=== PATIENT | male | born 1995 | race Caucasian/White ===

== ENCOUNTER 2021-04-25 22:55 | Emergency (ER) | payer OTHER, SELFPAY ==
--- OUTSIDE RECORDS SUMMARY | 2021-04-25 22:59 | XMS REPORT | Continuity of Care Document ---
:1995 Author Organization [facility] t Address [address] [place] [address] Care Team Providers Name Role Phone DR KEISHA CHRISTENSEN Attending Clinician Unavailable DR ALAINA BUTT Attending Clinician Unavailable DR Samuel CHRISTENSEN Admitting Clinician Unavailable DR ALAINA BUTT Admitting Clinician Unavailable Problems This patient has no known problems. Allergies, Adverse Reactions, Alerts This patient has no known allergies or adverse reactions. Medications This patient has no known medications. Procedures This patient has no known procedures. Encounters Start End Encounter Admission Attending Care Care Encounter Source Date/Time Date/Time Type Type Clinicians Facility Department ID 2020-12-13 2020-12-13 Emergency E KEISHA [facility]RISTENSEN [facility] [id number] [facility] 22:26:00 23:23:00 [facility] [place] 2018-05-17 2018-05-17 Emergency E DAQUAN [facility] [id number] [facility] 03:57:00 05:14:00 [facility] 2017-11-11 2017-11-11 Emergency E KEISHA CHRISTENSEN [facility] [id number] [facility] 19:21:00 [facility]:04:[facility] [place] Results Test Description Test Time Test Comments Results Result [facility] e Comments XR CHEST 1 VIEW 2018-05-17 XR CHEST 1 VIEW PORTABLE 05:05:34 PORTABLE[address] hours services provided 05/17/2018 5:02 AMIndication:R07.9: CHEST PAIN, UNSPECIFIEDComparison :2/indings:The lungs are equally and symmetrically inflated. The trachea ismidline. The cardiac silhouette is normal in size. No acute bony abnormality.Impressio n:No acute cardiopulmonary disease. D-DIMER 2018-05-17 04:56:00 Test Item Value Reference Range Interpretation Comme nts D-DIMER (test code = DDI) <200 ng/mL D-DU 0-234 D-DIMER COMMENT (test code = DDCOM) *Level to rule out DVT or PE: < 235 ng/mL D-DU* PRO TIME AND [id number] 04:54:00 Test Item Value Reference Range Interpretation Comments PT (test code = 10.6 s 9.8-13.6 TT) INR (test code = 0.9 INR) INRH (test code = SUGGESTED INRH) THERAPEUTIC RANGE FOR INR: 2.5 - 3.5 For Patients with Prosthetic Valves or Patients with recurrent Thromboembolic Events 2.0 - 3.0 For Most Other Applications PTT (test code = 30.0 s 20.2-38.0 PTT) PTTH (test code = To monitor the PTTH) effectiveness of heparin, we offer the Anti-Xa (Heparin Assay). It can be used for either unfractionated or LMW Heparin. Order Code is ANTI-XA BRAIN NATRIURETIC [id number] 04:46:00 Test Item Value Reference Range Interpretation Comments proBNP (test code = PBNP) 8 pg/mL 0-125 CARDIAC [id number] 04:43:00 Test Item Value Reference Range Interpretation Comments TROPONIN I (test code = A84) <0.015 ng/mL 0.000-0.045 CKMB (test code = A49) <1.0 ng/mL <=3.6 CPK (test code = 32A) 149 IU/L 39-308 COMPREHENSIVE METABOLIC [id number] 04:41:00 Test Item Value Reference Range Interpretation Comments GLUCOSE (test code = 06D) 100 mg/dL 75-100 SODIUM (test code = 01A) 141 mmol/L 136-145 POTASSIUM (test code = 01B) 3.6 mmol/L 3.6-5.1 CHLORIDE (test code = 04A) 107 mmol/L 98-107 CO2 (test code = 02A) 28 mmol/L 22-32 ANION GAP (test code = ANG) 9.6 mmol/L BUN (test code = 05D) 11 mg/dL 7-18 CREATININE (test code = 03E) 1.0 mg/dL 0.7-1.3 BUN/CREA (test code = BCR) 11 12-20 L CALCIUM (test code = 09D) 9.2 mg/dL 8.3-9.5 BILI TOTAL (test code = 11A) 0.3 mg/dL 0.2-1.0 PROTEIN (test code = 07D) 7.2 g/dL 6.4-8.2 ALBUMIN (test code = 08D) 4.1 g/dL 3.5-4.8 GLOBULIN (test code = GLB) 3.1 g/dL 1.5-3.8 ALB/GLOB (test code = AGRR) 1.3 1.0-2.6 ALK PHOS (test code = 35A) 130 IU/L 42-121 H AST (test code = 30A) 22 IU/L <=42 ALT (test code = 31A) 37 IU/L <=78 AMYLASE AND [id number] 04:41:00 Test Item Value Reference Range Interpretation Comments AMYLASE (test code = 10A) 34 U/L 28-100 LIPASE (test code = 60A) 128 IU/L 73-393 ALCOHOL BLOOD (ETOH)2018-05-17 04:38:00 Test Item Value Reference Range Interpretation Comments ETOH (test code = HALC) ETHANOL The result is to be used only for medical purposes ALCOHOL (test code = <10 mg/dL <=10 56A) DRUGS OF [id number] 04:31:00 Test Item Value Reference Range Interpretation Comments DRUG SCRN (test code URINE DRUG SCREEN = HDOA) This is an unconfirmed screening result and should not be used for non-medical purposes CANNABINOD (test code Negative NEGATIVE = 88C) AMPHETAMINE (test Negative NEGATIVE code = 84A) BENZODIAZP (test code Negative NEGATIVE = 86A) BARBITURAT (test code Negative NEGATIVE = 85A) OPIATES (test code = Negative NEGATIVE 92B) COCAINE (test code = Negative NEGATIVE 87A) PHENCYCLID (test code Negative NEGATIVE = 66A) METHADONE (test code Negative NEGATIVE = 64A) DOAH (test code = DOAH) *URINE DRUG SCREEN Cut-off values are as follows: Cannabinoids 50 ng/mL Cocaine 300 ng/mL Amphetamines 1000 ng/mL Phencyclidine 25 ng/mL Benzodiazepines 200 ng.mL Methadone 300 ng/mL Barbiturates 200 ng/mL Opiates 2000 ng/mL CBC (INCLUDES AUTOMATED DIFFERENTIAL)2018-05-17 04:18:00 Test Item Value Reference Range Interpretation Comments WBC (test code = WBC) 9.5 10\S\3/uL 4.5-11.0 RBC (test code = RBC) 4.90 10\S\6/uL 4.30-5.70 HGB (test code = HBG) 14.8 g/dL 14.0-18.0 HCT (test code = HCT) 43.5 % 35.0-46.0 MCV (test code = MCV) 88.8 fL 80.0-94.0 MCH (test code = MCH) 30.2 pg 27.0-31.0 MCHC (test code = MCHC) 34.0 g/dL 32.0-36.0 RDW (test code = RDW) 13.2 % 11.5-14.5 PLT (test code = PLT) 271 10\S\3/uL 130-400 MPV (test code = MPV) 9.8 fL 9.4-12.4 NEUTROP # (test code = NE#) 5.6 10\S\3/uL 2.0-8.0 LYMPH # (test code = LY#) 2.9 10\S\3/uL 1.2-4.0 MONOCYTE # (test code = MO#) 0.8 10\S\3/uL 0.0-1.1 EOSINOPH # (test code = EO#) 0.2 10\S\3/uL 0.0-0.7 BASOPHIL # (test code = BA#) 0.0 10\S\3/uL 0.0-0.3 IG # (test code = IG#) 0.03 10\S\3/uL 0.00-0.06 NRBC # (test code = NRBC#) 0.00 10\S\3/uL 0.00-0.01 NEUTROPH % (test code = NE%) 58.8 % 35.0-73.0 LYMPH % (test code = LY%) 30.8 % 20.0-55.0 MONO % (test code = MO%) 7.9 % 2.5-10.0 EOSINOPH % (test code = EO%) 1.8 % 0.0-5.0 BASOPHIL % (test code = BA%) 0.4 % 0.0-2.0 IG % (test code = IG%) 0.3 % 0.0-0.8 NRBC% (test code = NRBC%) 0.0 % 0.0-0.2 MANDIFF (test code = MDIFF) NO NO RBC MORPH (test code = RBCMOR) NORMAL DRUGS OF [id number] 20:50:00 Test Item Value Reference Range Interpretation Comments DRUG SCRN (test code URINE DRUG SCREEN = HDOA) This is an unconfirmed screening result and should not be used for non-medical purposes CANNABINOD (test code Negative NEGATIVE = 88C) AMPHETAMINE (test Negative NEGATIVE code = 84A) BENZODIAZP (test code Negative NEGATIVE = 86A) BARBITURAT (test code Negative NEGATIVE = 85A) OPIATES (test code = Negative NEGATIVE 92B) COCAINE (test code = Negative NEGATIVE 87A) PHENCYCLID (test code Negative NEGATIVE = 66A) METHADONE (test code Negative NEGATIVE = 64A) DOAH (test code = DOAH) *URINE DRUG SCREEN Cut-off values are as follows: Cannabinoids 50 ng/mL Cocaine 300 ng/mL Amphetamines 1000 ng/mL Phencyclidine 25 ng/mL Benzodiazepines 200 ng.mL Methadone 300 ng/mL Barbiturates 200 ng/mL Opiates 2000 ng/mL CT HEAD W/O [id number] 20:28:53AFTER HOURS SERVICE ON: 11/11/2017 8:27 PMCT Scan of the Brain Without ContrastLocation Code [id number]: R42: DIZZINESS AND GIDDINESSTechnique: Scans were performed on a helical scanner pre IV contrast only. Thestudy is limited secondary to lack of intravenous contrast, particularly forevaluation of masses. CT images were performed within 24 hours at arrival tot facility. One or more of the following dose reduction techniques were used: Automatedexposure control, adjustment of the mA and/or kV according to patient size,and/or utilization of iterative reconstruction technique.Findings: There is no hydrocephalus. Basal cisterns are patent. There is no intracranialhyperdense hemorrhage. There is no midline shift or mass effect. No effacementof the urrutia-white matter junction to indicate acute infarct ion. Impression:No acute intracranial CT findings.ALCOHOL BLOOD (ETOH) 2017-11-11 20:27:00 Test Item Value Reference Range Interpretation Comments ETOH (test code = HALC) ETHANOL The result is to be used only for medical purposes ALCOHOL (test code = <10 mg/dL <=10 56A) [id number] 20:23:00 Test Item Value Reference Range Interpretation Comments CPK (test code = 32A) 164 IU/L 39-308 COMPREHENSIVE METABOLIC [id number] 20:23:00 Test Item Value Reference Range Interpretation Comments GLUCOSE (test code = 06D) 91 mg/dL 75-100 SODIUM (test code = 01A) 140 mmol/L 136-145 POTASSIUM (test code = 01B) 3.8 mmol/L 3.6-5.1 CHLORIDE (test code = 04A) 104 mmol/L 98-107 CO2 (test code = 02A) 29 mmol/L 22-32 ANION GAP (test code = ANG) 10.8 mmol/L BUN (test code = 05D) 10 mg/dL 7-18 CREATININE (test code = 03E) 0.9 mg/dL 0.7-1.3 BUN/CREA (test code = BCR) 11 12-20 L CALCIUM (test code = 09D) 9.5 mg/dL 8.3-9.5 BILI TOTAL (test code = 11A) 0.3 mg/dL 0.2-1.0 PROTEIN (test code = 07D) 7.9 g/dL 6.4-8.2 ALBUMIN (test code = 08D) 4.6 g/dL 3.5-4.8 GLOBULIN (test code = GLB) 3.3 g/dL 1.5-3.8 ALB/GLOB (test code = AGRR) 1.4 1.0-2.6 ALK PHOS (test code = 35A) 124 IU/L 42-121 H AST (test code = 30A) 21 IU/L <=42 ALT (test code = 31A) 31 IU/L <=78 TROPONIN [id number] 20:20:00 Test Item Value Reference Range Interpretation Comments TROPONIN I (test code = A84) <0.015 ng/mL 0.000-0.045 PRO TIME AND [id number] 20:15:00 Test Item Value Reference Range Interpretation Comments PT (test code = 11.1 s 9.8-13.6 TT) INR (test code = 1.0 INR) INRH (test code = SUGGESTED INRH) THERAPEUTIC RANGE FOR INR: 2.5 - 3.5 For Patients with Prosthetic Valves or Patients with recurrent Thromboembolic Events 2.0 - 3.0 For Most Other Applications PTT (test code = 27.5 s 20.2-38.0 PTT) PTTH (test code = To monitor the PTTH) effectiveness of heparin, we offer the Anti-Xa (Heparin Assay). It can be used for either unfractionated or LMW Heparin. Order Code is ANTI-XA CBC (INCLUDES AUTOMATED DIFFERENTIAL)2017-11-11 20:12:00 Test Item Value Reference Range Interpretation Comments WBC (test code = WBC) 7.4 10\S\3/uL 4.5-11.0 RBC (test code = RBC) 4.61 10\S\6/uL 4.30-5.70 HGB (test code = HBG) 13.7 g/dL 14.0-18.0 L HCT (test code = HCT) 40.6 % 35.0-46.0 MCV (test code = MCV) 88.1 fL 80.0-94.0 MCH (test code = MCH) 29.7 pg 27.0-31.0 MCHC (test code = MCHC) 33.7 g/dL 32.0-36.0 RDW (test code = RDW) 12.9 % 11.5-14.5 PLT (test code = PLT) 299 10\S\3/uL 130-400 MPV (test code = MPV) 10.1 fL 9.4-12.4 NEUTROP # (test code = NE#) 4.1 10\S\3/uL 2.0-8.0 LYMPH # (test code = LY#) 2.6 10\S\3/uL 1.2-4.0 MONOCYTE # (test code = MO#) 0.5 10\S\3/uL 0.0-1.1 EOSINOPH # (test code = EO#) 0.1 10\S\3/uL 0.0-0.7 BASOPHIL # (test code = BA#) 0.0 10\S\3/uL 0.0-0.3 IG # (test code = IG#) 0.02 10\S\3/uL 0.00-0.06 NRBC # (test code = NRBC#) 0.00 10\S\3/uL 0.00-0.01 NEUTROPH % (test code = NE%) 55.3 % 35.0-73.0 LYMPH % (test code = LY%) 35.3 % 20.0-55.0 MONO % (test code = MO%) 7.2 % 2.5-10.0 EOSINOPH % (test code = EO%) 1.5 % 0.0-5.0 BASOPHIL % (test code = BA%) 0.4 % 0.0-2.0 IG % (test code = IG%) 0.3 % 0.0-0.8 NRBC% (test code = NRBC%) 0.0 % 0.0-0.2 MANDIFF (test code = MDIFF) NO NO RBC MORPH (test code = RBCMOR) NORMAL XR CHEST 1 VIEW [id number] 19:59:42Portable chest one view.HISTORY: DizzinessLocation R 16COMMENT: No comparison. No pleural effusion. The lungs are clear and normallyexpanded. The cardiac silhouette is unremarkable. Skeletal structuresarenormal in appearance.IMPRESSION: No active disease in the chest.
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
[2021-04-26] MEDS ORDERED: HYDROCODONE/APAP 10/325 TAB ONE (00:38)
[2021-04-26] MEDS ORDERED: predniSONE 20 MG TAB ONE (00:38)
[2021-04-26 01:19] VITALS: BP 141/92; TEMP 98.9; O2SAT 99
== END 2021-04-26 00:41 | disposition home or self-care (01) ==
LOC: ER 22:55
DX: L55.0 Sunburn of first degree (principal); F17.210 Nicotine dependence, cigarettes, uncomplicated
CPT/HCPCS: 99283; J7512

== ENCOUNTER 2022-11-03 17:49 | Emergency (ER) | payer SELFPAY ==
--- OUTSIDE RECORDS SUMMARY | 2022-11-03 18:02 | XMS REPORT | Continuity of Care Document ---
:1995 Author Organization [facility] t Address [address] [place] [address] Care Team Providers Name Role Phone MAKENZIE BONDS Primary Care Physician Unavailable SE CALHOUN Attending Clinician Unavailable Se Calhoun DO Attending Clinician URIEL HEAD Attending Clinician Unavailable Uriel Head MD Attending Clinician DR SAMMIE ALVARADO Attending Clinician Unavailable ANEL BHAT Attending Clinician Unavailable Anel Bhat DO Attending Clinician NORRIS ALEX Attending Clinician Unavailable Norris Alex MD Attending Clinician Preethi GARCIA Attending Clinician Unavailable Preethi Wu Attending Clinician AMBREEN_SHIVAA Attending Clinician Unavailable Jayce Mcnulty Attending Clinician JAYCE PENN Attending Clinician Unavailable Zuniga_S Attending Clinician Unavailable DR KEISHA CHRISTENSEN Attending Clinician Unavailable DR PATRICIA BUTT Attending Clinician Unavailable MADELINE ARMSTRONG Attending Clinician Unavailable URIEL HEAD Admitting Clinician Unavailable DR SAMMIE ALVARADO Admitting Clinician Unavailable NORRIS ALEX Admitting Clinician Unavailable AMBREENNELLIE Admitting Clinician Unavailable Zuniga_S Admitting Clinician Unavailable DR KEISHA CHRISTENSEN Admitting Clinician Unavailable DR PATRICIA BUTT Admitting Clinician Unavailable Payers Payer Name Policy Type Policy Number Effective Date Expiration Date S ource 1000 [id number] 2022 00:00[facility]00 [facility] INC 00:00:00 Problems Condition Condition Condition Status Onset Resolution Last Treating Co mments Source Name Details Category Date Date Treatment Clinician Date 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 00:00: Medica l 00 Group Cervical Cervical Problem Active [place] radiculopa Radiculopa 5-16 da thy thy 00:00: Medical 00 Group Strain of Strain of Problem Active [place] neck Neck 5-16 da muscle Muscle 00:00: Medical 00 Group No known No known Disease Unive rs active active ity of problems problems [facility] Allergies, Adverse Reactions, Alerts Allergy Allergy Status Severity Reaction(s) Onset Inactive Treating Comm ents Source Name Type Date Date Clinician No Known DA Active Unknown [facility]29 Medical Allergie 00:00: [place] s 00 NO KNOWN Drug Active Univers ALLERGIE Class ity of S [facility] Social History Social Habit Start Date Stop Date Quantity Comments Source Exposure to 2022-10-19 2022-10-29 Not sure [facility] SARS-CoV-2 (event) 00:00:00 23:25:00 Medica l Branch Sex Assigned At [birth year] [facility] 00:00:00 00:00:00 Medical Branch Smoking Status Start Date Stop Date Source Tobacco smoking consumption [facility] Medical unknown Branch Light Tobacco Smoker Vanessa Diaz edical Group Medications Ordered Filled Start Stop Current Ordering Indication Dosage Frequency Signature Comments Components Source Medication Medication Date Date Medication? Clinician (SIG) Name Name NaCl 0.9% 2021-10 No 500mL at 999 Univ ers (NS) bolus -20 11-20 mL/hr, 500 it y of infusion 09:30: 09:24 mL, IV [place] 500 mL 00 :00 Piggyback, Medical ONCE, 1 Branch dose, On 08/27/22 at 0330, STAT ketorolac 2021-10 No 15mg 15 mg, Unive rs (TORADOL) -20 11-20 Slow IV ity of injection 09:30: 08:48 Push, [place] 15 mg 00 :00 ONCE, 1 Medical dose, On Branch 08/27/22 at 0330, TOSHA famotidine 2021-10- No 20mg 20 mg, Univ ers (PEPCID 1-20 11-20 Slow IV ity of (PF)) 08:45: 08:48 Push, [place] injection 00 :00 ONCE, 1 Medical 20 mg dose, On Branch 08/27/22 at 0245, TOSHA famotidine 2021-10 Yes [id number] 20mg Take 1 Un james (PEPCID) 20 1-20 tablet by ity of mg tablet 00:00: mouth [place] 00 the Medical morning Branch and 1 tablet in the evening. famotidine 2021-10 Yes [id number] 20mg Take 1 Un james (PEPCID) 20 1-20 tablet by ity of mg tablet 00:00: [place] 00 the Medical morning Branch and 1 tablet in the evening. famotidine 2021-10 Yes [id number] 20mg Take 1 Un james (PEPCID) 20 1-20 tablet by ity of mg tablet 00:00: [place] 00 the Medical morning Branch and 1 tablet in the evening. famotidine 2021-10 Yes [id number] 20mg Take 1 Un james (PEPCID) 20 1-20 tablet by ity of mg tablet 00:00: [place] 00 the Medical morning Branch and 1 tablet in the evening. ibuprofen 2021-10 Yes [id number] 600mg Take 1 Univers 600 mg 0-19 tablet by ity of tablet 00:00: mouth [place] 00 every 6 Medical (six) Branch hours as needed for Pain (scale 4-6). benzonatate 2021-10 Yes [id number] 200mg Take 1 Univers 200 mg 0-19 capsule by ity of capsule 00:00: mouth 3 [place] 00 (three) Medical times Branch daily as needed for Cough for up to 20 doses. ondansetron 2021-10 Yes [id number] 4mg Take 1 Univers 4 mg 0-19 tablet by ity of disintegrat 00:00: mouth [place] ing tablet 00 every 8 Medica l (eight) Branch hours as needed for Nausea and Vomiting (N/V). ibuprofen 2021-10 Yes [id number] 600mg Take 1 Univers 600 mg 0-19 tablet by ity of tablet 00:00: mouth [place] 00 every 6 Medical (six) Branch hours as needed for Pain (scale 4-6). benzonatate 2021-10 Yes [id number] 200mg Take 1 Univers 200 mg 0-19 capsule by ity of capsule 00:00: mouth 3 (three) Medical times Branch daily as needed for Cough for up to 20 doses. ondansetron 2021-10 Yes [id number] 4mg Take 1 Univers 4 mg 0-19 tablet by ity of disintegrat 00:00: mouth [place] ing tablet 00 every 8 Medica l (eight) Branch hours as needed for Nausea and Vomiting (N/V). ibuprofen 2021-10 Yes [id number] 600mg Take 1 Univers 600 mg 0-19 tablet by ity of tablet 00:00: mouth [place] 00 every 6 Medical (six) Branch hours as needed for Pain (scale 4-6). benzonatate 2021-10 Yes [id number] 200mg Take 1 Univers 200 mg 0-19 capsule by ity of capsule 00:00: mouth 3 [place] (three) Medical times Branch daily as needed for Cough for up to 20 doses. ondansetron 2021-10 Yes [id number] 4mg Take 1 Univers 4 mg 0-19 tablet by ity of disintegrat 00:00: mouth [place] ing tablet 00 every 8 Medica l (eight) Branch hours as needed for Nausea and Vomiting (N/V). ibuprofen 2021-10 Yes [id number] 600mg Take 1 Univers 600 mg 0-19 tablet by ity of tablet 00:00: mouth [place] 00 every 6 Medical (six) Branch hours as needed for Pain (scale 4-6). benzonatate 2021-10 Yes [id number] 200mg Take 1 Univers 200 mg 0-19 capsule by ity of capsule 00:00: mouth 3 [place] 00 (three) Medical times Branch daily as needed for Cough for up to 20 doses. ondansetron 2021-10 Yes [id number] 4mg Take 1 Univers 4 mg 0-19 tablet by ity of disintegrat 00:00: mouth [place] ing tablet 00 every 8 Medica l (eight) Branch hours as needed for Nausea and Vomiting (N/V). ibuprofen 2021-10 Yes [id number] 600mg Take 1 Univers 600 mg 0-19 tablet by ity of tablet 00:00: mouth [place] 00 every 6 Medical (six) Branch hours as needed for Pain (scale 4-6). benzonatate 2021-10 Yes [id number] 200mg Take 1 Univers 200 mg 0-19 capsule by ity of capsule 00:00: mouth 3 [place] 00 (three) Medical times Branch daily as needed for Cough for up to 20 doses. ondansetron 2021-10 Yes [id number] 4mg Take 1 Univers 4 mg 0-19 tablet by ity of disintegrat 00:00: mouth [place] ing tablet 00 every 8 Medica l (eight) Branch hours as needed for Nausea and Vomiting (N/V). maalox:diph 2021- No 15mL 15 mL, Uni vers enhydrAMINE 04-12 Oral, ity of :lidocaine 23:30: :22 ONCE, 1 Justin as 2 % viscous 00 :00 dose, On Medi hernando 1:1:1 04/12/22 Branch (FIRST-MOUT at 1830, [facility]) Routine oral suspension 15 mL penicillin 2021- No 1.210 1.2 Unive rs g 7-06 07-07 Million ity of benzathine 23:30: 00:22 Units, [place] (BICILLIN 00 :00 Intramuscu Medi hernando L-A) lar, ONCE, Branch injection 1 dose, On 1.2 Million 04/12/22 Units at 1830, TOSHA
Re ason for Anti-Infec tive: Documented Infection< br>Documen nieves Infection Site: HEENT
D uration of Therapy: 7 days dexamethaso 2021- No 10mg 10 mg, Uni vers ne sod phos 04-12 Intramuscu i ty of PF 23:30: 23:30 lar, ONCE, [place] injection 00 :00 1 dose, On Medi hernando 10 mg 04/12/22 Branch at 1830, 1 mL acetaminoph No 1000mg 1,000 mg, Univers en 04-12 Oral, ity of (TYLENOL) 23:00: 22:58 ONCE, 1 [place] tablet 00 :00 dose, On Medical 1,000 mg Sun04/12/22 Branc h at 1800, TOSHA No known No Univers medications 04-12 ity of 17:46: [address] cyclobenzap cyclobenzap No 1 TID cyclobenza [place] rine 10 mg rine 10 mg edgard 10 da tablet Take tablet Take mg tablet Medical 1 tablet 3 1 tablet 3 Take 1 G roup times a day times a day tablet 3 by oral by oral times a route as route as day by needed. needed. oral route as needed. ibuprofen ibuprofen No 1 TID ibuprofen [place] 800 mg 800 mg 800 mg da tablet Take tablet Take tablet Medical 1 tablet 3 1 tablet 3 Take 1 G roup times a day times a day tablet 3 by oral by oral times a route as route as day by needed. needed. oral route as needed. Immunizations Ordered Filled Immunization Date Status Comments [facility] e Immunization Name Name HEPATITIS A 2000-12-20 Completed University of 00:00:00 [facility] MMR 2000-11-14 Completed University of 00:00:00 [facility] DTAP 2000-11-14 Completed University of 00:00:00 [facility] Polio (IPV/OPV) 2000-11-14 Completed Universit y of 00:00:00 [facility] Hep B, Adol or Pedi 2000-05-30 Completed Unive rsity of Dosage 00:00:00 [facility] MMR 2000-05-30 Completed University of 00:00:00 [facility] Varicella 2000-05-30 Completed University of (varivax)(chicken 00:00:00 [place] M edical pox) Branch DTAP 2000-05-30 Completed University of 00:00:00 [facility] HIB 4 Dose Schedule 2000-05-30 Completed Unive rsity of 00:00:00 [facility] Polio (IPV/OPV) 2000-05-30 Completed Universit y of 00:00:00 [facility] HIB 4 Dose Schedule 1999-12-04 Completed Unive rsity of 00:00:00 [facility] Polio (IPV/OPV) 1996 Completed Universit y of 00:00:00 [facility] Hep B, Adol or Pedi 1996 Completed Unive rsity of Dosage 00:00:00 [facility] DTAP 1996 Completed University of 00:00:00 [facility] Hep B, Adol or Pedi 1996 Completed Unive rsity of Dosage 00:00:00 [facility] Vital Signs Vital Name Observation Time Observation Value Comments Source Systolic blood 2022-10-30 06:00:00 121 mm[Hg] Univer sity of pressure [facility] Diastolic blood 2022-10-30 06:00:00 80 mm[Hg] Unive rsity of pressure [facility] Heart rate 2022-10-30 06:00:00 73 /min [facility] Respiratory rate 2022-10-30 06:00:00 13 /min [facility] Oxygen saturation in 2022-10-30 06:00:00 98 /min [facility] Arterial blood by [facility] Pulse oximetry Branch Body temperature 2022-10-30 05:27:00 37.22 Raquel [facility] height 2022-10-30 05:27:00 165.1 cm [facility] Body weight 2022-10-30 05:27:00 68.493 kg [facility] BMI 2022-10-30 05:27:00 25.13 kg/m2 Universi ty of [place] [facility] Systolic blood 2022-10-19 06:30:00 137 mm[Hg] Univer sity of pressure [place] [facility] Diastolic blood 2022-10-19 06:30:00 98 mm[Hg] Unive rsity of pressure [place] [facility] Heart rate 2022-10-19 06:30:00 88 /min Universi ty of [place] [facility] Body temperature 2022-10-19 06:30:00 37 Raquel Univ ersity of [place] [facility] Respiratory rate 2022-10-19 06:30:00 16 /min Univ ersity of [place] [facility] Body height 2022-10-19 06:30:00 165.1 cm Universi ty of [place] [facility] Body weight 2022-10-19 06:30:00 66.906 kg Universi ty of [place] [facility] BMI 2022-10-19 06:30:00 24.55 kg/m2 Universi ty of [place] [facility] Oxygen saturation in 2022-10-19 06:30:00 99 /min University of Arterial blood by [employer] hernando Pulse oximetry Branch Height 2022-10-14 10:57:00 165.1 CM Weight 2022-10-14 10:57:00 65.77 KG Systolic blood 2022-10-09 21:02:00 137 mm[Hg] Univer sity of pressure [place] [facility] Diastolic blood 2022-10-09 21:02:00 80 mm[Hg] Unive rsity of pressure [place] [facility] Heart rate 2022-10-09 21:02:00 102 /min Universi ty of [place] [facility] Body temperature 2022-10-09 21:02:00 37.11 Raquel Univ ersity of [place] [facility] Respiratory rate 2022-10-09 21:02:00 16 /min Univ ersity of [place] [facility] Body height 2022-10-09 21:02:00 162.6 cm Universi ty of [place] [facility] Body weight 2022-10-09 21:02:00 65.772 kg Universi ty of [place] [facility] BMI 2022-10-09 21:02:00 24.89 kg/m2 Universi ty of [place] [facility] Oxygen saturation in 2022-10-09 21:02:00 100 /min University of Arterial blood by [employer] hernando Pulse oximetry Branch Body temperature 2022-08-27 08:10:00 36.22 Raquel Univ ersity [facility] [place] [facility] Respiratory rate 2022-08-27 08:10:00 17 /min Univ ersity of [place] [facility] Body height 2022-08-27 08:10:00 162.6 cm Universi ty [facility] [place] [facility] Body weight 2022-08-27 08:10:00 65.772 kg Universi ty [facility] [place] [facility] BMI 2022-08-27 08:10:00 24.89 kg/m2 Universi ty of [place] [facility] Oxygen saturation in 2022-08-27 08:10:00 100 /min University of Arterial blood by [place] [employer] hernando Pulse oximetry Branch Systolic blood 2022-08-27 08:10:00 135 mm[Hg] Univer sity of pressure [place] [facility] Diastolic blood 2022-08-27 08:10:00 93 mm[Hg] Unive rsity of pressure [place] [facility] Heart rate 2022-08-27 08:10:00 100 /min Universi ty [facility] [place] [facility] Systolic blood 2022-07-26 15:25:00 131 mm[Hg] Univer sity of pressure [place] [facility] Diastolic blood 2022-07-26 15:25:00 87 mm[Hg] Unive rsity of pressure [place] [facility] Heart rate 2022-07-26 15:25:00 98 /min Universi ty of [place] [facility] Body temperature 2022-07-26 15:25:00 37.33 Raquel Univ ersity of [place] [facility] Respiratory rate 2022-07-26 15:25:00 18 /min Univ ersity [facility] [place] [facility] Body weight 2022-07-26 15:25:00 63.504 kg [facility]i ty [facility] [place] [facility] BMI 2022-07-26 15:25:00 22.60 kg/m2 Universi ty [facility] [place] [facility] Oxygen saturation in 2022-07-26 15:25:00 98 /min University of Arterial blood by [employer] hernando Pulse oximetry Branch Systolic blood 2022-04-12 22:52:00 121 mm[Hg] Univer sity of pressure [place] [facility] Diastolic blood 2022-04-12 22:52:00 80 mm[Hg] Unive rsity of pressure [place] [facility] Heart rate 2022-04-12 22:52:00 108 /min Universi ty [facility] [place] [facility] Body temperature 2022-04-12 22:52:00 39.11 Raquel [facility] Respiratory rate 2022-04-12 22:52:00 24 /min [facility] Body height 2022-04-12 22:52:00 167.6 cm [facility] Body weight 2022-04-12 22:52:00 63.504 kg [facility] BMI 2022-04-12 22:52:00 22.60 kg/m2 [facility] Oxygen saturation in 2022-04-12 22:52:00 98 /min [facility] Arterial blood by [facility] Pulse oximetry Branch BP Diastolic 2022-02-17 00:00:00 75 [facility]Hg] [facility] Height 2022-02-17 00:00:00 65 [in_i] [facility] BMI (Body Mass 2022-02-17 00:00:00 24 kg/m2 [facility]) Group BP Systolic 2022-02-17 00:00:00 121 mm[Hg] [facility] Body Weight 2022-02-17 00:00:00 2304 [oz_av] [facility] Height 2020-12-13 22:38:00 170.18 CM Weight 2020-12-13 22:38:00 63.5 KG Procedures Procedure Date / Time Performed Performing Clinician Sour e XR CHEST 1 VW 2022-10-30 05:46:16 Singer [facility] LIPASE 2022-10-30 05:37:00 Singer [facility] MAGNESIUM 2022-10-30 05:37:00 Singer [facility] TROPONIN I 2022-10-30 05:37:00 Singer [facility] COMP. METABOLIC PANEL 2022-10-30 05:37:00 [facility] ([id number]) [facility] CBC WITH DIFF 2022-10-30 05:37:00 Singer [facility] D-DIMER 2022-10-30 05:37:00 Singer [facility] N-TERMINAL PRO-BNP 2022-10-30 05:37:00 Se Calhoun [facility] CONSENT/REFUSAL FOR 2022-10-30 05:18:02 Doctor Unassigned, No Un [facility] [place] DIAGNOSIS AND Name Medical Branch TREATMENT EKG-12 LEAD 2022-10-19 08:20:54 Uriel Head [facility] XR CHEST 1 VW 2022-10-19 07:06:34 Uriel Head [facility] NOTICE OF PRIVACY 2022-10-19 06:22:28 Doctor Unassigned, No [facility] Name Medical Branch CONSENT/REFUSAL FOR 2022-10-09 20:55:57 Doctor Unassigned, No Un [facility] [place] DIAGNOSIS AND Name Medical Branch TREATMENT EKG-12 LEAD 2022-08-27 09:19:11 Norris Alex [facility] XR CHEST 1 VW 2022-08-27 08:29:00 Norris Alex [facility] TROPONIN I 2022-08-27 08:17:00 Norris Alex [facility] COMP. METABOLIC PANEL 2022-08-27 08:17:00 Norris Alex [facility] ([id number]) Medical Branch CBC WITH DIFF 2022-08-27 08:17:00 Norris Alex [facility] NOTICE OF PRIVACY 2022-08-27 08:03:42 Doctor Unassigned, No [facility] Name [facility] Branch CONSENT/REFUSAL FOR 2022-08-27 08:02:51 Doctor Unassigned, No [facility] [place] DIAGNOSIS AND Name Medical Branch TREATMENT RAPID INFLUENZA A/B 2022-07-26 15:28:00 Norris Alex [facility] Medical Branch COVID-19 (ID NOW 2022-07-26 15:28:00 Norris Alex [facility] RAPID TESTING) Medical Branch CONSENT/REFUSAL FOR 2022-07-26 15:22:01 Doctor Unassigned, No [facility] [place] DIAGNOSIS AND Name Medical Branch TREATMENT RAPID STREP SCREEN 2022-04-12 22:57:00 Jayce Penn [facility] FOR GROUP A Medical Branch COVID-19 (ID NOW 2022-04-12 22:57:00 Jayce Penn [facility] RAPID TESTING) Medical Branch NOTICE OF PRIVACY 2022-04-12 22:49:56 Doctor Unassigned, No [facility] PRACTICES Name Medical Branch XR, 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, 2 2022-02-17 00:00:00 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 Medical or 3 view Group Encounters Start End Encounter Admission Attending Care Care Encounter Source Date/Time Date/Time Type Type Clinicians Facility Department ID 2022-10-29 2022-10-30 Emergency X [facility] ERT [id number] Univers 23:30:00 00:40:00 SE clancy [facility] 2022-10-29 2022-10-30 Emergency [facility] [id number] Univers 23:30:00 00:40:00 Se NEELY [id number] i ty [facility] [id number] [facility] [id number] [address] 2022-10-19 2022-10-19 Emergency [facility] [id number] Univers 00:28:00 02:31:00 [facility] 2022-10-19 2022-10-19 [facility] [id number] Univers 00:28:00 02:31:00 Uriel NEELY 350.1.13.10 ity [facility] [id number] [facility] [id number] [address] 2022-10-14 2022-10-14 Emergency E JENNY [facility] [id number] [facility] 10:19:00 13:40:00 [facility] 2022-10-09 2022-10-09 Emergency [facility] [id number] Univers 15:03:00 16:09:00 ANEL clancy [facility] 2022-10-09 2022-10-09 [facility] [id number] Univers 15:03:00 16:09:00 Anel NEELY 350.1.13.10 ity of [place] 4.2.7.2.686 [facility] [id number] [address] 2022-08-27 2022-08-27 Emergency X ABI, [facility] ERT [id number] Univers 02:02:00 03:30:00 NORRIS ity [facility] 2022-08-27 2022-08-27 Emergency Abi, [facility] [id number] Univers 02:02:00 03:30:00 Norris NEELY 350.1.13.10 i ty of [place] 4.2.7.2.686 [facility] [id number] [address] 2022-07-26 2022-07-26 Emergency X Preethi GARCIA [facility] ERT [id number] Univers 10:29:00 11:26:00 ity [facility] 2022-07-26 2022-07-26 Emergency Preethi Garcia [facility] [id number] Univers 10:29:00 11:26:00 Felicita NEELY 350.1.13.10 i ty of [place] 4.2.7.2.686 [facility] [id number] [address] 2022-04-19 2022-04-19 Outpatient AMBREEN_FAR [facility] [id number] [place] 03:49:00 03:49:00 HANA [id number] da [facility] Program 2022-04-12 2022-04-12 Emergency [facility] [id number] Univers 17:53:00 19:52:00 Jayce NEELY 350.1.13.10 i ty of [place] 4.2.7.2.686 [facility] [id number] [address] 2022-04-12 2022-04-12 Emergency X ISAMAR, [facility] ERT [id number] Univers 17:53:00 19:52:00 JAYCE itcandi [facility] 2022-02-23 2022-02-23 Outpatient Zuniga_S [facility] [id number] [place] 01:07:00 01:07:00 519 [facility] 2022-02-20 2022-02-20 Outpatient Zuniga_S [facility] [id number] [place] 10:19:00 10:19:00 516 [facility] 2022-02-20 2022-02-20 Outpatient Zuniga_S [facility] [id number] [place] 05:57:00 05:57:00 517 [facility] Group 2022-02-17 2022-02-17 Outpatient Zuniga_S [facility] [id number] [place] 05:30:00 05:30:00 513 da Medical Group 2022-02-17 2022-02-17 Antonia [facility] [place] - [id number] [place] 00:00:00 00:00:00 Discovery Kaiden da COOK CHEF-C: [address] Medical [facility] [place] - [address], [facility] [place] [address] , Ph. 2020-12-13 2020-12-13 Emergency E KEISHA CHRISTENSEN [facility] [id number] [facility] 22:26:00 23:23:00 Medica [facility] 2018-05-17 2018-05-17 Emergency E DAQUAN [facility] [id number] [facility] 03:57:00 05:14:00 PATRICIA [facility] 2017-11-11 2017-11-11 Emergency E KEISHA CHRISTENSEN [facility] [id number] [facility] 19:21:00 21:04:00 Medica [facility] 2013-10-17 2013-10-17 Emergency ER BA, [facility] [id number] [place] 13:21:00 14:43:00 -[id number] [facility] hospital Results Test Description Test Time Test Comments Results Result Comments Source D-DIMER 2022-10-30 06:15:32 Test Item Value Reference Range Interpretation Comme nts D-DIMER (test code = See_Comment [Autom ated message] The [id number]) system which ge nerated this result tra nsmitted reference range : <0.41 ?g/mL (). Th e reference range was not used to interpr et this result as normal/abnormal . FAIZA (test code = FAIZA) This test may be used in conjunction with a clinical pretest probability (PTP) assessment model to exclude venous thromboembolism (VTE) in patients suspected of deep venous thrombosis (DVT) and pulmonary embolism (PE) A D-Dimer value less than 0.50 ?g/ml (FEU) has a negative predicative value of 96 to 100% (95% CI)and 97 to 100% (95% CI) as an aid in the diagnosis of deep vein thrombosis (DVT) and pulmonary embolism when there is low or moderate pretest probability of PE or DVT. D-Dimer values are expressed in initial fibrinogen equivalent units (FEU)" The assay results should be used with other information, including the clinical context, in forming a diagnosis. Lab Interpretation Normal (test code = 45756-3) [facility] [id number] 06:05:50 Test Item Value Reference Interpretation Comments Range TROPONIN I (test 0.004 ng/mL See_Comment [Automated code = 2318441183) message] The system which generated this result transmitted reference range : <=0.034. The reference range was not used to interpret this result as normal/abnormal . FAIZA (test code = Reference (Normal) FAIZA) Range (defined by the 99th percentile reference limit): <= 0.034 ng/mL Note: Cardiac troponin begins to rise 3-4 hours after the onset of ischemia. Repeat in 4-6 hours if the sample was drawn within 3-4 hours of the onset of the symptom and found normal. Diagnosis of myocardial injury is made with acute changes in cTn concentrations with at least one serial sample above the 99th percentile upper reference limit (URL), taken together with the patient's clinical presentation. Biotin has been reported to cause a negative bias, interpret results relative to patient's use of biotin. Lab Interpretation Normal (test code = 20274-3) [id number] 06:02:29 Test Item Value Reference Range Interpretation Comments NT-proBNP (test code 22 pg/mL See_Comment [Autom ated = 1455844174) message] The system which generated this result transmitted reference range : <=125. The reference range was not used to interpret this result as normal/abnormal . FAIZA (test code = FAIZA) Biotin has been reported to cause a negative bias, interpret results relative to patient's use of biotin. Lab Interpretation Normal (test code = 30121-6) [facility] 05:54:05 Test Item Value Reference Range Interpretation Comments MAGNESIUM (test code = 1570950339) 2.2 mg/dL 1.7-2.4 Lab Interpretation (test code = Normal 51216-2) [facility] METABOLIC PANEL (42366)2022-10-30 05:53:45 Test Item Value Reference Range Interpretation Comments NA (test code = 139 mmol/L 135-145 8441278836) K (test code = 3.9 mmol/L 3.5-5.0 3494650697) CL (test code = 104 mmol/L 98-108 9473291262) CO2 TOTAL (test code = 26 mmol/L 23-31 6836196882) AGAP (test code = 2-16 2124211276) BUN (test code = 11 mg/dL 7-23 0318632569) GLUCOSE (test code = 119 mg/dL 70-110 H 2677530320) CREATININE (test code = 0.90 mg/dL 0.60-1.25 2511662875) TOTAL BILI (test code = 0.4 mg/dL 0.1-1.4 0261067644) CALCIUM (test code = 9.3 mg/dL 8.6-10.6 9422398405) T PROTEIN (test code = 7.5 g/dL 6.3-8.2 2384884907) ALBUMIN (test code = 4.7 g/dL 3.5-5.0 9915388177) ALK PHOS (test code = 103 U/L 34-122 4327513383) ALTv (test code = 30 U/L 5-50 1742-6) AST(SGOT) (test code = 24 U/L 13-40 8179247229) eGFR (test code = mL/min/1.73m2 0733222903) FAIZA (test code = FAIZA) Association of Glomerular Filtration Rate (GFR) and Staging of Kidney Disease* + --+ --+ ------+| GFR (mL/min/1.73 m2) ?| With Kidney Damage ?| ?Without Kidney Damage+ --------+ --------+ +| ?>90 ?| ?Stage one ?| ? Normal ?+ ---+ ---+ -------+| ?60-89 ?| ?Stage two ?| ? Decreased GFR ? + --+ --+ ------+| ?30-59 ?| ?Stage three ?| ? Stage three ? + --+ --+ ------+| ?15-29 ?| ?Stage four ? | ? Stage four ?+ ---+ ---+ -------+| ?<15 (or dialysis) ? ?| ?Stage five ? | ? Stage five ?+ ---+ ---+ -------+ *Each stage assumes the associated GFR level has been in effect for at least three months. ?Stages 1 to 5, with or without kidney disease, indicate chronic kidney disease. Notes: Determination of stages one and two (with eGFR >59mL/min/1.73 m2) requires estimation of kidney damage for at least three months as defined by structural or functional abnormalities of the kidney, manifested by either:Pathological abnormalities or Markers of kidney damage (including abnormalities in the composition of the blood or urine or abnormalities in imaging tests). Lab Interpretation Abnormal (test code = 94120-0) [facility] 05:53:25 Test Item Value Reference Range Interpretation Comments LIPASE (test code = 4532323488) 296 U/L 0-220 H Lab Interpretation (test code = Abnormal 80550-0) [facility] WITH [id number] 05:44:09 Test Item Value Reference Range Interpretation Comments WBC (test code = See_Comment [Automated 5589-2) message] The sy stem which generated this result transmitted reference range : 4.20 - 10.70 10*3/?L. The reference range was not used to interpret this result as normal/abnormal . RBC (test code = See_Comment [Automated 009-1) message] The sy stem which generated this result transmitted reference range : 4.26 - 5.52 10*6/?L. The reference range was not used to interpret this result as normal/abnormal . HGB (test code = 14.4 g/dL 12.2-16.4 558-7) HCT (test code = 42.5 % 38.4-49.3 4544-3) MCV (test code = 88.9 fL 81.7-95.6 787-2) MCH (test code = 30.1 pg 26.1-32.7 785-6) MCHC (test code = 33.9 g/dL 31.2-35.0 786-4) RDW-SD (test code = 40.7 fL 38.5-51.6 91818-7) RDW-CV (test code = 12.4 % 12.1-15.4 788-0) PLT (test code = See_Comment [Automated 777-3) message] The sy stem which generated this result transmitted reference range : 150 - 328 10*3/ ?L. The reference r ambar was not used to interpret this result as normal/abnormal . MPV (test code = 9.4 fL 9.8-13.0 L 89759-8) NRBC/100 WBC (test See_Comment [Automat ed code = 8115666440) message] The system which generated this result transmitted reference range : 0.0 - 10.0 /100 WBCs. The refer ence range was not u sed to interpret th is result as normal/abnormal . NRBC x10^3 (test code See_Comment [Auto mated = 5687416786) message] The s ystem which generated this result transmitted reference range : 10*3/?L. The reference range was not used to interpret this result as normal/abnormal . GRAN MAT (NEUT) % 47.4 % (test code = 770-8) IMM GRAN % (test code 0.20 % = 1551068396) LYMPH % (test code = 43.1 % 736-9) MONO % (test code = 6.8 % 5905-5) EOS % (test code = 1.9 % 713-8) BASO % (test code = 0.6 % 706-2) GRAN MAT x10^3(ANC) 4.19 10*3/uL 1.99-6.95 (test code = 2664181535) IMM GRAN x10^3 (test 0.00-0.06 code = 4403839640) LYMPH x10^3 (test code 3.81 10*3/uL 1.09-3.23 H = 731-0) MONO x10^3 (test code 0.60 10*3/uL 0.36-1.02 = 742-7) EOS x10^3 (test code = 0.17 10*3/uL 0.06-0.53 711-2) BASO x10^3 (test code 0.05 10*3/uL 0.01-0.09 = 704-7) Lab Interpretation Abnormal (test code = 14140-9) [facility] CampusDIRECT INFLUENZA A AND B [id number] 11:50:00 Test Item Value Reference Range Interpretation Comments Direct Exam (test PRESUMPTIVE NEGATIVE FOR code = DE1) THE PRESENCE OF INFLUENZA ANTIGEN SARS-CoV (RAPID ANTIGEN)2022-10-14 11:50:00 Test Item Value Reference Range Interpretation Comments SARS-CoV (ANTIGEN) NEGATIVE NEGATIVE (test code = COVAG) COVID AG (test This test has been code = COVAGC) marketed under the FDA Emergency Use Authorization (EUA) to meet challenges of the COVID-19 pandemic. The validation standards normally enforced by the FDA and the [employer] ([employer]) are more stringent than those required for this test. Therefore, the result should be interpreted with caution and close attention to other clinical and epidemiological data TROPONIN [id number] 09:09:10 Test Item Value Reference Interpretation Comments Range TROPONIN I (test 0.002 ng/mL See_Comment [Automated code = 9373368840) message] The system which generated this result transmitted reference range : <=0.034. The reference range was not used to interpret this result as normal/abnormal . FAIZA (test code = Reference (Normal) FAIZA) Range (defined by the 99th percentile reference limit): <= 0.034 ng/mL Note: Cardiac troponin begins to rise 3-4 hours after the onset of ischemia. Repeat in 4-6 hours if the sample was drawn within 3-4 hours of the onset of the symptom and found normal. Diagnosis of myocardial injury is made with acute changes in cTn concentrations with at least one serial sample above the 99th percentile upper reference limit (URL), taken together with the patient's clinical presentation. Biotin has been reported to cause a negative bias, interpret results relative to patient's use of biotin. Lab Interpretation Normal (test code = 25260-8) [facility] WITH [id number] 09:01:39 Test Item Value Reference Range Interpretation Comments WBC (test code = See_Comment H [Automated 6690-2) message] The sy stem which generated this result transmitted reference range : 4.20 - 10.70 10*3/?L. The reference range was not used to interpret this result as normal/abnormal . RBC (test code = See_Comment [Automated 789-8) message] The sy stem which generated this result transmitted reference range : 4.26 - 5.52 10*6/?L. The reference range was not used to interpret this result as normal/abnormal . HGB (test code = 16.1 g/dL 12.2-16.4 718-7) HCT (test code = 45.4 % 38.4-49.3 4544-3) MCV (test code = 87.1 fL 81.7-95.6 787-2) MCH (test code = 30.9 pg 26.1-32.7 785-6) MCHC (test code = 35.5 g/dL 31.2-35.0 H 786-4) RDW-SD (test code = 40.6 fL 38.5-51.6 51961-8) RDW-CV (test code = 12.8 % 12.1-15.4 788-0) PLT (test code = See_Comment [Automated 777-3) message] The sy stem which generated this result transmitted reference range : 150 - 328 10*3/ ?L. The reference r ambar was not used to interpret this result as normal/abnormal . MPV (test code = 9.8 fL 9.8-13.0 33055-2) NRBC/100 WBC (test See_Comment [Automat ed code = 2755856203) message] The system which generated this result transmitted reference range : 0.0 - 10.0 /100 WBCs. The refer ence range was not u sed to interpret th is result as normal/abnormal . NRBC x10^3 (test code See_Comment [Auto mated = 6167477377) message] The s ystem which generated this result transmitted reference range : 10*3/?L. The reference range was not used to interpret this result as normal/abnormal . GRAN MAT (NEUT) % 47.8 % (test code = 770-8) IMM GRAN % (test code 0.30 % = 6860066836) LYMPH % (test code = 42.4 % 736-9) MONO % (test code = 7.3 % 5905-5) EOS % (test code = 1.9 % 713-8) BASO % (test code = 0.3 % 706-2) GRAN MAT x10^3(ANC) 5.30 10*3/uL 1.99-6.95 (test code = 7495398031) IMM GRAN x10^3 (test 0.03 10*3/uL 0.00-0.06 code = 3491618441) LYMPH x10^3 (test code 4.70 10*3/uL 1.09-3.23 H = 731-0) MONO x10^3 (test code 0.81 10*3/uL 0.36-1.02 = 742-7) EOS x10^3 (test code = 0.21 10*3/uL 0.06-0.53 711-2) BASO x10^3 (test code 0.03 10*3/uL 0.01-0.09 = 704-7) Lab Interpretation Abnormal (test code = 81429-7) [facility]. METABOLIC PANEL (20382)2022-08-27 08:57:28 Test Item Value Reference Range Interpretation Comments NA (test code = 140 mmol/L 135-145 2350240811) K (test code = 3.8 mmol/L 3.5-5.0 3914863451) CL (test code = 101 mmol/L 98-108 0319856728) CO2 TOTAL (test code = 29 mmol/L 23-31 2878937365) AGAP (test code = 2-16 2877379878) BUN (test code = 11 mg/dL 7-23 7265115598) GLUCOSE (test code = 112 mg/dL 70-110 H 6587124829) CREATININE (test code = 0.96 mg/dL 0.60-1.25 3803286720) TOTAL BILI (test code = 0.4 mg/dL 0.1-1.1 0237838016) CALCIUM (test code = 9.5 mg/dL 8.6-10.6 8226889508) T PROTEIN (test code = 7.1 g/dL 6.3-8.2 5306307557) ALBUMIN (test code = 4.5 g/dL 3.5-5.0 8914361025) ALK PHOS (test code = 94 U/L 34-122 1567022917) ALTv (test code = 25 U/L 5-50 1742-6) AST(SGOT) (test code = 21 U/L 13-40 8637974191) eGFR (test code = mL/min/1.73m2 6956489418) FAIZA (test code = FAIZA) Association of Glomerular Filtration Rate (GFR) and Staging of Kidney Disease* + --+ --+ ------+| GFR (mL/min/1.73 m2) ?| With Kidney Damage ?| ?Without Kidney Damage+ --------+ --------+ +| ?>90 ?| ?Stage one ?| ? Normal ?+ ---+ ---+ -------+| ?60-89 ?| ?Stage two ?| ? Decreased GFR ? + --+ --+ ------+| ?30-59 ?| ?Stage three ?| ? Stage three ? + --+ --+ ------+| ?15-29 ?| ?Stage four ? | ? Stage four ?+ ---+ ---+ -------+| ?<15 (or dialysis) ? ?| ?Stage five ? | ? Stage five ?+ ---+ ---+ -------+ *Each stage assumes the associated GFR level has been in effect for at least three months. ?Stages 1 to 5, with or without kidney disease, indicate chronic kidney disease. Notes: Determination of stages one and two (with eGFR >59mL/min/1.73 m2) requires estimation of kidney damage for at least three months as defined by structural or functional abnormalities of the kidney, manifested by either:Pathological abnormalities or Markers of kidney damage (including abnormalities in the composition of the blood or urine or abnormalities in imaging tests). Lab Interpretation Abnormal (test code = 51583-3) [facility] VIEW [id number] 05:05:34XR CHEST 1 VIEW PORTABLELocation:L1Wplzg [facility] provided 05/17/2018 5:02 AMIndication:R07.9: CHEST PAIN, UNSPECIFIEDComparison:11/11/18Findings:The lungs are equally and symmetrically inflated. The trachea ismidline. The cardiac silhouette is normal in size. No acute bony abnormality.Impression:No acute cardiopulmonary disease.[id number] 04:56:00 Test Item Value Reference Range Interpretation Comments D-DIMER (test code = <200 ng/mL D-DU 0-234 DDI) D-DIMER COMMENT (test *Level to rule out code = DDCOM) DVT or PE: <235 ng/mL D-DU* PRO TIME AND [id number] 04:54:00 Test Item Value Reference Range Interpretation Comments PT (test code = 10.6 s 9.8-13.6 TT) INR (test code = 0.9 INR) INRH (test code = SUGGESTED THERAPEUTIC INRH) RANGE FOR INR: 2.5 - 3.5 For [...] Heparin. Order Code is ANTI-XA BRAIN NATRIURETIC [id number] 04:46:00 Test Item Value Reference Range Interpretation Comments proBNP (test code = PBNP) 8 pg/mL 0-125 CARDIAC [id number] 04:43:00 Test Item Value Reference Range Interpretation Comments TROPONIN I (test code = A84) <0.015 ng/mL 0.000-0.045 CKMB (test code = A49) <1.0 ng/mL <=3.6 CPK (test code = 32A) 149 IU/L 39-308 COMPREHENSIVE METABOLIC [id number] 04:41:00 Test Item Value Reference Range Interpretation [...] = 31A) 37 IU/L <=78 AMYLASE AND [id number] 04:41:00 Test Item Value Reference Range Interpretation Comments AMYLASE (test code = 10A) 34 U/L 28-100 LIPASE (test code = 60A) 128 IU/L 73-393 ALCOHOL BLOOD (ETOH)2018-05-17 04:38:00 Test Item Value Reference Range Interpretation Comments ETOH (test code = HALC) ETHANOL The result is to be used only for medical purposes ALCOHOL (test code = <10 mg/dL <=10 56A) DRUGS OF [id number] 04:31:00 Test Item Value Reference Range Interpretation [...] Comments WBC (test code = WBC) 9.5 10\\S\\3/uL 4.5-11.0 RBC (test code = RBC) 4.90 10\\S\\6/uL 4.30-5.70 HGB (test code = HBG) 14.8 g/dL 14.0-18.0 HCT (test code = HCT) 43.5 % 35.0-46.0 MCV (test code = MCV) 88.8 fL 80.0-94.0 MCH (test code = MCH) 30.2 pg 27.0-31.0 MCHC (test code = MCHC) 34.0 g/dL 32.0-36.0 RDW (test code = RDW) 13.2 % 11.5-14.5 PLT (test code = PLT) 271 10\\S\\3/uL 130-400 MPV (test code = MPV) 9.8 fL 9.4-12.4 NEUTROP # (test code = NE#) 5.6 10\\S\\3/uL 2.0-8.0 LYMPH # (test code = LY#) 2.9 10\\S\\3/uL 1.2-4.0 MONOCYTE # (test code = MO#) 0.8 10\\S\\3/uL 0.0-1.1 EOSINOPH # (test code = EO#) 0.2 10\\S\\3/uL 0.0-0.7 BASOPHIL # (test code = BA#) 0.0 10\\S\\3/uL 0.0-0.3 IG # (test code = IG#) 0.03 10\\S\\3/uL 0.00-0.06 NRBC # (test code = NRBC#) 0.00 10\\S\\3/uL 0.00-0.01 NEUTROPH % (test code = NE%) [...] (test code = RBCMOR) NORMAL DRUGS OF [id number] 20:50:00 Test Item Value Reference Range Interpretation [...] ng/mL Opiates 2000 ng/mL CT HEAD W/O [id number] 20:28:53AFTER HOURS SERVICE ON: 11/11/2017 8:27 PMCT Scan of the Brain Without ContrastLocation Code V86Abjahll: R42: DIZZINESS AND GIDDINESSTechnique: Scans were performed on a helical scanner pre IV contrast only. Thestudy is limited secondary to lack of intravenous contrast, particularly forevaluation of masses. CT images were performed [facility]. One or more of the followingdose reduction techniques were used: Automatedexposure control, adjustment of the mA and/or kV according to patient size,and/or utilization of iterative reconstruction technique.Findings: There is no hydrocephalus. Basal cisterns are patent. There is no intracranialhyperdense hemorrhage. There is no midline shift or mass effect. No effacementof the urrutia-white matter junction to indicate acute infarction. Impression:No acute intracranial CT findings.ALCOHOL BLOOD (ETOH) 2017-11-11 20:27:00 Test Item Value Reference Range Interpretation Comments ETOH (test code = HALC) ETHANOL The result is to be used only for medical purposes ALCOHOL (test code = <10 mg/dL <=10 56A) [id number] 20:23:00 Test Item Value Reference Range Interpretation Comments CPK (test code = 32A) 164 IU/L 39-308 COMPREHENSIVE METABOLIC [id number] 20:23:00 Test Item Value Reference Range Interpretation [...] code = 31A) 31 IU/L <=78 TROPONIN [id number] 20:20:00 Test Item Value Reference Range Interpretation Comments TROPONIN I (test code = A84) <0.015 ng/mL 0.000-0.045 PRO TIME AND [id number] 20:15:00 Test Item Value Reference Range Interpretation Comments PT (test code = 11.1 s 9.8-13.6 TT) INR (test code = 1.0 INR) INRH (test code = SUGGESTED THERAPEUTIC INRH) RANGE FOR INR: 2.5 - 3.5 For [...] Comments WBC (test code = WBC) 7.4 10\\S\\3/uL 4.5-11.0 RBC (test code = RBC) 4.61 10\\S\\6/uL 4.30-5.70 HGB (test code = HBG) 13.7 g/dL 14.0-18.0 L HCT (test code = HCT) 40.6 % 35.0-46.0 MCV (test code = MCV) 88.1 fL 80.0-94.0 MCH (test code = MCH) 29.7 pg 27.0-31.0 MCHC (test code = MCHC) 33.7 g/dL 32.0-36.0 RDW (test code = RDW) 12.9 % 11.5-14.5 PLT (test code = PLT) 299 10\\S\\3/uL 130-400 MPV (test code = MPV) 10.1 fL 9.4-12.4 NEUTROP # (test code = NE#) 4.1 10\\S\\3/uL 2.0-8.0 LYMPH # (test code = LY#) 2.6 10\\S\\3/uL 1.2-4.0 MONOCYTE # (test code = MO#) 0.5 10\\S\\3/uL 0.0-1.1 EOSINOPH # (test code = EO#) 0.1 10\\S\\3/uL 0.0-0.7 BASOPHIL # (test code = BA#) 0.0 10\\S\\3/uL 0.0-0.3 IG # (test code = IG#) 0.02 10\\S\\3/uL 0.00-0.06 NRBC # (test code = NRBC#) 0.00 10\\S\\3/uL 0.00-0.01 NEUTROPH % (test code = NE%) [...] = RBCMOR) NORMAL XR CHEST 1 VIEW [id number] 19:59:42Portable chest one view.HISTORY: DizzinessLocation R 16COMMENT: No comparison. No pleural effusion. The lungs are clear and normallyexpanded. The cardiac silhouette is unremarkable. Skeletal structuresarenormal in appearance.IMPRESSION: No active disease in the chest.
--- NOTE | 2022-11-03 18:32 | RAD REPORT ---
EXAM DESCRIPTION: RAD - Chest Single View - 11/03/2022 6:21 pm CLINICAL HISTORY: CHEST PAIN COMPARISON: Lumbar Spine Wo Con dated 03/14/2022No comparisons FINDINGS: Lines: None. Lungs: No evidence of edema or pneumonia. Pleural: No significant pleural effusions or pneumothorax. Cardiac: The heart size is within normal limits. Mediastinum: Within normal limits. Bones: No acute fractures. Other: None IMPRESSION: No acute cardiopulmonary disease.
[2022-11-03 19:16] LABS: Absolute Lymphocytes (CBC) 2.3 K/uL (0.7-4.9); Hematocrit 42.2 % (39.6-49.0); Lymphocytes % 30.2 % (15.3-44.8); MCV 88.8 fL (80-100); RBC Red Blood Cell Count 4.75 M/uL (4.33-5.43)
[2022-11-03 19:35] LABS: Protime INR 0.99
[2022-11-03 19:39] LABS: Albumin 4.1 g/dL (3.4-5.0); Bilirubin Total 0.3 mg/dL (0.2-1.0); Magnesium 2.4 mg/dL (1.6-2.4); Potassium 3.9 mmol/L (3.5-5.1); Protein, Total 7.4 g/dL (6.4-8.2); Troponin High Sensitivity 4.1 pg/mL (<58.9)
[2022-11-03 19:42] LABS: Urine Blood Negative (Negative); Urine Glucose Negative (Negative); Urine Protein Trace (Negative); Urine Specific Gravity 1.025 (1.005-1.030)
--- NOTE | 2022-11-03 21:05 | ER ---
Nurse's Notes [facility] Name: Perfecto Murphy Age: 27 yrs Sex: Male : 1995 Arrival Date: 11/03/2022 Time: 17:52 Bed 19 Private MD: Diagnosis: Chest pain, unspecified Presentation: 11/03 17:56 Chief complaint: Intermittent left sided chest pain that radiates to left arm and left hb neck x 6 weeks. Coronavirus screen: At this time, the client does not indicate any symptoms associated with coronavirus-19. Ebola Screen: No symptoms or risks identified at this time. Initial Sepsis Screen: Does the patient meet any 2 criteria? No. Patient's initial sepsis screen is negative. Does the patient have a suspected source of infection? No. Patient's initial sepsis screen is negative. Risk Assessment: Do you want to hurt yourself or someone else? Patient reports no desire to harm self or others. Onset of symptoms was September 2023. 17:56 Method Of Arrival: Ambulatory hb 17:56 Acuity: SHERRI 3 hb Historical: - Allergies: 17:57 No Known Allergies; hb - PMHx: 17:57 None; hb - PSHx: 17:57 None; hb - Immunization history:: Adult Immunizations up to date. - Social history:: Smoking status: Patient denies any tobacco usage or history of. Screenin:00 [facility] ED Fall Risk Assessment (Adult) History of falling in the last 3 months, eh3 including since admission No falls in past 3 months (0 pts) Confusion or Disorientation No (0 pts) Intoxicated or Sedated No (0 pts) Impaired Gait No (0 pts) Mobility Assist Device Used No (0 pt) Altered Elimination No (0 pt) Score/Fall Risk Level 0 - 2 = Low Risk. Abuse screen: Denies threats or abuse. Denies injuries from another. Nutritional screening: No deficits noted. Tuberculosis screening: No symptoms or risk factors identified. Assessment: 18:00 General: Appears in no apparent distress. uncomfortable, Behavior is calm, cooperative, eh3 appropriate for age. Pain: Complains of pain in left supraclavicular area, left clavicle, anterior aspect of left upper chest and left breast Pain radiates to neck Quality of pain is described as sharp, stabbing, throbbing, pulsating. Neuro: Level of Consciousness is awake, alert, obeys commands, Oriented to person, place, time, situation. Cardiovascular: Capillary refill < 3 seconds Patient's skin is warm and dry. Respiratory: Airway is patent Respiratory effort is even, unlabored, Respiratory pattern is regular, symmetrical. GI: No signs and/or symptoms were reported involving the gastrointestinal system. Abdomen is flat, non-distended. : No signs and/or symptoms were reported regarding the genitourinary system. EENT: No signs and/or symptoms were reported regarding the EENT system. Derm: No signs and/or symptoms reported regarding the dermatologic system. Skin is pink, warm \T\ dry. Musculoskeletal: No signs and/or symptoms reported regarding the musculoskeletal system. 19:00 Reassessment: Patient appears in no apparent distress at this time. Patient and/or eh3 family updated on plan of care and expected duration. Pain level reassessed. Patient is alert, oriented x 3, equal unlabored respirations, skin warm/dry/pink. 20:00 Reassessment: Patient appears in no apparent distress at this time. Patient and/or eh3 family updated on plan of care and expected duration. Pain level reassessed. Patient is alert, oriented x 3, equal unlabored respirations, skin warm/dry/pink. 21:00 Reassessment: Patient appears in no apparent distress at this time. Patient and/or eh3 family updated on plan of care and expected duration. Pain level reassessed. Patient is alert, oriented x 3, equal unlabored respirations, skin warm/dry/pink. 21:14 Reassessment: Pt discharged but requests to stay until at least half of 1000mL NS bolus eh3 infused, 900mL currently remaining in bag. Vital Signs: 17:56 BP 124 / 87; Pulse 108; Resp 18; Temp 98.9; Pulse Ox 98% on R/A; Weight 68.04 kg; hb Height 5 ft. 5 in. (165.10 cm); Pain 8/10; 18:00 BP 121 / 88; Pulse 73; Resp 18; Pulse Ox 100% on R/A; eh3 19:00 BP 116 / 80; Pulse 74; Resp 17; Pulse Ox 100% on R/A; eh3 19:32 BP 102 / 73 Supine; Pulse 69; Resp 14; Pulse Ox 100% on R/A; eh3 19:34 BP 113 / 79 Sitting; Pulse 82; Resp 21; Pulse Ox 97% on R/A; eh3 19:36 BP 113 / 87 Standing; Pulse 87; Resp 22; Pulse Ox 97% on R/A; eh3 20:00 BP 112 / 85; Pulse 68; Resp 15; Pulse Ox 98% on R/A; eh3 21:00 BP 110 / 77; Pulse 63; Resp 15; Pulse Ox 96% on R/A; eh3 17:56 Body Mass Index 24.96 (68.04 kg, 165.10 cm) hb Vitals: 18:00 Cardiac Rhythm Assessment Sinus rhythm. eh3 ED Course: 17:52 Patient arrived in ED. rg4 17:57 Triage completed. hb 17:57 Arm band placed on. hb 17:59 Monik Bautista FNP-C is PHCP. kb 17:59 Carlos Weaver MD is Attending Physician. kb 18:00 Patient has correct armband on for positive identification. Bed in low position. Call eh3 light in reach. Side rails up X2. Client placed on continuous cardiac and pulse oximetry monitoring. NIBP monitoring applied. Door closed. Noise minimized. Lights dimmed. Warm blanket given. 18:00 Inserted saline lock: 20 gauge in right antecubital area, using aseptic technique. eh3 Blood collected. 18:23 Chest Single View XRAY In Process Unspecified. EDMS 18:36 Liza Guillermo, RN is Primary Nurse. eh3 21:45 No provider procedures requiring assistance completed. IV discontinued, intact, eh3 bleeding controlled, No redness/swelling at site. Pressure dressing applied. Administered Medications: 21:05 Drug: NS 0.9% 1000 ml Route: IV; Rate: 1000 ml; Site: right antecubital; eh3 21:45 Follow up: IV Status: Completed infusion; IV Intake: 650ml eh3 Medication: 21:45 VIS not applicable for this client. eh3 Intake: 21:45 IV: 650ml; Total: 650ml. eh3 Outcome: 21:04 Discharge ordered by . kb 21:50 Patient left the ED. eh3 21:50 Discharged to home ambulatory. eh3 21:50 Condition: stable 21:50 Discharge instructions given to patient, Instructed on discharge instructions, follow up and referral plans. Demonstrated understanding of instructions, follow-up care. Signatures: Dispatcher [employer] Monik Yang, ADMITTANCE ATTENDANT-C ADMITTANCE ATTENDANT-Erica Christianson, RN RN Candie Briceno 4 Liza Guillermo, ZAHRAA RN eh3 Corrections: (The following items were deleted from the chart) 21:12 20:00 BP 127 / 43; Pulse 42bpm; Resp 20bpm; Pulse Ox 99% RA; eh3 eh3
--- NOTE | 2022-11-03 21:05 | EDPHYS ---
Physician Documentation [facility] Name: Perfecto Murphy Age: 27 yrs Sex: Male : 1995 Arrival Date: 11/03/2022 Time: 17:52 Bed 19 Private MD: ED Physician Carlos Weaver HPI: 11/03 21:29 This 27 yrs old Male presents to ER via Ambulatory with complaints of Neck Pain, <24hrs kb Old, Chest Pain. 21:29 The patient or guardian reports chest pain that is located primarily in the anterior kb chest wall, left. The pain radiates to the left arm. Associated signs and symptoms: Pertinent positives: near-syncope. The chest pain is described as dull. Duration: The patient or guardian reports a single episode. Modifying factors: The symptoms are alleviated by nothing. the symptoms are aggravated by nothing. Severity of pain: At its worst the pain was moderate in the emergency department the pain is unchanged. The patient has not experienced similar symptoms in the past. The patient has been recently seen by a physician:. Pt reports chest pain, weakness and near syncope that has been constant for 4-6 weeks. . Historical: - Allergies: 17:57 No Known Allergies; hb - PMHx: 17:57 None; hb - PSHx: 17:57 None; hb - Immunization history:: Adult Immunizations up to date. - Social history:: Smoking status: Patient denies any tobacco usage or history of. ROS: 21:28 Constitutional: Negative for fever, chills, and weight loss. kb 21:28 Cardiovascular: Positive for chest pain. 21:28 Neuro: Positive for near syncope, weakness. 21:28 All other systems are negative. Exam: 19:09 Constitutional: This is a well developed, well nourished patient who is awake, alert, kb and in no acute distress. Head/Face: Normocephalic, atraumatic. ENT: Moist Mucous membranes Chest/axilla: Normal chest wall appearance and motion. Cardiovascular: Regular rate and rhythm with a normal S1 and S2. No gallops, murmurs, or rubs. No pulse deficits. Respiratory: Respirations even and unlabored. No increased work of breathing. Talking in full sentences Abdomen/GI: Soft, non-tender. No distention Skin: Warm, dry with normal turgor. Normal color. MS/ Extremity: Pulses equal, no cyanosis. Neurovascular intact. Full, normal range of motion. Neuro: Awake and alert, GCS 15, oriented to person, place, time, and situation. Moves all extremities. Normal gait. Psych: Awake, alert, with orientation to person, place and time. Behavior, mood, and affect are within normal limits. 19:09 ECG was reviewed by the Attending Physician. Vital Signs: 17:56 BP 124 / 87; Pulse 108; Resp 18; Temp 98.9; Pulse Ox 98% on R/A; Weight 68.04 kg; hb Height 5 ft. 5 in. (165.10 cm); Pain 8/10; 18:00 BP 121 / 88; Pulse 73; Resp 18; Pulse Ox 100% on R/A; eh3 19:00 BP 116 / 80; Pulse 74; Resp 17; Pulse Ox 100% on R/A; eh3 19:32 BP 102 / 73 Supine; Pulse 69; Resp 14; Pulse Ox 100% on R/A; eh3 19:34 BP 113 / 79 Sitting; Pulse 82; Resp 21; Pulse Ox 97% on R/A; eh3 19:36 BP 113 / 87 Standing; Pulse 87; Resp 22; Pulse Ox 97% on R/A; eh3 20:00 BP 112 / 85; Pulse 68; Resp 15; Pulse Ox 98% on R/A; eh3 21:00 BP 110 / 77; Pulse 63; Resp 15; Pulse Ox 96% on R/A; eh3 17:56 Body Mass Index 24.96 (68.04 kg, 165.10 cm) hb MDM: 17:59 Patient medically screened. kb 21:28 Data reviewed: vital signs, nurses notes. kb 11/03 18:03 Order name: CBC with Diff; Complete Time: 19:46 kb 11/03 18:03 Order name: Magnesium; Complete Time: 19:46 kb 11/03 18:03 Order name: Protime (+inr); Complete Time: 19:46 kb 11/03 18:03 Order name: Ptt, Activated; Complete Time: 19:46 kb 11/03 18:03 Order name: Troponin High Sensitivity; Complete Time: 19:46 kb 11/03 18:03 Order name: CMP; Complete Time: 19:46 kb 11/03 18:03 Order name: Chest Single View XRAY; Complete Time: 18:34 kb 11/03 18:03 Order name: EKG; Complete Time: 18:04 kb 11/03 18:03 Order name: Cardiac monitoring; Complete Time: 19:19 kb 11/03 18:03 Order name: EKG - Nurse/Tech; Complete Time: 19:19 kb 11/03 18:03 Order name: IV Saline Lock; Complete Time: 19:19 kb 11/03 18:03 Order name: Labs collected and sent; Complete Time: 19:19 kb 11/03 19:42 Order name: Urine Dipstick-Ancillary; Complete Time: 19:46 EDMS 11/03 18:03 Order name: NPO; Complete Time: 19:20 kb 11/03 18:03 Order name: O2 Per Protocol; Complete Time: 19:20 kb 11/03 18:03 Order name: O2 Sat Monitoring; Complete Time: 19:20 kb 11/03 18:03 Order name: Orthostatics; Complete Time: 19:48 kb 11/03 18:03 Order name: Urine Dipstick-Ancillary (obtain specimen); Complete Time: 19:48 kb EC:09 Rate is 70 beats/min. Rhythm is regular. QRS Ogema is Normal. NC interval is normal at kb 152 msec. QRS interval is normal at 104 msec. QT interval is normal at 388 msec. Administered Medications: 21:05 Drug: NS 0.9% 1000 ml Route: IV; Rate: 1000 ml; Site: right antecubital; eh3 21:45 Follow up: IV Status: Completed infusion; IV Intake: 650ml eh3 Disposition Summary: 11/03/22 21:04 Discharge Ordered Location: Home kb Condition: Stable kb Diagnosis - Chest pain, unspecified kb Followup: kb - With: Emergency Department - When: As needed - Reason: Worsening of condition Followup: kb - With: Private Physician - When: 2 - 3 days - Reason: Recheck today's complaints, Continuance of care, Re-evaluation by your physician Discharge Instructions: - Discharge Summary Sheet kb - Nonspecific Chest Pain, Adult, [id number] kb Forms: - Medication Reconciliation Form kb - Thank You Letter kb - Antibiotic Education kb - Prescription Opioid Use kb Signatures: Dispatcher [employer] EDMonik Cedeno, RANCH COOK-C RANCH COOK-Erica Christianson, RN RN hb Liza Guillermo, RN RN eh3
[2022-11-03 22:15] VITALS: TEMP 98.9
[2022-11-03 22:23] VITALS: BP 110/77; O2SAT 96
== END 2022-11-03 21:50 | disposition home or self-care (01) ==
LOC: ER 17:49
DX: R07.89 Other chest pain (principal)
CPT/HCPCS: 36415; 71045; 80053; 81003; 83735; 84484; 85025; 85610; 85730; 93005; 96360; 99284

== ENCOUNTER 2022-11-05 14:21 | Emergency (ER) | payer SELFPAY ==
--- OUTSIDE RECORDS SUMMARY | 2022-11-05 14:28 | XMS REPORT | Continuity of Care Document ---
:1995 Author Organization [facility] t Address [address] [place] [address] Care Team Providers Name Role Phone MAKENZIE [...] Attending Clinician Unavailable Preethi Wu Attending Clinician AMBREEN_FARHANA Attending Clinician Unavailable Jayce Mcnulty Attending Clinician JAYCE PENN Attending Clinician Unavailable Zuniga_S Attending Clinician Unavailable DR KEISHA CHRISTENSEN Attending Clinician Unavailable DR PATRICIA BUTT Attending Clinician Unavailable MADELINE ARMSTRONG Attending Clinician Unavailable SE CALHOUN Admitting Clinician Unavailable URIEL HEAD Admitting Clinician Unavailable DR SAMMIE ALVARADO Admitting Clinician Unavailable NORRIS ALEX Admitting Clinician Unavailable AMBREEN_FARHANA Admitting Clinician Unavailable Zuniga_S Admitting Clinician Unavailable DR KEISHA CHRISTENSEN Admitting Clinician Unavailable DR PATRICIA BUTT Admitting Clinician Unavailable Payers Payer Name Policy Type Policy Number Effective Date Expiration Date S ource 1000 [id number] 2022 00:00:00 [facility] 20[facility] INC 00:00:00 Problems Condition [...] rs active active ity of problems problems [facility] Allergies, Adverse Reactions, Alerts Allergy Allergy Status Severity Reaction(s) Onset Inactive Treating Comm ents Source Name Type Date Date Clinician No Known DA Active Unknown [facility] 6-29 Medical Allergie 00:00: [facility] 00 NO KNOWN Drug Active Univers ALLERGIE Class ity of [facility] [place] [facility] Social History Social Habit Start Date Stop Date Quantity Comments Source Exposure to 2022-10-19 2022-10-29 Not sure [facility] SARS-CoV-2 (event) 00:00:00 23:25:00 [facility] Sex Assigned At [birth year] [facility] [place] 00:00:00 00:00:00 Medical Branch Smoking Status Start Date Stop Date Source Tobacco smoking consumption [facility] Medical unknown Branch Light Tobacco Smoker [facility] Medications Ordered Filled Start Stop Current Ordering Indication Dosage Frequency Signature Comments Components Source Medication Medication Date Date Medication? Clinician (SIG) Name Name NaCl 0.9% 2021-10 No 500mL at 999 [facility] ers (NS) bolus -20 11-20 mL/hr, 500 it y of infusion 09:30: 09:24 mL, IV [place] 500 mL 00 :00 Piggyback, Medical ONCE, 1 Branch dose, On 08/27/22 at 0330, STAT ketorolac 2021-10 No 15mg 15 mg, Unive rs (TORADOL) - 11-20 Slow IV ity of injection 09:30: 08:48 Push, [place] 15 mg 00 :00 ONCE, 1 Medical dose, On Branch 08/27/22 at 0330, TOSHA famotidine 2021-10 No 20mg 20 mg, Univ ers (PEPCID 1-20 11-20 Slow IV ity of (PF)) 08:45: 08:48 Push, [place] injection 00 :00 ONCE, 1 Medical 20 mg dose, On Branch 08/27/22 at 0245, TOSHA famotidine 2021-10 Yes [id number] 20mg Take 1 Un james (PEPCID) 20 1-20 tablet by ity of mg tablet 00:00: [place] 00 the Medical morning Branch and 1 tablet in the evening. famotidine 2021-10 Yes [id number] 20mg Take 1 Un james (PEPCID) 20 1-20 tablet by ity of mg tablet 00:00: [place] the [place] morning Branch and 1 tablet in the evening. famotidine 2021-10 Yes [id number] 20mg Take 1 Un james (PEPCID) 20 1-20 tablet by ity of mg tablet 00:00: [place] the [place] morning [place] and 1 tablet in the evening. famotidine 2021-10 Yes [id number] 20mg Take 1 Un james (PEPCID) 20 1-20 tablet by ity of mg tablet 00:00: [place] 00 the [place] morning Branch and 1 tablet in the evening. ibuprofen 2021-10 Yes [id number] 600mg Take 1 Univers 600 mg 0-19 tablet by ity of tablet 00:00: mouth [place] 00 every 6 Medical (six) Branch hours as needed for Pain (scale 4-6). benzonatate 2021-10 Yes [id number] 200mg Take 1 Univers 200 mg 0-19 capsule by ity of capsule 00:00: mouth 3 (three) Medical times Branch daily as needed for Cough for up to 20 doses. ondansetron 2021-10 Yes [id number] 4mg Take 1 Univers 4 mg 0-19 tablet by ity of disintegrat 00:00: mouth [place] ing tablet 00 every 8 Medica l (eight) Branch hours as needed for Nausea and Vomiting (N/V). ibuprofen 2021-10 Yes [id number] 600mg Take 1 Univers 600 mg 0-19 tablet by ity of tablet 00:00: mouth [place] 00 every 6 Medical (six) Branch hours as needed for Pain (scale 4-6). benzonatate 2021-10 Yes [id number] 200mg Take 1 Univers 200 mg 0-19 capsule by ity of capsule 00:00: mouth 3 (three) Medical times Branch daily as needed for Cough for up to 20 doses. ondansetron 2021-10 Yes [id number] 4mg Take 1 Univers 4 mg 0-19 tablet by ity of disintegrat 00:00: mouth [place] ing tablet 00 every 8 Medica l (eight) Branch hours as needed for Nausea and Vomiting (N/V). ibuprofen 2021-10 Yes [id number] 600mg Take 1 Univers 600 mg 0-19 tablet by ity of tablet 00:00: mouth [place] 00 every 6 Medical (six) Branch hours as needed for Pain (scale 4-6). benzonatate 2021-10 Yes [id number] 200mg Take 1 Univers 200 mg 0-19 capsule by ity of capsule 00:00: mouth 3 (three) Medical times Branch daily as needed for Cough for up to 20 doses. ondansetron 2021-10 Yes [id number] 4mg Take 1 Univers 4 mg 0-19 tablet by ity of disintegrat 00:00: mouth [place] ing tablet 00 every 8 Medica l (eight) Branch hours as needed for Nausea and Vomiting (N/V). ibuprofen 2021-10 Yes [id number] 600mg Take 1 Univers 600 mg 0-19 tablet by ity of tablet 00:00: mouth [place] 00 every 6 Medical (six) Branch hours as needed for Pain (scale 4-6). benzonatate 2021-10 Yes [id number] 200mg Take 1 Univers 200 mg 0-19 capsule by ity of capsule 00:00: mouth 3 [place] 00 (three) Medical times Branch daily as needed for Cough for up to 20 doses. ondansetron 2021-10 Yes [id number] 4mg Take 1 Univers 4 mg 0-19 tablet by ity of disintegrat 00:00: mouth [place] ing tablet 00 every 8 Medica l (eight) Branch hours as needed for Nausea and Vomiting (N/V). ibuprofen 2021-10 Yes [id number] 600mg Take 1 Univers 600 mg 0-19 tablet by ity of tablet 00:00: mouth [place] 00 every 6 Medical (six) Branch hours as needed for Pain (scale 4-6). benzonatate 2021-10 Yes [id number] 200mg Take 1 Univers 200 mg 0-19 capsule by ity of capsule 00:00: mouth 3 [place] 00 (three) Medical times Branch daily as needed for Cough for up to 20 doses. ondansetron 2021-10 Yes [id number] 4mg Take 1 Univers 4 mg 0-19 tablet by ity of disintegrat 00:00: mouth [place] ing tablet 00 every 8 Medica l (eight) Branch hours as needed for Nausea and Vomiting (N/V). maalox:diph 2021- No 15mL 15 mL, Uni vers enhydrAMINE 04-12 Oral, ity of :lidocaine 23:30: 00:22 ONCE, 1 Justin as 2 % viscous 00 :00 dose, On Medi hernando 1:1:1 04/12/22 Branch (FIRST-MOUT at 1830, [facility]) Routine oral suspension 15 mL penicillin 2021- No 1.210 1.2 Unive rs g 04-12 Million ity of benzathine 23:30: 00:22 [place], [place] (BICILLIN 00 :00 Intramuscu Medi hernando L-A) lar, ONCE, Branch injection 1 dose, On 1.2 Million Sun04/12/22 Units at 1830, TOSHA
Re ason for Anti-Infec tive: Documented Infection< br>Documen nieves Infection Site: HEENT
D uration of Therapy: 7 days dexamethaso 2021- No 10mg 10 mg, Uni vers ne sod phos 04-12 Intramuscu i ty of PF 23:30: 23:30 lar, ONCE, [place] injection 00 :00 1 dose, On Medi hernando 10 mg 04/12/22 Branch at 1830, 1 mL acetaminoph 2021- No 1000mg 1,000 mg, Univers en 04-12 Oral, ity of (TYLENOL) 23:00: 22:58 ONCE, 1 [place] tablet 00 :00 dose, On Medical 1,000 mg Sun04/12/22 Branc h at 1800, TOSHA No known No Univers medications 04-12 ity of 17:46: [address] cyclobenzap cyclobenzap No 1 TID cyclobenza [...] Immunizations Ordered Filled Immunization Date Status Comments Sour e Immunization Name Name HEPATITIS A 2000-12-20 Completed [facility] 00:00:00 [facility] MMR 2000-11-14 Completed [facility] 00:00:00 [facility] DTAP 2000-11-14 Completed [facility] 00:00:00 [facility] Polio (IPV/OPV) 2000-11-14 Completed Universit y of 00:00:00 [facility] Hep B, Adol or Pedi 2000-05-30 Completed Unive rsity of Dosage 00:00:00 [facility] MMR 2000-05-30 Completed University of 00:00:00 [facility] Varicella 2000-05-30 Completed University of (varivax)(chicken 00:00:00 [place] M edical pox) Branch DTAP 2000-05-30 Completed University of 00:00:00 [facility] HIB 4 Dose Schedule 2000-05-30 Completed Unive rsity of 00:00:00 [facility] Polio (IPV/OPV) 2000-05-30 Completed Universit y of 00:00:00 [facility] HIB 4 Dose Schedule 1999-12-04 Completed Unive rsity of 00:00:00 [facility] Polio (IPV/OPV) 1995 Completed Universit y of 00:00:00 [facility] Hep B, Adol or Pedi 1996 Completed Unive rsity of Dosage 00:00:00 [facility] DTAP 1996 Completed University of 00:00:00 [facility] Hep B, Adol or Pedi 1996 Completed Unive rsity of Dosage 00:00:00 [facility] Vital Signs Vital Name Observation Time Observation Value Comments Source Systolic blood 2022-10-30 06:00:00 121 mm[Hg] Univer sity of pressure [facility] Diastolic blood 2022-10-30 06:00:00 80 mm[Hg] Unive rsity of pressure [facility] Heart rate 2022-10-30 06:00:00 73 /min [facility] Respiratory rate 2022-10-30 06:00:00 13 /min [facility] Oxygen saturation in 2022-10-30 06:00:00 98 /min [facility] Arterial blood by [facility] Pulse oximetry Branch Body temperature 2022-10-30 05:27:00 37.22 Raquel [facility] [place] [facility] height 2022-10-30 05:27:00 165.1 cm [facility] Body weight 2022-10-30 05:27:00 68.493 kg [facility] BMI 2022-10-30 05:27:00 25.13 kg/m2 [facility] [place] [facility] Systolic blood 2022-10-19 06:30:00 137 mm[Hg] Univer sity of pressure [place] [facility] Diastolic blood 2022-10-19 06:30:00 98 mm[Hg] Unive rsity of pressure [place] [facility] Heart rate 2022-10-19 06:30:00 88 /min [facility] ty [facility] [place] [facility] [place] Body temperature 2022-10-19 06:30:00 37 Raquel Univ ers[facility] [place] [facility] Respiratory rate 2022-10-19 06:30:00 16 /min Univ ers[facility] [place] [facility] Body height 2022-10-19 06:30:00 165.1 cm [facility] [place] [facility] [place] Body weight 2022-10-19 06:30:00 66.906 kg [facility] [place] [facility] BMI 2022-10-19 06:30:00 24.55 kg/m2 [facility] [place] [facility] [place] Oxygen saturation in 2022-10-19 06:30:00 99 /min University of Arterial blood by [facility] Pulse oximetry Branch Height 2022-10-14 10:57:00 165.1 CM Weight 2022-10-14 10:57:00 65.77 KG Systolic blood 2022-10-09 21:02:00 137 mm[Hg] Univer sity of pressure [place] [facility] [place] Diastolic blood 2022-10-09 21:02:00 80 mm[Hg] Unive rsity of pressure [place] [facility] [place] Heart rate 2022-10-09 21:02:00 102 /min [facility] [place] [facility] [place] Body temperature 2022-10-09 21:02:00 37.11 Raquel Univ [facility] [place] [facility] Respiratory rate 2022-10-09 21:02:00 16 /min Univ ers[facility] [place] [facility] Body height 2022-10-09 21:02:00 162.6 cm [facility] [place] [facility] Body weight 2022-10-09 21:02:00 65.772 kg [facility] [place] [facility] BMI 2022-10-09 21:02:00 24.89 kg/m2 Universi ty of [facility] Oxygen saturation in 2022-10-09 21:02:00 100 /min University of Arterial blood by [facility] Pulse oximetry Branch Body temperature 2022-08-27 08:10:00 36.22 Raquel Univ [facility] [place] [facility] Respiratory rate 2022-08-27 08:10:00 17 /min Univ [facility] [place] [facility] Body height 2022-08-27 08:10:00 162.6 cm [facility] [place] [facility] Body weight 2022-08-27 08:10:00 65.772 kg [facility] [place] [facility] BMI 2022-08-27 08:10:00 24.89 kg/m2 [facility] [place] [facility] Oxygen saturation in 2022-08-27 08:10:00 100 /min University of Arterial blood by [facility] Pulse oximetry Branch Systolic blood 2022-08-27 08:10:00 135 mm[Hg] Univer sity of pressure [place] [facility] Diastolic blood 2022-08-27 08:10:00 93 mm[Hg] Unive rsity of pressure [place] [facility] Heart rate 2022-08-27 08:10:00 100 /min [facility] [place] [facility] Systolic blood 2022-07-26 15:25:00 131 mm[Hg] Univer sity of pressure [place] [facility] Diastolic blood 2022-07-26 15:25:00 87 mm[Hg] Unive rsity of pressure [place] [facility] Heart rate 2022-07-26 15:25:00 98 /min [facility] [place] [facility] Body temperature 2022-07-26 15:25:00 37.33 Raquel Univ [facility] [place] [facility] Respiratory rate 2022-07-26 15:25:00 18 /min Univ [facility] [place] [facility] Body weight 2022-07-26 15:25:00 63.504 kg [facility] [place] [facility] BMI 2022-07-26 15:25:00 22.60 kg/m2 [facility] [place] [facility] Oxygen saturation in 2022-07-26 15:25:00 98 /min University of Arterial blood by [facility] Pulse oximetry Branch Systolic blood 2022-04-12 22:52:00 121 mm[Hg] Univer sity of pressure [place] [facility] Diastolic blood 2022-04-12 22:52:00 80 mm[Hg] Unive rsity of pressure [place] [facility] Heart rate 2022-04-12 22:52:00 108 /min [facility] Body temperature 2022-04-12 22:52:00 39.11 Raquel [facility] Respiratory rate 2022-04-12 22:52:00 24 /min [facility] Body height 2022-04-12 22:52:00 167.6 cm [facility] Body weight 2022-04-12 22:52:00 63.504 kg [facility] BMI 2022-04-12 22:52:00 22.60 kg/m2 [facility] Oxygen saturation in 2022-04-12 22:52:00 98 /min [facility] Arterial blood by [facility] Pulse oximetry Branch BP Diastolic 2022-02-17 00:00:00 75 mm[Hg] [facility] Height 2022-02-17 00:00:00 65 [in_i] [facility] BMI (Body Mass 2022-02-17 00:00:00 24 kg/m2 [facility]) Group BP Systolic 2022-02-17 00:00:00 121 mm[facility]Hg] [facility] Weight 2022-02-17 00:00:00 2304 [oz_av] [facility] Height 2020-12-13 22:38:00 170.18 CM Weight 2020-12-13 22:38:00 63.5 KG Procedures Procedure Date / Time Performed Performing Clinician Sour e XR CHEST 1 VW 2022-10-30 05:46:16 Singer [facility] LIPASE 2022-10-30 05:37:00 Singer [facility] MAGNESIUM 2022-10-30 05:37:00 Singer [facility] TROPONIN I 2022-10-30 05:37:00 Singer [facility] COMP. METABOLIC PANEL 2022-10-30 05:37:00 [facility] [place] [facility] ([id number]) Medical [place] CBC WITH DIFF 2022-10-30 05:37:00 Singer [facility] D-DIMER 2022-10-30 05:37:00 [facility] N-TERMINAL PRO-BNP 2022-10-30 05:37:00 Singer [facility] Medical Branch CONSENT/REFUSAL FOR 2022-10-30 05:18:02 Doctor Unassigned, No [facility] [place] DIAGNOSIS AND Name Medical Branch TREATMENT EKG-12 LEAD 2022-10-19 08:20:54 [facility] XR CHEST 1 VW 2022-10-19 07:06:34 [facility] NOTICE OF PRIVACY 2022-10-19 06:22:28 Doctor Unassigned, No Univ ersity [facility] Name Medical Branch CONSENT/REFUSAL FOR 2022-10-09 20:55:57 Doctor Unassigned, No [facility] [place] DIAGNOSIS AND Name Medical Branch TREATMENT EKG-12 LEAD 2022-08-27 09:19:11 Norris [facility] XR CHEST 1 VW 2022-08-27 08:29:00 Norris [facility] TROPONIN I 2022-08-27 08:17:00 Norris Alex [facility] COMP. METABOLIC PANEL 2022-08-27 08:17:00 Norris Alex [facility] ([id number]) Medical Branch CBC WITH DIFF 2022-08-27 08:17:00 Norris [facility] NOTICE OF PRIVACY 2022-08-27 08:03:42 Doctor Unassigned, No [facility] Branch CONSENT/REFUSAL FOR 2022-08-27 08:02:51 Doctor Unassigned, No [facility] [place] DIAGNOSIS AND Name Medical Branch TREATMENT RAPID INFLUENZA A/B 2022-07-26 15:28:00 Norris Alex [facility] Medical Branch COVID-19 (ID NOW 2022-07-26 15:28:00 Norris Alex [facility] RAPID TESTING) Medical Branch CONSENT/REFUSAL FOR 2022-07-26 15:22:01 Doctor Unassigned, No [facility] [place] DIAGNOSIS AND Name Medical Branch TREATMENT RAPID STREP SCREEN 2022-04-12 22:57:00 Jayce Penn [facility] FOR GROUP A Medical Branch COVID-19 (ID NOW 2022-04-12 22:57:00 Jayce Penn [facility] RAPID TESTING) Medical Branch NOTICE OF PRIVACY 2022-04-12 22:49:56 Doctor Unassigned, No [facility] PRACTICES Name Medical Branch XR, 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, 2 2022-02-17 00:00:00 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 Group Encounters Start End Encounter Admission Attending Care Care Encounter Source Date/Time Date/Time Type Type Clinicians Facility Department ID 2022-10-29 2022-10-30 Emergency X [facility] ERT [id number] Univers 23:30:00 00:40:00 SE clancy [facility] 2022-10-29 2022-10-30 Emergency [facility] [id number] Univers 23:30:00 00:40:00 Se NEELY 350.1.13.10 i [facility] [id number] [facility] [id number] [address] 2022-10-19 2022-10-19 Emergency [facility] [id number] Univers 00:28:00 02:31:00 URIEL [facility] 2022-10-19 2022-10-19 Emergency [facility] [id number] Univers 00:28:00 02:31:00 [facility]riel [facility].13.10 [facility] 4.2.7.2.686 [facility] [id number] [address] 2022-10-14 2022-10-14 Emergency E JENNY [facility] [id number] [facility] 10:19:00 13:40:00 SAMMIE [facility] 2022-10-09 2022-10-09 Emergency [facility] [id number] Univers 15:03:00 16:09:00 ANEL clancy [facility] 2022-10-09 2022-10-09 Lupe Bhat [facility] [id number] Univers 15:03:00 16:09:00 Anel NEELY 350.1.13.10 ity of GEFF 4.2.7.2.686 [facility] [id number] [address] 2022-08-27 2022-08-27 Emergency X EASTON, [facility] ERT [id number] Univers 02:02:00 03:30:00 NORRIS ity [facility] 2022-08-27 2022-08-27 Emergency Vasut, [facility] [id number] Univers 02:02:00 03:30:00 Norris NEELY 350.1.13.10 i ty of GEFF 4.2.7.2.686 [facility] [id number] [address] 2022-07-26 2022-07-26 Emergency X Preethi GARCIA [facility] ERT [id number] Univers 10:29:00 11:26:00 ity [facility] 2022-07-26 2022-07-26 Emergency Preethi Garcia [facility] [id number] Univers 10:29:00 11:26:00 Felicita NEELY 350.1.13.10 i ty of GEFF 4.2.7.2.686 [facility] [id number] [address] 2022-04-19 2022-04-19 Outpatient AMBREEN_FAR [facility] [id number] [place] 03:49:00 03:49:00 HANDorothy 0713 da [facility] Outre h Program 2022-04-12 2022-04-12 Emergency [facility] [id number] Univers 17:53:00 19:52:00 Jayce NEELY 350.1.13.10 i ty of GEFF 4.2.7.2.686 [facility] [id number] [address] 2022-04-12 2022-04-12 Emergency X PENN, [facility] ERT [id number] Univers 17:53:00 19:52:00 JAYCE itcandi [facility] 2022-02-23 2022-02-23 Outpatient Zuniga_S [facility] [id number] [place] 01:07:00 01:07:00 519 [facility] 2022-02-20 2022-02-20 Outpatient Zuniga_S [facility] [id number] [place] 10:19:00 10:19:00 516 [facility] 2022-02-20 2022-02-20 Outpatient Zuniga_S [facility] [id number] [place] 05:57:00 05:57:00 517 [facility] 2022-02-17 2022-02-17 Outpatient Zuniga_S [facility] [id number] [place] 05:30:00 05:30:00 513 da Medical Group 2022-02-17 2022-02-17 Antonia [facility] [place] - [id number] [place] 00:00:00 00:00:00 Discovery Kaiden da 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 2020-12-13 2020-12-13 Emergency E KEISHA CHRISTENSEN [facility] [id number] [facility] 22:26:00 23:23:00 [facility] 2018-05-17 2018-05-17 Emergency E DAQUAN [facility] [id number] [facility] 03:57:00 05:14:00 PATRICIA [facility] 2017-11-11 2017-11-11 Emergency E KEISHA CHRISTENSEN [facility] [id number] [facility] 19:21:00 21:04:00 [facility] 2013-10-17 2013-10-17 Emergency ER BA, MADELINE [facility] [id number] [place] 13:21:00 14:43:00 -[id number] [facility] Results Test Description Test Time Test Comments Results Result Comments Source D-DIMER 2022-10-30 06:15:32 Test Item Value Reference Range Interpretation Comme nts D-DIMER (test code = See_Comment [Autom ated message] The 9346381382) system which ge nerated this result tra nsmitted reference range : <0.41 ?g/mL (FEU). Th e reference range was not used [...] diagnosis. Lab Interpretation Normal (test code = 60368-3) [facility] [id number] 06:05:50 Test Item Value Reference Interpretation Comments Range TROPONIN I (test 0.004 ng/mL See_Comment [Automated code = 8788035732) message] The system which generated this result [...] biotin. Lab Interpretation Normal (test code = 40525-6) [facility] [id number] 06:02:29 Test Item Value Reference Range Interpretation Comments NT-proBNP (test code 22 pg/mL See_Comment [Autom ated = 8065167718) message] The system which generated this result transmitted reference range : <=125. The reference range was not used to interpret this result as normal/abnormal . FAIZA (test code = FAIZA) Biotin has been reported to cause a negative bias, interpret results relative to patient's use of biotin. Lab Interpretation Normal (test code = 00389-3) [facility]-01-23 05:54:05 Test Item Value Reference Range Interpretation Comments MAGNESIUM (test code = 0258613280) 2.2 mg/dL 1.7-2.4 Lab Interpretation (test code = Normal 87426-2) [facility]. METABOLIC PANEL ([id number])2022-10-30 05:53:45 Test Item Value Reference Range Interpretation Comments NA (test code = 139 mmol/L 135-145 6694177469) K (test code = 3.9 mmol/L 3.5-5.0 2985444772) CL (test code = 104 mmol/L 98-108 9827331175) CO2 TOTAL (test code = 26 mmol/L 23-31 0674277176) AGAP (test code = 2-16 5155506190) BUN (test code = 11 mg/dL 7-23 3006656549) GLUCOSE (test code = 119 mg/dL 70-110 H 1007623985) CREATININE (test code = 0.90 mg/dL 0.60-1.25 0838566294) TOTAL BILI (test code = 0.4 mg/dL 0.1-1.5 3778814251) CALCIUM (test code = 9.3 mg/dL 8.6-10.6 2869184035) T PROTEIN (test code = 7.5 g/dL 6.3-8.2 0966980533) ALBUMIN (test code = 4.7 g/dL 3.5-5.0 2076114317) ALK PHOS (test code = 103 U/L 34-122 0676911267) ALTv (test code = 30 U/L 5-50 1742-6) AST(SGOT) (test code = 24 U/L 13-40 7618715233) eGFR (test code = mL/min/1.73m2 3997747358) FAIZA (test code = FAIZA) Association of [...] tests). Lab Interpretation Abnormal (test code = 46280-9) [facility]23 05:53:25 Test Item Value Reference Range Interpretation Comments LIPASE (test code = 9295726006) 296 U/L 0-220 H Lab Interpretation (test code = Abnormal 17665-7) [facility] WITH [id number] 05:44:09 Test Item Value Reference Range Interpretation Comments WBC (test code = See_Comment [Automated 2493-2) message] The sy stem which generated this result transmitted reference range : 4.20 - 10.70 10*3/?L. The reference range was not used to interpret this result as normal/abnormal . RBC (test code = See_Comment [Automated 623-3) message] The sy stem which generated this result transmitted reference range : 4.26 - 5.52 10*6/?L. The reference range was not used to interpret this result as normal/abnormal . HGB (test code = 14.4 g/dL 12.2-16.4 718-7) HCT (test code = 42.5 % 38.4-49.3 4544-3) MCV (test code = 88.9 fL 81.7-95.6 787-2) MCH (test code = 30.1 pg 26.1-32.7 785-6) MCHC (test code = 33.9 g/dL 31.2-35.0 786-4) RDW-SD (test code = 40.7 fL 38.5-51.6 20577-2) RDW-CV (test code = 12.4 % 12.1-15.4 788-0) PLT (test code = See_Comment [Automated 777-3) message] The sy stem which generated this result transmitted reference range : 150 - 328 10*3/ ?L. The reference r ambar was not used to interpret this result as normal/abnormal . MPV (test code = 9.4 fL 9.8-13.0 L 94673-6) NRBC/100 WBC (test See_Comment [Automat ed code = 5523895302) message] The system which generated this result transmitted reference range : 0.0 - 10.0 /100 WBCs. The refer ence range was not u sed to interpret th is result as normal/abnormal . NRBC x10^3 (test code See_Comment [Auto mated = 9904289759) message] The s ystem which generated this result transmitted reference range : 10*3/?L. The reference range was not used to interpret this result as normal/abnormal . GRAN MAT (NEUT) % 47.4 % (test code = 770-8) IMM GRAN % (test code 0.20 % = 1154823969) LYMPH % (test code = 43.1 % 736-9) MONO % (test code = 6.8 % 5905-5) EOS % (test code = 1.9 % 713-8) BASO % (test code = 0.6 % 706-2) GRAN MAT x10^3(ANC) 4.19 10*3/uL 1.99-6.95 (test code = 5799583949) IMM GRAN x10^3 (test 0.00-0.06 code = 3482349551) LYMPH x10^3 (test code 3.81 10*3/uL 1.09-3.23 H = 731-0) MONO x10^3 (test code 0.60 10*3/uL 0.36-1.02 = 742-7) EOS x10^3 (test code = 0.17 10*3/uL 0.06-0.53 711-2) BASO x10^3 (test code 0.05 10*3/uL 0.01-0.09 = 704-7) Lab Interpretation Abnormal (test code = 80775-2) [facility] B [id number] 11:50:00 Test Item Value Reference Range Interpretation [...] the FDA and the [employer] [place] [employer] (CAP) are more stringent than those required for this test. Therefore, the result should be interpreted with caution and close attention to other clinical and epidemiological data TROPONIN [id number] 09:09:10 Test Item Value Reference Interpretation Comments Range TROPONIN I (test 0.002 ng/mL See_Comment [Automated code = 2397340462) message] The system which generated this result [...] biotin. Lab Interpretation Normal (test code = 33367-0) [facility] WITH [id number] 09:01:39 Test Item Value Reference Range Interpretation [...] RDW-SD (test code = 40.6 fL 38.5-51.6 30468-5) RDW-CV (test code = 12.8 % 12.1-15.4 788-0) PLT (test code = See_Comment [Automated 777-3) message] The sy stem which generated this result transmitted reference range : 150 - 328 10*3/ ?L. The reference r ambar was not used to interpret this result as normal/abnormal . MPV (test code = 9.8 fL 9.8-13.0 27631-4) NRBC/100 WBC (test See_Comment [Automat ed code = 3035684465) message] The system which generated this result transmitted reference range : 0.0 - 10.0 /100 WBCs. The refer ence range was not u sed to interpret th is result as normal/abnormal . NRBC x10^3 (test code See_Comment [Auto mated = 6151166891) message] The s ystem which generated this result transmitted reference range : 10*3/?L. The reference range was not used to interpret this result as normal/abnormal . GRAN MAT (NEUT) % 47.8 % (test code = 770-8) IMM GRAN % (test code 0.30 % = 7957114614) LYMPH % (test code = 42.4 % 736-9) MONO % (test code = 7.3 % 5905-5) EOS % (test code = 1.9 % 713-8) BASO % (test code = 0.3 % 706-2) GRAN MAT x10^3(ANC) 5.30 10*3/uL 1.99-6.95 (test code = 5933302231) IMM GRAN x10^3 (test 0.03 10*3/uL 0.00-0.06 code = 8003990697) LYMPH x10^3 (test code 4.70 10*3/uL 1.09-3.23 H = 731-0) MONO x10^3 (test code 0.81 10*3/uL 0.36-1.02 = 742-7) EOS x10^3 (test code = 0.21 10*3/uL 0.06-0.53 711-2) BASO x10^3 (test code 0.03 10*3/uL 0.01-0.09 = 704-7) Lab Interpretation Abnormal (test code = 38112-9) [facility]. METABOLIC PANEL ([id number])2022-08-27 08:57:28 Test Item Value Reference Range Interpretation Comments NA (test code = 140 mmol/L 135-145 1147345494) K (test code = 3.8 mmol/L 3.5-5.0 6153061384) CL (test code = 101 mmol/L 98-108 6125442788) CO2 TOTAL (test code = 29 mmol/L 23-31 7022577703) AGAP (test code = 2-16 2027230005) BUN (test code = 11 mg/dL 7-23 1722143280) GLUCOSE (test code = 112 mg/dL 70-110 H 2363829366) CREATININE (test code = 0.96 mg/dL 0.60-1.25 7605396872) TOTAL BILI (test code = 0.4 mg/dL 0.1-1.7 5448761366) CALCIUM (test code = 9.5 mg/dL 8.6-10.6 9172985586) T PROTEIN (test code = 7.1 g/dL 6.3-8.2 2552661836) ALBUMIN (test code = 4.5 g/dL 3.5-5.0 3866327377) ALK PHOS (test code = 94 U/L 34-122 9013103347) ALTv (test code = 25 U/L 5-50 1742-6) AST(SGOT) (test code = 21 U/L 13-40 6151120099) eGFR (test code = mL/min/1.73m2 6925170931) FAIZA (test code = FAIZA) Association of [...] tests). Lab Interpretation Abnormal (test code = 35234-1) [facility] 1 VIEW [id number] 05:05:34XR CHEST 1 VIEW PORTABLELocation:C2Gbuvo hours services provided 05/17/2018 5:02 AMIndication:R07.9: CHEST PAIN, UNSPECIFIEDComparison:11/11/18Findings:The lungs are equally and symmetrically inflated. The trachea ismidline. The cardiac silhouette is normal in size. No acute bony abnormality.Impression:No acute cardiopulmonary disease.[id number] 04:56:00 Test Item Value Reference Range Interpretation Comments D-DIMER (test code = <200 ng/mL D-DU 0-234 DDI) D-DIMER COMMENT (test *Level to rule out code = DDCOM) DVT or PE: <235 ng/mL D-DU* PRO TIME AND [id number] 04:54:00 Test Item Value Reference Range Interpretation [...] Heparin. Order Code is ANTI-XA BRAIN NATRIURETIC [id number] 04:46:00 Test Item Value Reference Range Interpretation Comments proBNP (test code = PBNP) 8 pg/mL 0-125 CARDIAC [id number] 04:43:00 Test Item Value Reference Range Interpretation Comments TROPONIN I (test code = A84) <0.015 ng/mL 0.000-0.045 CKMB (test code = A49) <1.0 ng/mL <=3.6 CPK (test code = 32A) 149 IU/L 39-308 COMPREHENSIVE METABOLIC [id number] 04:41:00 Test Item Value Reference Range Interpretation [...] = 31A) 37 IU/L <=78 AMYLASE AND [id number] 04:41:00 Test Item Value Reference Range Interpretation Comments AMYLASE (test code = 10A) 34 U/L 28-100 LIPASE (test code = 60A) 128 IU/L 73-393 ALCOHOL BLOOD (ETOH)2018-05-17 04:38:00 Test Item Value Reference Range Interpretation Comments ETOH (test code = HALC) ETHANOL The result is to be used only for medical purposes ALCOHOL (test code = <10 mg/dL <=10 56A) DRUGS OF [id number] 04:31:00 Test Item Value Reference Range Interpretation [...] (test code = RBCMOR) NORMAL DRUGS OF [id number] 20:50:00 Test Item Value Reference Range Interpretation [...] ng/mL Opiates 2000 ng/mL CT HEAD W/O [id number] 20:28:53AFTER HOURS SERVICE ON: 11/11/2017 8:27 PMCT Scan of the Brain Without ContrastLocation Code I39Pbmzyfe: R42: DIZZINESS AND GIDDINESSTechnique: Scans were performed on a helical scanner pre IV contrast only. Thestudy is limited secondary to lack of intravenous contrast, particularly forevaluation of masses. CT images were performed within 24 hours at [facility]. One or more of the followingdose reduction [...] (test code = <10 mg/dL <=10 56A) [id number] 20:23:00 Test Item Value Reference Range Interpretation Comments CPK (test code = 32A) 164 IU/L 39-308 COMPREHENSIVE METABOLIC [id number] 20:23:00 Test Item Value Reference Range Interpretation [...] code = 31A) 31 IU/L <=78 TROPONIN [id number] 20:20:00 Test Item Value Reference Range Interpretation Comments TROPONIN I (test code = A84) <0.015 ng/mL 0.000-0.045 PRO TIME AND [id number] 20:15:00 Test Item Value Reference Range Interpretation [...] = RBCMOR) NORMAL XR CHEST 1 VIEW [id number] 19:59:42Portable chest one view.HISTORY: DizzinessLocation R 16COMMENT: No comparison. No pleural effusion. The lungs are clear and normallyexpanded. The cardiac silhouette is unremarkable. Skeletal structuresarenormal in appearance.IMPRESSION: No active disease in the chest.
[2022-11-05 17:05] LABS: Absolute Lymphocytes (CBC) 2.7 K/uL (0.7-4.9); Hematocrit 42.3 % (39.6-49.0); Lymphocytes % 28.9 % (15.3-44.8); MCV 88.6 fL (80-100); RBC Red Blood Cell Count 4.78 M/uL (4.33-5.43)
--- NOTE | 2022-11-05 17:21 | RAD REPORT ---
EXAM DESCRIPTION: RAD - Chest Single View - 11/05/2022 5:02 pm CLINICAL HISTORY: CHEST PAIN COMPARISON: Chest Single View dated 11/03/2022 FINDINGS: Lines: None. Lungs: No evidence of edema or pneumonia. Pleural: No significant pleural effusions or pneumothorax. Cardiac: The heart size is within normal limits. Mediastinum: Within normal limits. Bones: No acute fractures. Other: None IMPRESSION: No acute cardiopulmonary disease.
[2022-11-05 17:27] LABS: Albumin 4.1 g/dL (3.4-5.0); Bilirubin Total 0.5 mg/dL (0.2-1.0); Magnesium 2.6 mg/dL (1.6-2.4); Potassium 3.8 mmol/L (3.5-5.1); Protein, Total 7.5 g/dL (6.4-8.2); Troponin High Sensitivity 5.4 pg/mL (<58.9)
[2022-11-05 17:40] LABS: SARS-COV-2 RT PCR NEGATIVE (NEGATIVE)
--- NOTE | 2022-11-05 17:43 | EDPHYS ---
Physician Documentation [facility] Name: Perfecto Murphy Age: 27 yrs Sex: Male : 1995 Arrival Date: 11/05/2022 Time: 14:25 Bed 12 Private MD: ED Physician Damian Schaefer HPI: 11/05 16:28 This 27 yrs old Male presents to ER via Ambulatory with complaints of Chest Pain, kb lightheaded, Near Syncope. 16:28 The patient or guardian reports chest pain that is located primarily in the anterior kb chest wall. The pain does not radiate. Associated signs and symptoms: Pertinent positives: lightheadedness, near-syncope. The chest pain is described as aching. Duration: The patient or guardian reports multiple episodes, that are intermittent, with no pattern. Modifying factors: The symptoms are alleviated by nothing. the symptoms are aggravated by nothing. Severity of pain: At its worst the pain was moderate in the emergency department the pain is unchanged. The patient has not experienced similar symptoms in the past. The patient has been recently seen at the [facility] Emergency Department, this week, for similar complaints labs were performed, X-rays were performed. Patient reports intermittent chest pain for 4 to 6 weeks with episodes of near syncope and lightheadedness. Also reports general malaise for same amount of time. Patient was seen 2 days ago by me in this ER for similar complaints. States he felt a little better upon discharge but symptoms have returned at the same level.. Historical: - Allergies: 14:32 No Known Allergies; ko1 - Immunization history:: Adult Immunizations unknown. - Social history:: Smoking status: Patient reports the use of cigarette tobacco products, smokes one-half pack cigarettes per day. ROS: 16:33 Respiratory: Negative for shortness of breath, cough, wheezing, and pleuritic chest kb pain. 16:33 Constitutional: Positive for malaise. 16:33 Cardiovascular: Positive for chest pain. 16:33 Neuro: Positive for near syncope. 16:33 All other systems are negative. Exam: 16:33 Constitutional: This is a well developed, well nourished patient who is awake, alert, kb and in no acute distress. Head/Face: Normocephalic, atraumatic. ENT: Moist Mucous membranes Cardiovascular: Regular rate and rhythm with a normal S1 and S2. No gallops, murmurs, or rubs. No pulse deficits. Respiratory: Respirations even and unlabored. No increased work of breathing. Talking in full sentences Abdomen/GI: Soft, non-tender. No distention Skin: Warm, dry with normal turgor. Normal color. MS/ Extremity: Pulses equal, no cyanosis. Neurovascular intact. Full, normal range of motion. Neuro: Awake and alert, GCS 15, oriented to person, place, time, and situation. Moves all extremities. Normal gait. Psych: Awake, alert, with orientation to person, place and time. Behavior, mood, and affect are within normal limits. 16:38 ECG was reviewed by the Attending Physician. kb Vital Signs: 14:31 BP 123 / 79; Pulse 84; Resp 18; Temp 99.1; Pulse Ox 98% ; Weight 65.77 kg; Height 5 ft. ko1 5 in. (165.10 cm); Pain 8/10; 18:01 BP 118 / 72; Pulse 81; Resp 18; Temp 98.7; Pulse Ox 99% on R/A; ph 14:31 Body Mass Index 24.13 (65.77 kg, 165.10 cm) ko1 MDM: 14:43 Patient medically screened. kb 16:28 Data reviewed: vital signs, nurses notes. kb 16:34 Differential diagnosis: abnormal EKG, acute myocardial infarction, coronary artery kb disease chest wall pain. Care significantly affected by the following Social Determinants of Health: Poor access to healthcare and/or lack of insurance. 17:41 Counseling: I had a detailed discussion with the patient and/or guardian regarding: the kb historical points, exam findings, and any diagnostic results supporting the discharge/admit diagnosis, lab results, radiology results, the need for outpatient follow up, a family practitioner, to return to the emergency department if symptoms worsen or persist or if there are any questions or concerns that arise at home. 11/05 14:41 Order name: CBC with Diff; Complete Time: 17:29 kb 11/05 14:41 Order name: Magnesium; Complete Time: 17:29 kb 11/05 14:41 Order name: NT PRO-BNP; Complete Time: 17:29 kb 11/05 14:41 Order name: Troponin HS; Complete Time: 17: kb 11/05 14:41 Order name: CMP; Complete Time: 17: kb 11/05 16:27 Order name: COVID-19/FLU A+B; Complete Time: 17:41 kb 11/05 14:41 Order name: XRAY Chest (1 view); Complete Time: 17:29 kb 11/05 14:41 Order name: EKG; Complete Time: 14:42 kb 11/05 14:41 Order name: EKG - Nurse/Tech; Complete Time: 16:38 kb 11/05 16:27 Order name: [place] Screen Profile; Complete Time: 17:29 kb 11/05 14:41 Order name: IV Saline Lock; Complete Time: 17:30 kb 11/05 14:41 Order name: Labs collected and sent; Complete Time: 17:30 kb 11/05 14:41 Order name: O2 Per Protocol; Complete Time: 17:30 kb 11/05 14:41 Order name: O2 Sat Monitoring; Complete Time: 17:30 kb EC:38 Rate is 69 beats/min. Rhythm is regular. QRS [place] is Normal. HI interval is normal at kb 146 msec. QRS interval is normal at 108 msec. QT interval is normal at 394 msec. Administered Medications: 17:47 Drug: Ketorolac 15 mg Route: IVP; Site: left forearm; ph 17:49 Follow up: Response: No adverse reaction ph 17:47 Drug: Zofran (Ondansetron) 4 mg Route: IVP; Site: left forearm; ph 17:49 Follow up: Response: No adverse reaction ph 17:47 Not Given (Other Intervention Used): NS 0.9% 1000 ml IV at 1000 ml once ph Disposition Summary: 11/05/22 17:42 Discharge Ordered Location: Home kb Condition: Stable kb Diagnosis - Infectious mononucleosis, unspecified without complication kb Followup: kb - With: Emergency Department - When: As needed - Reason: Worsening of condition Followup: kb - With: Private Physician - When: 2 - 3 days - Reason: Recheck today's complaints, Continuance of care, Re-evaluation by your physician Discharge Instructions: - Discharge Summary Sheet kb - Infectious Mononucleosis kb Forms: - Medication Reconciliation Form kb - Thank You Letter kb - Antibiotic Education kb - Prescription Opioid Use kb Prescriptions: - ondansetron 4 mg Oral - take 1 tablet by SUBLINGUAL route every 8 hours As needed; 15 tablet; Refills: kb 0, Product Selection Permitted Signatures: Dispatcher [employer] Monik Yang, FINE PATCHER-C LILO-Gypsy Crocker, RN RN Amanda Blum RN RN ko1
--- NOTE | 2022-11-05 17:43 | ER ---
Nurse's Notes [facility] Name: Perfecto Murphy Age: 27 yrs Sex: Male : 1995 Arrival Date: 11/05/2022 Time: 14:25 Bed 12 Private MD: Diagnosis: Infectious mononucleosis, unspecified without complication Presentation: 11/05 14:31 Chief complaint: Patient states: chest pain, constant, does not go away. Was here a few ko1 days ago with same issue, no improvement. Coronavirus screen: Vaccine status: Patient reports being unvaccinated. Ebola Screen: No symptoms or risks identified at this time. Initial Sepsis Screen: Does the patient meet any 2 criteria? No. Patient's initial sepsis screen is negative. Does the patient have a suspected source of infection? No. Patient's initial sepsis screen is negative. Risk Assessment: Do you want to hurt yourself or someone else? Patient reports no desire to harm self or others. Onset of symptoms was November 01, 2022. 14:31 Method Of Arrival: Ambulatory ko1 14:31 Acuity: SHERRI 2 ko1 Triage Assessment: 14:32 General: Appears distressed, uncomfortable, Behavior is calm, cooperative, appropriate ko1 for age. Pain: Complains of pain in chest. Cardiovascular: Reports chest pain, lightheadedness, nausea, syncope. Historical: - Allergies: 14:32 No Known Allergies; ko1 - Immunization history:: Adult Immunizations unknown. - Social history:: Smoking status: Patient reports the use of cigarette tobacco products, smokes one-half pack cigarettes per day. Screenin:00 [facility] ED Fall Risk Assessment (Adult) History of falling in the last 3 months, ph including since admission No falls in past 3 months (0 pts) Confusion or Disorientation No (0 pts) Intoxicated or Sedated No (0 pts) Impaired Gait No (0 pts) Mobility Assist Device Used No (0 pt) Altered Elimination No (0 pt). Abuse screen: Denies threats or abuse. Denies injuries from another. Nutritional screening: No deficits noted. Tuberculosis screening: No symptoms or risk factors identified. Assessment: 16:45 General: Appears in no apparent distress. comfortable, Behavior is calm, cooperative, ph appropriate for age. Pain: Pain radiates to anterior aspect of left upper chest Pain began greater than 2 weeks ago. Neuro: Level of Consciousness is awake, alert, obeys commands, Oriented to person, place, time, situation, Reports dizziness. Cardiovascular: Reports chest pain, fatigue, lightheadedness, nausea, Capillary refill < 3 seconds in bilateral fingers Patient's skin is warm and dry. Rhythm is regular. Respiratory: Airway is patent Respiratory effort is even, unlabored, Respiratory pattern is regular, symmetrical. GI: Reports nausea, Patient currently denies abdominal pain, vomiting. Derm: Skin is intact, is healthy with good turgor, Skin is pink, warm \T\ dry. Vital Signs: 14:31 BP 123 / 79; Pulse 84; Resp 18; Temp 99.1; Pulse Ox 98% ; Weight 65.77 kg; Height 5 ft. ko1 5 in. (165.10 cm); Pain 8/10; 18:01 BP 118 / 72; Pulse 81; Resp 18; Temp 98.7; Pulse Ox 99% on R/A; ph 14:31 Body Mass Index 24.13 (65.77 kg, 165.10 cm) ko1 ED Course: 14:25 Patient arrived in ED. am2 14:32 Triage completed. ko1 14:32 Arm band placed on right wrist. ko1 14:41 Monik Bautista FNP-C is [facility]. kb 14:41 Damian Schaefer MD is Attending Physician. kb 16:38 Gypsy Guillermo, ZAHRAA is Primary Nurse. ph 16:45 Initial lab(s) drawn, by me, sent to lab. Inserted saline lock: 20 gauge in left ph forearm, using aseptic technique. Blood collected. Patient maintains SpO2 saturation greater than 95% on room air. 17:04 XRAY Chest (1 view) In Process Unspecified. EDMS 18:00 Patient has correct armband on for positive identification. Bed in low position. Call ph light in reach. Side rails up X 1. monitoring analyst on. Pulse ox on. NIBP on. 18:00 No provider procedures requiring assistance completed. ph 18:14 IV discontinued, intact, bleeding controlled, No redness/swelling at site. Pressure ph dressing applied. Administered Medications: 17:47 Drug: Ketorolac 15 mg Route: IVP; Site: left forearm; ph 17:49 Follow up: Response: No adverse reaction ph 17:47 Drug: Zofran (Ondansetron) 4 mg Route: IVP; Site: left forearm; ph 17:49 Follow up: Response: No adverse reaction ph 17:47 Not Given (Other Intervention Used): NS 0.9% 1000 ml IV at 1000 ml once ph Medication: 18:00 VIS not applicable for this client. ph Outcome: 17:42 Discharge ordered by . good 18:14 Discharged to home ambulatory. ph 18:14 Condition: good 18:14 Discharge instructions given to patient, Instructed on discharge instructions, follow up and referral plans. medication usage, Demonstrated understanding of instructions, follow-up care, medications, Prescriptions given X 1. 18:15 Patient left the ED. ph Signatures: Dispatcher [employer] EDMS Mnoik Bautista, FOREST WORKER-C FOREST WORKER-Gypsy Crocker, RN RN Monica Velasco Kathy, RN RN ko1
[2022-11-05] MEDS ORDERED: NA CHLORIDE 0.9% 0 ML ONE (17:44)
[2022-11-05] MEDS ORDERED: KETOROLAC 30 MG/ML INJ ONE (17:44)
[2022-11-05] MEDS ORDERED: ONDANSETRON 4 MG/2 ML VIAL ONE (17:44)
[2022-11-05 18:33] VITALS: BP 118/72; TEMP 98.7; O2SAT 99
--- NOTE | 2022-11-07 17:01 | EKG ---
Test Date: 2022-11-05 Test Time: 16:36:00 Quarry Worker: JOVAN MEASUREMENT RESULTS: Intervals: Rate: 69 ME: 146 QRSD: 108 QT: 368 QTc: 394 [place]: P: 45 ME: 146 QRS: 79 T: 30 INTERPRETIVE STATEMENTS: Normal sinus rhythm Normal ECG Compared to ECG 11/03/2022 19:01:04 Incomplete right bundle-branch block no longer present Electronically Signed On 11-07-22 16:57:21 CITY PLANNING ENGINEER by Hernando Peterson
== END 2022-11-05 18:15 | disposition home or self-care (01) ==
LOC: ER 14:21
DX: B27.90 Infectious mononucleosis, unspecified without complication (principal); F17.210 Nicotine dependence, cigarettes, uncomplicated
CPT/HCPCS: 0240U; 36415; 71045; 80053; 83735; 83880; 84484; 85025; 86308; 93005; 96374; 96375; 99285; J2405; J7030

== ENCOUNTER 2022-11-12 14:06 | Emergency (ER) | payer SELFPAY ==
--- OUTSIDE RECORDS SUMMARY | 2022-11-12 14:15 | XMS REPORT | Continuity of Care Document ---
:[address] [facility] t Address [address] [place] [address] Care Team Providers Name Role Phone MAKENZIE BONDS Primary Care Physician Unavailable Fernando Mayer Attending Clinician Unavailable SE CALHOUN Attending Clinician Unavailable Se [...] Attending Clinician Unavailable Zuniga_S Attending Clinician Unavailable ANTONIA DE Attending Clinician Unavailable Jimmy Porras Attending Clinician Unavailable Soco Martin Attending Clinician Unavailable ABDOULAYE CAVAZOS Attending Clinician Unavailable JESUS PHILLIPS Attending Clinician Unavailable DR KEISHA CHRISTENSEN Attending Clinician Unavailable MAI TELLEZ Attending Clinician Unavailable DR PATRICIA BUTT Attending Clinician Unavailable FLO ELDER Attending Clinician Unavailable MADELINE ARMSTRONG Attending Clinician Unavailable SE CALHOUN Admitting Clinician Unavailable URIEL HEAD Admitting Clinician Unavailable DR SAMMIE ALVARADO Admitting Clinician Unavailable NORRIS ALEX Admitting Clinician Unavailable AMBREEN_SHIVAA Admitting Clinician Unavailable Zundanaya_S Admitting Clinician Unavailable DR KEISHA CHRISTENSEN Admitting Clinician Unavailable DR PATRICIA BUTT Admitting Clinician Unavailable Payers Payer Name Policy Type Policy Number Effective Date Expiration Date S ourbreann 1000 [id number] 2022 00:00:00 [facility], 96 2022 INC 00:00:00 Problems Condition Condition [...] rs active active ity of problems problems [facility] Allergies, Adverse Reactions, Alerts Allergy Allergy Status Severity Reaction(s) Onset Inactive Treating Comm ents Source Name Type Date Date Clinician No Known DA Active Unknown [facility] Medical Allergie 00:00: Center s 00 NO KNOWN Drug Active Univers ALLERGIE Class ity of S [facility] Social History Social Habit Start Date Stop Date Quantity Comments Source Exposure to 2022-10-19 2022-10-29 Not sure [facility] SARS-CoV-2 (event) 00:00:00 23:25:00 Medica l Branch Sex Assigned At [address] [place] [facility] Medical Branch Smoking Status Start Date Stop Date Source Tobacco smoking consumption [facility] Medical unknown Branch Light Tobacco Smoker [facility] Medications Ordered Filled Start Stop Current Ordering Indication Dosage Frequency Signature Comments Components Source Medication Medication Date Date Medication? Clinician (SIG) Name Name NaCl 0.9% 2021-10 No 500mL at 999 Univ ers (NS) bolus 1-20 11-20 mL/hr, 500 it y of infusion 09:30: 09:24 mL, IV [place] 500 mL 00 :00 Piggyback, Medical ONCE, 1 Branch dose, On 08/27/22 at 0330, STAT ketorolac 2021-10- No 15mg 15 mg, Unive rs (TORADOL) 1-20 11-20 Slow IV ity of injection 09:30: 08:48 Push, [place] 15 mg 00 :00 ONCE, 1 Medical dose, On Branch 08/27/22 at 0330, TOSHA famotidine 2021-10- No 20mg 20 mg, Univ ers (PEPCID 1-20 11-20 Slow IV ity of (PF)) 08:45: 08:48 Push, [place] injection 00 :00 ONCE, 1 Medical 20 mg dose, On Branch 08/27/22 at 0245, TOSHA famotidine 2021-10 Yes [id number] 20mg Take 1 Un ajmes (PEPCID) 20 1-20 tablet by ity of mg tablet 00:00: [place] the Medical morning Branch and 1 tablet in the evening. famotidine 2021-10 Yes [id number] 20mg Take 1 Un james (PEPCID) 20 1-20 tablet by ity of mg tablet 00:00: [place] the [place] morning Branch and 1 tablet in the evening. famotidine 2021-10 Yes [id number] 20mg Take 1 Un james (PEPCID) 20 1-20 tablet by ity of mg tablet 00:00: [place] the Medical morning Branch and 1 tablet in the evening. famotidine 2021-10 Yes [id number] 20mg Take 1 Un james (PEPCID) 20 1-20 tablet by ity of mg tablet 00:00: [place] the Medical morning Branch and 1 tablet in the evening. ibuprofen 2021-10 Yes [id number] 600mg Take 1 Univers 600 mg 0-19 tablet by ity of tablet 00:00: mouth [place] 00 every 6 Medical (six) Branch hours as needed for Pain (scale 4-6). benzonatate 2021-10 Yes [id number] 200mg Take 1 Univers 200 mg 0-19 capsule by ity of capsule 00:00: mouth 3 [place] 00 (three) Medical times Branch daily as needed for Cough for up to 20 doses. ondansetron 2021-10 Yes [id number] 4mg Take 1 Univers 4 mg 0-19 tablet by ity of disintegrat 00:00: mouth [place] ing tablet 00 every 8 Medica l (eight) Branch hours as needed for Nausea and Vomiting (N/V). ibuprofen 2021-10 Yes [id number] 600mg Take 1 Univers 600 mg 0-19 tablet by ity of tablet 00:00: mouth [place] 00 every 6 Medical (six) Branch hours as needed for Pain (scale 4-6). benzonatate 2021-10 Yes [id number] 200mg Take 1 Univers 200 mg 0-19 capsule by ity of capsule 00:00: mouth 3 [place] 00 (three) Medical times Branch daily as needed for Cough for up to 20 doses. ondansetron 2021-10 Yes [id number] 4mg Take 1 Univers 4 mg 0-19 tablet by ity of disintegrat 00:00: mouth [place] ing tablet 00 every 8 Medica l (eight) Branch hours as needed for Nausea and Vomiting (N/V). ibuprofen 2021-10 Yes [id number] 600mg Take 1 Univers 600 mg 0-19 tablet by ity of tablet 00:00: mouth [place] 00 every 6 Medical (six) Branch hours as needed for Pain (scale 4-6). benzonatate 2021-10 Yes [id number] 200mg Take 1 Univers 200 mg 0-19 capsule by ity of capsule 00:00: mouth 3 [place] 00 (three) Medical times Branch daily as needed for Cough for up to 20 doses. ondansetron 2021-10 Yes [id number] 4mg Take 1 Univers 4 mg 0-19 tablet by ity of disintegrat 00:00: mouth [place] ing tablet 00 every 8 Medica l (eight) Branch hours as needed for Nausea and Vomiting (N/V). ibuprofen 2021-10 Yes [id number] 600mg Take 1 Univers 600 mg 0-19 tablet by ity of tablet 00:00: mouth [place] 00 every 6 Medical (six) Branch hours as needed for Pain (scale 4-6). benzonatate 2021-10 Yes [id number] 200mg Take 1 Univers 200 mg 0-19 capsule by ity of capsule 00:00: mouth 3 [place] 00 (three) Medical times Branch daily as needed for Cough for up to 20 doses. ondansetron 2021-10 Yes [id number] 4mg Take 1 Univers 4 mg 0-19 tablet by ity of disintegrat 00:00: mouth [place] ing tablet 00 every 8 Medica l (eight) Branch hours as needed for Nausea and Vomiting (N/V). ibuprofen 2021-10 Yes [id number] 600mg Take 1 Univers 600 mg 0-19 tablet by ity of tablet 00:00: mouth [place] 00 every 6 Medical (six) Branch hours as needed for Pain (scale 4-6). benzonatate 2021-10 Yes [id number] 200mg Take 1 Univers 200 mg 0-19 capsule by ity of capsule 00:00: mouth 3 [place] 00 (three) Medical times Branch daily as needed for Cough for up to 20 doses. ondansetron 2021-10 Yes [id number] 4mg Take 1 Univers 4 mg 0-19 tablet by ity of disintegrat 00:00: mouth [place] ing tablet 00 every 8 Medica l (eight) Branch hours as needed for Nausea and Vomiting (N/V). maalox:diph 2021- No 15mL 15 mL, Uni vers enhydrAMINE 04-12 Oral, ity of :lidocaine 23:30: 00:22 ONCE, 1 Justin as 2 % viscous 00 :00 dose, On Medi hernando 1:1:1 [facility] 04/12/22 Branch (FIRST-MOUT at 1830, [facility]) Routine oral suspension 15 mL penicillin 2021- No 1.210 1.2 Unive rs g 04-12 Million ity of benzathine 23:30: 00:22 [place], [place] (BICILLIN 00 :00 Intramuscu [facility] hernando L-A) lar, ONCE, Branch injection 1 [...] 1 dose, On Medi hernando 10 mg [facility] 04/12/22 Branch at 1830, 1 mL acetaminoph 2021- No 1000mg 1,000 mg, Univers en 04-12 Oral, ity of (TYLENOL) 23:00: 22:58 ONCE, 1 [place] tablet 00 :00 dose, On Medical 1,000 mg Sun04/12/22 Branc h at 1800, TOSHA No known No Univers medications 04-12 ity of 17:46: [address] cyclobenzap cyclobenzap No 1 TID cyclobenza [...] Immunizations Ordered Filled Immunization Date Status Comments [facility] e Immunization Name Name HEPATITIS A 2000-12-20 Completed University of 00:00:00 [facility] MMR 2000-11-14 Completed University of 00:00:00 [facility] DTAP 2000-11-14 Completed University of 00:00:00 [facility] Polio (IPV/OPV) 2000-11-14 Completed Universit y of 00:00:00 [facility] Hep B, Adol or Pedi 2000-05-30 Completed Unive rsity of Dosage 00:00:00 [facility] MMR 2000-05-30 Completed University of 00:00:00 [facility] Varicella 2000-05-30 Completed University of (varivax)(chicken 00:00:00 [facility] edical pox) Branch DTAP 2000-05-30 Completed University of 00:00:00 [facility] HIB 4 Dose Schedule 2000-05-30 Completed Unive rsity of 00:00:00 [facility] Polio (IPV/OPV) 2000-05-30 Completed Universit y of 00:00:00 [facility] HIB 4 Dose Schedule 1999-12-04 Completed Unive rsity of 00:00:00 [facility] Polio (IPV/OPV) 1996 Completed Universit y of 00:00:00 [facility] Hep B, Adol or Pedi 1996 Completed Unive rsity of Dosage 00:00:00 [facility] DTAP 1996 Completed University of 00:00:00 [facility] Hep B, Adol or Pedi 1996 Completed Unive rsity of Dosage 00:00:00 [facility] Vital Signs Vital Name Observation Time Observation Value Comments Source Systolic blood 2022-10-30 06:00:00 121 mm[Hg] Univer sity of pressure [facility] Diastolic blood 2022-10-30 06:00:00 80 mm[Hg] Unive rsity of pressure [facility] Heart rate 2022-10-30 06:00:00 73 /min Universi ty of [facility] Respiratory rate 2022-10-30 06:00:00 13 /min Univ ersity of [facility] Oxygen saturation in 2022-10-30 06:00:00 98 /min [facility] Arterial blood by [facility] Pulse oximetry Branch Body temperature 2022-10-30 05:27:00 37.22 Raquel Univ ersity of [facility] Body height 2022-10-30 05:27:00 165.1 cm Universi ty of [place] [facility] [place] Body weight 2022-10-30 05:27:00 68.493 kg Universi ty [facility] [place] [facility] BMI 2022-10-30 05:27:00 25.13 kg/m2 Universi ty of [facility] Branch Systolic blood 2022-10-19 06:30:00 137 mm[Hg] Univer sity of pressure [facility] Diastolic blood 2022-10-19 06:30:00 98 mm[Hg] Unive rsity of pressure [facility] Heart rate 2022-10-19 06:30:00 88 /min Universi ty of [facility] Body temperature 2022-10-19 06:30:00 37 Raquel Univ ersity of [facility] Respiratory rate 2022-10-19 06:30:00 16 /min Univ ersity of [facility] Body height 2022-10-19 06:30:00 165.1 cm Universi ty [facility] [place] [facility] [place] Body weight 2022-10-19 06:30:00 66.906 kg Universi ty [facility] [place] [facility] BMI 2022-10-19 06:30:00 24.55 kg/m2 Universi ty of [facility] Oxygen saturation in 2022-10-19 06:30:00 99 /min University Arterial blood by [facility] Pulse oximetry Branch Height 2022-10-14 10:57:00 165.1 CM Weight 2022-10-14 10:57:00 65.77 KG Systolic blood 2022-10-09 21:02:00 137 mm[Hg] Univer sity of pressure [facility] Diastolic blood 2022-10-09 21:02:00 80 mm[Hg] Unive rsity of pressure [facility] Heart rate 2022-10-09 21:02:00 102 /min Universi ty of [facility] Body temperature 2022-10-09 21:02:00 37.11 Raquel Univ ersity of [facility] Respiratory rate 2022-10-09 21:02:00 16 /min Univ ersity of [facility] Body height 2022-10-09 21:02:00 162.6 cm Universi ty of [facility] Body weight 2022-10-09 21:02:00 65.772 kg Universi ty of [place] [facility] BMI 2022-10-09 21:02:00 24.89 kg/m2 Universi ty of [place] [facility] Oxygen saturation in 2022-10-09 21:02:00 100 /min University of Arterial blood by [place] [employer] hernando Pulse oximetry Branch Body temperature 2022-08-27 08:10:00 36.22 Raquel Univ ersity of [place] [facility] Respiratory rate 2022-08-27 08:10:00 17 /min Univ ersity of [place] [facility] Body height 2022-08-27 08:10:00 162.6 cm Universi ty [facility] [place] [facility] Body weight 2022-08-27 08:10:00 65.772 kg Universi ty of [place] [facility] BMI 2022-08-27 08:10:00 24.89 kg/m2 Universi ty of [place] [facility] Oxygen saturation in 2022-08-27 08:10:00 100 /min University of Arterial blood by [place] [employer] hernando Pulse oximetry Branch Systolic blood 2022-08-27 08:10:00 135 mm[Hg] Univer sity of pressure [place] [facility] Diastolic blood 2022-08-27 08:10:00 93 mm[Hg] Unive rsity of pressure [place] [facility] Heart rate 2022-08-27 08:10:00 100 /min Universi ty of [place] [facility] Systolic blood 2022-07-26 15:25:00 131 mm[Hg] Univer sity of pressure [place] [facility] Diastolic blood 2022-07-26 15:25:00 87 mm[Hg] Unive rsity of pressure [place] [facility] Heart rate 2022-07-26 15:25:00 98 /min Universi ty of [place] [facility] Body temperature 2022-07-26 15:25:00 37.33 Raquel Univ ersity of [place] [facility] Respiratory rate 2022-07-26 15:25:00 18 /min Univ ersity of [place] [facility] Body weight 2022-07-26 15:25:00 63.504 kg Universi ty [facility] [place] [facility] BMI 2022-07-26 15:25:00 22.60 kg/m2 Universi ty of [place] [facility] Oxygen saturation in 2022-07-26 15:25:00 98 /min University of Arterial blood by [place] Medi hernando Pulse oximetry Branch Systolic blood 2022-04-12 22:52:00 121 mm[Hg] Univer sity of pressure [facility] Diastolic blood 2022-04-12 22:52:00 80 mm[Hg] Unive rsity of [facility] Heart rate 2022-04-12 22:52:00 108 /min [facility] Body temperature 2022-04-12 22:52:00 39.11 Raquel [facility] rate 2022-04-12 22:52:00 24 /min [facility] Body height 2022-04-12 22:52:00 167.6 [facility] weight 2022-04-12 22:52:00 63.504 kg [facility] BMI 2022-04-12 22:52:00 22.60 kg/m2 [facility] Oxygen saturation in 2022-04-12 22:52:00 98 /min [facility] Arterial blood by [facility] Pulse oximetry Branch BP Diastolic 2022-02-17 00:00:00 75 mm[Hg] [facility] Height 2022-02-17 00:00:00 65 [in_i] [facility] BMI (Body Mass 2022-02-17 00:00:00 24 kg/m2 [facility] 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 MAGNESIUM 2022-10-30 05:37:[address] [facility] TROPONIN I 2022-10-30 05:37:[address] [facility] COMP. METABOLIC PANEL 2022-10-30 05:37:00 Se Calhoun [facility] ([id number]) Medical Branch CBC WITH DIFF 2022-10-30 05:37:[address] [facility] D-DIMER 2022-10-30 05:37:[address] [facility] N-TERMINAL PRO-BNP 2022-10-30 05:37:00 Se Calhoun [facility] CONSENT/REFUSAL FOR 2022-10-30 05:18:02 Doctor Unassigned, No Un iversity [facility] DIAGNOSIS AND Name Medical Branch TREATMENT EKG-12 LEAD 2022-10-19 08:20:54 Sonido Scvalerie [facility] XR CHEST 1 VW 2022-10-19 07:06:34 Sonido [facility] NOTICE OF PRIVACY 2022-10-19 06:22:28 Doctor Unassigned, No [facility] CONSENT/REFUSAL FOR 2022-10-09 20:55:57 Doctor Unassigned, [facility] Name Medical Branch TREATMENT EKG-12 LEAD 2022-08-27 09:19:11 Norris Alex [facility] XR CHEST 1 VW 2022-08-27 08:29:00 Norris Alex [facility] TROPONIN I 2022-08-27 08:17:00 Norris Alex [facility] COMP. METABOLIC PANEL 2022-08-27 08:17:00 Norris Alex [facility] ([id number]) Medical Branch CBC WITH DIFF 2022-08-27 08:17:00 Norris Alex [facility] NOTICE OF PRIVACY 2022-08-27 08:03:42 Doctor Unassigned, No [facility] CONSENT/REFUSAL FOR 2022-08-27 08:02:51 Doctor Unassigned, No Un iversity [facility] DIAGNOSIS AND Name Medical Branch TREATMENT RAPID INFLUENZA A/B 2022-07-26 15:28:00 Norris Alex [facility] COVID-19 (ID NOW 2022-07-26 15:28:00 Norris Alex [facility] RAPID TESTING) Medical Branch CONSENT/REFUSAL FOR 2022-07-26 15:22:01 Doctor Unassigned, [facility] AND Name Medical Branch TREATMENT RAPID STREP SCREEN 2022-04-12 22:57:00 Jayce [facility] FOR GROUP A Medical Branch COVID-19 (ID NOW 2022-04-12 22:57:00 Jayce Penn [facility] RAPID TESTING) Medical Branch NOTICE OF PRIVACY 2022-04-12 22:49:56 Doctor Unassigned, No Univ [facility] Name Medical Branch XR, 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, 2 2022-02-17 00:00:00 [facility] [facility] shoe [facility] Medical or 3 view Group Encounters Start End Encounter Admission Attending Care Care Encounter Source Date/Time Date/Time Type Type Clinicians Facility Department ID 2022-11-10 2022-11-10 Emergency ER Maida, [facility] [id number] [place] 06:53:00 08:13:00 Fernando -[id number] [facility] 2022-10-29 2022-10-30 Emergency [facility] [id number] Univers 23:30:00 00:40:00 SE clancy [facility] 2022-10-29 2022-10-30 [facility] [id number] Univers 23:30:00 00:40:00 Se NEELY [id number] i [facility] [id number] [facility] [id number] [address] 2022-10-19 2022-10-19 Emergency X [facility] ERT [id number] Univers 00:28:00 02:31:00 URIEL clancy [facility] 2022-10-19 2022-10-19 Emergency [facility] [id number] Univers 00:28:00 02:31:00 Uriel NEELY [id number] [facility] [id number] [facility] [id number] [address] 2022-10-14 2022-10-14 Emergency E JENNY, [facility] [id number] [facility] 10:19:00 13:40:00 [facility] 2022-10-09 2022-10-09 Emergency X HOME, [facility] ERT [id number] Univers 15:03:00 16:09:00 ANEL clancy [facility] 2022-10-09 2022-10-09 [facility] [id number] Univers 15:03:00 16:09:00 Anel NEELY [id number] ity [facility] [id number] [facility] [id number] [address] 2022-08-27 2022-08-27 Emergency X EASTON, [facility] ERT [id number] Univers 02:02:00 03:30:00 NORRIS ity [facility] 2022-08-27 2022-08-27 Emergency [facility] [id number] Univers 02:02:00 03:30:00 Norris NEELY 350.1.13.10 i ty of [place] 4.2.7.2.686 [facility] [id number] [address] 2022-07-26 2022-07-26 Emergency X Preethi GARCIA [facility] ERT [id number] Univers 10:29:00 11:26:00 ity [facility] 2022-07-26 2022-07-26 Emergency Preethi Garcia [facility] [id number] Univers 10:29:00 11:26:00 Felicita NEELY 350.1.13.10 i ty of [place] 4.2.7.2.686 [facility] [id number] [address] 2022-05-21 2022-05-21 Emergency ER Maida, [facility] [id number] [place] 07:56:00 09:47:00 Fernando -[id number] katherine [facility] 2022-04-19 2022-04-19 Outpatient AMBREEN_[place] [id number] [place] 03:49:00 03:49:00 HANA [id number] da [facility] Outreac h Program 2022-04-12 2022-04-12 Emergency [facility] [id number] Univers 17:53:00 19:52:00 Jayce NEELY 350.1.13.10 i [facility] [id number] [facility] [id number] [place] [address] Branch 2022-04-12 2022-04-12 Emergency X ISAMAR, [facility] ERT [id number] Univers 17:53:00 19:52:00 JAYCE blossomcandi [facility] 2022-02-23 2022-02-23 Outpatient Zuniga_S [facility] [id number] [place] 01:07:00 01:07:00 519 Medical Group 2022-02-20 2022-02-20 Outpatient Zuniga_S [facility] [id number] [place] 10:19:00 10:19:00 516 Medical Group 2022-02-20 2022-02-20 Outpatient Zuniga_S [facility] [id number] [place] 05:57:00 05:57:00 517 Medical Group 2022-02-17 2022-02-17 Outpatient EL KENISHA [facility] [id number] [place] 16:51:00 16:51:00 ANTONIA [id number] [facility] 2022-02-17 2022-02-17 Outpatient Zuniga_S [facility] [id number] [place] 05:30:00 05:30:00 513 Medical Group 2022-02-17 2022-02-17 Antonia [place] - [id number] [place] 00:00:00 00:00:00 Discovery katherine 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 2022-01-16 2022-01-16 Emergency ER Porras, [facility] [id number] [place] 18:09:00 20:36:00 Mosque -[id number] [facility] 2021-12-29 2021-12-29 Emergency ER Veronica, [facility] [id number] [place] 06:30:00 11:05:00 Soco -[id number] [facility] 2021-10-28 2021-10-28 Emergency ER DIRK, [facility] [id number] [place] 18:04:00 19:21:00 ABDOULAYE -[id number] [facility] 2021-09-20 2021-09-20 Emergency ER JESUS PHILLIPS [facility] [id number] [place] 18:13:00 20:40:00 -[id number] [facility] 2020-12-13 2020-12-13 Emergency E AMPARO KEISHA [facility] [id number] [facility] 22:26:00 23:23:00 [facility] 2019-08-17 2019-08-17 Emergency ER ROSALINDA, [facility] [id number] [place] 01:07:00 03:07:00 MAI -[id number] [facility] 2018-05-17 2018-05-17 Emergency E DAQUAN, [facility] [id number] [facility] 03:57:00 05:14:00 GOMEZ [facility] 2017-11-11 2017-11-11 Emergency E AMPARO KEISHA [facility] [id number] [facility] 19:21:00 21:04:00 [facility] 2016-01-23 2016-01-23 Emergency ER , [facility] [id number] [place] 20:43:00 22:25:00 WASIM -[id number] [facility] 2013-10-17 2013-10-17 Emergency ER MADELINE ARMSTRONG [facility] [id number] [place] 13:21:00 14:43:00 -[id number] [facility] Results Test Description Test Time Test Comments Results Result Comments Source D-DIMER 2022-10-30 06:15:32 Test Item Value Reference Range Interpretation Comme nts D-DIMER (test code = See_Comment [Autom ated message] The [id number]) system which ge nerated this result tra [...] diagnosis. Lab Interpretation Normal (test code = 44444-5) [id number] 06:05:50 Test Item Value Reference Interpretation Comments Range TROPONIN I (test 0.004 ng/mL See_Comment [Automated code = [id number]) message] The system which generated this result [...] biotin. Lab Interpretation Normal (test code = 71772-1) [id number] 06:02:29 Test Item Value Reference Range Interpretation Comments NT-proBNP (test code 22 pg/mL See_Comment [Autom ated = 8669356875) message] The system which generated this result transmitted reference range : <=125. The reference range was not used to interpret this result as normal/abnormal . FAIZA (test code = FAIZA) Biotin has been reported to cause a negative bias, interpret results relative to patient's use of biotin. Lab Interpretation Normal (test code = 35680-9) [facility] 05:54:05 Test Item Value Reference Range Interpretation Comments MAGNESIUM (test code = 4169485605) 2.2 mg/dL 1.7-2.4 Lab Interpretation (test code = Normal 79912-0) [facility] METABOLIC PANEL (90700)2022-10-30 05:53:45 Test Item Value Reference Range Interpretation Comments NA (test code = 139 mmol/L 135-145 3398363231) K (test code = 3.9 mmol/L 3.5-5.0 9070232579) CL (test code = 104 mmol/L 98-108 9666505950) CO2 TOTAL (test code = 26 mmol/L 23-31 5675560272) AGAP (test code = 2-16 7065546086) BUN (test code = 11 mg/dL 7-23 7730582775) GLUCOSE (test code = 119 mg/dL 70-110 H 3934690282) CREATININE (test code = 0.90 mg/dL 0.60-1.25 8501237697) TOTAL BILI (test code = 0.4 mg/dL 0.1-1.4 5822396882) CALCIUM (test code = 9.3 mg/dL 8.6-10.6 1810161580) T PROTEIN (test code = 7.5 g/dL 6.3-8.2 0714644811) ALBUMIN (test code = 4.7 g/dL 3.5-5.0 1585366573) ALK PHOS (test code = 103 U/L 34-122 4391409863) ALTv (test code = 30 U/L 5-50 1742-6) AST(SGOT) (test code = 24 U/L 13-40 2813711584) eGFR (test code = mL/min/1.73m2 7109171403) FAIZA (test code = FAIZA) Association of [...] tests). Lab Interpretation Abnormal (test code = 92645-9) [facility] 05:53:25 Test Item Value Reference Range Interpretation Comments LIPASE (test code = 5531573082) 296 U/L 0-220 H Lab Interpretation (test code = Abnormal 21933-8) [facility] WITH [id number] 05:44:09 Test Item Value Reference Range Interpretation Comments WBC (test code = See_Comment [Automated 0375-2) message] The sy stem which generated this result transmitted reference range : 4.20 - 10.70 10*3/?L. The reference range was not used to interpret this result as normal/abnormal . RBC (test code = See_Comment [Automated 435-8) message] The sy stem which generated this [...] RDW-SD (test code = 40.7 fL 38.5-51.6 72126-9) RDW-CV (test code = 12.4 % 12.1-15.4 788-0) PLT (test code = See_Comment [Automated 777-3) message] The sy stem which generated this result transmitted reference range : 150 - 328 10*3/ ?L. The reference r ambar was not used to interpret this result as normal/abnormal . MPV (test code = 9.4 fL 9.8-13.0 L 14696-0) NRBC/100 WBC (test See_Comment [Automat ed code = 4547251355) message] The system which generated this result transmitted reference range : 0.0 - 10.0 /100 WBCs. The refer ence range was not u sed to interpret th is result as normal/abnormal . NRBC x10^3 (test code See_Comment [Auto mated = 5764440448) message] The s ystem which generated this result transmitted reference range : 10*3/?L. The reference range was not used to interpret this result as normal/abnormal . GRAN MAT (NEUT) % 47.4 % (test code = 770-8) IMM GRAN % (test code 0.20 % = 0726134434) LYMPH % (test code = 43.1 % 736-9) MONO % (test code = 6.8 % 5905-5) EOS % (test code = 1.9 % 713-8) BASO % (test code = 0.6 % 706-2) GRAN MAT x10^3(ANC) 4.19 10*3/uL 1.99-6.95 (test code = 0521798361) IMM GRAN x10^3 (test 0.00-0.06 code = 7214804438) LYMPH x10^3 (test code 3.81 10*3/uL 1.09-3.23 H = 731-0) MONO x10^3 (test code 0.60 10*3/uL 0.36-1.02 = 742-7) EOS x10^3 (test code = 0.17 10*3/uL 0.06-0.53 711-2) BASO x10^3 (test code 0.05 10*3/uL 0.01-0.09 = 704-7) Lab Interpretation Abnormal (test code = 94585-3) [facility]DIRECT INFLUENZA A AND B [id number] 11:50:00 Test Item Value Reference Range Interpretation [...] the FDA and the [employer] [place] [employer] (CAP) are more stringent than those required for this test. Therefore, the result should be interpreted with caution and close attention to other clinical and epidemiological data TROPONIN [id number] 09:09:10 Test Item Value Reference Interpretation Comments Range TROPONIN I (test 0.002 ng/mL See_Comment [Automated code = 7982873884) message] The system which generated this result [...] biotin. Lab Interpretation Normal (test code = 84898-0) [facility] WITH [id number] 09:01:39 Test Item Value Reference Range Interpretation [...] RDW-SD (test code = 40.6 fL 38.5-51.6 67623-6) RDW-CV (test code = 12.8 % 12.1-15.4 788-0) PLT (test code = See_Comment [Automated 777-3) message] The sy stem which generated this result transmitted reference range : 150 - 328 10*3/ ?L. The reference r ambar was not used to interpret this result as normal/abnormal . MPV (test code = 9.8 fL 9.8-13.0 10597-4) NRBC/100 WBC (test See_Comment [Automat ed code = 4236206678) message] The system which generated this result transmitted reference range : 0.0 - 10.0 /100 WBCs. The refer ence range was not u sed to interpret th is result as normal/abnormal . NRBC x10^3 (test code See_Comment [Auto mated = 4417260270) message] The s ystem which generated this result transmitted reference range : 10*3/?L. The reference range was not used to interpret this result as normal/abnormal . GRAN MAT (NEUT) % 47.8 % (test code = 770-8) IMM GRAN % (test code 0.30 % = 4243887882) LYMPH % (test code = 42.4 % 736-9) MONO % (test code = 7.3 % 5905-5) EOS % (test code = 1.9 % 713-8) BASO % (test code = 0.3 % 706-2) GRAN MAT x10^3(ANC) 5.30 10*3/uL 1.99-6.95 (test code = 0212818187) IMM GRAN x10^3 (test 0.03 10*3/uL 0.00-0.06 code = 0442808562) LYMPH x10^3 (test code 4.70 10*3/uL 1.09-3.23 H = 731-0) MONO x10^3 (test code 0.81 10*3/uL 0.36-1.02 = 742-7) EOS x10^3 (test code = 0.21 10*3/uL 0.06-0.53 711-2) BASO x10^3 (test code 0.03 10*3/uL 0.01-0.09 = 704-7) Lab Interpretation Abnormal (test code = 08715-7) [facility]. METABOLIC PANEL (84269)2022-08-27 08:57:28 Test Item Value Reference Range Interpretation Comments NA (test code = 140 mmol/L 135-145 4517919875) K (test code = 3.8 mmol/L 3.5-5.0 9010500113) CL (test code = 101 mmol/L 98-108 9693640323) CO2 TOTAL (test code = 29 mmol/L 23-31 9707465752) AGAP (test code = 2-16 4175703952) BUN (test code = 11 mg/dL 7-23 2921990242) GLUCOSE (test code = 112 mg/dL 70-110 H 6378333474) CREATININE (test code = 0.96 mg/dL 0.60-1.25 8599772236) TOTAL BILI (test code = 0.4 mg/dL 0.1-1.7 8355470521) CALCIUM (test code = 9.5 mg/dL 8.6-10.6 5273585407) T PROTEIN (test code = 7.1 g/dL 6.3-8.2 1437655840) ALBUMIN (test code = 4.5 g/dL 3.5-5.0 7905718717) ALK PHOS (test code = 94 U/L 34-122 2158044500) ALTv (test code = 25 U/L 5-50 1742-6) AST(SGOT) (test code = 21 U/L 13-40 9484502633) eGFR (test code = mL/min/1.73m2 2735775031) FAIZA (test code = FAIZA) Association of [...] tests). Lab Interpretation Abnormal (test code = 17693-2) [facility]XR CHEST 1 VIEW [id number] 05:05:34XR CHEST 1 VIEW PORTABLELocation:H3Dsybs hours services provided 05/17/2018 5:02 AMIndication:R07.9: CHEST PAIN, UNSPECIFIEDComparison:11/11/17indings:The lungs are equally and symmetrically inflated. The trachea ismidline. The cardiac silhouette is normal in size. No acute bony abnormality.Impression:No acute cardiopulmonary disease.[id number] 04:56:00 Test Item Value Reference Range Interpretation Comments D-DIMER (test code = <200 ng/mL D-DU 0-234 DDI) D-DIMER COMMENT (test *Level to rule out code = DDCOM) DVT or PE: <235 ng/mL D-DU* PRO TIME AND [id number] 04:54:00 Test Item Value Reference Range Interpretation [...] Heparin. Order Code is ANTI-XA BRAIN NATRIURETIC [id number] 04:46:00 Test Item Value Reference Range Interpretation Comments proBNP (test code = PBNP) 8 pg/mL 0-125 CARDIAC [id number] 04:43:00 Test Item Value Reference Range Interpretation Comments TROPONIN I (test code = A84) <0.015 ng/mL 0.000-0.045 CKMB (test code = A49) <1.0 ng/mL <=3.6 CPK (test code = 32A) 149 IU/L 39-308 COMPREHENSIVE METABOLIC [id number] 04:41:00 Test Item Value Reference Range Interpretation [...] = 31A) 37 IU/L <=78 AMYLASE AND [id number] 04:41:00 Test Item Value Reference Range Interpretation Comments AMYLASE (test code = 10A) 34 U/L 28-100 LIPASE (test code = 60A) 128 IU/L 73-393 ALCOHOL BLOOD (ETOH)2018-05-17 04:38:00 Test Item Value Reference Range Interpretation Comments ETOH (test code = HALC) ETHANOL The result is to be used only for medical purposes ALCOHOL (test code = <10 mg/dL <=10 56A) DRUGS OF [id number] 04:31:00 Test Item Value Reference Range Interpretation [...] (test code = RBCMOR) NORMAL DRUGS OF [id number] 20:50:00 Test Item Value Reference Range Interpretation [...] ng/mL Opiates 2000 ng/mL CT HEAD W/O [id number] 20:28:53AFTER HOURS SERVICE ON: 11/11/2017 8:27 PMCT Scan of the Brain Without ContrastLocation Code P23Pwvpzrb: R42: DIZZINESS AND GIDDINESSTechnique: Scans were performed on a helical scanner pre IV contrast only. Thestudy is limited secondary to lack of intravenous contrast, particularly forevaluation of masses. CT [facility] One or more of the followingdose reduction techniques were used: Automatedexposure control, adjustment of the mA and/or kV according to patient size,and/or utilization of iterative reconstruction technique.Findings: There is no hydrocephalus. Basal cisterns are patent. There is no intracranialhyperdense hemorrhage. There is no midline shift or mass effect. No effacementof the rurutia-white matter junction to indicate acute infarction. Impression:No acute intracranial CT findings.ALCOHOL BLOOD (ETOH) 2017-11-11 20:27:00 Test Item Value Reference Range Interpretation Comments ETOH (test code = HALC) ETHANOL The result is to be used only for medical purposes ALCOHOL (test code = <10 mg/dL <=10 56A) [id number] 20:23:00 Test Item Value Reference Range Interpretation Comments CPK (test code = 32A) 164 IU/L 39-308 COMPREHENSIVE METABOLIC [id number] 20:23:00 Test Item Value Reference Range Interpretation [...] code = 31A) 31 IU/L <=78 TROPONIN [id number] 20:20:00 Test Item Value Reference Range Interpretation Comments TROPONIN I (test code = A84) <0.015 ng/mL 0.000-0.045 PRO TIME AND [id number] 20:15:00 Test Item Value Reference Range Interpretation [...] = RBCMOR) NORMAL XR CHEST 1 VIEW [id number] 19:59:42Portable chest one view.HISTORY: DizzinessLocation R 16COMMENT: No comparison. No pleural effusion. The lungs are clear and normallyexpanded. The cardiac silhouette is unremarkable. Skeletal structuresarenormal in appearance.IMPRESSION: No active disease in the chest.
[2022-11-12] MEDS ORDERED: ONDANSETRON 4 MG/2 ML VIAL ONE (14:48)
[2022-11-12] MEDS ORDERED: KETOROLAC 30 MG/ML INJ ONE (14:49)
[2022-11-12] MEDS ORDERED: NA CHLORIDE 0.9% 1,000 ML ONE (14:49)
[2022-11-12 14:51] LABS: Absolute Lymphocytes (CBC) 3.2 K/uL (0.7-4.9); Hematocrit 45.1 % (39.6-49.0); Lymphocytes % 31.1 % (15.3-44.8); MCV 88.3 fL (80-100); MPV 7.6 fL (7.6-11.3); RBC Red Blood Cell Count 5.11 M/uL (4.33-5.43)
[2022-11-12 15:07] LABS: Albumin 4.4 g/dL (3.4-5.0); Bilirubin Total 0.6 mg/dL (0.2-1.0); Potassium 3.8 mmol/L (3.5-5.1); Protein, Total 8.2 g/dL (6.4-8.2); Troponin High Sensitivity 4.6 pg/mL (<58.9)
[2022-11-12] MEDS ORDERED: LORazepam 2 MG/ML VIAL ONE (15:12)
[2022-11-12 15:21] LABS: SARS-COV-2 RT PCR NEGATIVE (NEGATIVE)
--- NOTE | 2022-11-12 15:35 | RAD REPORT ---
EXAM DESCRIPTION: CT - Abdomen Pelvis W Contrast - 11/12/2022 3:22 pm CLINICAL HISTORY: L FLANK AND LUQ PAIN COMPARISON: No comparisons TECHNIQUE: Biphasic, helical CT imaging of the abdomen and pelvis was performed following 100 ml non -ionic IV contrast. Oral contrast: No. All CT scans are performed using dose optimization technique as appropriate and may include automated exposure control or mA/KV adjustment according to patient size. FINDINGS: No suspicious findings in the lung bases. Liver shows no suspicious finding. Portal vein is normal. No pancreatic or peripancreatic abnormality . Gallbladder and biliary tree are also without suspicious finding. No splenic hemorrhage, splenomegaly or focal splenic process seen. No left upper quadrant abnormality identified. Symmetric renal function is seen with no hydronephrosis or suspicious renal mass. No pyelonephritis o r acute parenchymal process. No bladder abnormalities. No adrenal abnormalities. No dilated bowel loops or bowel wall thickening. Appendix is normal. No active GI process identifiabl e. No free air, free fluid or inflammatory stranding. No hernia, mass or bulky lymphadenopathy. No suspicious bony findings. IMPRESSION: No splenic hemorrhage, splenomegaly or other left upper quadrant or left flank abnormali ty. CT abdomen and pelvis imaging shows no acute or emergent finding.
[2022-11-12] MEDS ORDERED: HYDROCODONE/APAP 5/325 MG TAB ONE (15:36)
[2022-11-12] MEDS ORDERED: ONDANSETRON 4 MG (ODT) TAB ONE (15:37)
--- NOTE | 2022-11-12 15:53 | ER ---
Nurse's Notes [facility] Name: Perfecto Murphy Age: 27 yrs Sex: Male : 1995 Arrival Date: 11/12/2022 Time: 14:10 Bed 11 Private MD: Diagnosis: Chest pain, unspecified;Anxiety disorder, unspecified Presentation: 11/12 14:13 Chief complaint: Patient states: Diagnosed here with mono 2 weeks. ago. Constant CP, ll1 weak, near syncope, nausea, L flank pain getting worse. Coronavirus screen: Vaccine status: Patient reports being unvaccinated. Client denies travel out of the [place] in the last 14 days. At this time, the client does not indicate any symptoms associated with coronavirus-19. Ebola Screen: Patient denies travel to an Ebola-affected area in the 21 days before illness onset. Initial Sepsis Screen: Does the patient meet any 2 criteria? HR > 90 bpm. No. Patient's initial sepsis screen is negative. Does the patient have a suspected source of infection? Yes: Acute abdominal pain. Risk Assessment: Do you want to hurt yourself or someone else? Patient reports no desire to harm self or others. Onset of symptoms was October 27, 2022. 14:13 Method Of Arrival: Ambulatory ll1 14:13 Acuity: SHERRI 3 ll1 Triage Assessment: 16:13 General: Appears in no apparent distress. uncomfortable, Behavior is calm, cooperative, kr3 appropriate for age. Pain: Complains of pain in all over. Historical: - Allergies: 14:15 No Known Allergies; ll1 - PMHx: 14:15 mono; ll1 - PSHx: 14:15 None; ll1 - Immunization history:: Client reports having NOT received the Covid vaccine. - Social history:: Smoking status: Patient reports the use of cigarette tobacco products, smokes one-half pack cigarettes per day. Screenin:13 [facility] ED Fall Risk Assessment (Adult) History of falling in the last 3 months, kr3 including since admission No falls in past 3 months (0 pts) Confusion or Disorientation No (0 pts) Intoxicated or Sedated No (0 pts) Impaired Gait No (0 pts) Mobility Assist Device Used No (0 pt) Altered Elimination No (0 pt) Score/Fall Risk Level 0 - 2 = Low Risk Oriented to surroundings, Maintained a safe environment, Educated pt \\T\\ family on fall prevention, incl call for assistance when getting out of bed, Hourly rounding (assess needs \\T\\ fall precautionary measures) done. Abuse screen: Denies threats or abuse. Nutritional screening: No deficits noted. Tuberculosis screening: No symptoms or risk factors identified. Assessment: 15:41 Reassessment: patient states " my body feels weird, i'm tired f feeling sick and my kr3 entire body is tingly. 15:42 Reassessment: Patient and/or family updated on plan of care and expected duration. Pain kr3 level reassessed. Patient is alert, oriented x 3, equal unlabored respirations, skin warm/dry/pink. 16:12 Reassessment: Patient appears in no apparent distress at this time. Patient and/or kr3 family updated on plan of care and expected duration. Pain level reassessed. Patient is alert, oriented x 3, equal unlabored respirations, skin warm/dry/pink. 16:15 Cardiovascular: Reports chest pain. kr3 Vital Signs: 14:13 BP 135 / 89; Pulse 110; Resp 17; Temp 98.2; Pulse Ox 99% ; Weight 65.77 kg; Height 5 ll1 ft. 5 in. (165.10 cm); Pain 8/10; 15:10 BP 120 / 72; Pulse 81; Resp 18; Pulse Ox 100% on R/A; kr3 16:12 BP 122 / 75; Pulse 84; Resp 18; Pulse Ox 100% on R/A; kr3 14:13 Body Mass Index 24.13 (65.77 kg, 165.10 cm) ll1 ED Course: 14:10 Patient arrived in ED. ll1 14:15 Triage completed. ll1 14:15 Arm band placed on. 1 14:18 [facility] 14:18 Boyd Yuan MD is Attending Physician. [facility] 14:20 Bed in low position. Call light in reach. Side rails up X 1. Client placed on kr3 continuous cardiac and pulse oximetry monitoring. NIBP monitoring applied. 14:43 Inserted saline lock: 20 gauge in right forearm, using aseptic technique. Blood kr3 collected. 14:54 COVID-19/FLU A+B Sent. 14:57 Desirae Dennis, RN is Primary Nurse. kr3 15:24 CT Abd/Pelvis - IV Contrast Only In Process Unspecified. EDMS 16:14 No provider procedures requiring assistance completed. IV discontinued, intact, kr3 bleeding controlled, No redness/swelling at site. Pressure dressing applied. Patient maintains SpO2 saturation greater than 95% on room air. Administered Medications: 14:57 Drug: NS 0.9% 1000 ml Route: IV; Rate: 1 bolus; Site: right forearm; kr3 16:16 Follow up: Response: No adverse reaction; IV Status: Completed infusion; IV Intake: kr3 1000ml 14:57 Drug: TORadol - (ketorolac) 15 mg Route: IVP; Site: right forearm; kr3 16:17 Follow up: Response: No adverse reaction kr3 14:57 Drug: Zofran (Ondansetron) 4 mg Route: IVP; Site: right forearm; kr3 16:17 Follow up: Response: No adverse reaction kr3 15:09 Drug: Ativan (LORazepam) 1 mg Route: IVP; Site: right forearm; kr3 16:16 Follow up: Response: No adverse reaction; RASS: Alert and Calm (0) kr3 Medication: 16:15 VIS not applicable for this client. kr3 Intake: 16:16 IV: 1000ml; Total: 1000ml. kr3 Outcome: 15:52 Discharge ordered by . nicole 16:14 Discharged to home ambulatory. kr3 16:14 Condition: stable 16:14 Discharge instructions given to patient, Instructed on discharge instructions, follow up and referral plans. medication usage, Demonstrated understanding of instructions, follow-up care, medications, Prescriptions given X 1. 16:17 Patient left the ED. kr3 Signatures: Dispatcher [employer] EDMS Fabienne Le, RN RN ll1 Geraldine Sawant Jennifer, I&C TECHNICIAN I&C TECHNICIAN Desirae Gutierres, RN RN kr3
--- NOTE | 2022-11-12 15:53 | EDPHYS ---
Physician Documentation [facility] Name: Perfecto Murphy Age: 27 yrs Sex: Male : 1995 Arrival Date: 11/12/2022 Time: 14:10 Bed 11 Private MD: ED Physician Boyd Yuan HPI: 11/12 14:15 This 27 yrs old Male presents to ER via Ambulatory with complaints of Chest Pain. jh7 14:15 Onset: The symptoms/episode began/occurred 2 week(s) ago. 27-year-old male presents jh7 with chest pain, left flank pain, left-sided abdominal pain, fatigue, and nausea. States that he was diagnosed with mono 2 weeks ago and is still feeling bad. Also reports anxiety due to continued symptoms.. Historical: - Allergies: 14:15 No Known Allergies; ll1 - PMHx: 14:15 mono; ll1 - PSHx: 14:15 None; ll1 - Immunization history:: Client reports having NOT received the Covid vaccine. - Social history:: Smoking status: Patient reports the use of cigarette tobacco products, smokes one-half pack cigarettes per day. ROS: 14:15 Eyes: Negative for injury, pain, redness, and discharge, ENT: Negative for injury, jh7 pain, and discharge, Neck: Negative for injury, pain, and swelling, Respiratory: Negative for shortness of breath, cough, wheezing, and pleuritic chest pain, Back: Negative for injury and pain, MS/Extremity: Negative for injury and deformity, Skin: Negative for injury, rash, and discoloration, Neuro: Negative for headache, weakness, numbness, tingling, and seizure. 14:15 Constitutional: Positive for fatigue, malaise, Negative for fever. 14:15 Cardiovascular: Positive for chest pain, Negative for orthopnea, palpitations. 14:15 Abdomen/GI: Positive for abdominal pain, nausea, Negative for vomiting, diarrhea, constipation. 14:15 All other systems are negative. Exam: 14:15 Constitutional: This is a well developed, well nourished patient who is awake, alert, jh7 and in no acute distress. Head/Face: Normocephalic, atraumatic. Eyes: Pupils equal round and reactive to light, extra-ocular motions intact. Lids and lashes normal. Conjunctiva and sclera are non-icteric and not injected. Cornea within normal limits. Periorbital areas with no swelling, redness, or edema. ENT: Nares patent. No nasal discharge, no septal abnormalities noted. Tympanic membranes are normal and external auditory canals are clear. Oropharynx with no redness, swelling, or masses, exudates, or evidence of obstruction, uvula midline. Mucous membranes moist. Cardiovascular: Regular rate and rhythm with a normal S1 and S2. No gallops, murmurs, or rubs. Normal PMI, no JVD. No pulse deficits. Respiratory: Lungs have equal breath sounds bilaterally, clear to auscultation and percussion. No rales, rhonchi or wheezes noted. No increased work of breathing, no retractions or nasal flaring. 14:15 Back: No spinal tenderness. No costovertebral tenderness. Full range of motion. Skin: Warm, dry with normal turgor. Normal color with no rashes, no lesions, and no evidence of cellulitis. MS/ Extremity: Pulses equal, no cyanosis. Neurovascular intact. Full, normal range of motion. Neuro: Awake and alert, GCS 15, oriented to person, place, time, and situation. Motor strength 5/5 in all extremities. Sensory grossly intact. Normal gait. 14:15 Abdomen/GI: Inspection: abdomen appears normal, Bowel sounds: normal, Palpation: soft, mild abdominal tenderness, in the epigastric area and Left upper quadrant. Vital Signs: 14:13 BP 135 / 89; Pulse 110; Resp 17; Temp 98.2; Pulse Ox 99% ; Weight 65.77 kg; Height 5 ll1 ft. 5 in. (165.10 cm); Pain 8/10; 15:10 BP 120 / 72; Pulse 81; Resp 18; Pulse Ox 100% on R/A; kr3 16:12 BP 122 / 75; Pulse 84; Resp 18; Pulse Ox 100% on R/A; kr3 14:13 Body Mass Index 24.13 (65.77 kg, 165.10 cm) ll1 MDM: 14:18 Patient medically screened. [facility] 15:52 Differential diagnosis: viral Infection, pneumonia Pyelonephritis, splenic rupture, [facility] mononucleosis. 15:52 Data reviewed: vital signs, nurses notes, lab test result(s), EKG, radiologic studies, jh7 CT scan. I considered the following discharge prescriptions or medication management in the emergency department Medications were administered in the Emergency Department. See MAR. Independent interpretation of the following test(s) in the Emergency Department EKG: See my EKG interpretation above. Counseling: I had a detailed discussion with the patient and/or guardian regarding: the historical points, exam findings, and any diagnostic results supporting the discharge/admit diagnosis, to return to the emergency department if symptoms worsen or persist or if there are any questions or concerns that arise at home. Response to treatment: the patient's symptoms have mildly improved after treatment. ED course: Patient requested something to help manage his anxiety as he continues to recover. Agreed to prescribe hydroxyzine to help with his symptoms. Sedation warning discussed. Advised to increase p.o. fluid intake, continue to rest, and return precautions discussed.. 11/12 14:22 Order name: CBC with Diff; Complete Time: 14:56 [facility] 11/12 14:22 Order name: CMP; Complete Time: 15:24 [facility] 11/12 14:22 Order name: Lipase; Complete Time: 15:24 [facility] 11/12 14:22 Order name: CT Abd/Pelvis - IV Contrast Only; Complete Time: 15:47 [facility] 11/12 14:22 Order name: COVID-19/FLU A+B; Complete Time: 15:24 [facility] 11/12 14:22 Order name: Troponin High Sensitivity; Complete Time: 15:24 [facility] 11/12 14:22 Order name: IV Saline Lock; Complete Time: 14:43 [facility] 11/12 14:22 Order name: Labs collected and sent; Complete Time: 14:43 [facility] 11/12 14:22 Order name: EKG - Nurse/Tech; Complete Time: 14:53 [facility] EC:15 Rate is 96 beats/min. Rhythm is regular. QRS [place] is Normal. MD interval is normal at [facility] 136 msec. QRS interval is normal at 98 msec. QT interval is normal at 336 msec. No Q waves. T waves are Normal. No ST changes noted. Clinical impression: Sinus rhythm with PACs. Administered Medications: 14:57 Drug: NS 0.9% 1000 ml Route: IV; Rate: 1 bolus; Site: right forearm; kr3 16:16 Follow up: Response: No adverse reaction; IV Status: Completed infusion; IV Intake: kr3 1000ml 14:57 Drug: TORadol - (ketorolac) 15 mg Route: IVP; Site: right forearm; kr3 16:17 Follow up: Response: No adverse reaction kr3 14:57 Drug: Zofran (Ondansetron) 4 mg Route: IVP; Site: right forearm; kr3 16:17 Follow up: Response: No adverse reaction kr3 15:09 Drug: Ativan (LORazepam) 1 mg Route: IVP; Site: right forearm; kr3 16:16 Follow up: Response: No adverse reaction; RASS: Alert and Calm (0) kr3 Disposition: 17:12 Co-signature as Attending Physician, Boyd Yuan MD I agree with the assessment and kdr plan of care. Disposition Summary: 11/12/22 15:52 Discharge Ordered Location: Home [facility] Problem: new [facility] Symptoms: are unchanged 7 Condition: Stable [facility] Diagnosis - Chest pain, unspecified 7 - Anxiety disorder, unspecified 7 Followup: [facility] - With: Private Physician - When: 2 - 3 days - Reason: Recheck today's complaints Discharge Instructions: - Discharge Summary Sheet 7 - Nonspecific Chest Pain, Adult jh7 - Infectious Mononucleosis jh7 - Managing Anxiety, Adult [facility] Forms: - Medication Reconciliation Form 7 - Thank You Letter [facility] Prescriptions: - Hydroxyzine HCl 25 mg Oral Tablet - take 1 tablet by ORAL route every 6 hours As needed; 20 tablet; Refills: 0, jh7 Product Selection Permitted Signatures: Dispatcher [employer] EDOR Boyd Yuan MD MD [facility] Fabienne Le RN RN 1 Loly Cameron FNP [place] [id number] Desirae Dennis RN RN kr3 Corrections: (The following items were deleted from the chart) 16:45 14:15 Abdomen/GI: Inspection: abdomen appears normal, Bowel sounds: normal, Palpation: [facility] soft, mild abdominal tenderness, in the epigastric area and right upper quadrant, [facility] 16:46 15:52 Differential diagnosis: viral Infection, pneumonia Pyelonephritis, splenic 7 rupture, mononucleosis 7
[2022-11-12 16:44] VITALS: TEMP 98.2
[2022-11-12 16:49] VITALS: O2SAT 100
[2022-11-12 16:55] VITALS: BP 122/75
== END 2022-11-12 16:17 | disposition home or self-care (01) ==
LOC: ER 14:06
DX: R07.9 Chest pain, unspecified (principal); F41.9 Anxiety disorder, unspecified; Z20.822 Contact with and (suspected) exposure to COVID-19
CPT/HCPCS: 0240U; 36415; 74177; 80053; 83690; 84484; 85025; 93005; 96361; 96374; 96375; 99284; J2405; J7030; Q0162; Q9967

== ENCOUNTER 2022-11-21 13:02 | Emergency (ER) | payer SELFPAY ==
--- OUTSIDE RECORDS SUMMARY | 2022-11-21 13:07 | XMS REPORT | Continuity of Care Document ---
:1995 Author Organization [facility] t Address [address] [place] [address] Care Team Providers Name Role Phone MAKENZIE BONDS Primary Care Physician Unavailable ANEL BHAT Attending Clinician Unavailable Anel Bhat DO Attending Clinician Preethi GARCIA Attending Clinician Unavailable Preethi Wu Attending Clinician Fernando Mayer Attending Clinician Unavailable SE CALHOUN Attending Clinician Unavailable Se Calhoun DO Attending Clinician URIEL HEAD Attending Clinician Unavailable Uriel Head MD Attending Clinician DR SAMMIE ALVARADO Attending Clinician Unavailable NORRIS ALEX Attending Clinician Unavailable Norris Alex MD Attending Clinician AMBREEN_GREYSON Attending Clinician Unavailable Jayce Mcnulty Attending Clinician JAYCE PENN Attending Clinician Unavailable ZundanayaLaryS Attending Clinician Unavailable ANTONIA DE Attending Clinician [...] Clinician Unavailable NORRIS ALEX Admitting Clinician Unavailable AMANDA Admitting Clinician Unavailable Kenisha_S Admitting Clinician Unavailable DR KEISHA CHRISTENSEN Admitting Clinician Unavailable DR PATRICIA BUTT Admitting Clinician Unavailable Payers Payer Name Policy Type Policy Number Effective Date Expiration Date S nathan 1000 [id number] 2022 00:00:00 [facility], 96 2022 INC 00:00:00 Problems Condition Condition [...] active ity of problems problems [facility] Allergies, Adverse Reactions, Alerts Allergy Allergy Status Severity Reaction(s) Onset Inactive Treating Comm ents Source Name Type Date Date Clinician No Known DA Active Unknown [facility] Medical Allergie 00:00: Center s 00 NO KNOWN Drug Active Univers ALLERGIE Class ity of S [facility] Social History Social Habit Start Date Stop Date Quantity Comments Source Exposure to 2022-11-08 2022-11-18 Not sure [facility] SARS-CoV-2 (event) 00:00:00 16:12:00 Medica l Branch Sex Assigned At [birth year] [facility] of [place] 00:00:00 00:00:00 Medical Branch Smoking Status Start Date Stop Date Source Tobacco smoking consumption [facility] unknown Branch Light Tobacco Smoker [facility] Medications Ordered Filled Start Stop Current Ordering Indication Dosage Frequency Signature Comments Components Source Medication Medication Date Date Medication? Clinician (SIG) Name Name ketorolac No 30mg 30 mg, Unive rs (TORADOL) 11-19 Intramuscu ity of injection 19:15: 18:28 lar, ONCE, [place] 30 mg 00 :00 1 dose, On Medical Sun Branch 11/19/22 at 1315, Routine ibuprofen No 600mg 600 mg, Uni vers (IBU) 11-18 Oral, ity of tablet 600 22:45: 22:51 ONCE, 1 Justin as mg 00 :00 dose, On Medical Sat Branch 11/18/22 at 1645, TOSHA NaCl 0.9% 2021-10 No 500mL at 999 Univ ers (NS) bolus - 11-20 mL/hr, 500 it y of infusion 09:30: 09:24 mL, IV [place] 500 mL 00 :00 Piggyback, Medical ONCE, 1 Branch dose, On 08/27/22 at 0330, STAT ketorolac 2021-10- No 15mg 15 mg, Unive rs (TORADOL) 10-27 11-20 Slow IV ity of injection 09:30: 08:48 Push, [place] 15 mg 00 :00 ONCE, 1 Medical dose, On Branch 08/27/22 at 0330, TOSHA famotidine 2021-10- No 20mg 20 mg, Univ ers (PEPCID 1-20 11-20 Slow IV ity of (PF)) 08:45: 08:48 Push, [place] injection 00 :00 ONCE, 1 Medical 20 mg dose, On Branch 08/27/22 at 0245, TOSHA famotidine 2021-10 Yes [id number] 20mg Take 1 Un james (PEPCID) 20 1-20 tablet by ity of mg tablet 00:00: mouth [place] 00 the Medical morning Branch and 1 tablet in the evening. famotidine 2021-10 Yes [id number] 20mg Take 1 Un james (PEPCID) 20 1-20 tablet by ity of mg tablet 00:00: [place] 00 the Medical morning Branch and 1 tablet in the evening. famotidine 2021-10 Yes [id number] 20mg Take 1 Un james (PEPCID) 20 1-20 tablet by ity of mg tablet 00:00: [place] 00 the Medical morning Branch and 1 tablet in the evening. famotidine 2021-10 Yes [id number] 20mg Take 1 Un james (PEPCID) 20 1-20 tablet by ity of mg tablet 00:00: [place] 00 the Medical morning Branch and 1 tablet in the evening. famotidine 2021-10 Yes [id number] 20mg Take 1 Un james (PEPCID) 20 1-20 tablet by ity of mg tablet 00:00: [place] 00 the Medical morning Branch and 1 tablet in the evening. famotidine 2021-10 Yes [id number] 20mg Take 1 Un james (PEPCID) 20 1-20 tablet by ity of mg tablet 00:00: [place] 00 the Medical morning Branch and 1 tablet in the evening. ibuprofen 2021-10 Yes [id number] 600mg Take 1 Univers 600 mg 0-19 tablet by ity of tablet 00:00: mouth [place] 00 every 6 Medical (six) Branch hours as needed for Pain (scale 4-6). benzonatate 2021-10 Yes [id number] 200mg Take 1 Univers 200 mg 0-19 capsule by ity of capsule 00:00: mouth 3 [place] 00 (three) Medical times Branch daily as needed for Cough for up to 20 doses. ondansetron 2021-10 Yes [id number] 4mg Take 1 Univers 4 mg 0-19 tablet by ity of disintegrat 00:00: mouth [place] ing tablet 00 every 8 Medica l (eight) Branch hours as needed for Nausea and Vomiting (N/V). ibuprofen 2021-10 Yes [id number] 600mg Take 1 Univers 600 mg 0-19 tablet by ity of tablet 00:00: mouth [place] 00 every 6 Medical (six) Branch hours as needed for Pain (scale 4-6). benzonatate 2021-10 Yes [id number] 200mg Take 1 Univers 200 mg 0-19 capsule by ity of capsule 00:00: mouth 3 [place] 00 (three) Medical times Branch daily as needed for Cough for up to 20 doses. ondansetron 2021-10 Yes [id number] 4mg Take 1 Univers 4 mg 0-19 tablet by ity of disintegrat 00:00: mouth [place] ing tablet 00 every 8 Medica l (eight) Branch hours as needed for Nausea and Vomiting (N/V). ibuprofen 2021-10 Yes [id number] 600mg Take 1 Univers 600 mg 0-19 tablet by ity of tablet 00:00: mouth [place] 00 every 6 Medical (six) Branch hours as needed for Pain (scale 4-6). benzonatate 2021-10 Yes [id number] 200mg Take 1 Univers 200 mg 0-19 capsule by ity of capsule 00:00: mouth 3 [place] 00 (three) Medical times Branch daily as needed for Cough for up to 20 doses. ondansetron 2021-10 Yes [id number] 4mg Take 1 Univers 4 mg 0-19 tablet by ity of disintegrat 00:00: mouth [place] ing tablet 00 every 8 Medica l (eight) Branch hours as needed for Nausea and Vomiting (N/V). ibuprofen 2021-10 Yes [id number] 600mg Take 1 Univers 600 mg 0-19 tablet by ity of tablet 00:00: mouth [place] 00 every 6 Medical (six) Branch hours as needed for Pain (scale 4-6). benzonatate 2021-10 Yes [id number] 200mg Take 1 Univers 200 mg 0-19 capsule by ity of capsule 00:00: mouth 3 [place] 00 (three) Medical times Branch daily as needed for Cough for up to 20 doses. ondansetron 2021-10 Yes [id number] 4mg Take 1 Univers 4 mg 0-19 tablet by ity of disintegrat 00:00: mouth [place] ing tablet 00 every 8 Medica l (eight) Branch hours as needed for Nausea and Vomiting (N/V). ibuprofen 2021-10 Yes [id number] 600mg Take 1 Univers 600 mg 0-19 tablet by ity of tablet 00:00: mouth [place] 00 every 6 Medical (six) Branch hours as needed for Pain (scale 4-6). benzonatate 2021-10 Yes [id number] 200mg Take 1 Univers 200 mg 0-19 capsule by ity of capsule 00:00: mouth 3 [place] 00 (three) Medical times Branch daily as needed for Cough for up to 20 doses. ondansetron 2021-10 Yes [id number] 4mg Take 1 Univers 4 mg 0-19 tablet by ity of disintegrat 00:00: mouth [place] ing tablet 00 every 8 Medica l (eight) Branch hours as needed for Nausea and Vomiting (N/V). ibuprofen 2021-10 Yes [id number] 600mg Take 1 Univers 600 mg 0-19 tablet by ity of tablet 00:00: mouth [place] 00 every 6 Medical (six) Branch hours as needed for Pain (scale 4-6). benzonatate 2021-10 Yes [id number] 200mg Take 1 Univers 200 mg 0-19 capsule by ity of capsule 00:00: mouth 3 [place] 00 (three) Medical times Branch daily as needed for Cough for up to 20 doses. ondansetron 2021-10 Yes [id number] 4mg Take 1 Univers 4 mg 0-19 tablet by ity of disintegrat 00:00: mouth [place] ing tablet 00 every 8 Medica l (eight) Branch hours as needed for Nausea and Vomiting (N/V). ibuprofen 2021-10 Yes [id number] 600mg Take 1 Univers 600 mg 0-19 tablet by ity of tablet 00:00: mouth [place] 00 every 6 Medical (six) Branch hours as needed for Pain (scale 4-6). benzonatate 2021-10 Yes [id number] 200mg Take 1 Univers 200 mg 0-19 capsule by ity of capsule 00:00: mouth 3 [place] 00 (three) Medical times Branch daily as needed for Cough for up to 20 doses. ondansetron 2021-10 Yes [id number] 4mg Take 1 Univers 4 mg 0-19 tablet by ity of disintegrat 00:00: mouth [place] ing tablet 00 every 8 Medica l (eight) Branch hours as needed for Nausea and Vomiting (N/V). maalox:diph No 15mL 15 mL, Uni vers enhydrAMINE 04-12 Oral, ity of :lidocaine 23:30: 00:22 ONCE, 1 [place] as 2 % viscous 00 :00 dose, On Medi hernando 1:1:1 [facility] 04/12/22 Branch (FIRST-MOUT at 1830, [facility]) Routine oral suspension 15 mL penicillin 2021- No 1.210 1.2 Unive rs g 04-12 Million ity of benzathine 23:30: 00:22 [place], [place] (BICILLIN 00 :00 Intramuscu [facility]) lar, ONCE, Branch injection 1 dose, On 1.2 Million [facility] 04/12/22 Units at 1830, TOSHA
Re ason for Anti-Infec tive: Documented Infection< br>Documen nieves Infection Site: HEENT
D uration of Therapy: 7 days dexamethaso No 10mg 10 mg, Uni vers ne sod phos 04-12 Intramuscu i ty of PF 23:30: 23:30 lar, ONCE, [place] injection 00 :00 1 dose, On Medi hernando 10 mg [facility] 04/12/22 Branch at 1830, 1 mL acetaminoph No 1000mg 1,000 mg, Univers en 04-12 Oral, ity of (TYLENOL) 23:00: 22:58 ONCE, 1 [place] tablet 00 :00 dose, On Medical 1,000 mg [facility] 04/12/22 Branc h at 1800, TOSHA No known No Univers medications 04-12 ity of 17:46: [place] 40 Medical Branch cyclobenzap cyclobenzap No 1 TID cyclobenza [place] [...] Immunizations Ordered Filled Immunization Date Status Comments [facility] e Immunization Name Name HEPATITIS A 2000-12-20 Completed University of 00:00:00 [facility] MMR 2000-11-14 Completed University of 00:00:00 [facility] DTAP 2000-11-14 Completed University of 00:00:00 [facility] Polio (IPV/OPV) 2000-11-14 Completed Universit y of 00:00:00 [facility] Hep B, Adol or Pedi 2000-05-30 Completed Unive rsity of Dosage 00:00:00 [facility] MMR 2000-05-30 Completed University of 00:00:00 [facility] Varicella 2000-05-30 Completed University of (varivax)(chicken 00:00:00 [facility] edical pox) Branch DTAP 2000-05-30 Completed University of 00:00:00 [facility] HIB 4 Dose Schedule 2000-05-30 Completed Unive rsity of 00:00:00 [facility] Polio (IPV/OPV) 2000-05-30 Completed Universit y of 00:00:00 [facility] HIB 4 Dose Schedule 1999-12-04 Completed Unive rsity of 00:00:00 [facility] Polio (IPV/OPV) 1996 Completed Universit y of 00:00:00 [facility] Hep B, Adol or Pedi 1996 Completed Unive rsity of Dosage 00:00:00 [facility] DTAP 1996 Completed University of 00:00:00 [facility] Hep B, Adol or Pedi 1996 Completed Unive rsity of Dosage 00:00:00 [facility] Vital Signs Vital Name Observation Time Observation Value Comments Source Systolic blood 2022-11-19 18:12:00 130 mm[Hg] Univer sity of pressure [facility] Diastolic blood 2022-11-19 18:12:00 89 mm[Hg] Unive rsity of pressure [place] [facility] Heart rate 2022-11-19 18:12:00 111 /min Universi ty of [place] [facility] Body temperature 2022-11-19 18:12:00 37.22 Raquel Univ ersity of [place] [facility] Respiratory rate 2022-11-19 18:12:00 19 /min Univ ersity of [place] [facility] Body height 2022-11-19 18:12:00 170.2 cm Universi ty of [place] [facility] Body weight 2022-11-19 18:12:00 68.04 kg Universi ty of [place] [facility] BMI 2022-11-19 18:12:00 23.49 kg/m2 Universi ty of [place] [facility] Oxygen saturation in 2022-11-19 18:12:00 98 /min University of Arterial blood by [place] [email or web address] hernando Pulse oximetry Branch Systolic blood 2022-11-18 22:06:00 130 mm[Hg] Univer sity of pressure [place] [facility] Diastolic blood 2022-11-18 22:06:00 89 mm[Hg] Unive rsity of pressure [place] [facility] Heart rate 2022-11-18 22:06:00 98 /min Universi ty of [place] [facility] Body temperature 2022-11-18 22:06:00 37.39 Raquel Univ ersity of [place] [facility] Respiratory rate 2022-11-18 22:06:00 20 /min Univ ersity of [place] [facility] Body height 2022-11-18 22:06:00 162.6 cm Universi ty of [place] [facility] Body weight 2022-11-18 22:06:00 68.04 kg Universi ty of [place] [facility] BMI 2022-11-18 22:06:00 25.75 kg/m2 Universi ty of [place] [facility] Oxygen saturation in 2022-11-18 22:06:00 100 /min University of Arterial blood by [place] [email or web address] hernando Pulse oximetry Branch Systolic blood 2022-10-30 06:00:00 121 mm[Hg] Univer sity of pressure [place] [facility] Diastolic blood 2022-10-30 06:00:00 80 mm[Hg] Unive rsity of pressure [place] [facility] Heart rate 2022-10-30 06:00:00 73 /min Universi ty of [place] [facility] Respiratory rate 2022-10-30 06:00:00 13 /min Univ ersity of [place] [facility] Oxygen saturation in 2022-10-30 06:00:00 98 /min University of Arterial blood by [facility] hernando Pulse oximetry Branch Body temperature 2022-10-30 05:27:00 37.22 Raquel Univ ersity of [place] Medical [place] Body height 2022-10-30 05:27:00 165.1 cm Universi ty of [place] Medical [place] Body weight 2022-10-30 05:27:00 68.493 kg Universi ty of [place] [facility] BMI 2022-10-30 05:27:00 25.13 kg/m2 Universi ty of [place] [facility] Systolic blood 2022-10-19 06:30:00 137 mm[Hg] Univer sity of pressure [place] [facility] Diastolic blood 2022-10-19 06:30:00 98 mm[Hg] Unive rsity of [facility] Medical [place] Heart rate 2022-10-19 06:30:00 88 /min Universi ty of [place] [facility] [place] Body temperature 2022-10-19 06:30:00 37 Raquel Univ ersity of [place] [facility] [place] Respiratory rate 2022-10-19 06:30:00 16 /min Univ ersity of [place] [facility] [place] Body height 2022-10-19 06:30:00 165.1 cm Universi ty of [place] [facility] Body weight 2022-10-19 06:30:00 66.906 kg Universi ty [facility] [place] [facility] BMI 2022-10-19 06:30:00 24.55 kg/m2 Universi ty of [place] [facility] Oxygen saturation in 2022-10-19 06:30:00 99 /min University of Arterial blood by [facility] Pulse oximetry Branch Height 2022-10-14 10:57:00 165.1 CM Weight 2022-10-14 10:57:00 65.77 KG Systolic blood 2022-10-09 21:02:00 137 mm[Hg] Univer sity of pressure [place] [facility] Diastolic blood 2022-10-09 21:02:00 80 mm[Hg] Unive rsity of [facility] Heart rate 2022-10-09 21:02:00 102 /min Universi ty of [place] Medical [place] Body temperature 2022-10-09 21:02:00 37.11 Raquel Univ ersity of [place] [facility] [place] Respiratory rate 2022-10-09 21:02:00 16 /min Univ ersity of [place] [facility] Body height 2022-10-09 21:02:00 162.6 cm Universi ty of [place] [facility] Body weight 2022-10-09 21:02:00 65.772 kg Universi ty of [place] [facility] BMI 2022-10-09 21:02:00 24.89 kg/m2 Universi ty of [place] [facility] Oxygen saturation in 2022-10-09 21:02:00 100 /min University of Arterial blood by [place] [email or web address] hernando Pulse oximetry Branch Body temperature 2022-08-27 08:10:00 36.22 Raquel Univ ersity of [place] [facility] Respiratory rate 2022-08-27 08:10:00 17 /min Univ ersity of [place] [facility] Body height 2022-08-27 08:10:00 162.6 cm Universi ty of [place] [facility] Body weight 2022-08-27 08:10:00 65.772 kg Universi ty [facility] [place] [facility] BMI 2022-08-27 08:10:00 24.89 kg/m2 Universi ty [facility] [place] [facility] Oxygen saturation in 2022-08-27 08:10:00 100 /min University of Arterial blood by [place] [email or web address] hernando Pulse oximetry Branch Systolic blood 2022-08-27 08:10:00 135 mm[Hg] Univer sity of pressure [place] [facility] Diastolic blood 2022-08-27 08:10:00 93 mm[Hg] Unive rsity of pressure [place] [facility] Heart rate 2022-08-27 08:10:00 100 /min Universi ty of [place] [facility] Systolic blood 2022-07-26 15:25:00 131 mm[Hg] Univer sity of pressure [place] [facility] Diastolic blood 2022-07-26 15:25:00 87 mm[Hg] Unive rsity of pressure [place] [facility] Heart rate 2022-07-26 15:25:00 98 /min Universi ty of [place] [facility] Body temperature 2022-07-26 15:25:00 37.33 Raquel Univ ersity of [place] [facility] Respiratory rate 2022-07-26 15:25:00 18 /min Univ ersity of [place] [facility] Body weight 2022-07-26 15:25:00 63.504 kg Universi ty [facility] [place] [facility] BMI 2022-07-26 15:25:00 22.60 kg/m2 Universi ty [facility] [place] [facility] Oxygen saturation in 2022-07-26 15:25:00 98 /min University of Arterial blood by [facility] Pulse oximetry Branch Systolic blood 2022-04-12 22:52:00 121 mm[Hg] Univer sity of pressure [facility] Diastolic blood 2022-04-12 22:52:00 80 mm[Hg] Unive rsity of [facility] Heart rate 2022-04-12 22:52:00 108 /min [facility] Body temperature 2022-04-12 22:52:00 39.11 Raquel [facility] Respiratory rate 2022-04-12 22:52:00 24 /min [facility] Body height 2022-04-12 22:52:00 167.6 cm [facility] Body weight 2022-04-12 22:52:00 63.504 kg [facility] BMI 2022-04-12 22:52:00 22.60 kg/m2 [facility] Oxygen saturation in 2022-04-12 22:52:00 98 /min [facility] Arterial blood by [facility] Pulse oximetry Branch BP Diastolic 2022-02-17 00:00:00 75 mm[Hg] [facility] Height 2022-02-17 00:00:00 65 [facility]in_i] [facility] BMI (Body Mass 2022-02-17 00:00:00 24 kg/m2 [facility]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 BP Systolic 2022-02-17 00:00:00 121 mm[Hg] [facility] Body Weight 2022-02-17 00:00:00 2304 [oz_av] [facility] Height 2020-12-13 22:38:00 170.18 CM Weight 2020-12-13 22:38:00 63.5 KG Procedures Procedure Date / Time Performed Performing Clinician Sour e EKG-12 LEAD 2022-11-19 18:54:32 Anel Bhat [facility] CONSENT/REFUSAL FOR 2022-11-18 21:51:51 Doctor Unassigned, No Un [facility] DIAGNOSIS AND Name Medical Branch TREATMENT XR CHEST 1 VW 2022-10-30 05:46:16 Cal[place]oun, [facility] LIPASE 2022-10-30 05:37:00 Singer [facility] MAGNESIUM 2022-10-30 05:37:00 Singer [facility] TROPONIN I 2022-10-30 05:37:00 Singer [facility] COMP. METABOLIC PANEL 2022-10-30 05:37:00 Singer [facility] ([id number]) [facility] CBC WITH DIFF 2022-10-30 05:37:00 Singer [facility] D-DIMER 2022-10-30 05:37:00 [facility] N-TERMINAL PRO-BNP 2022-10-30 05:37:00 Singer Se [facility] CONSENT/REFUSAL FOR 2022-10-30 05:18:02 Doctor Unassigned, No [facility] Branch TREATMENT EKG-12 LEAD 2022-10-19 08:20:54 Uriel Head [facility] XR CHEST 1 VW 2022-10-19 07:06:34 Uriel Head [facility] NOTICE OF PRIVACY 2022-10-19 06:22:28 Doctor Unassigned, No [facility] PR[facility] CONSENT/REFUSAL FOR 2022-10-09 20:55:57 Doctor Unassigned, No [facility] TREATMENT EKG-12 LEAD 2022-08-27 09:19:11 Norris Alex [facility] XR CHEST 1 VW 2022-08-27 08:29:00 Norris Alex [facility] TROPONIN I 2022-08-27 08:17:00 Norris Alex [facility] COMP. METABOLIC PANEL 2022-08-27 08:17:00 Norris Alex [facility] ([id number]) Medical Branch CBC WITH DIFF 2022-08-27 08:17:00 Norris Alex [facility] NOTICE OF PRIVACY 2022-08-27 08:03:42 Doctor Unassigned, No Univ ers[facility] [place] PRACTICES Name Medical Branch CONSENT/REFUSAL FOR 2022-08-27 08:02:51 Doctor Unassigned, No Un [facility] [place] DIAGNOSIS AND Name Medical Branch TREATMENT RAPID INFLUENZA A/B 2022-07-26 15:28:00 Norris Alex [facility] Medical Branch COVID-19 (ID NOW 2022-07-26 15:28:00 Norris Alex [facility] RAPID TESTING) Medical Branch CONSENT/REFUSAL FOR 2022-07-26 15:22:01 Doctor Unassigned, No Un [facility]ity of [place] DIAGNOSIS AND Name Medical Branch TREATMENT RAPID STREP SCREEN 2022-04-12 22:57:00 Jayce Penn [facility] FOR GROUP A Medical Branch COVID-19 (ID NOW 2022-04-12 22:57:00 Jayce Penn [facility] RAPID TESTING) Medical Branch NOTICE OF PRIVACY 2022-04-12 22:49:56 Doctor Unassigned, No [facility] PRACTICES Name [facility] [place] Branch XR, 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, 2 2022-02-17 00: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 Encounters Start End Encounter Admission Attending Care Care Encounter Source Date/Time Date/Time Type Type Clinicians Facility Department ID 2022-11-19 2022-11-19 Emergency X HOME MSSHEYLA ERT [id number] Univers 12:17:00 13:08:00 ANEL clancy [facility] 2022-11-19 2022-11-19 Lupe Bhat [facility] [id number] Univers 12:17:00 13:08:00 Anel NEELY [id number] [facility] [id number] [facility] [id number] [facility] 08 Branch 2022-11-18 2022-11-18 Emergency X Preethi GARCIA [facility] ERT [id number] Univers 16:11:00 16:58:00 ity [facility] 2022-11-18 2022-11-18 Emergency Preethi Garcia [facility] [id number] Univers 16:11:00 16:58:00 Felicita NEELY [id number] i ty of [facility] [id number] [facility] [id number] [address] 2022-11-10 2022-11-10 Emergency ER Maida, [facility] [id number] [place] 06:53:00 08:13:00 Fernando -[id number] [facility] 2022-10-29 2022-10-30 Emergency X [facility] ERT [id number] Univers 23:30:00 00:40:00 SE aston [facility] 2022-10-29 2022-10-30 Emergency [facility] [id number] Univers 23:30:00 00:40:00 Se NEELY [id number] i ty of [facility] [id number] [facility] [id number] [address] 2022-10-19 2022-10-19 Emergency [facility] [id number] Univers 00:28:00 02:31:00 URIEL clancy [facility] 2022-10-19 2022-10-19 Emergency [facility] [id number] Univers 00:28:00 02:31:00 Uriel NEELY [id number] ity of [place] [id number] [facility] [id number] [address] 2022-10-14 2022-10-14 Emergency E JENNY, [facility] [id number] [place] 10:19:00 13:40:00 [facility] 2022-10-09 2022-10-09 [facility] [id number] Univers 15:03:00 16:09:00 ANEL clancy [facility] 2022-10-09 2022-10-09 [facility] [id number] Univers 15:03:00 16:09:00 Anel NEELY 350.1.13.10 ity of [place] 4.2.7.2.686 [facility] [phone] [place] [address] [place] 2022-08-27 2022-08-27 Emergency X VASUT, [facility] ERT [id number] Univers 02:02:00 03:30:00 NORRIS ity [facility] 2022-08-27 2022-08-27 Emergency Vasut, [facility] [id number] Univers 02:02:00 03:30:00 Norris NEELY 350.1.13.10 i ty of [facility] 4.2.7.[address] [place] [address] [phone] [place] [address] [place] 2022-07-26 2022-07-26 Emergency X JOSE, K [facility] ERT [id number] Univers 10:29:00 11:26[facility]-26 2022-07-26 Emergency JosePreethi [facility] [id number] Univers 10:29:00 11:26:00 Felicita NEELY 350.1.13.10 i ty of [place] 4.2.7.2.[address] [place] [address] [id number] [place] [address] [place] 2022-05-21 2022-05-21 Emergency ER Maida, [facility] [id number] [place] 07:56:00 09:47:00 Fernando -[id number] [facility] 2022-04-19 2022-04-19 Outpatient AMBREEN[place] [id number] [place] 03:49:00 03:49:00 ENOCH 0713 [facility] Outre h Program 2022-04-12 2022-04-12 Emergency Penn, [facility] [id number] Univers 17:53:00 19:52:00 Jayce NEELY 350.1.13.10 i ty of [facility] 4.2.7.2.[address] [place] [address] [id number] [place] [address] [place] 2022-04-12 2022-04-12 Emergency X PENN, [facility] ERT [id number] Univers 17:53:00 19:52:00 JAYCE clancy [facility] 2022-02-23 2022-02-23 Outpatient Zuniga_S [facility] [id number] [place] 01:07:00 01:07:00 [facility] 2022-02-20 2022-02-20 Outpatient Zuniga_S [facility] [id number] [place] 10:19:00 10:19:00 516 [facility] 2022-02-20 2022-02-20 Outpatient Zuniga_S [facility] [id number] [place] 05:57:00 05:57:00 517 [facility] 2022-02-17 2022-02-17 Outpatient EL KENISHA, [facility] [id number] [place] 16:51:00 16:51:00 ANTONIA -[id number] [facility] 2022-02-17 2022-02-17 Outpatient Zuniga_S [facility] [id number] [place] 05:30:00 05:30:00 513 [facility] 2022-02-17 2022-02-17 Antonia [facility] [place] - [id number] [place] 00:00:00 00:00:00 Discovery Kenisha da 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 2022-01-16 2022-01-16 Emergency ER Porras, [facility] [id number] [place] 18:09:00 20:36:00 Jimmy -[id number] [facility] 2021-12-29 2021-12-29 Emergency ER Martin, [facility] [id number] [place] 06:30:00 11:05:00 Soco -[id number] [facility] 2021-10-28 2021-10-28 Emergency ER CAVAZOS, [facility] [id number] [place] 18:04:00 19:21:00 ABDOULAYE -[id number] [facility] 2021-09-20 2021-09-20 Emergency ER OWO, TOKS [facility] [id number] [place] 18:13:00 20:40:00 -[id number] [facility] 2020-12-13 2020-12-13 Emergency E KEISHA CHRISTENSEN [facility] [id number] [place] 22:26:00 23:23:00 [facility] 2019-08-17 2019-08-17 Emergency ER TELLEZ, [facility] [id number] [place] 01:07:00 03:07:00 MAI -[id number] [facility] 2018-05-17 2018-05-17 Emergency E DAQUAN, [facility] [id number] [place] 03:57:00 05:14:00 GOMEZ [facility] 2017-11-11 2017-11-11 Emergency E KEISHA CHRISTENSEN [facility] [id number] [place] 19:21:00 21:04:00 [facility] 2016-01-23 2016-01-23 Emergency ER , [facility] [id number] [place] 20:43:00 22:25:00 WASIM -[id number] [facility] 2013-10-17 2013-10-17 Emergency ER MADELINE ARMSTRONG [facility] [id number] [place] 13:21:00 14:43:00 -[id number] [facility] Results Test Description Test Time Test Comments Results Result Comments Source D-DIMER 2022-10-30 06:15:32 Test Item Value Reference Range Interpretation Comme nts D-DIMER (test code = See_Comment [Autom ated message] The [id number]) system which ge nerated this result tra [...] diagnosis. Lab Interpretation Normal (test code = 02151-5) [facility] [id number] 06:05:50 Test Item Value Reference Interpretation Comments Range TROPONIN I (test 0.004 ng/mL See_Comment [Automated code = 2774040834) message] The system which generated this result [...] biotin. Lab Interpretation Normal (test code = 97394-8) [id number] 06:02:29 Test Item Value Reference Range Interpretation Comments NT-proBNP (test code 22 pg/mL See_Comment [Autom ated = 0621317912) message] The system which generated this result transmitted reference range : <=125. The reference range was not used to interpret this result as normal/abnormal . FAIZA (test code = FAIZA) Biotin has been reported to cause a negative bias, interpret results relative to patient's use of biotin. Lab Interpretation Normal (test code = 15534-0) [facility]2023-[facility]-23 05:54:05 Test Item Value Reference Range Interpretation Comments MAGNESIUM (test code = 6359286839) 2.2 mg/dL 1.7-2.4 Lab Interpretation (test code = Normal 67940-3) [facility] METABOLIC PANEL (30142)2022-10-30 05:53:45 Test Item Value Reference Range Interpretation Comments NA (test code = 139 mmol/L 135-145 9286718677) K (test code = 3.9 mmol/L 3.5-5.0 2150926556) CL (test code = 104 mmol/L 98-108 7760538765) CO2 TOTAL (test code = 26 mmol/L 23-31 2861292826) AGAP (test code = 2-16 9729189171) BUN (test code = 11 mg/dL 7-23 0032978099) GLUCOSE (test code = 119 mg/dL 70-110 H 1721165461) CREATININE (test code = 0.90 mg/dL 0.60-1.25 3255667373) TOTAL BILI (test code = 0.4 mg/dL 0.1-1.0 5489228400) CALCIUM (test code = 9.3 mg/dL 8.6-10.6 0729517908) T PROTEIN (test code = 7.5 g/dL 6.3-8.2 4757639424) ALBUMIN (test code = 4.7 g/dL 3.5-5.0 9486053040) ALK PHOS (test code = 103 U/L 34-122 0105388072) ALTv (test code = 30 U/L 5-50 2-6) AST(SGOT) (test code = 24 U/L 13-40 3206031823) eGFR (test code = mL/min/1.73m2 5541515427) FAIZA (test code = FAIZA) Association of [...] tests). Lab Interpretation Abnormal (test code = 65473-1) [facility] 05:53:25 Test Item Value Reference Range Interpretation Comments LIPASE (test code = 2921735854) 296 U/L 0-220 H Lab Interpretation (test code = Abnormal 38438-9) [facility] WITH [id number] 05:44:09 Test Item Value Reference Range Interpretation Comments WBC (test code = See_Comment [Automated 9190-2) message] The sy stem which generated this result transmitted reference range : 4.20 - 10.70 10*3/?L. The reference range was not used to interpret this result as normal/abnormal . RBC (test code = See_Comment [Automated 290-8) message] The sy stem which generated this [...] RDW-SD (test code = 40.7 fL 38.5-51.6 68414-2) RDW-CV (test code = 12.4 % 12.1-15.4 788-0) PLT (test code = See_Comment [Automated 777-3) message] The sy stem which generated this result transmitted reference range : 150 - 328 10*3/ ?L. The reference r ambar was not used to interpret this result as normal/abnormal . MPV (test code = 9.4 fL 9.8-13.0 L 91834-2) NRBC/100 WBC (test See_Comment [Automat ed code = 4781884925) message] The system which generated this result transmitted reference range : 0.0 - 10.0 /100 WBCs. The refer ence range was not u sed to interpret th is result as normal/abnormal . NRBC x10^3 (test code See_Comment [Auto mated = 7324421381) message] The s ystem which generated this result transmitted reference range : 10*3/?L. The reference range was not used to interpret this result as normal/abnormal . GRAN MAT (NEUT) % 47.4 % (test code = 770-8) IMM GRAN % (test code 0.20 % = 4010823963) LYMPH % (test code = 43.1 % 736-9) MONO % (test code = 6.8 % 5905-5) EOS % (test code = 1.9 % 713-8) BASO % (test code = 0.6 % 706-2) GRAN MAT x10^3(ANC) 4.19 10*3/uL 1.99-6.95 (test code = 0859987709) IMM GRAN x10^3 (test 0.00-0.06 code = 2361696558) LYMPH x10^3 (test code 3.81 10*3/uL 1.09-3.23 H = 731-0) MONO x10^3 (test code 0.60 10*3/uL 0.36-1.02 = 742-7) EOS x10^3 (test code = 0.17 10*3/uL 0.06-0.53 711-2) BASO x10^3 (test code 0.05 10*3/uL 0.01-0.09 = 704-7) Lab Interpretation Abnormal (test code = 38901-3) [facility] INFLUENZA A AND B [id number] 11:50:00 Test Item Value Reference Range Interpretation [...] the FDA and the [employer] of [employer] (CAP) are more stringent than those required for this test. Therefore, the result should be interpreted with caution and close attention to other clinical and epidemiological data TROPONIN [id number] 09:09:10 Test Item Value Reference Interpretation Comments Range TROPONIN I (test 0.002 ng/mL See_Comment [Automated code = 8546745802) message] The system which generated this result [...] biotin. Lab Interpretation Normal (test code = 48256-2) [facility] WITH [id number] 09:01:39 Test Item Value Reference Range Interpretation Comments WBC (test code = See_Comment H [Automated 0690-2) message] The sy stem which generated this [...] RDW-SD (test code = 40.6 fL 38.5-51.6 75721-9) RDW-CV (test code = 12.8 % 12.1-15.4 788-0) PLT (test code = See_Comment [Automated 777-3) message] The sy stem which generated this result transmitted reference range : 150 - 328 10*3/ ?L. The reference r ambar was not used to interpret this result as normal/abnormal . MPV (test code = 9.8 fL 9.8-13.0 33637-1) NRBC/100 WBC (test See_Comment [Automat ed code = 0907505763) message] The system which generated this result transmitted reference range : 0.0 - 10.0 /100 WBCs. The refer ence range was not u sed to interpret th is result as normal/abnormal . NRBC x10^3 (test code See_Comment [Auto mated = 0289238110) message] The s ystem which generated this result transmitted reference range : 10*3/?L. The reference range was not used to interpret this result as normal/abnormal . GRAN MAT (NEUT) % 47.8 % (test code = 770-8) IMM GRAN % (test code 0.30 % = 0946443380) LYMPH % (test code = 42.4 % 736-9) MONO % (test code = 7.3 % 5905-5) EOS % (test code = 1.9 % 713-8) BASO % (test code = 0.3 % 706-2) GRAN MAT x10^3(ANC) 5.30 10*3/uL 1.99-6.95 (test code = 8369800652) IMM GRAN x10^3 (test 0.03 10*3/uL 0.00-0.06 code = 4749933198) LYMPH x10^3 (test code 4.70 10*3/uL 1.09-3.23 H = 731-0) MONO x10^3 (test code 0.81 10*3/uL 0.36-1.02 = 742-7) EOS x10^3 (test code = 0.21 10*3/uL 0.06-0.53 711-2) BASO x10^3 (test code 0.03 10*3/uL 0.01-0.09 = 704-7) Lab Interpretation Abnormal (test code = 03456-4) [facility]. METABOLIC PANEL (99569)2022-08-27 08:57:28 Test Item Value Reference Range Interpretation Comments NA (test code = 140 mmol/L 135-145 8939972747) K (test code = 3.8 mmol/L 3.5-5.0 2639196914) CL (test code = 101 mmol/L 98-108 3884506611) CO2 TOTAL (test code = 29 mmol/L 23-31 9778852940) AGAP (test code = 2-16 4096304438) BUN (test code = 11 mg/dL 7-23 7426162448) GLUCOSE (test code = 112 mg/dL 70-110 H 3408278976) CREATININE (test code = 0.96 mg/dL 0.60-1.25 1824354696) TOTAL BILI (test code = 0.4 mg/dL 0.1-1.8 9307868085) CALCIUM (test code = 9.5 mg/dL 8.6-10.6 4753952240) T PROTEIN (test code = 7.1 g/dL 6.3-8.2 2470848099) ALBUMIN (test code = 4.5 g/dL 3.5-5.0 1139337592) ALK PHOS (test code = 94 U/L 34-122 9599922243) ALTv (test code = 25 U/L 5-50 1742-6) AST(SGOT) (test code = 21 U/L 13-40 3958474224) eGFR (test code = mL/min/1.73m2 9420202982) FAIZA (test code = FAIZA) Association of [...] tests). Lab Interpretation Abnormal (test code = 82016-6) [facility] [id number] 05:05:34XR CHEST 1 VIEW PORTABLELocation:L2Nzztn hours services provided 05/17/2018 5:02 AMIndication:R07.9: CHEST PAIN, UNSPECIFIEDComparison:11/11/17indings:The lungs are equally and symmetrically inflated. The trachea ismidline. The cardiac silhouette is normal in size. No acute bony abnormality.Impression:No acute cardiopulmonary disease.[id number] 04:56:00 Test Item Value Reference Range Interpretation Comments D-DIMER (test code = <200 ng/mL D-DU 0-234 DDI) D-DIMER COMMENT (test *Level to rule out code = DDCOM) DVT or PE: <235 ng/mL D-DU* PRO TIME AND [id number] 04:54:00 Test Item Value Reference Range Interpretation [...] Heparin. Order Code is ANTI-XA BRAIN NATRIURETIC [id number] 04:46:00 Test Item Value Reference Range Interpretation Comments proBNP (test code = PBNP) 8 pg/mL 0-125 CARDIAC [id number] 04:43:00 Test Item Value Reference Range Interpretation Comments TROPONIN I (test code = A84) <0.015 ng/mL 0.000-0.045 CKMB (test code = A49) <1.0 ng/mL <=3.6 CPK (test code = 32A) 149 IU/L 39-308 COMPREHENSIVE METABOLIC [id number] 04:41:00 Test Item Value Reference Range Interpretation [...] = 31A) 37 IU/L <=78 AMYLASE AND [id number] 04:41:00 Test Item Value Reference Range Interpretation Comments AMYLASE (test code = 10A) 34 U/L 28-100 LIPASE (test code = 60A) 128 IU/L 73-393 ALCOHOL BLOOD (ETOH)2018-05-17 04:38:00 Test Item Value Reference Range Interpretation Comments ETOH (test code = HALC) ETHANOL The result is to be used only for medical purposes ALCOHOL (test code = <10 mg/dL <=10 56A) DRUGS OF [id number] 04:31:00 Test Item Value Reference Range Interpretation [...] (test code = RBCMOR) NORMAL DRUGS OF [id number] 20:50:00 Test Item Value Reference Range Interpretation [...] ng/mL Opiates 2000 ng/mL CT HEAD W/O [id number] 20:28:53AFTER HOURS SERVICE ON: 11/11/2017 8:27 PMCT Scan of the Brain Without ContrastLocation Code A39Oamqoti: R42: DIZZINESS AND GIDDINESSTechnique: Scans were performed on a helical scanner pre IV contrast only. Thestudy is limited secondary to lack of intravenous contrast, particularly forevaluation of masses. CT images were performed within 24 hours at arrival tot facility. One or more of the followingdose reduction [...] (test code = <10 mg/dL <=10 56A) [id number] 20:23:00 Test Item Value Reference Range Interpretation Comments CPK (test code = 32A) 164 IU/L 39-308 COMPREHENSIVE METABOLIC [id number] 20:23:00 Test Item Value Reference Range Interpretation [...] code = 31A) 31 IU/L <=78 TROPONIN [id number] 20:20:00 Test Item Value Reference Range Interpretation Comments TROPONIN I (test code = A84) <0.015 ng/mL 0.000-0.045 PRO TIME AND [id number] 20:15:00 Test Item Value Reference Range Interpretation [...] = RBCMOR) NORMAL XR CHEST 1 VIEW [id number] 19:59:42Portable chest one view.HISTORY: DizzinessLocation R 16COMMENT: No comparison. No pleural effusion. The lungs are clear and normallyexpanded. The cardiac silhouette is unremarkable. Skeletal structuresarenormal in appearance.IMPRESSION: No active disease in the chest.
--- NOTE | 2022-11-21 14:21 | RAD REPORT ---
EXAM DESCRIPTION: CT - Head Brain Wo Cont - 11/21/2022 2:14 pm CLINICAL HISTORY: headache, neck pain Headache, drowsiness COMPARISON: Head angio dated 11/21/2022; Neck Angio dated 11/21/2022 TECHNIQUE: All CT scans are performed using dose optimization technique as appropriate and may inclu de automated exposure control or mA/KV adjustment according to patient size. FINDINGS: No intracranial hemorrhage, hydrocephalus or extra-axial fluid collection.No areas of brai n edema or evidence of midline shift. Trace fluid is seen in the right maxillary antrum. The paranasal sinuses and mastoids are otherwise c lear. The calvarium is intact. IMPRESSION: No acute intracranial abnormality.
--- NOTE | 2022-11-21 14:23 | RAD REPORT ---
EXAM DESCRIPTION: CT - Head angio - 11/21/2022 2:16 pm CLINICAL HISTORY: headache, neck pain Headache, drowsiness COMPARISON: No comparisons TECHNIQUE: CT angiography of the head was performed with MIPs. All CT scans are performed using dose optimization technique as appropriate and may include automated exposure control or mA/KV adjustment according to patient size. FINDINGS: No evidence of aneurysm is detected. No flow-limiting stenosis or vascular malformation id entified. No evidence of large vessel occlusion. Antegrade flow is seen in the vertebral arteries. Mildly dominant right vertebral. The visualized dural venous sinuses are patent. IMPRESSION: No significant flow abnormality is detected.
--- NOTE | 2022-11-21 14:24 | RAD REPORT ---
EXAM DESCRIPTION: CT - Neck Angio - 11/21/2022 2:16 pm CLINICAL HISTORY: neck pain Headache, neck pain, drowsiness COMPARISON: No comparisons TECHNIQUE: CT angiography of the neck vessels was performed with MIPs. All CT scans are performed using dose optimization technique as appropriate and may include automated exposure control or mA/KV adjustment according to patient size. FINDINGS: A left aortic arch is identified with normal three vessel configuration of the great vesse ls. No significant flow abnormality is seen of the common carotid bilaterally. No significant stenosis is identified involving the cervical segments of both internal carotid arteri es. Normal flow is seen within both vertebral arteries. Right vertebral slightly dominant. IMPRESSION: No significant flow abnormality of the neck vessels is identified.
[2022-11-21] MEDS ORDERED: KETOROLAC 30 MG/ML INJ ONE (14:29)
[2022-11-21] MEDS ORDERED: DIAZEPAM 10 MG/2 ML INJ SYRINGE ONE (16:12)
[2022-11-21] MEDS ORDERED: dexAMETHasone 10 MG/ML VIAL ONE (16:12)
--- NOTE | 2022-11-21 16:37 | EDPHYS ---
Physician Documentation [facility] Name: Perfecto Murphy Age: 27 yrs Sex: Male : 1995 Arrival Date: 11/21/2022 Time: 13:16 Bed DIS1 Private MD: ED Physician Wilver Conti HPI: 11/21 13:49 This 27 yrs old Male presents to ER via Ambulatory with complaints of Neck Pain, <24hrs jmm Old. 13:49 The patient or guardian complains of pain. The symptoms are located on the base of the [facility] skull. Onset: The symptoms/episode began/occurred gradually, 1 week(s) ago. Is a 27-year-old male with history of anxiety the presents emerged part with complaints of left-sided neck pain which she awoke to approximately 1 week ago. Patient states he continues to have pain with radiation into his head. Denies any vomiting. States he does have some nausea. Denies fever.. Historical: - Allergies: 14:00 No Known Allergies; ap3 - PMHx: 14:00 Anxiety; ap3 - Immunization history:: Client reports having NOT received the Covid vaccine. Flu vaccine is not up to date. - Social history:: Smoking status: Patient reports use of chewing tobacco. Patient uses alcohol, occasionally. ROS: 13:49 Constitutional: Negative for fever, chills, and weight loss. jmm 13:49 Neck: Positive for pain with movement. 13:49 All other systems are negative. Exam: 13:49 Constitutional: This is a well developed, well nourished patient who is awake, alert, jmm and in no acute distress. Head/Face: atraumatic. Eyes: EOMI, no conjunctival erythema appreciated ENT: Moist Mucus Membranes 13:49 Chest/axilla: Normal chest wall appearance and motion. Cardiovascular: Regular rate and rhythm. No edema appreciated Respiratory: Normal respirations, no respiratory distress appreciated Abdomen/GI: Non distended 13:49 Skin: General appearance color normal MS/ Extremity: Moves all extremities, no obvious deformities appreciated, no edema noted to the lower extremities Neuro: Awake and alert Psych: Behavior is normal, Mood is normal, Patient is cooperative and pleasant 13:49 Neck: Pain noted to the base of the left side of the 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,. 13:49 Back: muscle spasm, is appreciated in the left trapezius. Vital Signs: 13:59 BP 134 / 97; Pulse 90; Resp 19; Temp 98.8; Pulse Ox 100% ; Weight 65.77 kg; Height 5 ap3 ft. 5 in. (165.10 cm); Pain 10/10; 16:17 BP 120 / 83; Pulse 78; Resp 16 S; Pulse Ox 100% on R/A; aa5 13:59 Body Mass Index 24.13 (65.77 kg, 165.10 cm) ap3 MDM: 13:53 Patient medically screened. [facility] 16:36 Data reviewed: vital signs, nurses notes. I considered the following discharge [facility] prescriptions or medication management in the emergency department Medications were administered in the Emergency Department. See MAR. Counseling: I had a detailed discussion with the patient and/or guardian regarding: the historical points, exam findings, and any diagnostic results supporting the discharge/admit diagnosis, radiology results, the need for outpatient follow up, to return to the emergency department if symptoms worsen or persist or if there are any questions or concerns that arise at home. 11/21 13:49 Order name: CT Head Brain wo Cont [facility] 11/21 13:49 Order name: CT Head Angio [facility] 11/21 13:49 Order name: CT Neck Angio [facility] 11/21 14:21 Order name: CT; Complete Time: 14:31 [facility] 11/21 14:23 Order name: CT; Complete Time: 14:31 [facility] 11/21 14:25 Order name: CT; Complete Time: 14:31 [facility] 11/21 13:49 Order name: Saline Lock; Complete Time: 14:14 [facility] Administered Medications: 14:28 Drug: Ketorolac 30 mg Route: IVP; Site: right antecubital; ss 17:07 Follow up: Response: No adverse reaction; Marked relief of symptoms aa5 16:17 Drug: Decadron - Dexamethasone 10 mg Route: IVP; Site: right antecubital; aa5 17:07 Follow up: Response: No adverse reaction; Marked relief of symptoms aa5 16:17 Drug: Valium (diazepam) 5 mg Route: IVP; Site: right antecubital; aa5 17:07 Follow up: Response: No adverse reaction; Marked relief of symptoms aa5 Disposition: 18:04 Co-signature as Attending Physician, Wilver Conti MD I reviewed the patient's care rn provided by the Advanced Practice Provider and agree with the diagnosis and treatment plan. Disposition Summary: 11/21/22 16:37 Discharge Ordered Location: Home jmm Condition: Stable jmm Diagnosis - Strain of muscle, fascia and tendon at neck level jmm - Muscle spasm of back jmm Followup: jmm - With: Private Physician - When: 2 - 3 days - Reason: Recheck today's complaints, Continuance of care, Re-evaluation by your physician Discharge Instructions: - Discharge Summary Sheet jmm - Muscle Cramps and Spasms jmm - Cervical Strain and Sprain Rehab-SportsMed jmm Forms: - Medication Reconciliation Form m - Thank You Letter jmm - Antibiotic Education jmm - Prescription Opioid Use [facility] Prescriptions: - Zanaflex 4 mg Oral Tablet - take 1 tablet by ORAL route every 8 hours As needed; 20 tablet; Refills: 0, jmm Product Selection Permitted - Diclofenac Sodium 75 mg Oral Tablet Sustained Release - take 1 tablet by ORAL route 2 times per day; 30 tablet; Refills: 0, Product [facility] Selection Permitted Signatures: Dispatcher [employer] EDEliseo García PA PA [facility] Wilver Conti MD MD rn Calderon, Audri RN RN aa5 Gill Santos RN RN ss Prokisch, Amanda, RN RN ap3 Corrections: (The following items were deleted from the chart) 14:01 14:00 PMHx: mono; ap3 ap3
--- NOTE | 2022-11-21 16:37 | ER ---
Nurse's Notes [facility] Name: Perfecto Murphy Age: 27 yrs Sex: Male : 1995 Arrival Date: 11/21/2022 Time: 13:16 Bed DIS1 Private MD: Diagnosis: Strain of muscle, fascia and tendon at neck level;Muscle spasm of back Presentation: 11/21 13:59 Chief complaint: Patient states: he has been having neck pain that has gotten worse ap3 over the last week. patient states that the pain will radiate into his head if he moves his head a certain way. patient reports nausea with pain. Coronavirus screen: At this time, the client does not indicate any symptoms associated with coronavirus-19. Ebola Screen: No symptoms or risks identified at this time. Initial Sepsis Screen: Does the patient meet any 2 criteria? No. Patient's initial sepsis screen is negative. Does the patient have a suspected source of infection? No. Patient's initial sepsis screen is negative. Risk Assessment: Do you want to hurt yourself or someone else? Patient reports no desire to harm self or others. Onset of symptoms was November 14, 2022. 13:59 Method Of Arrival: Ambulatory ap3 13:59 Acuity: SHERRI 3 ap3 Triage Assessment: 14:01 General: Appears uncomfortable, Behavior is calm, cooperative. Pain: Complains of pain ap3 in neck Pain radiates to head Pain currently is 10 out of 10 on a pain scale. Pain began gradually, one week ago. Neuro: Level of Consciousness is awake, alert, obeys commands, Oriented to person, place, time, situation, Speech is normal. Cardiovascular: Patient's skin is warm and dry. Respiratory: Airway is patent Respiratory effort is even, unlabored, Respiratory pattern is regular, symmetrical. Historical: - Allergies: 14:00 No Known Allergies; ap3 - PMHx: 14:00 Anxiety; ap3 - Immunization history:: Client reports having NOT received the Covid vaccine. Flu vaccine is not up to date. - Social history:: Smoking status: Patient reports use of chewing tobacco. Patient uses alcohol, occasionally. Screenin:02 Abuse screen: Denies threats or abuse. Nutritional screening: No deficits noted. ap3 Tuberculosis screening: No symptoms or risk factors identified. 14:02 [facility] ED Fall Risk Assessment (Adult) History of falling in the last 3 months, ap3 including since admission No falls in past 3 months (0 pts). Assessment: 16:18 Reassessment: Patient is alert, oriented x 3, equal unlabored respirations, skin aa5 warm/dry/pink. 17:07 Reassessment: Patient is alert, oriented x 3, equal unlabored respirations, skin aa5 warm/dry/pink. Patient denies pain at this time. Patient states feeling better. Patient states symptoms have improved. Vital Signs: 13:59 BP 134 / 97; Pulse 90; Resp 19; Temp 98.8; Pulse Ox 100% ; Weight 65.77 kg; Height 5 ap3 ft. 5 in. (165.10 cm); Pain 10/10; 16:17 BP 120 / 83; Pulse 78; Resp 16 S; Pulse Ox 100% on R/A; aa5 13:59 Body Mass Index 24.13 (65.77 kg, 165.10 cm) ap3 ED Course: 13:16 Patient arrived in ED. rg4 13:36 Eliseo Echeverria PA is PHCP. jm 13:36 Wilver Conti MD is Attending Physician. [facility] 14:00 Triage completed. ap3 14:02 Arm band placed on right wrist. ap3 14:02 Patient has correct armband on for positive identification. Bed in low position. ap3 14:14 Inserted saline lock: 20 gauge in right antecubital area, using aseptic technique. rs5 Blood collected. 17:08 No provider procedures requiring assistance completed. IV discontinued, intact, aa5 bleeding controlled, No redness/swelling at site. Pressure dressing applied. Administered Medications: 14:28 Drug: Ketorolac 30 mg Route: IVP; Site: right antecubital; ss 17:07 Follow up: Response: No adverse reaction; Marked relief of symptoms aa5 16:17 Drug: Decadron - Dexamethasone 10 mg Route: IVP; Site: right antecubital; aa5 17:07 Follow up: Response: No adverse reaction; Marked relief of symptoms aa5 16:17 Drug: Valium (diazepam) 5 mg Route: IVP; Site: right antecubital; aa5 17:07 Follow up: Response: No adverse reaction; Marked relief of symptoms aa5 Medication: 17:08 VIS not applicable for this client. aa5 Outcome: 16:37 Discharge ordered by MD. pedro 17:08 Discharged to home ambulatory, with family. aa5 17:08 Condition: improved 17:08 Discharge instructions given to patient, Instructed on discharge instructions, follow up and referral plans. medication usage, Demonstrated understanding of instructions, follow-up care, medications, Prescriptions given X 2. 17:08 Patient left the ED. aa5 Signatures: Eliseo Echeverria PA PA jmm Calderon, Audri, RN RN aa5 Gill Santos RN RN ss Garcia, Rubi rg4 Monica Fulton RN RN ap3 Santos Arias rs5 Corrections: (The following items were deleted from the chart) 14:01 14:00 PMHx: mono; ap3 ap3
[2022-11-21 17:26] VITALS: TEMP 98.8; O2SAT 100
[2022-11-21 17:36] VITALS: BP 120/83
== END 2022-11-21 17:08 | disposition home or self-care (01) ==
LOC: ER 13:02
DX: S16.1XXA Strain of muscle, fascia and tendon at neck level, initial encounter (principal); M62.830 Muscle spasm of back
CPT/HCPCS: 70450; 70496; 70498; J1100; J3360; Q9967

== ENCOUNTER 2022-11-28 19:15 | Emergency (ER) | payer SELFPAY ==
--- OUTSIDE RECORDS SUMMARY | 2022-11-28 19:20 | XMS REPORT | Continuity of Care Document ---
:[address] [facility] t Address [address] [place] [address] Care Team Providers Name Role Phone MAKENZIE [...] KEISHA CHRISTENSEN Admitting Clinician Unavailable DR PATRICIA BTUT Admitting Clinician Unavailable Payers Payer Name Policy Type Policy Number Effective Date Expiration Date S nathan 1000 [id number] 2022 00:00:00 [facility], 96 2022 INC 00:00:00 Problems Condition Condition [...] rs active active ity of problems problems [facility] Allergies, Adverse Reactions, Alerts Allergy Allergy Status Severity Reaction(s) Onset Inactive Treating Comm ents Source Name Type Date Date Clinician No Known DA Active Unknown [facility] Medical Allergie 00:00: Center s 00 NO KNOWN Drug Active Univers ALLERGIE Class ity of S [facility] Social History Social Habit Start Date Stop Date Quantity Comments Source Exposure to 2022-11-08 2022-11-18 Not sure [facility] SARS-CoV-2 (event) 00:00:00 16:12:00 Medica l Branch Sex Assigned At [birth year] [facility] y of [place] 00:00:00 00:00:00 Medical Branch Smoking Status Start Date Stop Date Source Tobacco smoking consumption [facility] unknown Branch Light Tobacco Smoker Vanessa mitchell [...] 08/27/22 at 0245, TOSHA famotidine 2021-10 Yes [id number] 20mg Take 1 Un james (PEPCID) 20 1-20 tablet by it[place] of [place] the [place] morning Branch and 1 tablet in the evening. famotidine 2021-10 Yes [id number] 20mg Take 1 Un james (PEPCID) 20 1-20 tablet by ity of mg tablet [place] the [place] morning Branch and 1 tablet in the evening. famotidine 2021-10 Yes [id number] 20mg Take 1 Un james (PEPCID) 20 1-20 tablet by [place]y of mg tablet [place] the [place] morning Branch and 1 tablet in the evening. famotidine 2021-10 Yes [id number] 20mg Take 1 Un james (PEPCID) 20 1-20 tablet by ity of mg tablet [place] the [place] morning Branch and 1 tablet in the evening. famotidine 2021-10 Yes [id number] 20mg Take 1 Un james (PEPCID) 20 1-20 tablet by ity of mg tablet [place] the Medical morning Branch and 1 tablet in the evening. famotidine 2021-10 Yes [id number] 20mg Take 1 Un james (PEPCID) 20 1-20 tablet by ity of mg tablet [place] the [place] morning Branch and 1 tablet in the evening. ibuprofen 2021-10 Yes [id number] 600mg Take 1 Univers 600 mg 0-19 tablet by ity of tablet 00:00: mouth [place] 00 every 6 Medical (six) Branch hours as needed for Pain (scale 4-6). benzonatate 2021-10 Yes [id number] 200mg Take 1 Univers 200 mg 0-19 capsule by ity of capsule 00:00: mouth 3 [place] 00 (three) Medical times Branch daily as needed for Cough for up to 20 doses. ondansetron 2021-10 Yes [id number] 4mg Take 1 Univers 4 mg 0-19 tablet by ity of disintegrat 00:00: mouth [place] ing tablet 00 every 8 Medica l (eight) Branch hours as needed for Nausea and Vomiting (N/V). ibuprofen 2021-10 Yes [id number] 600mg Take 1 Univers 600 mg 0-19 tablet by ity of tablet 00:00: mouth [place] 00 every 6 Medical (six) Branch hours as needed for Pain (scale 4-6). benzonatate 2021-10 Yes [id number] 200mg Take 1 Univers 200 mg 0-19 capsule by ity of capsule 00:00: mouth 3 [place] 00 (three) Medical times Branch daily as needed for Cough for up to 20 doses. ondansetron 2021-10 Yes [id number] 4mg Take 1 Univers 4 mg 0-19 tablet by ity of disintegrat 00:00: mouth [place] ing tablet 00 every 8 Medica l (eight) Branch hours as needed for Nausea and Vomiting (N/V). ibuprofen 2021-10 Yes [id number] 600mg Take 1 Univers 600 mg 0-19 tablet by ity of tablet 00:00: mouth [place] 00 every 6 Medical (six) Branch hours as needed for Pain (scale 4-6). benzonatate 2021-10 Yes [id number] 200mg Take 1 Univers 200 mg 0-19 capsule by ity of capsule 00:00: mouth 3 [place] 00 (three) Medical times Branch daily as needed for Cough for up to 20 doses. ondansetron 2021-10 Yes [id number] 4mg Take 1 Univers 4 mg 0-19 tablet by ity of disintegrat 00:00: mouth [place] ing tablet 00 every 8 Medica l (eight) Branch hours as needed for Nausea and Vomiting (N/V). ibuprofen 2021-10 Yes [id number] 600mg Take 1 Univers 600 mg 0-19 tablet by ity of tablet 00:00: mouth [place] 00 every 6 Medical (six) Branch hours as needed for Pain (scale 4-6). benzonatate 2021-10 Yes [id number] 200mg Take 1 Univers 200 mg 0-19 capsule by ity of capsule 00:00: mouth 3 [place] 00 (three) Medical times Branch daily as needed for Cough for up to 20 doses. ondansetron 2021-10 Yes [id number] 4mg Take 1 Univers 4 mg 0-19 tablet by ity of disintegrat 00:00: mouth [place] ing tablet 00 every 8 Medica l (eight) Branch hours as needed for Nausea and Vomiting (N/V). ibuprofen 2021-10 Yes [id number] 600mg Take 1 Univers 600 mg 0-19 tablet by ity of tablet 00:00: mouth [place] 00 every 6 Medical (six) Branch hours as needed for Pain (scale 4-6). benzonatate 2021-10 Yes [id number] 200mg Take 1 Univers 200 mg 0-19 capsule by ity of capsule 00:00: mouth 3 [place] 00 (three) Medical times Branch daily as needed for Cough for up to 20 doses. ondansetron 2021-10 Yes [id number] 4mg Take 1 Univers 4 mg 0-19 tablet by ity of disintegrat 00:00: mouth [place] ing tablet 00 every 8 Medica l (eight) Branch hours as needed for Nausea and Vomiting (N/V). ibuprofen 2021-10 Yes [id number] 600mg Take 1 Univers 600 mg 0-19 tablet by ity of tablet 00:00: mouth [place] 00 every 6 Medical (six) Branch hours as needed for Pain (scale 4-6). benzonatate 2021-10 Yes [id number] 200mg Take 1 Univers 200 mg 0-19 capsule by ity of capsule 00:00: mouth 3 [place] 00 (three) Medical times Branch daily as needed for Cough for up to 20 doses. ondansetron 2021-10 Yes [id number] 4mg Take 1 Univers 4 mg 0-19 tablet by ity of disintegrat 00:00: mouth [place] ing tablet 00 every 8 Medica l (eight) Branch hours as needed for Nausea and Vomiting (N/V). ibuprofen 2021-10 Yes [id number] 600mg Take 1 Univers 600 mg 0-19 tablet by ity of tablet 00:00: mouth [place] 00 every 6 Medical (six) Branch hours as needed for Pain (scale 4-6). benzonatate 2021-10 Yes [id number] 200mg Take 1 Univers 200 mg 0-19 capsule by ity of capsule 00:00: mouth 3 [place] 00 (three) Medical times Branch daily as needed for Cough for up to 20 doses. ondansetron 2021-10 Yes [id number] 4mg Take 1 Univers 4 mg 0-19 tablet by ity of disintegrat 00:00: mouth [place] ing tablet 00 every 8 Medica l (eight) Branch hours as needed for Nausea and Vomiting (N/V). maalox:diph No 15mL 15 mL, Uni vers enhydrAMINE 04-12 Oral, ity of :lidocaine 23:30: 00:22 ONCE, 1 Justin as 2 % viscous 00 :00 dose, On Medi hernando 1:1:1 [facility] 04/12/22 Branch (FIRST-MOUT at 1830, [facility]) Routine oral suspension 15 mL penicillin 2021- No 1.210 1.2 Unive rs g 04-12 Million ity of benzathine 23:30: 00:22 [place] (BICILLIN 00 :00 Intramuscu [facility]) lar, ONCE, Branch injection 1 dose, On 1.2 Million [facility] 04/12/22 Units at 1830, TOSHA
Re ason for Anti-Infec tive: Documented Infection< br>Documen nieves Infection Site: HEENT
D uration of Therapy: 7 days dexamethaso No 10mg 10 mg, Uni vers ne sod phos 04-12 Intramuscu i ty of PF 23:30: 23:30 lar, ONCE, [place] injection 00 :00 1 dose, On Medi hernando 10 mg [facility] 04/12/22 Branch at 1830, 1 mL acetaminoph No 1000mg 1,000 mg, Univers en 04-12 Oral, ity of (TYLENOL) 23:00: 22:58 ONCE, 1 [place] tablet 00 :00 dose, On Medical 1,000 mg [facility] 04/12/22 Branc h at 1800, TOSHA No known No Univers medications 04-12 ity of 17:46: [place] 40 Medical Branch cyclobenzap cyclobenzap No 1 [...] Immunizations Ordered Filled Immunization Date Status Comments [facility] e Immunization Name Name HEPATITIS A 2000-12-20 Completed University of 00:00:00 [facility] MMR 2000-11-14 Completed University of 00:00:00 [facility] DTAP 2000-11-14 Completed University of 00:00:00 [facility] Polio (IPV/OPV) 2000-11-14 Completed Universit y of 00:00:00 [facility] Hep B, Adol or Pedi 2000-05-30 Completed Unive rsity of Dosage 00:00:00 [facility] MMR 2000-05-30 Completed University of 00:00:00 [facility] Varicella 2000-05-30 Completed University of (varivax)(chicken 00:00:00 [facility] edical pox) Branch DTAP 2000-05-30 Completed University of 00:00:00 [facility] HIB 4 Dose Schedule 2000-05-30 Completed Unive rsity of 00:00:00 [facility] Polio (IPV/OPV) 2000-05-30 Completed Universit y of 00:00:00 [facility] HIB 4 Dose Schedule 1999-12-04 Completed Unive rsity of 00:00:00 [facility] Polio (IPV/OPV) 1996 Completed Universit y of 00:00:00 [facility] Hep B, Adol or Pedi 1996 Completed Unive rsity of Dosage 00:00:00 [facility] DTAP 1996 Completed University of 00:00:00 [facility] Hep B, Adol or Pedi 1996 Completed Unive rsity of Dosage 00:00:00 [facility] Vital Signs Vital Name Observation Time Observation Value Comments Source Systolic blood 2022-11-19 18:12:00 130 mm[Hg] Univer sity of pressure [facility] Diastolic blood 2022-11-19 18:12:00 89 mm[Hg] Unive [...] 2022-11-19 18:12:00 23.49 kg/m2 Universi ty of [place] [facility] Oxygen saturation in 2022-11-19 18:12:00 98 /min University of Arterial blood by [place] [employer] hernando Pulse oximetry Branch Systolic blood 2022-11-18 22:06:00 130 mm[Hg] Univer sity of pressure [place] [facility] Diastolic blood 2022-11-18 22:06:00 89 mm[Hg] Unive rsity of pressure [place] [facility] Heart rate 2022-11-18 22:06:00 98 /min Universi ty of [place] [facility] Body temperature 2022-11-18 22:06:00 37.39 Raquel Univ ersity of [place] [facility] Respiratory rate 2022-11-18 22:06:00 20 /min Univ ersity of [place] [facility] Body height 2022-11-18 22:06:00 162.6 cm Universi ty of [place] [facility] Body weight 2022-11-18 22:06:00 68.04 kg Universi ty of [place] [facility] BMI 2022-11-18 22:06:00 25.75 kg/m2 Universi ty of [place] [facility] Oxygen saturation in 2022-11-18 22:06:00 100 /min University of Arterial blood by [place] [employer] hernando Pulse oximetry Branch Systolic blood 2022-10-30 06:00:00 121 mm[Hg] Univer sity of pressure [place] [facility] Diastolic blood 2022-10-30 06:00:00 80 mm[Hg] Unive rsity of pressure [place] [facility] Heart rate 2022-10-30 06:00:00 73 /min Universi ty of [place] [facility] Respiratory rate 2022-10-30 06:00:00 13 /min Univ ersity of [place] [facility] Oxygen saturation in 2022-10-30 06:00:00 98 /min University of Arterial blood by [facility] hernando Pulse oximetry Branch Body temperature 2022-10-30 05:27:00 37.22 Raquel Univ ersity of [place] [facility] [place] Body height 2022-10-30 05:27:00 165.1 cm Universi ty of [place] [facility] [place] Body weight 2022-10-30 05:27:00 68.493 kg Universi ty of [place] [facility] BMI 2022-10-30 05:27:00 25.13 kg/m2 Universi ty of [place] [facility] Systolic blood 2022-10-19 06:30:00 137 mm[Hg] Univer sity of pressure [place] [facility] Diastolic blood 2022-10-19 06:30:00 98 mm[Hg] Unive rsity of [facility] Medical [place] Heart rate 2022-10-19 06:30:00 88 /min Universi ty of [place] [facility] [place] Body temperature 2022-10-19 06:30:00 37 Raquel Univ ersity of [place] [facility] [place] Respiratory rate 2022-10-19 06:30:00 16 /min Univ ersity of [place] [facility] [place] Body height 2022-10-19 06:30:00 165.1 cm Universi ty of [place] [facility] Body weight 2022-10-19 06:30:00 66.906 kg Universi ty of [place] [facility] BMI 2022-10-19 06:30:00 24.55 kg/m2 Universi ty of [place] [facility] Oxygen saturation in 2022-10-19 06:30:00 99 /min University of Arterial blood by [facility] Pulse oximetry Branch Height 2022-10-14 10:57:00 165.1 CM Weight 2022-10-14 10:57:00 65.77 KG Systolic blood 2022-10-09 21:02:00 137 mm[Hg] Univer sity of pressure [place] [facility] Diastolic blood 2022-10-09 21:02:00 80 mm[Hg] Unive rsity of [facility] Heart rate 2022-10-09 21:02:00 102 /min Universi ty of [place] [facility] [place] Body temperature 2022-10-09 21:02:00 37.11 Raquel Univ ersity of [place] [facility] [place] Respiratory rate 2022-10-09 21:02:00 16 /min Univ ersity of [place] [facility] Body height 2022-10-09 21:02:00 162.6 cm Universi ty of [place] [facility] Body weight 2022-10-09 21:02:00 65.772 kg Universi ty [facility] [place] [facility] BMI 2022-10-09 21:02:00 24.89 kg/m2 Universi ty of [place] [facility] Oxygen saturation in 2022-10-09 21:02:00 100 /min University of Arterial blood by [place] [employer] hernando Pulse oximetry Branch Body temperature 2022-08-27 08:10:00 36.22 Raquel Univ ersity [facility] [place] [facility] Respiratory rate 2022-08-27 08:10:00 17 /min Univ ersity of [place] [facility] Body height 2022-08-27 08:10:00 162.6 cm Universi ty of [place] [facility] Body weight 2022-08-27 08:10:00 65.772 kg Universi ty [facility] [place] [facility] BMI 2022-08-27 08:10:00 24.89 kg/m2 Universi ty [facility] [place] [facility] Oxygen saturation in 2022-08-27 08:10:00 100 /min University of Arterial blood by [place] [employer] hernando Pulse oximetry Branch Systolic blood 2022-08-27 08:10:00 135 mm[Hg] Univer sity of pressure [place] [facility] Diastolic blood 2022-08-27 08:10:00 93 mm[Hg] Unive rsity of pressure [place] [facility] Heart rate 2022-08-27 08:10:00 100 /min Universi ty of [place] [facility] Systolic blood 2022-07-26 15:25:00 131 mm[Hg] Univer sity of pressure [place] [facility] Diastolic blood 2022-07-26 15:25:00 87 mm[Hg] Unive rsity of pressure [place] [facility] Heart rate 2022-07-26 15:25:00 98 /min Universi ty of [place] [facility] Body temperature 2022-07-26 15:25:00 37.33 Raquel Univ ersity [facility] [place] [facility] Respiratory rate 2022-07-26 15:25:00 18 /min Univ ersity of [place] [facility] Body weight 2022-07-26 15:25:00 63.504 kg Universi ty [facility] [place] [facility] BMI 2022-07-26 15:25:00 22.60 kg/m2 Universi ty of [place] [facility] Oxygen saturation in 2022-07-26 15:25:00 98 /min University of Arterial blood by [facility] Pulse oximetry Branch Systolic blood 2022-04-12 22:52:00 121 mm[Hg] Univer sity of pressure [facility] Diastolic blood 2022-04-12 22:52:00 80 mm[Hg] Unive rsity of [facility] Heart rate 2022-04-12 22:52:00 108 /min [facility] Body temperature 2022-04-12 22:52:00 39.11 Raquel [facility] Respiratory rate 2022-04-12 22:52:00 24 /min [facility] Body height 2022-04-12 22:52:00 167.6 cm [facility] Body weight 2022-04-12 22:52:00 63.504 kg [facility] BMI 2022-04-12 22:52:00 22.60 kg/m2 [facility] Oxygen saturation in 2022-04-12 22:52:00 98 /min [facility] Arterial blood by [facility] Pulse oximetry Branch BP Diastolic 2022-02-17 00:00:00 75 mm[Hg] [facility] Height 2022-02-17 00:00:00 65 [in_i[facility] BMI (Body Mass 2022-02-17 00:00:00 24 kg/m2 [facility] 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 banking 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 Medical Index) Group BP Systolic 2022-02-17 00:00:00 121 mm[Hg] [facility] Body Weight 2022-02-17 00:00:00 2304 [oz_av] [facility] Height 2020-12-13 22:38:00 170.18 CM Weight 2020-12-13 22:38:00 63.5 KG Procedures Procedure Date / Time Performed Performing Clinician Sour e EKG-12 LEAD 2022-11-19 18:54:32 Anel Bhat [facility] CONSENT/REFUSAL FOR 2022-11-18 21:51:51 Doctor Unassigned, No Un [facility] DIAGNOSIS AND Name Medical Branch TREATMENT XR CHEST 1 VW 2022-10-30 05:46:16 [place], [facility] LIPASE 2022-10-30 05:37:00 Singer [facility] MAGNESIUM 2022-10-30 05:37:00 Singer [facility] TROPONIN I 2022-10-30 05:37:00 Singer [facility] COMP. METABOLIC PANEL 2022-10-30 05:37:00 Singer [facility] ([id number]) [facility] CBC WITH DIFF 2022-10-30 05:37:00 Singer [facility] D-DIMER 2022-10-30 05:37:00 [facility] N-TERMINAL PRO-BNP 2022-10-30 05:37:00 Singer Se [facility] CONSENT/REFUSAL FOR 2022-10-30 05:18:02 Doctor [facility]assigned, No [facility] Branch TREATMENT EKG-12 LEAD 2022-10-19 08:20:54 Uriel [facility] XR CHEST 1 VW 2022-10-19 07:06:[address] [facility] NOTICE OF PRIVACY 2022-10-19 06:22:28 Doctor Unassigned, No [facility] CONSENT/REFUSAL FOR 2022-10-09 20:55:57 Doctor Unassigned, No [facility] TREATMENT EKG-12 LEAD 2022-08-27 09:19:11 Norris Alex [facility] XR CHEST 1 VW 2022-08-27 08:29:00 Norris Alex [facility] TROPONIN I 2022-08-27 08:17:00 Norris Alex [facility] COMP. METABOLIC PANEL 2022-08-27 08:17:00 Norris Alex [facility] ([id number]) Medical Branch CBC WITH DIFF 2022-08-27 08:17:00 Norris Alex [facility] NOTICE OF PRIVACY 2022-08-27 08:03:42 Doctor Unassigned, No Univ [facility] [place] PRACTICES Name Medical Branch CONSENT/REFUSAL FOR 2022-08-27 08:02:51 Doctor Unassigned, No Un [facility] [place] DIAGNOSIS AND Name Medical Branch TREATMENT RAPID INFLUENZA A/B 2022-07-26 15:28:00 Norris Alex [facility] Medical Branch COVID-19 (ID NOW 2022-07-26 15:28:00 Norris Alex [facility] RAPID TESTING) Medical Branch CONSENT/REFUSAL FOR 2022-07-26 15:22:01 Doctor Unassigned, No Un [facility] [place] DIAGNOSIS AND Name Medical Branch TREATMENT RAPID STREP SCREEN 2022-04-12 22:57:00 Jayce Penn [facility] FOR GROUP A Medical Branch COVID-19 (ID NOW 2022-04-12 22:57:00 Jayce Penn [facility] RAPID TESTING) Medical Branch NOTICE OF PRIVACY 2022-04-12 22:49:56 Doctor Unassigned, No [facility] PRACTICES Name [facility] Branch XR, 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, 2 2022-02-17 00:00:00 Matago personal banking assistant Medical or 3 view Group Encounters Start End Encounter Admission Attending Care Care Encounter Source Date/Time Date/Time Type Type Clinicians Facility Department ID 2022-11-19 2022-11-19 Emergency X HOME COSHEYLA ERT [id number] Univers 12:17:00 13:08:00 ANEL clancy [facility] 2022-11-19 2022-11-19 Lupe Bhat [facility] [id number] Univers 12:17:00 13:08:00 [id number] [id number] [facility] [id number] [facility] 08 Branch 2022-11-18 2022-11-18 Emergency X Preethi GARCIA [facility] ERT [id number] Univers 16:11:00 16:58:00 ity [facility] 2022-11-18 2022-11-18 Emergency Preethi Garcia [facility] [id number] Univers 16:11:00 16:58:00 Felicita NEELY [id number] i ty [facility] [id number] [facility] [id number] [address] 2022-11-10 2022-11-10 Emergency ER Maida, [facility] [id number] [place] 06:53:00 08:13:00 Fernando -[id number] formerly [facility] 2022-10-29 2022-10-30 Emergency X RUST ERT [id number] Univers 23:30:00 00:40:00 SE aston [facility] 2022-10-29 2022-10-30 Emergency RUST [id number] Univers 23:30:00 00:40:00 Se NEELY [id number] i ty of [facility] [id number] [facility] [id number] [address] 2022-10-19 2022-10-19 Emergency X SONIDORUST ERT [id number] Univers 00:28:00 02:31:00 URIEL clancy [facility] 2022-10-19 2022-10-19 Emergency SonidoRUST [id number] Univers 00:28:00 02:31:00 Uriel NEELY [id number] ity of [place] [id number] [facility] [id number] [address] 2022-10-14 2022-10-14 Emergency E JENNY, [facility] [id number] [facility] 10:19:00 13:40:00 [facility] 2022-10-09 2022-10-09 Emergency X HOMERUST ERT [id number] Univers 15:03:00 16:09:00 ANEL clancy [facility] 2022-10-09 2022-10-09 Emergency HomeRUST [id number] Univers 15:03:00 16:09:00 Anel NEELY [id number] ity of [place] 4.2.7.2.686 [facility] [id number] [place] [address] Branch 2022-08-27 2022-08-27 Emergency X VASUT, [facility] ERT [id number] Univers 02:02:00 03:30:00 NORRIS ity [facility] 2022-08-27 2022-08-27 Emergency Vasut, COMB [id number] Univers 02:02:00 03:30:00 Norris NEELY [id number] i ty of [facility] [id number] [place] [address] [id number] [place] [address] Branch 2022-07-26 2022-07-26 Emergency X JOSE, K [facility] ERT [id number] Univers 10:29:00 11:[facility]00 [facility] 2022-07-26 2022-07-26 Emergency JosePreethi [facility] [id number] Univers 10:29:00 11:26:00 Felicita NEELY 350.1.13.10 i ty of [place] 4.2.7.[address] [place] [address] [id number] [place] [address] Branch 2022-05-21 2022-05-21 Emergency ER Maida, [facility] [id number] [place] 07:56:00 09:47:00 Fernando -[id number] formerly [facility] 2022-04-19 2022-04-19 Outpatient AMBREEN[place] [id number] [place] 03:49:00 03:49:00 ENOCH 0713 [facility] Outre h Program 2022-04-12 2022-04-12 Emergency Penn, [facility] [id number] Univers 17:53:00 19:52:00 Jayce NEELY [id number] i ty of [facility] [id number] [place] [address] [id number] [place] [address] Branch 2022-04-12 2022-04-12 Emergency X PENN, [facility] ERT [id number] Univers 17:53:00 19:52:00 JAYCE clancy [facility] 2022-02-23 2022-02-23 Outpatient Zuniga_S [facility] [id number] [place] 01:07:00 01:07:00 519 [facility] 2022-02-20 2022-02-20 Outpatient Zuniga_S [facility] [id number] [place] 10:19:00 10:19:00 516 [facility] 2022-02-20 2022-02-20 Outpatient Zuniga_S [facility] [id number] [place] 05:57:00 05:57:00 517 Medical Group 2022-02-17 2022-02-17 Outpatient EL KENISHA, [facility] [id number] [place] 16:51:00 16:51:00 ANTONIA -[id number] formerly [facility] 2022-02-17 2022-02-17 Outpatient Zuniga_S [facility] [id number] [place] 05:30:00 05:30:00 513 Medical Group 2022-02-17 2022-02-17 Antonia [facility] [place] - [id number] [place] 00:00:00 00:00:00 Discovery Kenisha da SENIOR TRAINING SPECIALIST-C: [address] [facility] [address], [facility], [place] [address] , Ph. 2022-01-16 2022-01-16 Emergency ER Porras, [facility] [id number] [place] 18:09:00 20:36:00 Jimmy -[id number] formerly [facility] 2021-12-29 2021-12-29 Emergency ER Martin, [facility] [id number] [place] 06:30:00 11:05:00 Soco -[id number] formerly [facility] 2021-10-28 2021-10-28 Emergency ER CAVAZOS, [facility] [id number] [place] 18:04:00 19:21:00 ABDOULAYE -[id number] formerly [facility] 2021-09-20 2021-09-20 Emergency ER OWO, TOKS [facility] [id number] [place] 18:13:00 20:40:00 -[id number] formerly [facility] 2020-12-13 2020-12-13 Emergency E KEISHA [facility]EN [facility] [id number] [place] 22:26:00 23:23:00 [facility] 2019-08-17 2019-08-17 Emergency ER TELLEZ, [facility] [id number] [place] 01:07:00 03:07:00 MAI -[id number] formerly [facility] 2018-05-17 2018-05-17 Emergency E DAQUAN, [facility] [id number] [place] 03:57:00 05:14:00 GOMEZ [facility] 2017-11-11 2017-11-11 Emergency E KEISHA [facility] [id number] [place] 19:21:00 21:04:00 [facility] 2016-01-23 2016-01-23 Emergency ER , [facility] [id number] [place] 20:43:00 22:25:00 WASIM -[id number] formerly [facility] 2013-10-17 2013-10-17 Emergency ER MADELINE ARMSTRONG [facility] [id number] [place] 13:21:00 14:43:00 -[id number] formerly [facility] Results Test Description Test Time Test Comments Results Result Comments Source D-DIMER 2022-10-30 06:15:32 Test Item Value Reference Range Interpretation Comme nts D-DIMER (test code = See_Comment [Autom ated message] The [id number]) system which ge nerated this result tra [...] diagnosis. Lab Interpretation Normal (test code = 09582-7) [facility] [id number] 06:05:50 Test Item Value Reference Interpretation Comments Range TROPONIN I (test 0.004 ng/mL See_Comment [Automated code = 6833295335) message] The system which generated this result [...] biotin. Lab Interpretation Normal (test code = 69872-4) [facility] [id number] 06:02:29 Test Item Value Reference Range Interpretation Comments NT-proBNP (test code 22 pg/mL See_Comment [Autom ated = 2590566145) message] The system which generated this result transmitted reference range : <=125. The reference range was not used to interpret this result as normal/abnormal . FAIZA (test code = FAIZA) Biotin has been reported to cause a negative bias, interpret results relative to patient's use of biotin. Lab Interpretation Normal (test code = 29447-4) [facility]2023-01-23 05:54:05 Test Item Value Reference Range Interpretation Comments MAGNESIUM (test code = 9099467782) 2.2 mg/dL 1.7-2.4 Lab Interpretation (test code = Normal 48569-5) [facility] METABOLIC PANEL ([id number])2022-10-30 05:53:45 Test Item Value Reference Range Interpretation Comments NA (test code = 139 mmol/L 135-145 3741952431) K (test code = 3.9 mmol/L 3.5-5.0 4305123349) CL (test code = 104 mmol/L 98-108 7088911117) CO2 TOTAL (test code = 26 mmol/L 23-31 8985576959) AGAP (test code = 2-16 0836911149) BUN (test code = 11 mg/dL 7-23 9464512102) GLUCOSE (test code = 119 mg/dL 70-110 H 9343549580) CREATININE (test code = 0.90 mg/dL 0.60-1.25 3793147491) TOTAL BILI (test code = 0.4 mg/dL 0.1-1.6 1939401689) CALCIUM (test code = 9.3 mg/dL 8.6-10.6 1693619748) T PROTEIN (test code = 7.5 g/dL 6.3-8.2 7172919134) ALBUMIN (test code = 4.7 g/dL 3.5-5.0 8829786835) ALK PHOS (test code = 103 U/L 34-122 8838732794) ALTv (test code = 30 U/L 5-50 2-6) AST(SGOT) (test code = 24 U/L 13-40 8663053195) eGFR (test code = mL/min/1.73m2 7555672785) FAIZA (test code = FAIZA) Association of [...] tests). Lab Interpretation Abnormal (test code = 16848-0) [facility]2023-01-23 05:53:25 Test Item Value Reference Range Interpretation Comments LIPASE (test code = 8656373920) 296 U/L 0-220 H Lab Interpretation (test code = Abnormal 31477-3) [facility] WITH [id number] 05:44:09 Test Item Value Reference Range Interpretation Comments WBC (test code = See_Comment [Automated 0790-2) message] The sy stem which generated this result transmitted reference range : 4.20 - 10.70 10*3/?L. The reference range was not used to interpret this result as normal/abnormal . RBC (test code = See_Comment [Automated 850-8) message] The sy stem which generated this [...] RDW-SD (test code = 40.7 fL 38.5-51.6 59812-8) RDW-CV (test code = 12.4 % 12.1-15.4 788-0) PLT (test code = See_Comment [Automated 777-3) message] The sy stem which generated this result transmitted reference range : 150 - 328 10*3/ ?L. The reference r ambar was not used to interpret this result as normal/abnormal . MPV (test code = 9.4 fL 9.8-13.0 L 37945-1) NRBC/100 WBC (test See_Comment [Automat ed code = 4729446285) message] The system which generated this result transmitted reference range : 0.0 - 10.0 /100 WBCs. The refer ence range was not u sed to interpret th is result as normal/abnormal . NRBC x10^3 (test code See_Comment [Auto mated = 8177428577) message] The s ystem which generated this result transmitted reference range : 10*3/?L. The reference range was not used to interpret this result as normal/abnormal . GRAN MAT (NEUT) % 47.4 % (test code = 770-8) IMM GRAN % (test code 0.20 % = 1330716602) LYMPH % (test code = 43.1 % 736-9) MONO % (test code = 6.8 % 5905-5) EOS % (test code = 1.9 % 713-8) BASO % (test code = 0.6 % 706-2) GRAN MAT x10^3(ANC) 4.19 10*3/uL 1.99-6.95 (test code = 7219511674) IMM GRAN x10^3 (test 0.00-0.06 code = 2975949979) LYMPH x10^3 (test code 3.81 10*3/uL 1.09-3.23 H = 731-0) MONO x10^3 (test code 0.60 10*3/uL 0.36-1.02 = 742-7) EOS x10^3 (test code = 0.17 10*3/uL 0.06-0.53 711-2) BASO x10^3 (test code 0.05 10*3/uL 0.01-0.09 = 704-7) Lab Interpretation Abnormal (test code = 41854-1) [facility] INFLUENZA A AND B [id number] 11:50:00 Test Item Value Reference Range Interpretation [...] to other clinical and epidemiological data TROPONIN [id number] 09:09:10 Test Item Value Reference Interpretation Comments Range TROPONIN I (test 0.002 ng/mL See_Comment [Automated code = 3403695056) message] The system which generated this result [...] biotin. Lab Interpretation Normal (test code = 61235-3) [facility] WITH [id number] 09:01:39 Test Item Value Reference Range Interpretation Comments WBC (test code = See_Comment H [Automated 0190-2) message] The sy stem which generated this [...] RDW-SD (test code = 40.6 fL 38.5-51.6 96929-8) RDW-CV (test code = 12.8 % 12.1-15.4 788-0) PLT (test code = See_Comment [Automated 777-3) message] The sy stem which generated this result transmitted reference range : 150 - 328 10*3/ ?L. The reference r ambar was not used to interpret this result as normal/abnormal . MPV (test code = 9.8 fL 9.8-13.0 55233-3) NRBC/100 WBC (test See_Comment [Automat ed code = 1153541314) message] The system which generated this result transmitted reference range : 0.0 - 10.0 /100 WBCs. The refer ence range was not u sed to interpret th is result as normal/abnormal . NRBC x10^3 (test code See_Comment [Auto mated = 3791792429) message] The s ystem which generated this result transmitted reference range : 10*3/?L. The reference range was not used to interpret this result as normal/abnormal . GRAN MAT (NEUT) % 47.8 % (test code = 770-8) IMM GRAN % (test code 0.30 % = 4284653862) LYMPH % (test code = 42.4 % 736-9) MONO % (test code = 7.3 % 5905-5) EOS % (test code = 1.9 % 713-8) BASO % (test code = 0.3 % 706-2) GRAN MAT x10^3(ANC) 5.30 10*3/uL 1.99-6.95 (test code = 5040989150) IMM GRAN x10^3 (test 0.03 10*3/uL 0.00-0.06 code = 3506398643) LYMPH x10^3 (test code 4.70 10*3/uL 1.09-3.23 H = 731-0) MONO x10^3 (test code 0.81 10*3/uL 0.36-1.02 = 742-7) EOS x10^3 (test code = 0.21 10*3/uL 0.06-0.53 711-2) BASO x10^3 (test code 0.03 10*3/uL 0.01-0.09 = 704-7) Lab Interpretation Abnormal (test code = 29996-2) [facility]. METABOLIC PANEL (17815)2022-08-27 08:57:28 Test Item Value Reference Range Interpretation Comments NA (test code = 140 mmol/L 135-145 1491307049) K (test code = 3.8 mmol/L 3.5-5.0 6544358320) CL (test code = 101 mmol/L 98-108 2070743054) CO2 TOTAL (test code = 29 mmol/L 23-31 4495920326) AGAP (test code = 2-16 5570081897) BUN (test code = 11 mg/dL 7-23 2774509176) GLUCOSE (test code = 112 mg/dL 70-110 H 6105105768) CREATININE (test code = 0.96 mg/dL 0.60-1.25 1976220322) TOTAL BILI (test code = 0.4 mg/dL 0.1-1.0 7175333753) CALCIUM (test code = 9.5 mg/dL 8.6-10.6 9906447460) T PROTEIN (test code = 7.1 g/dL 6.3-8.2 0738999838) ALBUMIN (test code = 4.5 g/dL 3.5-5.0 3846701524) ALK PHOS (test code = 94 U/L 34-122 1743438174) ALTv (test code = 25 U/L 5-50 1742-6) AST(SGOT) (test code = 21 U/L 13-40 0917254807) eGFR (test code = mL/min/1.73m2 2550270419) FAIZA (test code = FAIZA) Association of [...] tests). Lab Interpretation Abnormal (test code = 93556-1) [facility] 1 VIEW [id number] 05:05:34XR CHEST 1 VIEW PORTABLELocation:O0Yqioj hours services provided 05/17/2018 5:02 AMIndication:R07.9: CHEST PAIN, UNSPECIFIEDComparison:11/11/17indings:The lungs are equally and symmetrically inflated. The trachea ismidline. The cardiac silhouette is normal in size. No acute bony abnormality.Impression:No acute cardiopulmonary disease.[id number] 04:56:00 Test Item Value Reference Range Interpretation Comments D-DIMER (test code = <200 ng/mL D-DU 0-234 DDI) D-DIMER COMMENT (test *Level to rule out code = DDCOM) DVT or PE: <235 ng/mL D-DU* PRO TIME AND [id number] 04:54:00 Test Item Value Reference Range Interpretation [...] Heparin. Order Code is ANTI-XA BRAIN NATRIURETIC [id number] 04:46:00 Test Item Value Reference Range Interpretation Comments proBNP (test code = PBNP) 8 pg/mL 0-125 CARDIAC [id number] 04:43:00 Test Item Value Reference Range Interpretation Comments TROPONIN I (test code = A84) <0.015 ng/mL 0.000-0.045 CKMB (test code = A49) <1.0 ng/mL <=3.6 CPK (test code = 32A) 149 IU/L 39-308 COMPREHENSIVE METABOLIC [id number] 04:41:00 Test Item Value Reference Range Interpretation [...] = 31A) 37 IU/L <=78 AMYLASE AND [id number] 04:41:00 Test Item Value Reference Range Interpretation Comments AMYLASE (test code = 10A) 34 U/L 28-100 LIPASE (test code = 60A) 128 IU/L 73-393 ALCOHOL BLOOD (ETOH)2018-05-17 04:38:00 Test Item Value Reference Range Interpretation Comments ETOH (test code = HALC) ETHANOL The result is to be used only for medical purposes ALCOHOL (test code = <10 mg/dL <=10 56A) DRUGS OF [id number] 04:31:00 Test Item Value Reference Range Interpretation [...] (test code = RBCMOR) NORMAL DRUGS OF [id number] 20:50:00 Test Item Value Reference Range Interpretation [...] ng/mL Opiates 2000 ng/mL CT HEAD W/O [id number] 20:28:53AFTER HOURS SERVICE ON: 11/11/2017 8:27 PMCT Scan of the Brain Without ContrastLocation Code J69Hbxijrr: R42: DIZZINESS AND GIDDINESSTechnique: Scans were performed [...] (test code = <10 mg/dL <=10 56A) [id number] 20:23:00 Test Item Value Reference Range Interpretation Comments CPK (test code = 32A) 164 IU/L 39-308 COMPREHENSIVE METABOLIC [id number] 20:23:00 Test Item Value Reference Range Interpretation [...] code = 31A) 31 IU/L <=78 TROPONIN [id number] 20:20:00 Test Item Value Reference Range Interpretation Comments TROPONIN I (test code = A84) <0.015 ng/mL 0.000-0.045 PRO TIME AND [id number] 20:15:00 Test Item Value Reference Range Interpretation [...] = RBCMOR) NORMAL XR CHEST 1 VIEW [id number] 19:59:42Portable chest one view.HISTORY: DizzinessLocation R 16COMMENT: No comparison. No pleural effusion. The lungs are clear and normallyexpanded. The cardiac silhouette is unremarkable. Skeletal structuresarenormal in appearance.IMPRESSION: No active disease in the chest.
[2022-11-28 22:29] LABS: Absolute Lymphocytes (CBC) 2.6 K/uL (0.7-4.9); Hematocrit 43.6 % (39.6-49.0); Lymphocytes % 26.8 % (15.3-44.8); MCV 89.4 fL (80-100); RBC Red Blood Cell Count 4.88 M/uL (4.33-5.43)
--- NOTE | 2022-11-28 22:29 | RAD REPORT ---
EXAM DESCRIPTION: RADChest Single View11/28/2022 10:20 pm CLINICAL HISTORY: CHEST PAIN COMPARISON: Chest Single View dated 11/05/2022; Chest Single View dated 11/03/2022 TECHNIQUE: Portable AP view of the chest. FINDINGS: The lungs are clear. No pneumothorax or effusion. The cardiomediastinal contours are unrem arkable. IMPRESSION: No acute cardiopulmonary process.
[2022-11-28 22:42] LABS: ALT/SGPT 44 U/L (16-61); AST/SGOT 19 U/L (15-37); Alkaline Phosphatase 91 U/L (45-117); BUN Blood Urea Nitrogen 10 mg/dL (7-18); Bicarbonate 29 mmol/L (21-32); Bilirubin Total 0.2 mg/dL (0.2-1.0); Glomerular Filtration Rate 83 ml/min (=/>90); Glucose Level 108 mg/dL (74-106); Magnesium 2.5 mg/dL (1.6-2.4); Potassium 4.1 mmol/L (3.5-5.1); Protein, Total 7.3 g/dL (6.4-8.2); Sodium Level 139 mmol/L (136-145); Troponin High Sensitivity 3.5 pg/mL (<58.9)
[2022-11-28 22:51] LABS: Bilirubin Direct < 0.1 mg/dL (0-0.2)
[2022-11-28 22:56] LABS: Protime INR 0.97
[2022-11-29] MEDS ORDERED: KETOROLAC 30 MG/ML INJ ONE (00:23)
[2022-11-29] MEDS ORDERED: DIPHENHYDRAMINE 50 MG/ML VIAL ONE (00:23)
[2022-11-29] MEDS ORDERED: METOCLOPRAMIDE 10 MG/2mL INJ ONE (00:23)
[2022-11-29] MEDS ORDERED: dexAMETHasone 10 MG/ML VIAL ONE (00:23)
[2022-11-29] MEDS ORDERED: NA CHLORIDE 0.9% 1,000 ML ONE (00:23)
--- NOTE | 2022-11-29 01:24 | ER ---
Nurse's Notes [facility] Name: Perfecto Murphy Age: 27 yrs Sex: Male : 1995 Arrival Date: 11/28/2022 Time: 19:19 Bed 4 Private MD: Diagnosis: Headache;Chest pain, unspecified Presentation: 11/28 19:39 Chief complaint: Patient states: Bilateral chest pain of 5 with dizziness and SOB,onset pf1 today and C/O left side headache that radiates to left side of neck for 2 weeks. Patient stated was diagnosed with [place] 4 weeks. Coronavirus screen: Vaccine status: Patient reports being unvaccinated. Ebola Screen: Patient negative for fever greater than or equal to 101.5 degrees Fahrenheit, and additional compatible Ebola Virus Disease symptoms. Initial Sepsis Screen: Does the patient meet any 2 criteria? No. Patient's initial sepsis screen is negative. Does the patient have a suspected source of infection? No. Patient's initial sepsis screen is negative. Risk Assessment: Do you want to hurt yourself or someone else? Patient reports no desire to harm self or others. 19:39 Method Of Arrival: Ambulatory pf1 19:39 Acuity: SHERRI 3 pf1 Historical: - Allergies: 19:44 No Known Allergies; pf1 Screenin:28 [facility] ED Fall Risk Assessment (Adult) History of falling in the last 3 months, jb4 including since admission No falls in past 3 months (0 pts) Confusion or Disorientation No (0 pts) Score/Fall Risk Level 0 - 2 = Low Risk Oriented to surroundings, Maintained a safe environment. Abuse screen: Denies threats or abuse. Nutritional screening: No deficits noted. Tuberculosis screening: No symptoms or risk factors identified. Assessment: 21:40 General: Appears in no apparent distress. uncomfortable, Behavior is calm, cooperative, jb4 appropriate for age. Pain: Complains of pain in left side of head Pain does not radiate. Pain currently is 10 out of 10 on a pain scale. Quality of pain is described as stabbing, Pain began 2 weeks Is continuous. Neuro: Level of Consciousness is awake, alert, obeys commands, Oriented to person, place, time, situation. Cardiovascular: Patient's skin is warm and dry. Respiratory: Airway is patent Respiratory effort is even, unlabored, Respiratory pattern is regular, symmetrical. GI: No signs and/or symptoms were reported involving the gastrointestinal system. : No signs and/or symptoms were reported regarding the genitourinary system. EENT: No signs and/or symptoms were reported regarding the EENT system. Derm: Skin is intact, Skin is pink, warm \T\ dry. Musculoskeletal: Circulation, motion, and sensation intact. Range of motion: intact in all extremities. 22:28 Reassessment: Patient appears in no apparent distress at this time. Patient and/or jb4 family updated on plan of care and expected duration. Pain level reassessed. Patient is alert, oriented x 3, equal unlabored respirations, skin warm/dry/pink. 23:30 Reassessment: Patient appears in no apparent distress at this time. Patient and/or jb4 family updated on plan of care and expected duration. Pain level reassessed. Patient is alert, oriented x 3, equal unlabored respirations, skin warm/dry/pink. 11/29 00:38 Reassessment: Patient appears in no apparent distress at this time. Patient and/or jb4 family updated on plan of care and expected duration. Pain level reassessed. Patient is alert, oriented x 3, equal unlabored respirations, skin warm/dry/pink. 01:33 Reassessment: Patient appears in no apparent distress at this time. Patient and/or jb4 family updated on plan of care and expected duration. Pain level reassessed. Patient is alert, oriented x 3, equal unlabored respirations, skin warm/dry/pink. Vital Signs: 11/28 19:39 BP 128 / 89; Pulse 95; Resp 18; Temp 99.1; Pulse Ox 99% ; Weight 65.77 kg; Height 5 ft. pf1 5 in. (165.10 cm); Pain 5/10; 22:06 BP 119 / 77; Pulse 69; Resp 16; Temp 98.4; Pulse Ox 99% on R/A; Weight 65.77 kg; Height ls5 5 ft. 5 in. (165.10 cm); Pain 10/10; 23:00 BP 113 / 77; Pulse 66; Resp 16; Pulse Ox 99% on R/A; jb4 11/29 00:41 BP 118 / 67; Pulse 59; Resp 16; Pulse Ox 97% ; jb4 11/28 22:06 Body Mass Index 24.13 (65.77 kg, 165.10 cm) ls5 ED Course: 11/28 19:19 Patient arrived in ED. am2 19:44 Triage completed. pf1 21:24 Damian Burger PA is PHCP. cp 21:24 Boyd Yuan MD is Attending Physician. cp 21:51 Beata Cesar is Primary Nurse. tw5 21:58 Troponin HS Sent. jb4 21:58 PT-INR Sent. jb4 21:58 Magnesium Sent. jb4 21:58 LFT's Sent. jb4 21:58 CBC with Diff Sent. jb4 21:58 Basic Metabolic Panel Sent. jb4 22:06 Inserted saline lock: 20 gauge in right antecubital area, using aseptic technique. ls5 Blood collected. 22:06 EKG done, by ED staff, reviewed by Damian CARDENAS. ls5 22:28 Patient maintains SpO2 saturation greater than 95% on room air. jb4 22:28 Patient has correct armband on for positive identification. Bed in low position. Call jb4 light in reach. Side rails up X 1. Client placed on continuous cardiac and pulse oximetry monitoring. NIBP monitoring applied. condenser tester on. Pulse ox on. 11/29 01:33 No provider procedures requiring assistance completed. IV discontinued, intact, jb4 bleeding controlled, No redness/swelling at site. Pressure dressing applied. Administered Medications: 00:31 Drug: Reglan (metoCLOPramide) 10 mg Route: IVP; Site: right antecubital; jb4 00:31 Drug: Ketorolac 15 mg Route: IVP; Site: right antecubital; jb4 00:31 Drug: Decadron - Dexamethasone 10 mg Route: IVP; Site: right antecubital; jb4 00:31 Drug: Benadryl (diphenhydrAMINE) 25 mg Route: IVP; Site: right antecubital; jb4 00:32 Drug: NS 0.9% 1000 ml Route: IV; Rate: 1 bolus; Site: right antecubital; jb4 Medication: 11/28 22:28 VIS not applicable for this client. jb4 Outcome: 11/29 01:23 Discharge ordered by . cp 01:33 Discharged to home ambulatory. jb4 01:33 Condition: stable 01:33 Discharge instructions given to patient, Instructed on discharge instructions, follow up and referral plans. no drinking with medication, no driving heavy equipment, medication usage, Demonstrated understanding of instructions, follow-up care, medications, Prescriptions given X 3. 01:40 Patient left the ED. jb4 Signatures: Damian Burger PA PA cp Bryson, James, RN RN jb4 Monica Velasco Tiffany tw5 Charity cool RN RN pf1 Nilo Pham 5
--- NOTE | 2022-11-29 01:24 | EDPHYS ---
Physician Documentation [facility] Name: Perfecto Murphy Age: 27 yrs Sex: Male : 1995 Arrival Date: 11/28/2022 Time: 19:19 Bed 4 Private MD: ED Physician Boyd Yuan HPI: 11/28 21:45 This 27 yrs old Male presents to ER via Ambulatory with complaints of Headache for 2 cp weeks, Chest Pain. 21:45 The patient complains of pain to the left side of head. The patient describes the cp headache as aching, constant. Onset: The symptoms/episode began/occurred 2 week(s) ago. 21:45 Patient reports having episode of left side chest pain that started this morning before cp work. Pain improved throughout day at work, but patient reports persistent left sided headache times 2 weeks not resolved with OTC meds. Historical: - Allergies: 19:44 No Known Allergies; pf1 ROS: 21:50 Constitutional: Negative for body aches, chills, fever, poor PO intake. cp 21:50 Eyes: Negative for injury, pain, redness, and discharge. cp 21:50 ENT: Negative for drainage from ear(s), ear pain, sore throat, difficulty swallowing, difficulty handling secretions. 21:50 Cardiovascular: Positive for chest pain, of the left side of chest, Negative for edema, palpitations. 21:50 Respiratory: Negative for cough, shortness of breath, wheezing. 21:50 Abdomen/GI: Negative for abdominal pain, vomiting, diarrhea, constipation. 21:50 Back: Negative for pain at rest, pain with movement. cp 21:50 Skin: Negative for cellulitis, rash. 21:50 Neuro: Positive for headache, Negative for altered mental status, numbness, speech changes, syncope, weakness. 21:50 All other systems are negative. cp Exam: 20:00 ECG was reviewed by the Attending Physician. cp 21:55 Constitutional: The patient appears in no acute distress, alert, awake, cp non-diaphoretic, non-toxic, well developed, well nourished. 21:55 Head/Face: Normocephalic, atraumatic. cp 21:55 Eyes: Periorbital structures: appear normal, Pupils: equal, round, and reactive to light and accomodation, Extraocular movements: intact throughout, Conjunctiva: normal, no exudate, no injection, Sclera: no appreciated abnormality, Lids and lashes: appear normal, bilaterally. 21:55 ENT: External ear(s): are unremarkable, Nose: is normal, Mouth: Lips: moist, Oral mucosa: pink and intact, moist, Posterior pharynx: is normal, airway is patent, no erythema, no exudate. 21:55 Neck: ROM/movement: pain, is not appreciated, limited range of motion, is not appreciated, Meningeal signs: are not present. 21:55 Chest/axilla: Inspection: normal, Palpation: is normal, no crepitus, no tenderness. 21:55 Cardiovascular: Rate: normal, Rhythm: regular, Edema: is not appreciated, JVD: is not appreciated. 21:55 Respiratory: the patient does not display signs of respiratory distress, Respirations: normal, no use of accessory muscles, no retractions, labored breathing, is not present, Breath sounds: are clear throughout, no decreased breath sounds, no stridor, no wheezing. 21:55 Abdomen/GI: Inspection: abdomen appears normal, Bowel sounds: active, all quadrants, Palpation: abdomen is soft and non-tender, in all quadrants. 21:55 Back: pain, is absent, ROM is normal. 21:55 Neuro: Orientation: is normal, Mentation: is normal, Cerebellar function: is grossly normal, Motor: moves all fours, strength is normal, Sensation: no obvious gross deficits. Vital Signs: 19:39 BP 128 / 89; Pulse 95; Resp 18; Temp 99.1; Pulse Ox 99% ; Weight 65.77 kg; Height 5 ft. pf1 5 in. (165.10 cm); Pain 5/10; 22:06 BP 119 / 77; Pulse 69; Resp 16; Temp 98.4; Pulse Ox 99% on R/A; Weight 65.77 kg; Height ls5 5 ft. 5 in. (165.10 cm); Pain 10/10; 23:00 BP 113 / 77; Pulse 66; Resp 16; Pulse Ox 99% on R/A; jb4 11/29 00:41 BP 118 / 67; Pulse 59; Resp 16; Pulse Ox 97% ; jb4 11/28 22:06 Body Mass Index 24.13 (65.77 kg, 165.10 cm) ls5 MDM: 11/28 21:24 Patient medically screened. 11/29 01:22 Data reviewed: vital signs, nurses notes, lab test result(s), EKG, radiologic studies, cp CT scan, plain films. : Differential diagnosis: myocarditis, pericarditis, pleurisy, pneumonia, pneumothorax, cp pulmonary embolus, thoracic aortic disection, meningoencephalitis, migraine. I considered the following discharge prescriptions or medication management in the emergency department Medications were administered in the Emergency Department. See MAR. Independent interpretation of the following test(s) in the Emergency Department EKG: See my EKG interpretation above X-Ray: My interpretation is chest xray image negative for infiltrates. Test considered but Not performed: CT: chest, CT head and neck angio. Counseling: I had a detailed discussion with the patient and/or guardian regarding: the historical points, exam findings, and any diagnostic results supporting the discharge/admit diagnosis, lab results, radiology results, the need for outpatient follow up, a family practitioner, to return to the emergency department if symptoms worsen or persist or if there are any questions or concerns that arise at home. Response to treatment: headache markedly improved and chest pain resolved . Will discharge to home for continued monitoring. 11/28 21:54 Order name: Basic Metabolic Panel 11/28 21:54 Order name: CBC with Diff cp 11/28 21:54 Order name: LFT's cp 11/28 21:54 Order name: Magnesium cp 11/28 21:54 Order name: PT-INR 11/28 21:54 Order name: Troponin HS 11/28 21:54 Order name: XRAY Chest (1 view) 11/28 21:54 Order name: CT Head Brain wo Cont cp 11/28 22:32 Order name: CBC with Automated Diff; Complete Time: 00:07 EDMS 11/29 00:08 Interpretation: Reviewed. cp 11/28 22:51 Order name: Basic Metabolic Panel; Complete Time: 00:07 EDMS 11/29 00:07 Interpretation: Normal except: GLUC 108; GFR 83. cp 11/28 22:51 Order name: Liver (Hepatic) Function; Complete Time: 00:07 EDMS 11/29 00:09 Interpretation: Reviewed. cp 11/28 22:51 Order name: Troponin High Sensitivity; Complete Time: 00:07 EDMS 11/28 22:51 Order name: Magnesium; Complete Time: 00:07 EDMS 11/29 00:07 Interpretation: Reviewed. cp 11/28 22:57 Order name: Protime (+INR); Complete Time: 00:07 EDMS 11/28 21:38 Order name: EKG; Complete Time: 21:39 cp 11/28 21:38 Order name: EKG - Nurse/Tech; Complete Time: 21:46 cp 11/28 21:54 Order name: Cardiac monitoring; Complete Time: 21:58 cp 11/28 21:54 Order name: IV Saline Lock; Complete Time: 21:58 cp 11/28 21:54 Order name: Labs collected and sent; Complete Time: 21:58 cp 11/28 21:54 Order name: O2 Per Protocol; Complete Time: :58 cp 11/28 21:54 Order name: O2 Sat Monitoring; Complete Time: :58 cp 11/28 22:30 Order name: RAD; Complete Time: 00:07 EDMS 11/29 00:07 Interpretation: Report reviewed. cp EC/21 20:00 Rate is 96 beats/min. Rhythm is regular. GA interval is normal. QRS interval is normal. cp QT interval is normal. T waves are Inverted in lead aVR. Interpreted by me. Reviewed by me. Administered Medications: 11/29 00:31 Drug: Reglan (metoCLOPramide) 10 mg Route: IVP; Site: right antecubital; jb4 00:31 Drug: Ketorolac 15 mg Route: IVP; Site: right antecubital; jb4 00:31 Drug: Decadron - Dexamethasone 10 mg Route: IVP; Site: right antecubital; jb4 00:31 Drug: Benadryl (diphenhydrAMINE) 25 mg Route: IVP; Site: right antecubital; jb4 00:32 Drug: NS 0.9% 1000 ml Route: IV; Rate: 1 bolus; Site: right antecubital; jb4 Disposition: 01:59 Co-signature as Attending Physician, Boyd Yuan MD I agree with the assessment and kdr plan of care. Disposition Summary: 11/29/22 01:23 Discharge Ordered Location: Home cp Problem: new cp Symptoms: have improved cp Condition: Stable cp Diagnosis - Headache cp - Chest pain, unspecified cp Followup: cp - With: Private Physician - When: 2 - 3 days - Reason: Recheck today's complaints Discharge Instructions: - Discharge Summary Sheet cp - Nonspecific Chest Pain, Adult cp - General Headache Without Cause cp Forms: - Medication Reconciliation Form cp - Thank You Letter cp - Antibiotic Education cp - Prescription Opioid Use cp Prescriptions: - Fioricet 50-300-40 mg Oral capsule - take 1 capsule by ORAL route every 6 hours as needed; 20 capsule; Refills: 0, cp Product Selection Permitted - Ibuprofen 800 mg Oral Tablet - take 1 tablet by ORAL route every 8 hours As needed take with food; 30 tablet; cp Refills: 0, Product Selection Permitted - Zofran 4 mg Oral Tablet - take 1 tablet by ORAL route every 12 hours As needed; 20 tablet; Refills: 0, cp Product Selection Permitted Signatures: Dispatcher [employer] EDMS Boyd Yuan MD MD kdr Damian Burger PA PA cp Reymundo Alarcon RN RN jb4 Charity cool RN RN pf1 Corrections: (The following items were deleted from the chart) 00:03 00:03 This 27 yrs old Male presents to ER via Ambulatory with complaints of Headache cp for 2 weeks, Chest Pain. cp 00:07 02 22:00 This 27 yrs old Male presents to ER via Ambulatory with complaints of cp Headache for 2 weeks, Chest Pain. cp
[2022-11-29 03:47] VITALS: TEMP 98.4
[2022-11-29 03:49] VITALS: BP 118/67; O2SAT 97
--- NOTE | 2022-11-29 14:39 | RAD REPORT ---
EXAM DESCRIPTION: CT - Head Brain Wo Cont - 11/29/2022 6:56 am CLINICAL HISTORY: The patient is 27 years old and is Male; HEADACHE TECHNIQUE: Axial computed tomography images of the head/brain without intravenous contrast. Sagitt al and coronal reformatted images were created and reviewed. This CT exam was performed using one o r more of the following dose reduction techniques: automated exposure control, adjustment of the mA and/or kV according to patient size, and/or use of iterative reconstruction technique. COMPARISON: No relevant prior studies available. FINDINGS: Brain: Unremarkable. No hemorrhage. No significant white matter disease. No edema. Ventricles: Unremarkable. No ventriculomegaly. Bones/joints: Unremarkable. No acute fracture. Soft tissues: Unremarkable. Sinuses: Unremarkable as visualized. Mastoid air cells: Unremarkable as visualized. No mastoid effusion. IMPRESSION: No acute intracranial abnormality. 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 The interpreting radiologist is fully responsible for the content of the report.
--- NOTE | 2022-11-29 15:21 | EKG ---
Test Date: 2022-11-28 Test Time: 19:44:09 Marking Machine Operator: PAVEL MEASUREMENT RESULTS: Intervals: Rate: 96 MN: 138 QRSD: 92 QT: 330 QTc: 416 [place]: P: 76 MN: 138 QRS: 18 T: 57 INTERPRETIVE STATEMENTS: Normal sinus rhythm Normal ECG Compared to ECG 11/12/2022 14:32:51 Atrial premature complex(es) no longer present Incomplete right bundle-branch block no longer present Electronically Signed On 11-29-22 15:19:32 SOCIAL MEDIA CAMPAIGN MANAGER by Hernando Peterson
== END 2022-11-29 01:40 | disposition home or self-care (01) ==
LOC: ER 19:15
DX: R51.9 Headache, unspecified (principal); R07.89 Other chest pain
CPT/HCPCS: 36415; 70450; 71045; 80048; 80076; 83735; 84484; 85025; 85610; 93005; 96374; 96375; 99285; J1100; J1200; J2765; J7030

== ENCOUNTER → 2023-10-22 | Emergency (ER) | payer SELFPAY ==
[~2023-10-22] MED LIST: KETOROLAC 30 MG/ML INJ ONE
--- OUTSIDE RECORDS SUMMARY | 2023-10-22 13:47 | XMS REPORT | Continuity of Care Document ---
Author Name Unknown Address [address] [facility] [place] [address] [facility] thconnect Address [address] [facility] [address] [place] [address] Care Team Providers Care Keyboarding Teacher Name Role Phone MAKENZIE BONDS Primary Care Physician IVÁN Crockett Attending Clinician UnavailIván Agosto Attending Clinician ANEL BHAT Attending Clinician Unavailab Anel Walters DO Attending Clinician Preethi GARCIA Attending Clinician Unavailable Preethi Wu Attending Clinician [phone] Fernando Mayer Attending Clinician UnavailSE Schulz Attending Clinician Unavailable eS Calhoun DO Attending Clinician [phone] URIEL HEAD Attending Clinician Unavailable Uriel Head MD Attending Clinician [phone] SAMMIE ALVARADO Attending Clinician Unavailab NORRIS Olmedo Attending Clinician Unavailable Norris Alex MD Attending Clinician [phone] AMANDA Attending Clinician Unavailable Jayce Mcnulty Attending Clinician [phone] JAYCE PENN Attending Clinician Unavailable ZjulesaLaryS Attending Clinician Unavailable THERESA DE Attending Clinician Unavaila Jimmy Johnson Attending Clinician Unavailable Soco Martin Attending Clinician Unavailab ABDOULAYE Azevedo Attending Clinician Unavailable JESUS PHILLIPS Attending Clinician Unavailable DR KEISHA CHRISTENSEN Attending Clinician UnavailMAI Marcos Attending Clinician UnavailDR PATRICIA Hobbs Attending Clinician U FLO Monge Attending Clinician Unavailable MADELINE ARMSTRONG Attending Clinician Unavailable IVÁN BARNARD Admitting Clinician UnavailSE Jackson Admitting Clinician Unavailable URIEL HEAD Admitting Clinician Unavailable DR SAMMIE ALVARADO Admitting Clinician Unavailab NORRIS Olmedo Admitting Clinician Unavailable AMANDA Admitting Clinician Unavailable ZundanayaLaryS Admitting Clinician Unavailable DR KEISHA CHRISTENSEN Admitting Clinician UnavailDR PATRICIA Hobbs Admitting Clinician [facility] Payers Payer Name Policy Type Policy Number Effective Date Expirati on Date Source 1000 [id number] 2022 00:00:00 Reading Room 96 2022 00:00:00 Problems Condition Name Condition Details Condition Category Status Onset Date Resolution Date Last Treatment Date Treating Clinician Comments Source 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 02-20 00:00: 00 [facility] Cervical radiculopa thy Cervical Radiculopa thy Problem Active 02-20 00:00: 00 [facility] Strain of neck muscle Strain of Neck Muscle Problem Active 02-20 00:00: 00 [facility] No known active problems No known active problems Disease [facility] Allergies, Adverse Reactions, Alerts Allergy Name Allergy Type Status Severity Reaction(s) Onset Date Inactive Date Treating Clinician Comments Source No Known Drug Allergie s DA Active Unknown 04-05 00:00: 00 [facility] NO KNOWN ALLERGIE S Drug Class Active [facility] Social History Social Habit Start Date Stop Date Quantity Comments Source Sexual orientation [facility] Exposure to SARS-CoV-2 (event) 2022-11-08 00:00:00 2022-11-18 16:12:00 Not sure [facility] Sex Assigned At 1995 00:00:00 1995 00:00:00 [facility] Smoking Status Start Date Stop Date Source Tobacco smoking consumption unknown [facility] Light Tobacco Smoker [facility] Medications Ordered Medication Name Filled Medication Name Start Date Stop Date Current Medication? Ordering Clinician Indication Dosage Frequency Signature (SIG) Comments Components Source ketorolac (TORADOL) injection 30 mg 2022-10 01:30: 00 08-03 01:02 :00 No 30mg 30 mg, Slow IV Push, ONCE, 1 dose, On Keisha 08/02/23 at 2030, Routine [facility] ondansetron (ZOFRAN (PF)) injection 4 mg 2022-10 00:30: 00 08-03 01:01 :00 No 4mg 4 mg, Slow IV Push, ONCE, 1 dose, On Keisha 08/02/23 at 1930, TOSHA [facility] morpHINE (4 mg/mL) injection 4 mg 2022-10 00:30: 00 08-03 01:03 :00 No 4mg 4 mg, Slow IV Push, ONCE, 1 dose, On Keisha 08/02/23 at 1930, STAT [facility] acetaminoph en-codeine 300-30 mg tablet 2022-10 00:00: 00 Yes [id number] 1{tbl} Take 1 tablet by mouth every 4 (four) hours as needed for Pain (scale 7-10). Indication s: acute pain [facility] ibuprofen 600 mg tablet 2022-10 00:00: 00 Yes [id number] 600mg Take 1 tablet by mouth every 6 (six) hours as needed for Pain (scale 4-6). [facility] ketorolac (TORADOL) injection 30 mg 11-19 19:15: 00 11-19 18:28 :00 No 30mg 30 mg, Intramuscu lar, ONCE, 1 dose, On 11/19/22 at 1315, Routine [facility] ibuprofen (IBU) tablet 600 mg 11-18 22:45: 00 11-18 22:51 :00 No 600mg 600 mg, Oral, ONCE, 1 dose, On 11/18/22 at 1645, TOSHA [facility] NaCl 0.9% (NS) bolus infusion 500 mL 2021-10 09:30: 00 08-27 09:24 :00 No 500mL at 999 mL/hr, 500 mL, IV Piggyback, ONCE, 1 dose, On 08/27/22 at 0330, STAT [facility] ketorolac (TORADOL) injection 15 mg 2021-10 09:30: 00 08-27 08:48 :00 No 15mg 15 mg, Slow IV Push, ONCE, 1 dose, On 08/27/22 at 0330, TOSHA [facility] famotidine (PEPCID (PF)) injection 20 mg 2021-10 08:45: 00 08-27 08:48 :00 No 20mg 20 mg, Slow IV Push, ONCE, 1 dose, On 08/27/22 at 0245, TOSHA [facility] famotidine (PEPCID) 20 mg tablet 2021-10 00:00: 00 Yes [id number] 20mg Take 1 tablet by mouth in the morning and 1 tablet in the evening. [facility] famotidine (PEPCID) 20 mg tablet 2021-10 00:00: 00 Yes [id number] 20mg Take 1 tablet by mouth in the morning and 1 tablet in the evening. [facility] famotidine (PEPCID) 20 mg tablet 2021-10 00:00: 00 Yes [id number] 20mg Take 1 tablet by mouth in the morning and 1 tablet in the evening. [facility] famotidine (PEPCID) 20 mg tablet 2021-10 00:00: 00 Yes [id number] 20mg Take 1 tablet by mouth in the morning and 1 tablet in the evening. [facility] famotidine (PEPCID) 20 mg tablet 2021-10 00:00: 00 Yes [id number] 20mg Take 1 tablet by mouth in the morning and 1 tablet in the evening. [facility] famotidine (PEPCID) 20 mg tablet 2021-10 00:00: 00 Yes [id number] 20mg Take 1 tablet by mouth in the morning and 1 tablet in the evening. [facility] famotidine (PEPCID) 20 mg tablet 2021-10 00:00: 00 Yes [id number] 20mg Take 1 tablet by mouth in the morning and 1 tablet in the evening. [facility] ibuprofen 600 mg tablet 2021-10 00:00: 00 Yes [id number] 600mg Take 1 tablet by mouth every 6 (six) hours as needed for Pain (scale 4-6). [facility] benzonatate 200 mg capsule 2021-10 00:00: 00 Yes [id number] 200mg Take 1 capsule by mouth 3 (three) times daily as needed for Cough for up to 20 doses. [facility] ondansetron 4 mg disintegrat ing tablet 2021-10 00:00: 00 Yes [id number] 4mg Take 1 tablet by mouth every 8 (eight) hours as needed for Nausea and Vomiting (N/V). [facility] ibuprofen 600 mg tablet 2021-10 0 00:00: 00 Yes [id number] 600mg Take 1 tablet by mouth every 6 (six) hours as needed for Pain (scale 4-6). [facility] benzonatate 200 mg capsule 2021-10 00:00: 00 Yes [id number] 200mg Take 1 capsule by mouth 3 (three) times daily as needed for Cough for up to 20 doses. [facility] ondansetron 4 mg disintegrat ing tablet 2021-10 00:00: 00 Yes [id number] 4mg Take 1 tablet by mouth every 8 (eight) hours as needed for Nausea and Vomiting (N/V). [facility] ibuprofen 600 mg tablet 2021-10 00:00: 00 Yes [id number] 600mg Take 1 tablet by mouth every 6 (six) hours as needed for Pain (scale 4-6). [facility] benzonatate 200 mg capsule 2021-10 00:00: 00 Yes [id number] 200mg Take 1 capsule by mouth 3 (three) times daily as needed for Cough for up to 20 doses. [facility] ondansetron 4 mg disintegrat ing tablet 2021-10 00:00: 00 Yes [id number] 4mg Take 1 tablet by mouth every 8 (eight) hours as needed for Nausea and Vomiting (N/V). [facility] ibuprofen 600 mg tablet 2021-10 00:00: 00 Yes [id number] 600mg Take 1 tablet by mouth every 6 (six) hours as needed for Pain (scale 4-6). [facility] benzonatate 200 mg capsule 2021-10 00:00: 00 Yes [id number] 200mg Take 1 capsule by mouth 3 (three) times daily as needed for Cough for up to 20 doses. [facility] ondansetron 4 mg disintegrat ing tablet 2021-10 00:00: 00 Yes [id number] 4mg Take 1 tablet by mouth every 8 (eight) hours as needed for Nausea and Vomiting (N/V). [facility] ibuprofen 600 mg tablet 2021-10 00:00: 00 Yes [id number] 600mg Take 1 tablet by mouth every 6 (six) hours as needed for Pain (scale 4-6). [facility] benzonatate 200 mg capsule 2021-10 00:00: 00 Yes [id number] 200mg Take 1 capsule by mouth 3 (three) times daily as needed for Cough for up to 20 doses. [facility] ondansetron 4 mg disintegrat ing tablet 2021-10 00:00: 00 Yes [id number] 4mg Take 1 tablet by mouth every 8 (eight) hours as needed for Nausea and Vomiting (N/V). [facility] ibuprofen 600 mg tablet 2021-10 00:00: 00 Yes [id number] 600mg Take 1 tablet by mouth every 6 (six) hours as needed for Pain (scale 4-6). [facility] benzonatate 200 mg capsule 2021-10 00:00: 00 Yes [id number] 200mg Take 1 capsule by mouth 3 (three) times daily as needed for Cough for up to 20 doses. [facility] ondansetron 4 mg disintegrat ing tablet 2021-10 00:00: 00 Yes [id number] 4mg Take 1 tablet by mouth every 8 (eight) hours as needed for Nausea and Vomiting (N/V). [facility] ibuprofen 600 mg tablet 2021-10 00:00: 00 Yes [id number] 600mg Take 1 tablet by mouth every 6 (six) hours as needed for Pain (scale 4-6). [facility] benzonatate 200 mg capsule 2021-10 00:00: 00 Yes [id number] 200mg Take 1 capsule by mouth 3 (three) times daily as needed for Cough for up to 20 doses. [facility] ondansetron 4 mg disintegrat ing tablet 2021-10 0 00:00: 00 Yes [id number] 4mg Take 1 tablet by mouth every 8 (eight) hours as needed for Nausea and Vomiting (N/V). [facility] ibuprofen 600 mg tablet 2021-10 0 00:00: 00 Yes [id number] 600mg Take 1 tablet by mouth every 6 (six) hours as needed for Pain (scale 4-6). [facility] benzonatate 200 mg capsule 2021-10 00:00: 00 Yes [id number] 200mg Take 1 capsule by mouth 3 (three) times daily as needed for Cough for up to 20 doses. [facility] ondansetron 4 mg disintegrat ing tablet 2021-10 00:00: 00 Yes [id number] 4mg Take 1 tablet by mouth every 8 (eight) hours as needed for Nausea and Vomiting (N/V). [facility] maalox:diph enhydrAMINE :lidocaine 2 % viscous 1:1:1 (FIRST-MOUT HWASH BLM) oral suspension 15 mL 04-12 23:30: 00 04-13 00:22 :00 No 15mL 15 mL, Oral, ONCE, 1 dose, On Sun04/12/22 at 1830, Routine [facility] penicillin g benzathine (BICILLIN L-A) injection 1.2 Million Units 04-12 23:30: 00 04-13 00:22 :00 No 1.210 1.2 Million Units, Intramuscu lar, ONCE, 1 dose, On Sun04/12/22 at 1830, TOSHA
Re ason for Anti-Infec tive: Documented Infection< br>Documen nieves Infection Site: HEENT
D uration of Therapy: 7 days [facility] dexamethaso ne sod phos PF injection 10 mg 04-12 23:30: 00 04-12 23:30 :00 No 10mg 10 mg, Intramuscu lar, ONCE, 1 dose, On Sun04/12/22 at 1830, 1 mL [facility] acetaminoph en (TYLENOL) tablet 1,000 mg 04-12 23:00: 00 04-12 22:58 :00 No 1000mg 1,000 mg, Oral, ONCE, 1 dose, On Sun04/12/22 at 1800, TOSHA [facility] No known medications 04-12 17:46: 40 No [facility] cyclobenzap rine 10 mg tablet Take 1 tablet 3 times a day by oral route as needed. cyclobenzap rine 10 mg tablet Take 1 tablet 3 times a day by oral route as needed. No 1 TID cyclobenza edgard 10 mg tablet Take 1 tablet 3 times a day by oral route as needed. [facility] ibuprofen 800 mg tablet Take 1 tablet 3 times a day by oral route as needed. ibuprofen 800 mg tablet Take 1 tablet 3 times a day by oral route as needed. No 1 TID ibuprofen 800 mg tablet Take 1 tablet 3 times a day by oral route as needed. [facility] Vital Signs Vital Name Observation Time Observation Value Comments Terell evans Systolic blood pressure 2023-08-03 02:00:00 126 mm[Hg] [facility] Diastolic blood pressure 2023-08-03 02:00:00 73 mm[Hg] [facility] Heart rate 2023-08-03 02:00:00 87 /min [facility] Respiratory rate 2023-08-03 02:00:00 18 /min [facility] Oxygen saturation in Arterial blood by Pulse oximetry 2023-08-03 02:00:00 98 /min [facility] Body temperature 2023-08-03 00:25:00 37.11 [facility] Body height 2023-08-03 00:06:00 165.1 cm [facility] Body weight 2023-08-03 00:06:00 65.772 kg [facility] BMI 2023-08-03 00:06:00 24.13 kg/m2 [facility] Systolic blood pressure 2022-11-19 18:12:00 130 mm[Hg] [facility] Diastolic blood pressure 2022-11-19 18:12:00 89 mm[Hg] [facility] Heart rate 2022-11-19 18:12:00 111 /min [facility] Body temperature 2022-11-19 18:12:00 37.22 Raquel [facility] Respiratory rate 2022-11-19 18:12:00 19 /min [facility] Body height 2022-11-19 18:12:00 170.2 cm [facility] Body weight 2022-11-19 18:12:00 68.04 kg [facility] BMI 2022-11-19 18:12:00 23.49 kg/m2 [facility] Oxygen saturation in Arterial blood by Pulse oximetry 2022-11-19 18:12:00 98 /min [facility] Systolic blood pressure 2022-11-18 22:06:00 130 mm[Hg] [facility] Diastolic blood pressure 2022-11-18 22:06:00 89 mm[Hg] [facility] Heart rate 2022-11-18 22:06:00 98 /min [facility] Body temperature 2022-11-18 22:06:00 37.39 Raquel [facility] Respiratory rate 2022-11-18 22:06:00 20 /min [facility] Body height 2022-11-18 22:06:00 162.6 cm [facility] Body weight 2022-11-18 22:06:00 68.04 kg [facility] BMI 2022-11-18 22:06:00 25.75 kg/m2 [facility] Oxygen saturation in Arterial blood by Pulse oximetry 2022-11-18 22:06:00 100 /min [facility] Systolic blood pressure 2022-10-30 06:00:00 121 mm[Hg] [facility] Diastolic blood pressure 2022-10-30 06:00:00 80 mm[Hg] [facility] Heart rate 2022-10-30 06:00:00 73 /min [facility] Respiratory rate 2022-10-30 06:00:00 13 /min [facility] Oxygen saturation in Arterial blood by Pulse oximetry 2022-10-30 06:00:00 98 /min [facility] Body temperature 2022-10-30 05:27:00 37.22 Raquel [facility] Body height 2022-10-30 05:27:00 165.1 cm [facility] Body weight 2022-10-30 05:27:00 68.493 kg [facility] BMI 2022-10-30 05:27:00 25.13 kg/m2 [facility] Systolic blood pressure 2022-10-19 06:30:00 137 mm[Hg] [facility] Diastolic blood pressure 2022-10-19 06:30:00 98 mm[Hg] [facility] Heart rate 2022-10-19 06:30:00 88 /min [facility] Body temperature 2022-10-19 06:30:00 37 Raquel [facility] Respiratory rate 2022-10-19 06:30:00 16 /min [facility] Body height 2022-10-19 06:30:00 165.1 cm [facility] Body weight 2022-10-19 06:30:00 66.906 kg [facility] BMI 2022-10-19 06:30:00 24.55 kg/m2 [facility] Oxygen saturation in Arterial blood by Pulse oximetry 2022-10-19 06:30:00 99 /min [facility] Height 2022-10-14 10:57:00 165.1 CM Weight 2022-10-14 10:57:00 65.77 KG Systolic blood pressure 2022-10-09 21:02:00 137 mm[Hg] [facility] Diastolic blood pressure 2022-10-09 21:02:00 80 mm[Hg] [facility] Heart rate 2022-10-09 21:02:00 102 /min [facility] Body temperature 2022-10-09 21:02:00 37.11 Raquel [facility] Respiratory rate 2022-10-09 21:02:00 16 /min [facility] Body height 2022-10-09 21:02:00 162.6 cm [facility] Body weight 2022-10-09 21:02:00 65.772 kg [facility] BMI 2022-10-09 21:02:00 24.89 kg/m2 [facility] Oxygen saturation in Arterial blood by Pulse oximetry 2022-10-09 21:02:00 100 /min [facility] Body temperature 2022-08-27 08:10:00 36.22 Raquel [facility] Respiratory rate 2022-08-27 08:10:00 17 /min [facility] Body height 2022-08-27 08:10:00 162.6 cm [facility] Body weight 2022-08-27 08:10:00 65.772 kg [facility] BMI 2022-08-27 08:10:00 24.89 kg/m2 [facility] Oxygen saturation in Arterial blood by Pulse oximetry 2022-08-27 08:10:00 100 /min [facility] Systolic blood pressure 2022-08-27 08:10:00 135 mm[Hg] [facility] Diastolic blood pressure 2022-08-27 08:10:00 93 mm[Hg] [facility] Heart rate 2022-08-27 08:10:00 100 /min [facility] Systolic blood pressure 2022-07-26 15:25:00 131 mm[Hg] [facility] Diastolic blood pressure 2022-07-26 15:25:00 87 mm[Hg] [facility] Heart rate 2022-07-26 15:25:00 98 /min [facility] Body temperature 2022-07-26 15:25:00 37.33 Raquel [facility] Respiratory rate 2022-07-26 15:25:00 18 /min [facility] Body weight 2022-07-26 15:25:00 63.504 kg [facility] BMI 2022-07-26 15:25:00 22.60 kg/m2 [facility] Oxygen saturation in Arterial blood by Pulse oximetry 2022-07-26 15:25:00 98 /min [facility] Systolic blood pressure 2022-04-12 22:52:00 121 mm[Hg] [facility] Diastolic blood pressure 2022-04-12 22:52:00 80 mm[Hg] [facility] Heart rate 2022-04-12 22:52:00 108 /min [facility] Body temperature 2022-04-12 22:52:00 39.11 Raquel [facility] Respiratory rate 2022-04-12 22:52:00 24 /min [facility] Body height 2022-04-12 22:52:00 167.6 cm [facility] Body weight 2022-04-12 22:52:00 63.504 kg [facility] BMI 2022-04-12 22:52:00 22.60 kg/m2 [facility] Oxygen saturation in Arterial blood by Pulse oximetry 2022-04-12 22:52:00 98 /min [facility] BP Diastolic 2022-02-17 00:00:00 75 mm[Hg] [facility] Height 2022-02-17 00:00:00 65 [facility]in_i[facility] BMI (Body Mass Index) 2022-02-17 00:00:00 24 kg/m2 [facility] BP Systolic 2022-02-17 00:00:00 121 mm[Hg] [facility] Body Weight 2022-02-17 00:00:00 2304 [oz_av] [facility] Height 2020-12-13 22:38:00 170.18 CM Weight 2020-12-13 22:38:00 63.5 KG Procedures Procedure Date / Time Performed Performing Clinicia n Source CT CERVICAL SPINE WO CONTRAST 2023-08-03 00:50:00 Iván Barnard [facility] CT SHOULDER LEFT WO CONTRAST 2023-08-03 00:50:00 Iván Barnard [facility] EKG-12 LEAD 2022-11-19 18:54:32 [facility] 2022-11-18 21:51:51 Doctor Unassigned, Belk [facility] XR CHEST 1 VW 2022-10-30 05:46:16 Se Calhoun [facility] LIPASE 2022-10-30 05:37:00 Se Calhoun [facility] MAGNESIUM 2022-10-30 05:37:00 Calhoun, Se Unive [facility] TROPONIN I 2022-10-30 05:37:00 [facility] COMP. METABOLIC PANEL ([id number]) 2022-10-30 05:37:00 CalhounSameer barberip [facility] CBC WITH DIFF 2022-10-30 05:37:00 Se Calhoun [facility] D-DIMER 2022-10-30 05:37:00 Se Calhoun [facility] N-TERMINAL PRO-BNP 2022-10-30 05:37:00 Singer Se [facility] CONSENT/REFUSAL FOR DIAGNOSIS AND TREATMENT 2022-10-30 05:18:02 Doctor Unassigned, Belk [facility] EKG-12 LEAD 2022-10-19 08:20:54 Uriel Head [facility] XR CHEST 1 2022-10-19 07:06:34 Uriel Head [facility] NOTICE OF PRIVACY PRACTICES 2022-10-19 06:22:28 Doctor Unassigned, Belk [facility] CONSENT/REFUSAL FOR DIAGNOSIS AND TREATMENT 2022-10-09 20:55:57 Doctor Unassigned, Belk [facility] EKG-12 LEAD 2022-08-27 09:19:11 Norris Alex [facility] XR CHEST 1 2022-08-27 08:29:00 [facility] TROPONIN I 2022-08-27 08:17:00 Norris Alex [facility] COMP. METABOLIC PANEL ([id number]) 2022-08-27 08:17:00 Norris Alex [facility] CBC WITH DIFF 2022-08-27 08:17:00 [facility] NOTICE OF PRIVACY PRACTICES 2022-08-27 08:03:42 Doctor Unassigned, Belk [facility] CONSENT/REFUSAL FOR DIAGNOSIS AND TREATMENT 2022-08-27 08:02:51 Doctor Unassigned, Belk [facility] RAPID INFLUENZA A/B 2022-07-26 15:28:00 Norris Alex [facility] COVID-19 (ID NOW RAPID TESTING) 2022-07-26 15:28:00 Norris Alex [facility] CONSENT/REFUSAL FOR DIAGNOSIS AND TREATMENT 2022-07-26 15:22:01 Doctor Unassigned, Belk [facility] RAPID STREP SCREEN FOR GROUP A 2022-04-12 22:57:00 Jayce Penn [facility] COVID-19 (ID NOW RAPID TESTING) 2022-04-12 22:57:00 Jayce Penn [facility] NOTICE OF PRIVACY PRACTICES 2022-04-12 22:49:56 Doctor Unassigned, Belk [facility] XR, 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, 2 or 3 view 2022-02-17 00:00:00 [facility] Encounters Start Date/Time End Date/Time Encounter Type Admission Type Attending [facility] Care Department Encounter ID Source 2023-08-02 19:04:00 2023-08-02 22:25:00 Emergency X IVÁN BARNARD [facility] ERT [id number] [facility] 2023-08-02 19:04:00 2023-08-02 22:25:00 Emergency Iván Barnard [facility] [id number] [facility] 2022-11-19 12:17:00 2022-11-19 13:08:00 Emergency X ANEL BHAT [facility] ERT [id number] [facility] 2022-11-19 12:17:00 2022-11-19 13:08:00 Emergency Anel Bhat [facility] [id number] [facility] 2022-11-18 16:11:00 2022-11-18 16:58:00 Emergency X Preethi GARCIA [facility] ERT [id number] [facility] 2022-11-18 16:11:00 2022-11-18 16:58:00 Emergency Preethi Garcia [facility] [id number] [facility] 2022-11-10 06:53:00 2022-11-10 08:13:00 Emergency ER AungdeneenFernando menjivar [facility] [id number] [facility] 2022-10-29 23:30:00 2022-10-30 00:40:00 Emergency SE JENKINS [facility] ERT [id number] [facility] 2022-10-29 23:30:00 2022-10-30 00:40:00 Emergency Se Calhoun [facility] [id number] [facility] 2022-10-19 00:28:00 2022-10-19 02:31:00 Emergency X URIEL HEAD [facility] ERT [id number] [facility] 2022-10-19 00:28:00 2022-10-19 02:31:00 Emergency Uriel Head [facility] 1.2.840.114 350.1.13.10 4.2.7.2.686 [id number] [facility] 2022-10-14 10:19:00 2022-10-14 13:40:00 Emergency E SAMMIE ALVARADO [facility] [id number] [facility] 2022-10-09 15:03:00 2022-10-09 16:09:00 Emergency X ANEL BHAT [facility] ERT [id number] [facility] 2022-10-09 15:03:00 2022-10-09 16:09:00 Emergency Anel Bhat [facility] 1.2.840.114 350.1.13.10 4.2.7.2.686 [id number] [facility] 2022-08-27 02:02:00 2022-08-27 03:30:00 Emergency NORRIS MARTINES [facility] ERT [id number] [facility] 2022-08-27 02:02:00 2022-08-27 03:30:00 Emergency Norris Alex [facility] 1.2.840.114 350.1.13.10 4.2.7.2.686 [id number] [facility] 2022-07-26 10:29:00 2022-07-26 11:26:00 Emergency X Preethi GARCIA [facility] ERT [id number] [facility] 2022-07-26 10:29:00 2022-07-26 11:26:00 Emergency Preethi Garcia Felicita [facility] 1.2.840.114 350.1.13.10 4.2.7.2.686 [id number] [facility] 2022-05-21 07:56:00 2022-05-21 09:47:00 Emergency ER Fernando Mayer [facility] [id number] [facility] 2022-04-19 03:49:00 2022-04-19 03:49:00 [facility] [id number] 2022-04-12 17:53:00 2022-04-12 19:52:00 Emergency Penn Jayce [facility] 1.2.840.114 350.1.13.10 4.2.7.2.686 [id number] [id number] [facility] 2022-04-12 17:53:00 2022-04-12 19:52:00 Emergency X JAYCE PENN [facility] ERT [id number] [facility] 2022-02-23 01:07:00 2022-02-23 01:07:00 Outpatient Zuniga_S [facility] [id number] 2022-02-20 10:19:00 2022-02-20 10:19:00 Outpatient Zuniga_S [facility] [id number] [facility] 2022-02-20 05:57:00 2022-02-20 05:57:00 Outpatient Zuniga_S [facility] [id number] [facility] 2022-02-17 16:51:00 2022-02-17 16:51:00 Outpatient THERESA ESPINAL [facility] [id number] [facility] 2022-02-17 05:30:00 2022-02-17 05:30:00 Outpatient Zuniga_S [facility] [id number] [facility] 2022-02-17 00:00:00 2022-02-17 00:00:00 FARZANA BoldenP-C: [address] [place] [phone] , Ph. G CO - [facility] [id number] [facility] 2022-01-16 18:09:00 2022-01-16 20:36:00 Emergency ER Jimmy Porras [facility] [id number] [facility] 2021-12-29 06:30:00 2021-12-29 11:05:00 Emergency ER Soco Martin [facility] [id number] [facility] 2021-10-28 18:04:00 2021-10-28 19:21:00 Emergency ER ABDOULAYE CAVAZOS [facility] [id number] [facility] 2021-09-20 18:13:00 2021-09-20 20:40:00 Emergency ER JESUS PHILLIPS [facility] [id number] [facility] 2020-12-13 22:26:00 2020-12-13 23:23:00 Emergency E KEISHA CHRISTENSEN [facility] [id number] [facility] 2019-08-17 01:07:00 2019-08-17 03:07:00 Emergency ER MAI TELLEZ [facility] [id number] [facility] 2018-05-17 03:57:00 2018-05-17 05:14:00 Emergency E PATRICIA BUTT [facility] [id number] [facility] 2017-11-11 19:21:00 2017-11-11 21:04:00 Emergency E KEISHA CHRISTENSEN [facility] [id number] [facility] 2016-01-23 20:43:00 2016-01-23 22:25:00 Emergency ER FOL ELDER [facility] [id number] [facility] 2013-10-17 13:21:00 2013-10-17 14:43:00 Emergency ER MADELINE ARMSTRONG [facility] [id number] [facility] Results Test Description Test Time Test Comments Results Result Co mments Source [facility] [id number] 06:05:50* Test Item Value Reference Range Interpretation Comments TROPONIN I (test code = 9979870782) 0.004 ng/mL See_Comment [Automated message] The system which generated this result transmitted reference range: <=0.034. The reference range was not used to interpret this result as normal/abnormal. FAIZA (test code = FAIZA) Reference (Normal) Range (defined by the 99th percentile reference [...] to patient's use of biotin. Lab Interpretation (test code = 85570-1) [facility] [id number] 06:02:29* Test Item Value Reference Range Interpretation Comme nts NT-proBNP (test code = 5963561836) 22 pg/mL See_Comment [Automated message] The system which generated this result transmitted reference range: <=125. The reference range was not used to interpret this result as normal/abnormal. FAIZA (test code = FAIZA) Biotin has been reported to cause a negative bias, interpret results relative to patient's use of biotin. Lab Interpretation (test code = 70738-5) [facility] 05:54:05* Test Item Value Reference Range Interpretation Comme nts MAGNESIUM (test code = 6252278837) 2.2 mg/dL 1.7-2.4 Lab Interpretation (test cod e = 44760-8) [facility]OLIC PANEL (23914)2022-10-30 05:53:45* Test Item Value Reference Range Interpretation Comme nts NA (test code = 2104395805) 139 mmol/L 135-145 K (test code = 4458750361) 3.9 mmol/L 3.5-5.0 CL (test code = 7358589748) 104 mmol/L 98-108 CO2 TOTAL (test code = 5813431906) 26 mmol/L 23-31 AGAP (test code = 8183008522) 2-16 BUN (test code = 7924826070) 11 mg/dL 7-23 GLUCOSE (test code = 4849114220) 119 mg/dL 70-110 H CREATININE (test code = 9039925103) 0.90 mg/dL 0.60-1.25 TOTAL BILI (test code = 7171685889) 0.4 mg/dL 0.1-1.1 CALCIUM (test code = 8143097218) 9.3 mg/dL 8.6-10.6 T PROTEIN (test code = 1643001864) 7.5 g/dL 6.3-8.2 ALBUMIN (test code = 6902719673) 4.7 g/dL 3.5-5.0 ALK PHOS (test code = 0028275722) 103 U/L 34-122 ALTv (test code = 1742-6) 30 U/L 5-50 AST(SGOT) (test code = 4915060477) 24 U/L 13-40 eGFR (test code = 4581107271) mL/min/1.73m2 FAIZA (test code = FAIZA) Association of [...] or abnormalities in imaging tests). Lab Interpretation (test code = 08425-6) [facility]normal [facility] 05:53:25* Test Item Value Reference Range Interpretation Comme nts LIPASE (test code = 5985941177) 296 U/L 0-220 H Lab Interpretation (test cod e = 49003-1) Abnormal [facility] WITH [id number] 05:44:09* Test Item Value Reference Range Interpretation Comme nts WBC (test code = 6690-2) See_Comment [Automated messa ge] The system which generated this result transmitted reference range: 4.20 - 10.70 10*3/?L. The reference range was not used to interpret this result as normal/abnormal. RBC (test code = 789-8) See_Comment [Automated messa ge] The system which generated this result transmitted reference range: 4.26 - 5.52 10*6/?L. The reference range was not used to interpret this result as normal/abnormal. HGB (test code = 718-7) 14.4 g/dL 12.2-16.4 HCT (test code = 4544-3) 42.5 % 38.4-49.3 MCV (test code = 787-2) 88.9 fL 81.7-95.6 MCH (test code = 785-6) 30.1 pg 26.1-32.7 MCHC (test code = 786-4) 33.9 g/dL 31.2-35.0 RDW-SD (test code = 15466-7) 40.7 fL 38.5-51.6 RDW-CV (test code = 788-0) 12.4 % 12.1-15.4 PLT (test code = 777-3) See_Comment [Automated messa ge] The system which generated this result transmitted reference range: 150 - 328 10*3/?L. The reference range was not used to interpret this result as normal/abnormal. MPV (test code = 16457-1) 9.4 fL 9.8-13.0 L NRBC/100 WBC (test code = 5460813441) See_Comment [Automated [employer] ssage] The system which generated this result transmitted reference range: 0.0 - 10.0 /100 WBCs. The reference range was not used to interpret this result as normal/abnormal. NRBC x10^3 (test code = 4368884607) See_Comment [Automated messa ge] The system which generated this result transmitted reference range: 10*3/?L. The reference range was not used to interpret this result as normal/abnormal. GRAN MAT (NEUT) % (test code = 770-8) 47.4 % IMM GRAN % (test code = 3485952714) 0.20 % LYMPH % (test code = 736-9) 43.1 % MONO % (test code = 5905-5) 6.8 % EOS % (test code = 713-8) 1.9 % BASO % (test code = 706-2) 0.6 % GRAN MAT x10^3(ANC) (test code = 8779122169) 4.19 10*3/uL 1.99-6.95 IMM GRAN x10^3 (test code = 5962643148) 0.00-0.06 LYMPH x10^3 (test code = 731-0) 3.81 10*3/uL 1.09-3.23 H MONO x10^3 (test code = 742-7) 0.60 10*3/uL 0.36-1.02 EOS x10^3 (test code = 711-2) 0.17 10*3/uL 0.06-0.53 BASO x10^3 (test code = 704-7) 0.05 10*3/uL 0.01-0.09 Lab Interpretation (test code = 57837-0) Abnormal [facility] INFLU[facility] A AND B [id number] 11:50:00* Test Item Value Reference Range Interpretation Comme nts Direct Exam (test code = DE1) PRESUMPTIVE NEGATIVE FOR THE PRESENCE OF INFLUENZA ANTIGEN SARS-CoV (RAPID ANTIGEN)2022-10-14 11:50:00* Test Item Value Reference Range Interpretation Comme nts SARS-CoV (ANTIGEN) (test code = COVAG) NEGATIVE NEGATIVE COVID AG (test code = COVAGC) This test has been marketed under the FDA Emergency Use Authorization (EUA) to meet challenges of the COVID-19 pandemic. The validation standards normally enforced by the FDA and the [employer] (CAP) are more stringent than those required for this test. Therefore, the result should be interpreted with caution and close attention to other clinical and epidemiological data TROPONIN [id number] 09:09:10* Test Item Value Reference Range Interpretation Comments TROPONIN I (test code = 4898857553) 0.002 ng/mL See_Comment [Automated message] The system which generated this result transmitted reference range: <=0.034. The reference range was not used to interpret this result as normal/abnormal. FAIZA (test code = FAIZA) Reference (Normal) Range (defined by the 99th percentile reference [...] to patient's use of biotin. Lab Interpretation (test code = 86603-7) Normal [facility] WITH [id number] 09:01:39* Test Item Value Reference Range Interpretation Comme nts WBC (test code = 6690-2) See_Comment H [Automated [employer] ([employer])] The system which generated this result transmitted reference range: 4.20 - 10.70 10*3/?L. The reference range was not used to interpret this result as normal/abnormal. RBC (test code = 789-8) See_Comment [Automated [employer] ([employer])] The system which generated this result transmitted reference range: 4.26 - 5.52 10*6/?L. The reference range was not used to interpret this result as normal/abnormal. HGB (test code = 718-7) 16.1 g/dL 12.2-16.4 HCT (test code = 4544-3) 45.4 % 38.4-49.3 MCV (test code = 787-2) 87.1 fL 81.7-95.6 MCH (test code = 785-6) 30.9 pg 26.1-32.7 MCHC (test code = 786-4) 35.5 g/dL 31.2-35.0 H RDW-SD (test code = 04483-5) 40.6 fL 38.5-51.6 RDW-CV (test code = 788-0) 12.8 % 12.1-15.4 PLT (test code = 777-3) See_Comment [Automated messa ge] The system which generated this result transmitted reference range: 150 - 328 10*3/?L. The reference range was not used to interpret this result as normal/abnormal. MPV (test code = 47082-4) 9.8 fL 9.8-13.0 NRBC/100 WBC (test code = 8336745760) See_Comment [Automated [employer] ssage] The system which generated this result transmitted reference range: 0.0 - 10.0 /100 WBCs. The reference range was not used to interpret this result as normal/abnormal. NRBC x10^3 (test code = 0054339405) See_Comment [Automated messa ge] The system which generated this result transmitted reference range: 10*3/?L. The reference range was not used to interpret this result as normal/abnormal. GRAN MAT (NEUT) % (test code = 770-8) 47.8 % IMM GRAN % (test code = 8170109672) 0.30 % LYMPH % (test code = 736-9) 42.4 % MONO % (test code = 5905-5) 7.3 % EOS % (test code = 713-8) 1.9 % BASO % (test code = 706-2) 0.3 % GRAN MAT x10^3(ANC) (test code = 1796525309) 5.30 10*3/uL 1.99-6.95 IMM GRAN x10^3 (test code = 9101873193) 0.03 10*3/uL 0.00-0.06 LYMPH x10^3 (test code = 731-0) 4.70 10*3/uL 1.09-3.23 H MONO x10^3 (test code = 742-7) 0.81 10*3/uL 0.36-1.02 EOS x10^3 (test code = 711-2) 0.21 10*3/uL 0.06-0.53 BASO x10^3 (test code = 704-7) 0.03 10*3/uL 0.01-0.09 Lab Interpretation (test code = 92426-2) Abnormal [facility]. METABOLIC PANEL (40504)2022-08-27 08:57:28* Test Item Value Reference Range Interpretation Comme nts NA (test code = 1700021655) 140 mmol/L 135-145 K (test code = 1739859829) 3.8 mmol/L 3.5-5.0 CL (test code = 7777799564) 101 mmol/L 98-108 CO2 TOTAL (test code = 9671244223) 29 mmol/L 23-31 AGAP (test code = 5788476163) 2-16 BUN (test code = 3985148052) 11 mg/dL 7-23 GLUCOSE (test code = 9089897030) 112 mg/dL 70-110 H CREATININE (test code = 4412905119) 0.96 mg/dL 0.60-1.25 TOTAL BILI (test code = 5161431644) 0.4 mg/dL 0.1-1.1 CALCIUM (test code = 5433676755) 9.5 mg/dL 8.6-10.6 T PROTEIN (test code = 1857730553) 7.1 g/dL 6.3-8.2 ALBUMIN (test code = 8721860845) 4.5 g/dL 3.5-5.0 ALK PHOS (test code = 7723295962) 94 U/L 34-122 ALTv (test code = 1742-6) 25 U/L 5-50 AST(SGOT) (test code = 7541565965) 21 U/L 13-40 eGFR (test code = 1856545749) mL/min/1.73m2 FAIZA (test code = FAIZA) Association of [...] or abnormalities in imaging tests). Lab Interpretation (test code = 44668-3) [facility]normal [facility] [id number] 05:05:34XR CHEST 1 VIEW PORTABLELocation:G5Ixxwl hours services provided 05/17/2018 5:02 AMIndication:R07.9:CHEST PAIN, UNSPECIFIEDComparison:11/11/17indings:The lungs are equally and symmetrically inflated. The trachea ismidline. The cardiac silhouette is normal in size. No acute bony abnormality.Impression:No acute cardiopulmonary disease.E-[id number] 04:56:00* Test Item Value Reference Range Interpretation Comme nts D-DIMER (test code = DDI) <200 ng/mL D-DU 0-234 D-DIMER COMMENT (test code = DDCOM) *Level to rule out DVT or PE: <235 ng/mL D-DU* PRO TIME AND [id number] 04:54:00* Test Item Value Reference Range Interpretation Comme nts PT (test code = TT) 10.6 s 9.8-13.6 INR (test code = INR) 0.9 INRH (test code = INRH) SUGGESTED THERAPEUTIC RANGE FOR INR: 2.5 - 3.5 For Patients with Prosthetic Valves or Patients with recurrent Thromboembolic Events 2.0 - 3.0 For Most Other Applications PTT (test code = PTT) 30.0 s 20.2-38.0 PTTH (test code = PTTH) To monitor the effectiveness of heparin, we offer the Anti-Xa (Heparin Assay). It can be used for either unfractionated or LMW Heparin. Order Code is ANTI-XA BRAIN NATRIURETIC [id number] 04:46:00* Test Item Value Reference Range Interpretation Comme nts proBNP (test code = PBNP) 8 pg/mL 0-125 CARDIAC [id number] 04:43:00* Test Item Value Reference Range Interpretation Comme nts TROPONIN I (test code = A84) <0.015 ng/mL 0.000-0.045 CKMB (test code = A49) <1.0 ng/mL <=3.6 CPK (test code = 32A) 149 IU/L 39-308 COMPREHENSIVE METABOLIC [id number] 04:41:00* Test Item Value Reference Range Interpretation Comme nts GLUCOSE (test code = 06D) 100 mg/dL [...] = 31A) 37 IU/L <=78 AMYLASE AND [id number] 04:41:00* Test Item Value Reference Range Interpretation Comme nts AMYLASE (test code = 10A) 34 U/L 28-100 LIPASE (test code = 60A) 128 IU/L 73-393 ALCOHOL BLOOD (ETOH)2018-05-17 04:38:00* Test Item Value Reference Range Interpretation Comme nts ETOH (test code = HALC) ETHANOL * The result is to be used only for medical purposes ALCOHOL (test code = 56A) <10 mg/dL <=10 DRUGS OF [id number] 04:31:00* Test Item Value Reference Range Interpretation Comme nts DRUG SCRN (test code = HDOA) URINE DRUG SCREEN This is an unconfirmed screening result and should not be used for non-medical purposes CANNABINOD (test code = 88C) Negative NEGATIVE AMPHETAMINE (test code = 84A) Negative NEGATIVE BENZODIAZP (test code = 86A) Negative NEGATIVE BARBITURAT (test code = 85A) Negative NEGATIVE OPIATES (test code = 92B) Negative NEGATIVE COCAINE (test code = 87A) Negative NEGATIVE PHENCYCLID (test code = 66A) Negative NEGATIVE METHADONE (test code = 64A) Negative NEGATIVE DOAH (test code = DOAH) *URINE DRUG SCREEN Cut-off values are as follows: Cannabinoids 50 ng/mL Cocaine 300 ng/mL Amphetamines 1000 ng/mL Phencyclidine 25 ng/mL Benzodiazepines 200 ng.mL Methadone 300 ng/mL Barbiturates 200 ng/mL Opiates 2000 ng/mL CBC (INCLUDES AUTOMATED DIFFERENTIAL)2018-05-17 04:18:00* Test Item Value Reference Range Interpretation Comme nts WBC (test code = WBC) 9.5 10\\S\\3/uL [...] (test code = RBCMOR) NORMAL DRUGS OF [id number] 20:50:00* Test Item Value Reference Range Interpretation Comme nts DRUG SCRN (test code = HDOA) URINE DRUG SCREEN This is an unconfirmed screening result and should not be used for non-medical purposes CANNABINOD (test code = 88C) Negative NEGATIVE AMPHETAMINE (test code = 84A) Negative NEGATIVE BENZODIAZP (test code = 86A) Negative NEGATIVE BARBITURAT (test code = 85A) Negative NEGATIVE OPIATES (test code = 92B) Negative NEGATIVE COCAINE (test code = 87A) Negative NEGATIVE PHENCYCLID (test code = 66A) Negative NEGATIVE METHADONE (test code = 64A) Negative NEGATIVE DOAH (test code = DOAH) *URINE DRUG SCREEN Cut-off values are as follows: Cannabinoids 50 ng/mL Cocaine 300 ng/mL Amphetamines 1000 ng/mL Phencyclidine 25 ng/mL Benzodiazepines 200 ng.mL Methadone 300 ng/mL Barbiturates 200 ng/mL Opiates 2000 ng/mL CT HEAD W/O [id number] 20:28:53AFTER HOURS SERVICE ON: 11/11/2017 8:27 PMCT Scan of the Brain Without ContrastLocation Code O62Lebekdb: R42: DIZZINESS AND GIDDINESSTechnique: Scans were performed on a helical scanner pre IV contrastonly. Thestudy is limited secondary to lack of [...] acute intracranial CT findings.ALCOHOL BLOOD (ETOH) 2017-11-11 20:27:00* Test Item Value Reference Range Interpretation Comme nts ETOH (test code = HALC) ETHANOL * The result is to be used only for medical purposes ALCOHOL (test code = 56A) <10 mg/dL <=10 [id number] 20:23:00* Test Item Value Reference Range Interpretation Comme nts CPK (test code = 32A) 164 IU/L 39-308 COMPREHENSIVE METABOLIC [id number] 20:23:00* Test Item Value Reference Range Interpretation Comme nts GLUCOSE (test code = 06D) 91 mg/dL [...] code = 31A) 31 IU/L <=78 TROPONIN [id number] 20:20:00* Test Item Value Reference Range Interpretation Comme nts TROPONIN I (test code = A84) <0.015 ng/mL 0.000-0.045 PRO TIME AND [id number] 20:15:00* Test Item Value Reference Range Interpretation Comme nts PT (test code = TT) 11.1 s 9.8-13.6 INR (test code = INR) 1.0 INRH (test code = INRH) SUGGESTED THERAPEUTIC RANGE FOR INR: 2.5 - 3.5 For Patients with Prosthetic Valves or Patients with recurrent Thromboembolic Events 2.0 - 3.0 For Most Other Applications PTT (test code = PTT) 27.5 s 20.2-38.0 PTTH (test code = PTTH) To monitor the effectiveness of heparin, we offer the Anti-Xa (Heparin Assay). It can be used for either unfractionated or LMW Heparin. Order Code is ANTI-XA CBC (INCLUDES AUTOMATED DIFFERENTIAL)2017-11-11 20:12:00* Test Item Value Reference Range Interpretation Comme nts WBC (test code = WBC) 7.4 10\\S\\3/uL [...] = RBCMOR) NORMAL XR CHEST 1 VIEW [id number] 19:59:42Portable chest one view.HISTORY: DizzinessLocation R 16COMMENT: No comparison. No pleural effusion.The lungs are clear and normallyexpanded. The cardiac silhouette is unremarkable. Skeletal structures arenormal in appearance.IMPRESSION: No active disease in the chest."
[2023-10-22 14:09] LABS: Absolute Lymphocytes (CBC) 2.1 K/uL (0.7-4.9); Hematocrit 45.7 % (39.6-49.0); Lymphocytes % 26.5 % (15.3-44.8); MCV 87.8 fL (80-100); MPV 7.6 fL (7.6-11.3); Platelets 323 thou/uL (152-406)
--- NOTE | 2023-10-22 14:15 | RAD REPORT ---
EXAM DESCRIPTION: RAD - Chest Single View - 10/22/2023 2:08 pm CLINICAL HISTORY: CHEST PAIN Chest pain. COMPARISON: <Comparisons> FINDINGS: Portable technique limits examination quality. The lungs are grossly clear. The heart is normal in size. No displaced fractures. IMPRESSION: No acute intrathoracic process suspected.
[2023-10-22 14:30] LABS: Albumin 4.2 g/dL (3.4-5.0); Bilirubin Direct 0.1 mg/dL (0-0.2); Bilirubin Indirect, Calculated 0.4 mg/dL (0.2-0.8); Bilirubin Total 0.5 mg/dL (0.2-1.0); Magnesium 2.4 mg/dL (1.6-2.4); Potassium 3.9 mEq/L (3.5-5.1); Protein, Total 8.2 g/dL (6.4-8.2); Troponin High Sensitivity 5.1 pg/mL (<58.9)
[2023-10-22 15:24] LABS: SARS-CoV-2 Antigen Rapid Res Negative (Negative)
--- NOTE | 2023-10-22 15:34 | EDPHYS ---
Physician Documentation [facility] Name: Perfecto Murphy Age: 28 yrs Sex: Male : 1995 Arrival Date: 10/22/2023 Time: 13:34 Bed 13 Private MD: ED Physician Damian Schaefer HPI: 10/22 13:48 This 28 yrs old Male presents to ER via Unassigned with complaints of Chest Pain. sb4 13:48 The patient or guardian reports chest pain that is located primarily in the anterior sb4 chest wall, left. The pain does not radiate. Associated signs and symptoms: Pertinent positives: nausea, Pertinent negatives: cough, diaphoresis, dizziness, lower extremity pain, lower extremity swelling, lightheadedness, recent travel, shortness of breath, vomiting. The chest pain is described as "tight". Duration: The patient or guardian reports a single episode, that is still ongoing, and unchanged. Modifying factors: The symptoms are alleviated by nothing. the symptoms are aggravated by nothing. Severity of pain: in the emergency department the pain is unchanged is a 5 / 10. The patient has not experienced similar symptoms in the past. The patient has not recently seen a physician. Historical: - Allergies: 13:49 No Known Allergies; mb9 - Home Meds: 13:49 None [Active]; mb9 - PMHx: 13:49 Anxiety; mb9 - PSHx: 13:49 None; mb9 - Immunization history:: Adult Immunizations up to date. - Social history:: Smoking status: Patient denies any tobacco usage or history of. ROS: 13:48 Constitutional: Negative for fever, chills, and weight loss, sb4 13:48 Cardiovascular: Positive for chest pain, 13:48 Abdomen/GI: Positive for nausea, 13:48 All other systems are negative, Exam: 13:48 Constitutional: This is a well developed, well nourished patient who is awake, alert, sb4 and in no acute distress. Head/Face: Normocephalic, atraumatic. Eyes: Extra-ocular motions intact. Periorbital areas with no swelling, redness, or edema. ENT: Mucous membranes moist. Cardiovascular: Regular rate and rhythm with a normal S1 and S2. Respiratory: Lungs have equal breath sounds bilaterally, clear to auscultation and percussion. No rales, rhonchi or wheezes noted. No increased work of breathing, no retractions or nasal flaring. Abdomen/GI: Soft, non-tender, no distension. Skin: Warm, dry with normal turgor. Normal color with no rashes, no lesions, and no evidence of cellulitis. MS/ Extremity: Pulses equal, no cyanosis. Neurovascular intact. Full, normal range of motion. Neuro: Awake and alert, GCS 15, oriented to person, place, time, and situation. Motor strength 5/5 in all extremities. Sensory grossly intact. Vital Signs: 13:48 BP 131 / 92; Pulse 86; Resp 18; Temp 97.9; Pulse Ox 100% ; Weight 72.57 kg; Height 5 mb9 ft. 6 in. ; Pain 6/10; 15:16 BP 117 / 82; Pulse 68; Resp 18; Pulse Ox 100% on R/A; mb9 16:24 BP 124 / 85; Pulse 74; Resp 16; Pulse Ox 99% on R/A; mb9 13:48 Body Mass Index 25.82 (72.57 kg, 167.64 cm) mb9 13:48 Pain Scale: Adult mb9 MDM: 13:43 Patient medically screened. sb4 13:48 Differential diagnosis: abnormal EKG, acute pericarditis, anxiety, chest wall pain, sb4 pleurisy, pneumonia, pulmonary embolus. 15:34 Data reviewed: vital signs, nurses notes, lab test result(s), EKG, radiologic studies, sb4 and as a result, I will discharge patient. Scoring Tools HEART Score: History: ECG: Age: Risk Factors: No Risk Factors Known (0), Troponin: Total Score = 0. Counseling: I had a detailed discussion with the patient and/or guardian regarding the historical points, exam findings, and any diagnostic results supporting the discharge/admit diagnosis, lab results, radiology results, to return to the emergency department if symptoms worsen or persist or if there are any questions or concerns that arise at home. 10/22 13:48 Order name: Basic Metabolic Panel; Complete Time: 14:32 sb4 10/22 13:48 Order name: CBC with Diff; Complete Time: 14:11 sb4 10/22 13:48 Order name: D-Dimer; Complete Time: 14:24 sb4 10/22 13:48 Order name: LFT's; Complete Time: 14:32 sb4 10/22 13:48 Order name: Magnesium; Complete Time: 14:32 sb4 10/22 13:48 Order name: Troponin HS; Complete Time: 14:32 sb4 10/22 14:41 Order name: SARS RAPID; Complete Time: 15:24 sb4 10/22 14:41 Order name: Flu; Complete Time: 15:26 sb4 10/22 13:48 Order name: XRAY Chest (1 view); Complete Time: 14:16 sb4 10/22 13:48 Order name: EKG; Complete Time: 13:49 sb4 10/22 13:48 Order name: Cardiac monitoring; Complete Time: 13:51 sb4 10/22 13:48 Order name: EKG - Nurse/Tech; Complete Time: 13:51 sb4 10/22 13:48 Order name: IV Saline Lock; Complete Time: 13:51 sb4 10/22 13:48 Order name: Labs collected and sent; Complete Time: 13:51 sb4 10/22 13:48 Order name: O2 Per Protocol; Complete Time: 13:51 sb4 10/22 13:48 Order name: O2 Sat Monitoring; Complete Time: 13:51 sb4 EC:51 Rate is 71 beats/min. Rhythm is regular, Normal Sinus Rhythm. NE interval is normal at sb4 144 msec. QRS interval is normal at 100 msec. QT interval is normal at 364 msec. No Q waves. T waves are Normal. No ST changes noted. Clinical impression: Normal ECG and No evidence of ischemia. Interpreted by me. Reviewed by me. Administered Medications: 14:39 Drug: Ketorolac IVP 30 mg IVP once Route: IVP; Site: right antecubital; mb9 Disposition Summary: 10/22/23 15:34 Discharge Ordered Notes: Location: Home sb4 Problem: new sb4 Symptoms: are unchanged sb4 Condition: Stable sb4 Diagnosis - Chest pain, unspecified sb4 Followup: sb4 - With: Emergency Department - When: As needed - Reason: Trouble breathing, Worsening of condition Discharge Instructions: - Discharge Summary Sheet sb4 - Nonspecific Chest Pain, Adult, [id number] sb4 Forms: - Medication Reconciliation Form sb4 - Thank You Letter sb4 - Antibiotic Education sb4 - Prescription Opioid Use sb4 - Patient Portal Instructions sb4 - Leadership Thank You Letter sb4 Signatures: Dispatcher [employer] Leslie Engle PA-C PA-C sb4 Lizette De Oliveira, RN RN mb9
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
[2023-10-22 16:34] VITALS: TEMP 97.9
[2023-10-22 16:50] VITALS: BP 124/85
[2023-10-22 16:51] VITALS: O2SAT 99
== END ==
LOC: ER 13:34
DX: R07.89 Other chest pain (principal); Z11.52 Encounter for screening for COVID-19
CPT/HCPCS: 36415; 71045; 80048; 80076; 83735; 84484; 85025; 85379; 87804; 87811; 93005; 96374; 99285

== ENCOUNTER → 2023-11-07 | Emergency (ER) | payer SELFPAY ==
[~2023-11-07] MED LIST changes: +FAMOTIDINE 20 MG/2 ML VIAL IV ONE; +NA CHLORIDE 0.9% 1,000 ML ONE
--- OUTSIDE RECORDS SUMMARY | 2023-11-07 05:36 | XMS REPORT | Continuity of Care Document ---
Author Name Unknown Address [address] [facility] [place] [address] [facility] thconnect Address [address] [facility] [address] [place] [address] Care Team Providers Care Aluminum Pool Installer Name Role Phone MAKENZIE BONDS Primary Care Physician IVÁN Crockett Attending Clinician UnavailIván Agosto Attending Clinician ANEL BHAT Attending Clinician Unavailab Anel Walters DO Attending Clinician Preethi GARCIA Attending Clinician Unavailable Preethi Wu Attending Clinician [phone] Fernando Mayer Attending Clinician UnavailSE Schulz Attending Clinician Unavailable Se Calhoun DO Attending Clinician [phone] URIEL HEAD Attending Clinician Unavailable Uriel Head MD Attending Clinician [phone] SAMMIE ALVARADO Attending Clinician Unavailab NORRIS Olmedo Attending Clinician Unavailable Norris Alex MD Attending Clinician [phone] AMANDA Attending Clinician Unavailable Jayce Mcnulty Attending Clinician [phone] JAYCE PENN Attending Clinician Unavailable ZjulesaLaryS Attending [...] Clinician UnavailDR PATRICIA Hobbs Admitting Clinician [facility] Payers Payer Name Policy Type Policy Number Effective Date Expirati on Date Source 1000 [id number] 2022 00:00:00 [employer] 96 2022 00:00:00 Problems Condition Name Condition Details Condition Category Status Onset Date Resolution Date Last Treatment Date Treating Clinician Comments Source 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 02-20 00:00: 00 [facility] Cervical radiculopa thy Cervical Radiculopa thy Problem Active 02-20 00:00: 00 [facility] Strain of neck muscle Strain of Neck Muscle Problem Active 02-20 00:00: 00 [facility] No known active problems No known active problems Disease [facility] Allergies, Adverse Reactions, Alerts Allergy Name Allergy Type Status Severity Reaction(s) Onset Date Inactive Date Treating Clinician Comments Source No Known Drug Allergie s DA Active Unknown 04-05 00:00: 00 [facility] NO KNOWN ALLERGIE S Drug Class Active [facility] Social History Social Habit Start Date Stop Date Quantity Comments Source Sexual orientation U [facility] Exposure to SARS-CoV-2 (event) 2022-11-08 00:00:00 2022-11-18 16:12:00 Not sure [facility] Sex Assigned At 1995 00:00:00 1995 00:00:00 [facility] Smoking Status Start Date Stop Date Source Tobacco smoking consumption unknown [facility] Light Tobacco Smoker [facility] Medications Ordered Medication Name Filled Medication Name Start Date Stop Date Current Medication? Ordering Clinician Indication Dosage Frequency Signature (SIG) Comments Components Source ketorolac (TORADOL) injection 30 mg 2022-10 01:30: 00 08-03 01:02 :00 No 30mg 30 mg, Slow IV Push, ONCE, 1 dose, On Keisha 08/02/23 at 2030, Routine [facility] ondansetron (ZOFRAN (PF)) injection 4 mg 2022-10 00:30: 00 08-03 01:01 :00 No 4mg 4 mg, Slow IV Push, ONCE, 1 dose, On Keisha 08/02/23 at 1930, TOSHA [facility] morpHINE (4 mg/mL) injection 4 mg 2022-10 00:30: 00 08-03 01:03 :00 No 4mg 4 mg, Slow IV Push, ONCE, 1 dose, On Keisha 08/02/23 at 1930, STAT [facility] acetaminoph en-codeine 300-30 mg tablet 2022-10 00:00: 00 Yes [id number] 1{tbl} Take 1 tablet by mouth every 4 (four) hours as needed for Pain (scale 7-10). Indication s: acute pain [facility] ibuprofen 600 mg tablet 2022-10 00:00: 00 Yes [id number] 600mg Take 1 tablet by mouth every 6 (six) hours as needed for Pain (scale 4-6). [facility] ketorolac (TORADOL) injection 30 mg 11-19 19:15: 00 11-19 18:28 :00 No 30mg 30 mg, Intramuscu lar, ONCE, 1 dose, On 11/19/22 at 1315, Routine [facility] ibuprofen (IBU) tablet 600 mg 11-18 22:45: 00 11-18 22:51 :00 No 600mg 600 mg, Oral, ONCE, 1 dose, On 11/18/22 at 1645, TOSHA [facility] NaCl 0.9% (NS) bolus infusion 500 mL 2021-10 09:30: 00 08-27 09:24 :00 No 500mL at 999 mL/hr, 500 mL, IV Piggyback, ONCE, 1 dose, On 08/27/22 at 0330, STAT [facility] ketorolac (TORADOL) injection 15 mg 2021-10 09:30: 00 08-27 08:48 :00 No 15mg 15 mg, Slow IV Push, ONCE, 1 dose, On 08/27/22 at 0330, TOSHA [facility] famotidine (PEPCID (PF)) injection 20 mg 2021-10 08:45: 00 08-27 08:48 :00 No 20mg 20 mg, Slow IV Push, ONCE, 1 dose, On 08/27/22 at 0245, TOSHA [facility] famotidine (PEPCID) 20 mg tablet 2021-10 00:00: 00 Yes [id number] 20mg Take 1 tablet by mouth in the morning and 1 tablet in the evening. [facility] famotidine (PEPCID) 20 mg tablet 2021-10 00:00: 00 Yes [id number] 20mg Take 1 tablet by mouth in the morning and 1 tablet in the evening. [facility] famotidine (PEPCID) 20 mg tablet 2021-10 00:00: 00 Yes [id number] 20mg Take 1 tablet by mouth in the morning and 1 tablet in the evening. [facility] famotidine (PEPCID) 20 mg tablet 2021-10 00:00: 00 Yes [id number] 20mg Take 1 tablet by mouth in the morning and 1 tablet in the evening. [facility] famotidine (PEPCID) 20 mg tablet 2021-10 00:00: 00 Yes [id number] 20mg Take 1 tablet by mouth in the morning and 1 tablet in the evening. [facility] famotidine (PEPCID) 20 mg tablet 2021-10 00:00: 00 Yes [id number] 20mg Take 1 tablet by mouth in the morning and 1 tablet in the evening. [facility] famotidine (PEPCID) 20 mg tablet 2021-10 00:00: 00 Yes [id number] 20mg Take 1 tablet by mouth in the morning and 1 tablet in the evening. [facility] ibuprofen 600 mg tablet 2021-10 00:00: 00 Yes [id number] 600mg Take 1 tablet by mouth every 6 (six) hours as needed for Pain (scale 4-6). [facility] benzonatate 200 mg capsule 2021-10 00:00: 00 Yes [id number] 200mg Take 1 capsule by mouth 3 (three) times daily as needed for Cough for up to 20 doses. [facility] ondansetron 4 mg disintegrat ing tablet 2021-10 00:00: 00 Yes [id number] 4mg Take 1 tablet by mouth every 8 (eight) hours as needed for Nausea and Vomiting (N/V). [facility] ibuprofen 600 mg tablet 2021-10 0 00:00: 00 Yes [id number] 600mg Take 1 tablet by mouth every 6 (six) hours as needed for Pain (scale 4-6). [facility] benzonatate 200 mg capsule 2021-10 00:00: 00 Yes [id number] 200mg Take 1 capsule by mouth 3 (three) times daily as needed for Cough for up to 20 doses. [facility] ondansetron 4 mg disintegrat ing tablet 2021-10 00:00: 00 Yes [id number] 4mg Take 1 tablet by mouth every 8 (eight) hours as needed for Nausea and Vomiting (N/V). [facility] ibuprofen 600 mg tablet 2021-10 00:00: 00 Yes [id number] 600mg Take 1 tablet by mouth every 6 (six) hours as needed for Pain (scale 4-6). [facility] benzonatate 200 mg capsule 2021-10 00:00: 00 Yes [id number] 200mg Take 1 capsule by mouth 3 (three) times daily as needed for Cough for up to 20 doses. [facility] ondansetron 4 mg disintegrat ing tablet 2021-10 00:00: 00 Yes [id number] 4mg Take 1 tablet by mouth every 8 (eight) hours as needed for Nausea and Vomiting (N/V). [facility] ibuprofen 600 mg tablet 2021-10 00:00: 00 Yes [id number] 600mg Take 1 tablet by mouth every 6 (six) hours as needed for Pain (scale 4-6). [facility] benzonatate 200 mg capsule 2021-10 00:00: 00 Yes [id number] 200mg Take 1 capsule by mouth 3 (three) times daily as needed for Cough for up to 20 doses. [facility] ondansetron 4 mg disintegrat ing tablet 2021-10 00:00: 00 Yes [id number] 4mg Take 1 tablet by mouth every 8 (eight) hours as needed for Nausea and Vomiting (N/V). [facility] ibuprofen 600 mg tablet 2021-10 00:00: 00 Yes [id number] 600mg Take 1 tablet by mouth every 6 (six) hours as needed for Pain (scale 4-6). [facility] benzonatate 200 mg capsule 2021-10 00:00: 00 Yes [id number] 200mg Take 1 capsule by mouth 3 (three) times daily as needed for Cough for up to 20 doses. [facility] ondansetron 4 mg disintegrat ing tablet 2021-10 00:00: 00 Yes [id number] 4mg Take 1 tablet by mouth every 8 (eight) hours as needed for Nausea and Vomiting (N/V). [facility] ibuprofen 600 mg tablet 2021-10 00:00: 00 Yes [id number] 600mg Take 1 tablet by mouth every 6 (six) hours as needed for Pain (scale 4-6). [facility] benzonatate 200 mg capsule 2021-10 00:00: 00 Yes [id number] 200mg Take 1 capsule by mouth 3 (three) times daily as needed for Cough for up to 20 doses. [facility] ondansetron 4 mg disintegrat ing tablet 2021-10 00:00: 00 Yes [id number] 4mg Take 1 tablet by mouth every 8 (eight) hours as needed for Nausea and Vomiting (N/V). [facility] ibuprofen 600 mg tablet 2021-10 00:00: 00 Yes [id number] 600mg Take 1 tablet by mouth every 6 (six) hours as needed for Pain (scale 4-6). [facility] benzonatate 200 mg capsule 2021-10 00:00: 00 Yes [id number] 200mg Take 1 capsule by mouth 3 (three) times daily as needed for Cough for up to 20 doses. [facility] ondansetron 4 mg disintegrat ing tablet 2021-10 0 00:00: 00 Yes [id number] 4mg Take 1 tablet by mouth every 8 (eight) hours as needed for Nausea and Vomiting (N/V). [facility] ibuprofen 600 mg tablet 2021-10 0 00:00: 00 Yes [id number] 600mg Take 1 tablet by mouth every 6 (six) hours as needed for Pain (scale 4-6). [facility] benzonatate 200 mg capsule 2021-10 00:00: 00 Yes [id number] 200mg Take 1 capsule by mouth 3 (three) times daily as needed for Cough for up to 20 doses. [facility] ondansetron 4 mg disintegrat ing tablet 2021-10 00:00: 00 Yes [id number] 4mg Take 1 tablet by mouth every 8 (eight) hours as needed for Nausea and Vomiting (N/V). [facility] maalox:diph enhydrAMINE :lidocaine 2 % viscous 1:1:1 (FIRST-MOUT HWASH BLM) oral suspension 15 mL 04-12 23:30: 00 04-13 00:22 :00 No 15mL 15 mL, Oral, ONCE, 1 dose, On Sun04/12/22 at 1830, Routine [facility] penicillin g benzathine (BICILLIN L-A) injection 1.2 Million Units 04-12 23:30: 00 04-13 00:22 :00 No 1.210 1.2 Million Units, Intramuscu lar, ONCE, 1 dose, On Sun04/12/22 at 1830, TOSHA
Re ason for Anti-Infec tive: Documented Infection< br>Documen nieves Infection Site: HEENT
D uration of Therapy: 7 days [facility] dexamethaso ne sod phos PF injection 10 mg 04-12 23:30: 00 04-12 23:30 :00 No 10mg 10 mg, Intramuscu lar, ONCE, 1 dose, On Sun04/12/22 at 1830, 1 mL [facility] acetaminoph en (TYLENOL) tablet 1,000 mg 04-12 23:00: 00 04-12 22:58 :00 No 1000mg 1,000 mg, Oral, ONCE, 1 dose, On Sun04/12/22 at 1800, TOSHA [facility] No known medications 04-12 17:46: 40 No [facility] cyclobenzap rine 10 mg tablet Take 1 tablet 3 times a day by oral route as needed. cyclobenzap rine 10 mg tablet Take 1 tablet 3 times a day by oral route as needed. No 1 TID cyclobenza edgard 10 mg tablet Take 1 tablet 3 times a day by oral route as needed. [facility] ibuprofen 800 mg tablet Take 1 tablet 3 times a day by oral route as needed. ibuprofen 800 mg tablet Take 1 tablet 3 times a day by oral route as needed. No 1 TID ibuprofen 800 mg tablet Take 1 tablet 3 times a day by oral route as needed. [facility] Vital Signs Vital Name Observation Time Observation Value Comments Terell evans Systolic blood pressure 2023-08-03 02:00:00 126 mm[Hg] [facility] Diastolic blood pressure 2023-08-03 02:00:00 73 mm[Hg] [facility] Heart rate 2023-08-03 02:00:00 87 /min [facility] Respiratory rate 2023-08-03 02:00:00 18 /min [facility] Oxygen saturation in Arterial blood by Pulse oximetry 2023-08-03 02:00:00 98 /min [facility] Body temperature 2023-08-03 00:25:00 37.11 [facility] Body height 2023-08-03 00:06:00 165.1 cm [facility] Body weight 2023-08-03 00:06:00 65.772 kg [facility] BMI 2023-08-03 00:06:00 24.13 kg/m2 [facility] Systolic blood pressure 2022-11-19 18:12:00 130 mm[Hg] [facility] Diastolic blood pressure 2022-11-19 18:12:00 89 mm[Hg] [facility] Heart rate 2022-11-19 18:12:00 111 /min Unive [facility] Body temperature 2022-11-19 18:12:00 37.22 Raquel [facility] Respiratory rate 2022-11-19 18:12:00 19 /min [facility] Body height 2022-11-19 18:12:00 170.2 cm [facility] Body weight 2022-11-19 18:12:00 68.04 kg [facility] BMI 2022-11-19 18:12:00 23.49 kg/m2 [facility] Oxygen saturation in Arterial blood by Pulse oximetry 2022-11-19 18:12:00 98 /min [facility] Systolic blood pressure 2022-11-18 22:06:00 130 mm[Hg] [facility] Diastolic blood pressure 2022-11-18 22:06:00 89 mm[Hg] [facility] Heart rate 2022-11-18 22:06:00 98 /min Unive [facility] Body temperature 2022-11-18 22:06:00 37.39 Raquel [facility] Respiratory rate 2022-11-18 22:06:00 20 /min [facility] Body height 2022-11-18 22:06:00 162.6 cm [facility] Body weight 2022-11-18 22:06:00 68.04 kg [facility] BMI 2022-11-18 22:06:00 25.75 kg/m2 [facility] Oxygen saturation in Arterial blood by Pulse oximetry 2022-11-18 22:06:00 100 /min [facility] Systolic blood pressure 2022-10-30 06:00:00 121 mm[Hg] [facility] Diastolic blood pressure 2022-10-30 06:00:00 80 mm[Hg] [facility] Heart rate 2022-10-30 06:00:00 73 [facility] Respiratory rate 2022-10-30 06:00:00 13 /min [facility] Oxygen saturation in Arterial blood by Pulse oximetry 2022-10-30 06:00:00 98 /min [facility] Body temperature 2022-10-30 05:27:00 37.22 Raquel [facility] Body height 2022-10-30 05:27:00 165.1 cm [facility] Body weight 2022-10-30 05:27:00 68.493 kg [facility] BMI 2022-10-30 05:27:00 25.13 kg/m2 [facility] Systolic blood pressure 2022-10-19 06:30:00 137 mm[Hg] [facility] Diastolic blood pressure 2022-10-19 06:30:00 98 mm[Hg] [facility] Heart rate 2022-10-19 06:30:00 88 /min [facility] Body temperature 2022-10-19 06:30:00 37 Raquel [facility] Respiratory rate 2022-10-19 06:30:00 16 /min [facility] Body height 2022-10-19 06:30:00 165.1 cm [facility] Body weight 2022-10-19 06:30:00 66.906 kg [facility] BMI 2022-10-19 06:30:00 24.55 kg/m2 [facility] Oxygen saturation in Arterial blood by Pulse oximetry 2022-10-19 06:30:00 99 /min [facility] Height 2022-10-14 10:57:00 165.1 CM Weight 2022-10-14 10:57:00 65.77 KG Systolic blood pressure 2022-10-09 21:02:00 137 mm[Hg] [facility] Diastolic blood pressure 2022-10-09 21:02:00 80 mm[Hg] [facility] Heart rate 2022-10-09 21:02:00 102 /min [facility] Body temperature 2022-10-09 21:02:00 37.11 Raquel [facility] Respiratory rate 2022-10-09 21:02:00 16 /min [facility] Body height 2022-10-09 21:02:00 162.6 cm [facility] Body weight 2022-10-09 21:02:00 65.772 kg [facility] BMI 2022-10-09 21:02:00 24.89 kg/m2 [facility] Oxygen saturation in Arterial blood by Pulse oximetry 2022-10-09 21:02:00 100 /min [facility] Body temperature 2022-08-27 08:10:00 36.22 Raquel [facility] Respiratory rate 2022-08-27 08:10:00 17 /min [facility] Body height 2022-08-27 08:10:00 162.6 cm [facility] Body weight 2022-08-27 08:10:00 65.772 kg [facility] BMI 2022-08-27 08:10:00 24.89 kg/m2 [facility] Oxygen saturation in Arterial blood by Pulse oximetry 2022-08-27 08:10:00 100 /min [facility] Systolic blood pressure 2022-08-27 08:10:00 135 mm[Hg] [facility] Diastolic blood pressure 2022-08-27 08:10:00 93 mm[Hg] [facility] Heart rate 2022-08-27 08:10:00 100 /min Unive [facility] Systolic blood pressure 2022-07-26 15:25:00 131 mm[Hg] [facility] Diastolic blood pressure 2022-07-26 15:25:00 87 mm[Hg] [facility] Heart rate 2022-07-26 15:25:00 98 /min Unive [facility] Body temperature 2022-07-26 15:25:00 37.33 Raquel [facility] Respiratory rate 2022-07-26 15:25:00 18 /min [facility] Body weight 2022-07-26 15:25:00 63.504 kg [facility] BMI 2022-07-26 15:25:00 22.60 kg/m2 [facility] Oxygen saturation in Arterial blood by Pulse oximetry 2022-07-26 15:25:00 98 /min [facility] Systolic blood pressure 2022-04-12 22:52:00 121 mm[Hg] [facility] Diastolic blood pressure 2022-04-12 22:52:00 80 mm[Hg] [facility] Heart rate 2022-04-12 22:52:00 108 /min Unive [facility] Body temperature 2022-04-12 22:52:00 39.11 Raquel [facility] Respiratory rate 2022-04-12 22:52:00 24 /min [facility] Body height 2022-04-12 22:52:00 167.6 cm [facility] Body weight 2022-04-12 22:52:00 63.504 kg [facility] BMI 2022-04-12 22:52:00 22.60 kg/m2 [facility] Oxygen saturation in Arterial blood by Pulse oximetry 2022-04-12 22:52:00 98 /min [facility] BP Diastolic 2022-02-17 00:00:00 75 mm[Hg] [facility] Height 2022-02-17 00:00:00 65 [in_i] [facility] BMI (Body Mass Index) 2022-02-17 00:00:00 24 kg/m2 [facility] BP Systolic 2022-02-17 00:00:00 121 mm[Hg] [facility] Body Weight 2022-02-17 00:00:00 2304 [oz_av] [facility] Height 2020-12-13 22:38:00 170.18 CM Weight 2020-12-13 22:38:00 63.5 KG Procedures Procedure Date / Time Performed Performing Clinicia n Source CT CERVICAL SPINE WO CONTRAST 2023-08-03 00:50:00 Iván Barnard [facility] CT SHOULDER LEFT WO CONTRAST 2023-08-03 00:50:00 vIán Barnard [facility] EKG-12 LEAD 2022-11-19 18:54:32 [facility]ATMENT 2022-11-18 21:51:51 Doctor Unassigned, [place] [facility] XR CHEST 1 VW 2022-10-30 05:46:16 Se Calhoun [facility] LIPASE 2022-10-30 05:37:00 Se Calhoun [facility] MAGNESIUM 2022-10-30 05:37:00 Calhoun, Se Unive [facility] TROPONIN I 2022-10-30 05:37:00 [facility] COMP. METABOLIC PANEL ([id number]) 2022-10-30 05:37:00 CalhounSameer barberip [facility] CBC WITH DIFF 2022-10-30 05:37:00 Se Calhoun [facility] D-DIMER 2022-10-30 05:37:00 Se Calhoun [facility] N-TERMINAL PRO-BNP 2022-10-30 05:37:00 Singer Se [facility] CONSENT/REFUSAL FOR DIAGNOSIS AND TREATMENT 2022-10-30 05:18:02 Doctor Unassigned, [place] [facility] EKG-12 LEAD 2022-10-19 08:20:54 Uriel Head [facility] XR CHEST 1 2022-10-19 07:06:34 Uriel Head [facility] NOTICE OF PRIVACY PRACTICES 2022-10-19 06:22:28 Doctor Unassigned, [place] [facility] CONSENT/REFUSAL FOR DIAGNOSIS AND TREATMENT 2022-10-09 20:55:57 Doctor Unassigned, [place] [facility] EKG-12 LEAD 2022-08-27 09:19:11 Norris Alex [facility] XR CHEST 1 2022-08-27 08:29:00 [facility] TROPONIN I 2022-08-27 08:17:00 Norris Alex [facility] COMP. METABOLIC PANEL ([id number]) 2022-08-27 08:17:00 Norris Alex [facility] CBC WITH DIFF 2022-08-27 08:17:00 [facility] NOTICE OF PRIVACY PRACTICES 2022-08-27 08:03:42 Doctor Unassigned, [place] [facility] CONSENT/REFUSAL FOR DIAGNOSIS AND TREATMENT 2022-08-27 08:02:51 Doctor Unassigned, [place] [facility] RAPID INFLUENZA A/B 2022-07-26 15:28:00 Norris Alex [facility] COVID-19 (ID NOW RAPID TESTING) 2022-07-26 15:28:00 Norris Alex [facility] CONSENT/REFUSAL FOR DIAGNOSIS AND TREATMENT 2022-07-26 15:22:01 Doctor Unassigned, [place] [facility] RAPID STREP SCREEN FOR GROUP A 2022-04-12 22:57:00 Jayce Penn [facility] COVID-19 (ID NOW RAPID TESTING) 2022-04-12 22:57:00 Jayce Penn [facility] NOTICE OF PRIVACY PRACTICES 2022-04-12 22:49:56 Doctor Unassigned, [place] [facility] XR, 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, 2 or 3 view 2022-02-17 00:00:00 [facility] Encounters Start Date/Time End Date/Time Encounter Type Admission Type Attending [facility] Facility Care Department Encounter ID Source 2023-08-02 19:04:00 2023-08-02 22:25:00 Emergency X IVÁN BARNARD [facility] ERT [id number] [facility] 2023-08-02 19:04:00 2023-08-02 22:25:00 Emergency Iván Barnard [facility] 1.2.840.114 350.1.13.10 4.2.7.2.686 [id number] [facility] 2022-11-19 12:17:00 2022-11-19 13:08:00 Emergency X ANEL BHAT [facility] ERT [id number] [facility] 2022-11-19 12:17:00 2022-11-19 13:08:00 Emergency Anel Bhat [facility] 1..840.114 350.1.13.10 4.2.7.2.686 [id number] [id number] [facility] 2022-11-18 16:11:00 2022-11-18 16:58:00 Emergency X Preethi GARCIA [facility] ERT [id number] [facility] 2022-11-18 16:11:00 2022-11-18 16:58:00 Emergency Preethi Garcia [facility] 1.2.840.114 350.1.13.10 4.2.7.2.686 [id number] [id number] [facility] 2022-11-10 06:53:00 2022-11-10 08:13:00 Emergency ER AungdeneenFernando menjivar [facility] [id number] [facility] 2022-10-29 23:30:00 2022-10-30 00:40:00 Emergency SE JENKINS [facility] ERT [id number] [facility] 2022-10-29 23:30:00 2022-10-30 00:40:00 Emergency Se Calhoun [facility] 1.2.840.114 350.1.13.10 4.2.7.2.686 [id number] [facility] 2022-10-19 00:28:00 2022-10-19 02:31:00 Emergency X URIEL HEAD [facility] ERT [id number] [facility] 2022-10-19 00:28:00 2022-10-19 02:31:00 Emergency Uriel Heda [facility] 1.2.840.114 350.1.13.10 4.2.7.2.686 [id number] [facility] 2022-10-14 10:19:00 2022-10-14 13:40:00 Emergency E SAMMIE ALVARADO [facility] [id number] [facility] 2022-10-09 15:03:00 2022-10-09 16:09:00 Emergency X ANEL BHAT [facility] ERT [id number] [facility] 2022-10-09 15:03:00 2022-10-09 16:09:00 Emergency Anel Bhat [facility] 1.2.840.114 350.1.13.10 4.2.7.2.686 [id number] [facility] 2022-08-27 02:02:00 2022-08-27 03:30:00 Emergency NORRIS MARTINES [facility] ERT [id number] [facility] 2022-08-27 02:02:00 2022-08-27 03:30:00 Emergency Norris Alex [facility] 1.2.840.114 350.1.13.10 4.2.7.2.686 [id number] [id number] [facility] 2022-07-26 10:29:00 2022-07-26 11:26:00 Emergency X Preethi GARCIA [facility] ERT [id number] [facility] 2022-07-26 10:29:00 2022-07-26 11:26:00 Emergency Preethi Garcia Felicita [facility] 1.2.840.114 350.1.13.10 4.2.7.2.686 [id number] [id number] [facility] 2022-05-21 07:56:00 2022-05-21 09:47:00 Emergency ER Fernando Mayer [facility] [id number] [facility] 2022-04-19 03:49:00 2022-04-19 03:49:00 [facility] [id number] 2022-04-12 17:53:00 2022-04-12 19:52:00 Emergency Penn Jayce [facility] 1.2.840.114 350.1.13.10 4.2.7.2.686 [id number] [id number] [facility] 2022-04-12 17:53:00 2022-04-12 19:52:00 Emergency X JAYCE PENN [facility] ERT [id number] [facility] 2022-02-23 01:07:00 2022-02-23 01:07:00 Outpatient Zuniga_S [facility] [id number] 2022-02-20 10:19:00 2022-02-20 10:19:00 Outpatient Zuniga_S [facility] [id number] [facility] 2022-02-20 05:57:00 2022-02-20 05:57:00 Outpatient Zuniga_S [facility] [id number] [facility] 2022-02-17 16:51:00 2022-02-17 16:51:00 Outpatient THERESA ESPINAL [facility] [id number] [facility] 2022-02-17 05:30:00 2022-02-17 05:30:00 Outpatient Zuniga_S [facility] [id number] [facility] 2022-02-17 00:00:00 2022-02-17 00:00:00 FARZANA BoldenP-C: [address] [place] [id number] , Ph. G ND - [facility] [id number] [facility] 2022-01-16 18:09:00 2022-01-16 20:36:00 Emergency ER Jimmy Porras [facility] [id number] [facility] 2021-12-29 06:30:00 2021-12-29 11:05:00 Emergency ER Soco Martin [facility] [id number] [facility] 2021-10-28 18:04:00 2021-10-28 19:21:00 Emergency ER ABDOULAYE CAVAZOS [facility] [id number] [facility] 2021-09-20 18:13:00 2021-09-20 20:40:00 Emergency ER JESUS PHILLIPS [facility] [id number] [facility] 2020-12-13 22:26:00 2020-12-13 23:23:00 Emergency E KEISHA [facility] [id number] [facility] 2019-08-17 01:07:00 2019-08-17 03:07:00 Emergency ER MAI TELLEZ [facility] [id number] [facility] 2018-05-17 03:57:00 2018-05-17 05:14:00 Emergency E PATRICIA BUTT [facility] [id number] [facility] 2017-11-11 19:21:00 2017-11-11 21:04:00 Emergency E KEISHA [facility] [id number] [facility] 2016-01-23 20:43:00 2016-01-23 22:25:00 Emergency ER FLO ELDER [facility] [id number] [facility] 2013-10-17 13:21:00 2013-10-17 14:43:00 Emergency ER MADELINE ARMTSRONG [facility] [id number] [facility] Results Test Description Test Time Test Comments Results Result Co mments Source [facility] [id number] 06:05:50* Test Item Value Reference Range Interpretation Comments TROPONIN I (test code = 7172737869) 0.004 ng/mL See_Comment [Automated message] The system [...] of biotin. Lab Interpretation (test code = 16776-2) Normal [facility] AL[facility]-[id number] 06:02:29* Test Item Value Reference Range Interpretation Comme nts NT-proBNP (test code = 8605194971) 22 pg/mL See_Comment [Automated message] The system which generated this result transmitted reference range: <=125. The reference range was not used to interpret this result as normal/abnormal. FAIZA (test code = FAIZA) Biotin has been reported to cause a negative bias, interpret results relative to patient's use of biotin. Lab Interpretation (test code = 06737-6) Normal [facility]2023-01-23 05:54:05* Test Item Value Reference Range Interpretation Comme nts MAGNESIUM (test code = 0205316149) 2.2 mg/dL 1.7-2.4 Lab Interpretation (test cod e = 74934-4) Normal [facility] METABOLIC PANEL (58335)2022-10-30 05:53:45* Test Item Value Reference Range Interpretation Comme nts NA (test code = 1234838685) 139 mmol/L 135-145 K (test code = 2301542538) 3.9 mmol/L 3.5-5.0 CL (test code = 0074136291) 104 mmol/L 98-108 CO2 TOTAL (test code = 4629053443) 26 mmol/L 23-31 AGAP (test code = 4099555616) 2-16 BUN (test code = 8921341979) 11 mg/dL 7-23 GLUCOSE (test code = 4254734863) 119 mg/dL 70-110 H CREATININE (test code = 3874828554) 0.90 mg/dL 0.60-1.25 TOTAL BILI (test code = 3057897524) 0.4 mg/dL 0.1-1.1 CALCIUM (test code = 9464540138) 9.3 mg/dL 8.6-10.6 T PROTEIN (test code = 0974347505) 7.5 g/dL 6.3-8.2 ALBUMIN (test code = 0244699905) 4.7 g/dL 3.5-5.0 ALK PHOS (test code = 3271824610) 103 U/L 34-122 ALTv (test code = 1742-6) 30 U/L 5-50 AST(SGOT) (test code = 4941941689) 24 U/L 13-40 eGFR (test code = 0602823490) mL/min/1.73m2 FAIZA (test code = FAIZA) Association [...] imaging tests). Lab Interpretation (test code = 53437-6) Abnormal [facility]2023-[facility]-23 05:53:25* Test Item Value Reference Range Interpretation Comme nts LIPASE (test code = 0570560448) 296 U/L 0-220 H Lab Interpretation (test cod e = 31528-4) Abnormal [facility] WITH [id number] 05:44:09* Test Item Value Reference Range Interpretation [...] 33.9 g/dL 31.2-35.0 RDW-SD (test code = 11195-2) 40.7 fL 38.5-51.6 RDW-CV (test code = 788-0) 12.4 % 12.1-15.4 PLT (test code = 777-3) See_Comment [Automated messa ge] The system which generated this result transmitted reference range: 150 - 328 10*3/?L. The reference range was not used to interpret this result as normal/abnormal. MPV (test code = 97857-6) 9.4 fL 9.8-13.0 L NRBC/100 WBC (test code = 5969618878) See_Comment [Automated [employer] ssage] The system which generated this result transmitted reference range: 0.0 - 10.0 /100 WBCs. The reference range was not used to interpret this result as normal/abnormal. NRBC x10^3 (test code = 1008672784) See_Comment [Automated messa ge] The system which generated this result transmitted reference range: 10*3/?L. The reference range was not used to interpret this result as normal/abnormal. GRAN MAT (NEUT) % (test code = 770-8) 47.4 % IMM GRAN % (test code = 9434244583) 0.20 % LYMPH % (test code = 736-9) 43.1 % MONO % (test code = 5905-5) 6.8 % EOS % (test code = 713-8) 1.9 % BASO % (test code = 706-2) 0.6 % GRAN MAT x10^3(ANC) (test code = 1569219797) 4.19 10*3/uL 1.99-6.95 IMM GRAN x10^3 (test code = 8553714604) 0.00-0.06 LYMPH x10^3 (test code = 731-0) 3.81 10*3/uL 1.09-3.23 H MONO x10^3 (test code = 742-7) 0.60 10*3/uL 0.36-1.02 EOS x10^3 (test code = 711-2) 0.17 10*3/uL 0.06-0.53 BASO x10^3 (test code = 704-7) 0.05 10*3/uL 0.01-0.09 Lab Interpretation (test code = 98327-3) Abnormal [facility] INFLUENZA A AND B [id number] 11:50:00* Test Item Value Reference Range Interpretation [...] the FDA and the [employer] (CAP) are more stringent than those required for this test. Therefore, the result should be interpreted with caution and close attention to other clinical and epidemiological data TROPONIN [id number] 09:09:10* Test Item Value Reference Range Interpretation Comments TROPONIN I (test code = 6942279693) 0.002 ng/mL See_Comment [Automated message] The system [...] of biotin. Lab Interpretation (test code = 34114-5) Normal [facility] WITH [id number] 09:01:39* Test Item Value Reference Range Interpretation Comme nts WBC (test code = 6690-2) See_Comment H [Automated [employer]] The system which generated this result transmitted reference range: 4.20 - 10.70 10*3/?L. The reference range was not used to interpret this result as normal/abnormal. RBC (test code = 789-8) See_Comment [Automated [employer]] The system which generated this result transmitted [...] g/dL 31.2-35.0 H RDW-SD (test code = 05316-6) 40.6 fL 38.5-51.6 RDW-CV (test code = 788-0) 12.8 % 12.1-15.4 PLT (test code = 777-3) See_Comment [Automated messa ge] The system which generated this result transmitted reference range: 150 - 328 10*3/?L. The reference range was not used to interpret this result as normal/abnormal. MPV (test code = 64332-6) 9.8 fL 9.8-13.0 NRBC/100 WBC (test code = 9004630097) See_Comment [Automated [employer] ssage] The system which generated this result transmitted reference range: 0.0 - 10.0 /100 WBCs. The reference range was not used to interpret this result as normal/abnormal. NRBC x10^3 (test code = 1712135814) See_Comment [Automated messa ge] The system which generated this result transmitted reference range: 10*3/?L. The reference range was not used to interpret this result as normal/abnormal. GRAN MAT (NEUT) % (test code = 770-8) 47.8 % IMM GRAN % (test code = 0631562048) 0.30 % LYMPH % (test code = 736-9) 42.4 % MONO % (test code = 5905-5) 7.3 % EOS % (test code = 713-8) 1.9 % BASO % (test code = 706-2) 0.3 % GRAN MAT x10^3(ANC) (test code = 0241121998) 5.30 10*3/uL 1.99-6.95 IMM GRAN x10^3 (test code = 5822196172) 0.03 10*3/uL 0.00-0.06 LYMPH x10^3 (test code = 731-0) 4.70 10*3/uL 1.09-3.23 H MONO x10^3 (test code = 742-7) 0.81 10*3/uL 0.36-1.02 EOS x10^3 (test code = 711-2) 0.21 10*3/uL 0.06-0.53 BASO x10^3 (test code = 704-7) 0.03 10*3/uL 0.01-0.09 Lab Interpretation (test code = 83633-5) Abnormal [facility]. METABOLIC PANEL (99084)2022-08-27 08:57:28* Test Item Value Reference Range Interpretation Comme nts NA (test code = 3567071448) 140 mmol/L 135-145 K (test code = 3583597605) 3.8 mmol/L 3.5-5.0 CL (test code = 5565661733) 101 mmol/L 98-108 CO2 TOTAL (test code = 2199875710) 29 mmol/L 23-31 AGAP (test code = 7423688595) 2-16 BUN (test code = 4934121103) 11 mg/dL 7-23 GLUCOSE (test code = 0836141955) 112 mg/dL 70-110 H CREATININE (test code = 2030845419) 0.96 mg/dL 0.60-1.25 TOTAL BILI (test code = 1910717598) 0.4 mg/dL 0.1-1.1 CALCIUM (test code = 9796022981) 9.5 mg/dL 8.6-10.6 T PROTEIN (test code = 6329368046) 7.1 g/dL 6.3-8.2 ALBUMIN (test code = 0488008328) 4.5 g/dL 3.5-5.0 ALK PHOS (test code = 8989816620) 94 U/L 34-122 ALTv (test code = 1742-6) 25 U/L 5-50 AST(SGOT) (test code = 5292545728) 21 U/L 13-40 eGFR (test code = 1078799630) mL/min/1.73m2 FAIZA (test code = FAIZA) Association [...] imaging tests). Lab Interpretation (test code = 60235-1) Abnormal [facility] 1 VIEW [id number] 05:05:34XR CHEST 1 VIEW PORTABLELocation:A8Zklej hours services provided 05/17/2018 5:02 AMIndication:R07.9:CHEST PAIN, UNSPECIFIEDComparison:11/11/17indings:The lungs are equally and symmetrically inflated. The trachea ismidline. The cardiac silhouette is normal in size. No acute bony abnormality.Impression:No acute cardiopulmonary disease.A-[id number] 04:56:00* Test Item Value Reference Range Interpretation Comme nts D-DIMER (test code = DDI) <200 ng/mL D-DU 0-234 D-DIMER COMMENT (test code = DDCOM) *Level to rule out DVT or PE: <235 ng/mL D-DU* PRO TIME AND [id number] 04:54:00* Test Item Value Reference Range Interpretation [...] Heparin. Order Code is ANTI-XA BRAIN NATRIURETIC [id number] 04:46:00* Test Item Value Reference Range Interpretation Comme nts proBNP (test code = PBNP) 8 pg/mL 0-125 CARDIAC [id number] 04:43:00* Test Item Value Reference Range Interpretation Comme nts TROPONIN I (test code = A84) <0.015 ng/mL 0.000-0.045 CKMB (test code = A49) <1.0 ng/mL <=3.6 CPK (test code = 32A) 149 IU/L 39-308 COMPREHENSIVE METABOLIC [id number] 04:41:00* Test Item Value Reference Range Interpretation [...] = 31A) 37 IU/L <=78 AMYLASE AND [id number] 04:41:00* Test Item Value Reference Range Interpretation [...] = 56A) <10 mg/dL <=10 DRUGS OF [id number] 04:31:00* Test Item Value Reference Range Interpretation [...] (test code = RBCMOR) NORMAL DRUGS OF [id number] 20:50:00* Test Item Value Reference Range Interpretation [...] ng/mL Opiates 2000 ng/mL CT HEAD W/O [id number] 20:28:53AFTER HOURS SERVICE ON: 11/11/2017 8:27 PMCT Scan of the Brain Without ContrastLocation Code J30Pnhstbb: R42: DIZZINESS AND GIDDINESSTechnique: Scans were performed [...] (test code = 56A) <10 mg/dL <=10 [id number] 20:23:00* Test Item Value Reference Range Interpretation Comme nts CPK (test code = 32A) 164 IU/L 39-308 COMPREHENSIVE METABOLIC [id number] 20:23:00* Test Item Value Reference Range Interpretation [...] code = 31A) 31 IU/L <=78 TROPONIN [id number] 20:20:00* Test Item Value Reference Range Interpretation Comme nts TROPONIN I (test code = A84) <0.015 ng/mL 0.000-0.045 PRO TIME AND [id number] 20:15:00* Test Item Value Reference Range Interpretation [...] = RBCMOR) NORMAL XR CHEST 1 VIEW [id number] 19:59:42Portable chest one view.HISTORY: DizzinessLocation R 16COMMENT: No comparison. No pleural effusion.The lungs are clear and normallyexpanded. The cardiac silhouette is unremarkable. Skeletal structures arenormal in appearance.IMPRESSION: No active disease in the chest."
[2023-11-07 05:56] LABS: Absolute Lymphocytes (CBC) 0.7 K/uL (0.7-4.9); Hematocrit 46.5 % (39.6-49.0); Lymphocytes % 6.7 % (15.3-44.8); MCV 87.9 fL (80-100); MPV 7.4 fL (7.6-11.3); Platelets 281 thou/uL (152-406); RBC Red Blood Cell Count 5.29 M/uL (4.33-5.43)
[2023-11-07 06:12] LABS: Albumin 3.8 g/dL (3.4-5.0); Bilirubin Total 0.7 mg/dL (0.2-1.0); Potassium 3.7 mEq/L (3.5-5.1); Protein, Total 7.9 g/dL (6.4-8.2)
--- NOTE | 2023-11-07 07:14 | RAD REPORT ---
EXAM DESCRIPTION: CTAbdomen Pelvis W Contrast - 11/07/2023 6:48 am CLINICAL HISTORY: ABD PAIN COMPARISON: Abdomen Pelvis W Contrast dated 11/12/2022 TECHNIQUE: CT of the abdomen and pelvis was performed. All CT scans are performed using dose optimization technique as appropriate and may include automated exposure control or mA/KV adjustment according to patient size. FINDINGS: Lower chest: No acute process. Liver: No acute abnormality or suspicious lesions. Biliary: No biliary ductal dilatation. Stomach: No significant focal abnormality. Duodenum: No significant focal abnormality. Pancreas: No significant abnormality. Spleen: No significant abnormality. Adrenal: No suspicious lesions. Kidney/ureter: No hydronephrosis. No renal calculi. Retroperitoneum: No retroperitoneal adenopathy. Vascular: No aneurysm. Bowel: Nonspecific fluid present within segments of the colon and small bowel. Normal appendix. No vanessa wel obstruction.. Peritoneum: No ascites or free air. Bladder: Grossly unremarkable. Reproductive: No adnexal masses. Bones: No acute fracture. Other: n/a IMPRESSION: No acute intra-abdominal or pelvic finding. Normal appendix. Scattered fluid distended l oops of small bowel and colon could reflect a mild enterocolitis.
--- NOTE | 2023-11-07 07:51 | EDPHYS ---
Physician Documentation [facility] Name: Perfecto Murphy Age: 28 yrs Sex: Male : 1995 Arrival Date: 11/07/2023 Time: 05:32 Bed 14 Private MD: ED Physician Wilver Conti HPI: 11/07 05:40 This 28 yrs old Male presents to ER via Unassigned with complaints of sp4 Abdominal Pain. 06:08 28-year-old male presents with acute onset of diffuse abdominal pain associated with sp4 vomiting. Patient states at 7 PM yesterday he developed vomiting and diffuse abdominal pain. Denied any history of prior abdominal surgery. Historical: - Allergies: 05:59 No Known Allergies; jw7 - Home Meds: 05:59 None [Active]; jw7 - PMHx: 05:59 Anxiety; jw7 - PSHx: 05:59 None; jw7 - Immunization history:: Adult Immunizations up to date, Client reports having NOT received the Covid vaccine. Last tetanus immunization: unknown, Flu vaccine is not up to date. - Social history:: Smoking status: Patient reports the use of cigarette tobacco products, denies chronic smoking, but will smoke occasionally, Patient uses alcohol, occasionally. Patient/guardian denies using street drugs, IV drugs. - Family history:: not pertinent. ROS: 06:15 Constitutional: Negative for fever, chills, and weight loss, no abdominal pain and sp4 vomiting Eyes: Negative for injury, pain, redness, and discharge, 06:15 All other systems are negative, Exam: 06:15 Constitutional: This is a well developed, well nourished patient who is awake, alert, sp4 and in no acute distress. Head/Face: Normocephalic, atraumatic. Eyes: Pupils equal round and reactive to light, extra-ocular motions intact. Lids and lashes normal. Conjunctiva and sclera are not injected. Cornea within normal limits. Periorbital areas with no swelling, redness, or edema. ENT: Nares patent. No nasal discharge, no septal abnormalities noted. Tympanic membranes are normal and external auditory canals are clear. Oropharynx with no redness, swelling, or masses, exudates, or evidence of obstruction, uvula midline. Mucous membranes moist. Neck: Trachea midline, no thyromegaly or masses palpated, and no cervical lymphadenopathy. Supple, full range of motion without nuchal rigidity, or vertebral point tenderness. Chest/axilla: Normal chest wall appearance and motion. Nontender with no deformity. No lesions are appreciated. Cardiovascular: Regular rate and rhythm with a normal S1 and S2. No gallops, murmurs, or rubs. Normal PMI, no JVD. No pulse deficits. Respiratory: Lungs have equal breath sounds bilaterally, clear to auscultation and percussion. No rales, rhonchi or wheezes noted. No increased work of breathing, no retractions or nasal flaring. Abdomen/GI: Soft, with normal bowel sounds. No distension or tympany. No guarding or rebound. Positive diffuse tenderness. Back: No spinal tenderness. No costovertebral tenderness. Skin: Warm, dry with normal turgor. Normal color with no rashes, no lesions, and no evidence of cellulitis. MS/ Extremity: Pulses equal, no cyanosis. Neurovascular intact. Full, normal range of motion. Neuro: Awake and alert, GCS 15, oriented to person, place, time, and situation. Cranial nerves II-XII grossly intact. Motor strength 5/5 in all extremities. Sensory grossly intact. Psych: Awake, alert, with orientation to person, place and time. Behavior, mood, and affect are within normal limits Vital Signs: 05:36 BP 127 / 85; Pulse 83; Resp 18; Temp 98.2(O); Pulse Ox 99% on R/A; Weight 68.04 kg; oe Height 5 ft. 5 in. ; Pain 10/10; 07:02 BP 127 / 86; Pulse 80; Resp 18; Temp 98.3(O); Pulse Ox 99% on R/A; rs5 08:00 BP 125 / 82; Pulse 77; Resp 18; Pulse Ox 99% on R/A; rs5 05:36 Body Mass Index 24.96 (68.04 kg, 165.1 cm) oe 05:36 Pain Scale: Adult oe MDM: 05:39 Patient medically screened. sp4 07:11 Differential Diagnosis altered mental status, sepsis, flu. Data reviewed: vital signs, sp4 nurses notes, EMS record, lab test result(s), radiologic studies, CT scan. Transition of care: After a detail discussion of the patient's case, care is transferred to Wilver Conti MD. ED course: Patient care was transferred . 07:47 Counseling: I had a detailed discussion with the patient and/or guardian regarding the rn historical points, exam findings, and any diagnostic results supporting the discharge/admit diagnosis, lab results, radiology results, the need for outpatient follow up, to return to the emergency department if symptoms worsen or persist or if there are any questions or concerns that arise at home. Special discussion: Based on the patient's Hx, exam, and Dx evaluation, there is no indication for emergent surgery or inpatient Tx. It is understood by the patient/guardian that if the Sx's persist or worsen they need to return immediately for re-evaluation. I discussed with the patient/guardian in detail that at this point there is no indication for admission to the hospital. It is understood, however, that if the symptoms persist or worsen the patient needs to return immediately for re-evaluation. ED course: Signed out to me by Dr. Irby pending CT abdomen. Plan was to discharge if CT abdomen was negative for just showed signs of enteritis. Patient is sleeping and no longer vomiting. Will discharge home with as needed Zofran. 11/07 05:37 Order name: CBC with Diff sp4 11/07 05:37 Order name: CMP; Complete Time: 06:17 sp4 11/07 05:37 Order name: Lipase; Complete Time: 06:17 sp4 11/07 06:01 Order name: CBC Smear Scan EDMS 11/07 05:37 Order name: CT Abd/Pelvis - IV Contrast Only; Complete Time: 07:25 sp4 11/07 05:37 Order name: IV Saline Lock; Complete Time: 06:03 sp4 11/07 05:37 Order name: Labs collected and sent; Complete Time: 05:56 sp4 Administered Medications: 06:03 Drug: NS 0.9% IV 1000 ml IV at 1 bolus Per protocol; 1000 mL bolus Route: IV; Rate: 1 jw7 bolus; Site: right antecubital; 07:02 Follow up: Response: No adverse reaction rs5 06:03 Drug: Famotidine IVP 20 mg IVP once; dilute with 10 mL 0.9% NaCl; give over 2 minutes jw7 Route: IVP; Site: right antecubital; 06:04 Drug: TORadol - Ketorolac IVP 30 mg IVP once Route: IVP; Site: right antecubital; jw7 07:02 Follow up: Response: No adverse reaction; Pain is decreased rs5 Disposition Summary: 11/07/23 07:50 Discharge Ordered Notes: Location: Home rn Problem: new rn Symptoms: have improved rn Condition: Stable rn Diagnosis - Vomiting, unspecified rn - Diarrhea, unspecified rn Followup: rn - With: Private Physician - When: As needed - Reason: Recheck today's complaints, Re-evaluation by your physician Discharge Instructions: - Discharge Summary Sheet rn - Diarrhea, Adult rn - Nausea and Vomiting, Adult rn Forms: - Medication Reconciliation Form rn - Thank You Letter rn - Antibiotic recruitment intern - Prescription Opioid Use rn - Patient Portal Instructions rn - Leadership Thank You Letter rn Prescriptions: - ondansetron 4 mg Oral Tablet,disintegrating - take 1 tablet ORAL route every 8 hours As needed; 12 tablet; Refills: 0, rn Product Selection Permitted Signatures: Dispatcher [employer] Wilver Bejarano MD MD rn Waits, Jodi, RN RN jw7 Jerome Irby MD MD sp4 Santos Thomas RN rs5
--- NOTE | 2023-11-07 07:51 | ER ---
Nurse's Notes [facility] Name: Perfecto Murphy Age: 28 yrs Sex: Male : 1995 Arrival Date: 11/07/2023 Time: 05:32 Bed 14 Private MD: Diagnosis: Vomiting, unspecified;Diarrhea, unspecified Presentation: 11/07 05:40 Chief complaint: Patient states: "I started having abdominal pain yesterday afternoon jw7 around 7pm, with non-stop nausea and vomiting. I took my temperature at home and it was 103.". Coronavirus screen: At this time, the client does not indicate any symptoms associated with coronavirus-19. Ebola Screen: No symptoms or risks identified at this time. Initial Sepsis Screen: Does the patient meet any 2 criteria? No. Patient's initial sepsis screen is negative. Does the patient have a suspected source of infection? No. Patient's initial sepsis screen is negative. Risk Assessment: Do you want to hurt yourself or someone else? Patient reports no desire to harm self or others. Onset of symptoms was November 06, 2023 at 19:00. Care prior to arrival: Medication(s) given: zofran 4 mg, IV initiated. 20 GA, in the right antecubital area. 05:40 Method Of Arrival: EMS: [facility] 05:40 Acuity: SHERRI 3 jw7 Triage Assessment: 05:40 General: Appears in no apparent distress. comfortable, Behavior is calm, cooperative. jw7 Pain: Complains of pain in abdomen Pain does not radiate. Pain currently is 10 out of 10 on a pain scale. Quality of pain is described as sharp, stabbing, Pain began 1 day ago. Is continuous. EENT: No deficits noted. No signs and/or symptoms were reported regarding the EENT system. Neuro: Level of Consciousness is awake, alert, obeys commands, Oriented to person, place, time, situation. Cardiovascular: Capillary refill < 3 seconds Clubbing of nail beds is absent JVD is absent Patient's skin is warm and dry. Respiratory: Airway is patent Trachea midline Respiratory effort is even, unlabored, Respiratory pattern is regular, symmetrical. GI: Abdomen is flat, non-distended, Bowel sounds present X 4 quads. Abd is soft X 4 quads Abdomen is tender to palpation X 4 quads. : No deficits noted. No signs and/or symptoms were reported regarding the genitourinary system. Derm: Skin is intact, is healthy with good turgor, Skin is dry, Skin is normal, Skin temperature is warm. Musculoskeletal: Circulation, motion, and sensation intact. Range of motion: intact in all extremities. Historical: - Allergies: 05:59 No Known Allergies; jw7 - Home Meds: 05:59 None [Active]; jw7 - PMHx: 05:59 Anxiety; jw7 - PSHx: 05:59 None; jw7 - Immunization history:: Adult Immunizations up to date, Client reports having NOT received the Covid vaccine. Last tetanus immunization: unknown, Flu vaccine is not up to date. - Social history:: Smoking status: Patient reports the use of cigarette tobacco products, denies chronic smoking, but will smoke occasionally, Patient uses alcohol, occasionally. Patient/guardian denies using street drugs, IV drugs. - Family history:: not pertinent. Screenin:40 [facility] ED Fall Risk Assessment (Adult) History of falling in the last 3 months, jw7 including since admission No falls in past 3 months (0 pts) Score/Fall Risk Level 0 - 2 = Low Risk Oriented to surroundings, Maintained a safe environment, Educated pt \\T\\ family on fall prevention, incl call for assistance when getting out of bed. Abuse screen: Denies threats or abuse. Denies injuries from another. Nutritional screening: No deficits noted. Tuberculosis screening: No symptoms or risk factors identified. Assessment: 05:40 General: See Triage Assessment. jw7 07:01 General: Appears in no apparent distress. comfortable, Behavior is calm, cooperative. rs5 Pain: Denies pain. Neuro: Level of Consciousness is awake, alert, obeys commands, Oriented to person, place, time, situation. Cardiovascular: Rhythm is regular. Respiratory: Airway is patent Respiratory effort is even, unlabored, Respiratory pattern is regular, symmetrical. GI: Abdomen is round non-distended, Bowel sounds present X 4 quads. Abd is soft and non tender X 4 quads. Patient currently denies nausea, vomiting. : No signs and/or symptoms were reported regarding the genitourinary system. EENT: No signs and/or symptoms were reported regarding the EENT system. Derm: Skin is intact, Skin is pink, warm \\T\\ dry. Musculoskeletal: Range of motion: intact in all extremities. 08:02 Reassessment: No changes from previously documented assessment. rs5 Vital Signs: 05:36 BP 127 / 85; Pulse 83; Resp 18; Temp 98.2(O); Pulse Ox 99% on R/A; Weight 68.04 kg; oe Height 5 ft. 5 in. ; Pain 10/10; 07:02 BP 127 / 86; Pulse 80; Resp 18; Temp 98.3(O); Pulse Ox 99% on R/A; rs5 08:00 BP 125 / 82; Pulse 77; Resp 18; Pulse Ox 99% on R/A; rs5 05:36 Body Mass Index 24.96 (68.04 kg, 165.1 cm) oe 05:36 Pain Scale: Adult oe ED Course: 05:35 Patient arrived in ED. jj6 05:35 Jerome Irby MD is Attending Physician. sp4 05:40 Maintain EMS IV. Dressing intact. Good blood return noted. Site clean \\T\\ dry. Gauge \\T\\ jw 7 site: 20G RAC. 05:40 Arm band placed on. jw7 05:40 Patient has correct armband on for positive identification. Bed in low position. Call jw7 light in reach. Side rails up X 1. 05:44 Kelsie Howard, RN is Primary Nurse. jw7 05:56 CBC with Diff Sent. oe 05:57 CMP Sent. oe 05:57 Lipase Sent. oe 05:59 Triage completed. jw7 06:50 CT Abd/Pelvis - IV Contrast Only In Process Unspecified. EDMS 07:08 Attending Physician role handed off by Jerome Irby MD rn 07:08 Wilver Conti MD is Attending Physician. rn 08:10 No provider procedures requiring assistance completed. IV discontinued, intact, rs5 bleeding controlled, No redness/swelling at site. Pressure dressing applied. Administered Medications: 06:03 Drug: NS 0.9% IV 1000 ml IV at 1 bolus Per protocol; 1000 mL bolus Route: IV; Rate: 1 jw7 bolus; Site: right antecubital; 07:02 Follow up: Response: No adverse reaction rs5 06:03 Drug: Famotidine IVP 20 mg IVP once; dilute with 10 mL 0.9% NaCl; give over 2 minutes jw7 Route: IVP; Site: right antecubital; 06:04 Drug: TORadol - Ketorolac IVP 30 mg IVP once Route: IVP; Site: right antecubital; jw7 07:02 Follow up: Response: No adverse reaction; Pain is decreased rs5 Medication: 08:10 VIS not applicable for this client. rs5 Outcome: 07:50 Discharge ordered by . rn 08:10 Discharged to home ambulatory, rs5 08:10 Condition: stable 08:10 Discharge instructions given to patient, Instructed on discharge instructions, follow up and referral plans. medication usage, Demonstrated understanding of instructions, follow-up care, medications, Prescriptions given X 1, 08:12 Patient left the ED. rs5 Signatures: Dispatcher [employer] EDMS Wilver Conti MD MD rn Espinosa, [place] oe Jeffries, Jennifer jj6 Kelsie Howard RN RN jw7 Santos Thomas RN RN rs5 Jerome Irby MD MD sp4
[2023-11-07 08:21] LABS: Blood Morphology Comment NOTED (NOT SEEN); Platelet Estimate ADEQ; White Blood Cell Scan OK (OK)
[2023-11-07 08:22] LABS: Stomatocytes 2+
[2023-11-07 14:25] VITALS: BP 127/85; TEMP 98.2; O2SAT 99
== END ==
LOC: ER 05:32
DX: R11.10 Vomiting, unspecified (principal); R19.7 Diarrhea, unspecified
CPT/HCPCS: 36415; 74177; 80053; 83690; 85025; J7030; Q9967